=== PATIENT | male | born 1980 | race Hispanic/Latino ===

== ENCOUNTER 2024-11-30 18:19 | Emergency (ER) | payer OTHER ==
--- OUTSIDE RECORDS SUMMARY | 2024-11-30 18:41 | XMS REPORT | Continuity of Care Document ---
Author Name Unknown Address [address] [facility]. [address] [place] [address] [facility] thconnect Address [address] [facility]. [address] [place] [address] Care Team Providers Care Plaster Tender Name Role Phone DEVORA YEH Primary Care Physician Devora Kelley Attending Clinician Unavailable RADIOLOGY Attending Clinician Unavailable Radiology Attending Clinician Unavailable Doctor Unassigned, Heath Attending Clinician U LOI Daniels Attending Clinician Unavailable NOE EDWARDS Admitting Clinician Unavail able Payers Payer Name Policy Type Policy Number Effective Date Expirati on Date Source [facility] DUAL COMP HMO D SNP [id number] 2023 00:00:00 [facility] [place] [id number] [facility] MEDICARE COMPLETE CHOICE [id number] 2019 00:00:00 MEDICARE WILLIAM SALAZAR [id number] [facility] MEDICARE SOLUTIONS C1 [id number] [facility] Problems Condition Name Condition Details Condition Category Status Onset Date Resolution Date Last Treatment Date Treating Clinician Comments Source Kidney stone Kidney stones Problem Active [facility] [id number] Vitamin D deficiency Problem Active [facility] [id number] Abnormal x-ray Problem Active [facility] [id number] Elevated serum globulin level Problem Active [facility] [id number] Abnormal liver function test Problem Active [facility] 93533710 Proteinuri a, unspecifie d type Problem Active [facility] [id number] Tachycardi a Problem Active [facility] 292742807 Fatty liver Problem Active [facility] [id number] Hypertensi on, unspecifie d type Problem Active [facility] 30504801 Aggressive behavior Problem Active [facility] 83568815 Snoring Problem Active [facility] [id number] Morbid obesity Problem Active [facility] 10381654 Elevated serum protein level Problem Active [facility] [id number] Body mass index (BMI) of 40.0-44.9 in adult Problem Active [facility] 151273086 HDL deficiency Problem Active [facility] [id number] Abnormal renal function test Problem Active [facility] 31554963 Skin lesions Problem Active [facility] [id number] Elevated liver enzymes Problem Active [facility] 64258151 Essential hypertensi on Problem Active [facility] [id number] Obesity (BMI 30-39.9) Problem Active [facility] 29217777 Hyperlipid emia, unspecifie d hyperlipid emia type Problem Active [facility] [id number] Low testostero ne level in male Problem Active [facility] 469922636 Increased ammonia level Problem Active [facility] [id number] Mental retardatio n Problem Active [facility] 28223400 Constipati on, unspecifie d constipati on type Problem Active [facility] [id number] History of nephrolith iasis Problem Active [facility] 019391981 Low back pain Problem Active [facility] [id number] Other microscopi c hematuria Problem Active [facility] 14211638 Other chronic pain Problem Active [facility] Allergies, Adverse Reactions, Alerts Allergy Name Allergy Type Status Severity Reaction(s) Onset Date Inactive Date Treating Clinician Comments Source NO KNOWN ALLERGIE S Drug Class Active [facility] Social History Social Habit Start Date Stop Date Quantity Comments Source History of Tobacco Use Never Smoker [facility] Sex Assigned At 1980 00:00:00 1980 00:00:00 [facility] Smoking Status Start Date Stop Date Source Tobacco smoking consumption unknown [facility] Never Smoker [facility] Medications Ordered Medication Name Filled Medication Name Start Date Stop Date Current Medication? Ordering Clinician Indication Dosage Frequency Signature (SIG) Comments Components Source cetirizine 10 mg tablet 2023-10 00:00: 00 Yes 1mg Brian Clayton Flonase Allergy Relief 50 mcg/actuati on nasal spray,suspe nsion 2023-10 00:00: 00 Yes 12mcg/a ctuatio n Brian Clayton Invega Sustenna 117 mg/0.75 mL intramuscul ar syringe 2023-10 00:00: 00 Yes mg/0.75 mL Brian Clayton Wellbutrin XL 300 mg 24 hr tablet, extended release 2023-10 00:00: 00 Yes 1mg Brian Clayton Trileptal 300 mg tablet 2023-10 00:00: 00 Yes 1mg Brian Clayton trazodone 100 mg tablet 2023-10 00:00: 00 Yes 2mg Brian Clayton Invega Sustenna 117 mg/0.75 mL intramuscul ar syringe 2023-10 00:00: 00 Yes mg/0.75 mL Brian Clayton Wellbutrin XL 300 mg 24 hr tablet, extended release 2023-10 00:00: 00 Yes 1mg Brian Clayton Trileptal 300 mg tablet 2023-10 00:00: 00 Yes 1mg Brian Clayton trazodone 100 mg tablet 2023-10 00:00: 00 Yes 2mg Brian Clayton Invega Sustenna 117 mg/0.75 mL intramuscul ar syringe 1 0-10 00:00: 00 Yes mg/0.75 mL Brian Clayton Wellbutrin XL 300 mg 24 hr tablet, extended release 1 0-10 00:00: 00 Yes 1mg Brian Clayton Trileptal 300 mg tablet 2023-10 0-10 00:00: 00 Yes 1mg Brian Clayton trazodone 100 mg tablet 2023-10 0-10 00:00: 00 Yes 2mg Brian Julesega Sustenna 117 mg/0.75 mL intramuscul ar syringe 0 9-13 00:00: 00 Yes mg/0.75 mL Brian Clayton Wellbutrin XL 300 mg 24 hr tablet, extended release 0 9-13 00:00: 00 Yes 1mg Brian Clayton Trileptal 300 mg tablet 0 9-13 00:00: 00 Yes 1mg Brian Clayton trazodone 100 mg tablet 0 9-13 00:00: 00 Yes 2mg Brian Clayton carvedilol 3.125 mg tablet 0 8-28 00:00: 00 Yes 1mg Biran Clayton gemfibrozil 600 mg tablet 0 8-28 00:00: 00 Yes 1mg Brian Clayton enalapril maleate 10 mg tablet 0 8-19 00:00: 00 Yes 1mg Brian Clayton Wellbutrin XL 300 mg 24 hr tablet, extended release 0 8-16 00:00: 00 Yes 1mg Brian Clayton Trileptal 300 mg tablet 0 8-16 00:00: 00 Yes 1mg Brian Clayton trazodone 150 mg tablet 2023-0 8-16 00:00: 00 Yes 1mg Brian Clayton Invega Sustenna 117 mg/0.75 mL intramuscul ar syringe 2023-0 8-16 00:00: 00 Yes 1mg/0.7 5 mL Brian Clayton pravastatin 40 mg tablet 2023-0 7-30 00:00: 00 Yes 1mg Brian Clayton Wellbutrin XL 300 mg 24 hr tablet, extended release 0 7-23 00:00: 00 Yes 1mg Brian Clayton Trileptal 300 mg tablet 2023-0 7- 00:00: 00 Yes 1mg Brian Clayton trazodone 150 mg tablet 2023-0 - 00:00: 00 Yes 1mg Brian Clayton Invega Sustenna 117 mg/0.75 mL intramuscul ar syringe 2023-0 - 00:00: 00 Yes 1mg/0.7 5 mL Brian Clayton Wellbutrin XL 300 mg 24 hr tablet, extended release 0 - 00:00: 00 Yes 1mg Brian Clayton Trileptal 300 mg tablet 2023-0 -17 00:00: 00 Yes 1mg Brian Clayton trazodone 150 mg tablet 2023-0 - 00:00: 00 Yes 1mg Brian Clayton tamsulosin 0.4 mg capsule 0 - 00:00: 00 Yes 1mg Brian Clayton Invega Sustenna 156 mg/mL intramuscul ar syringe 2023-0 -25 00:00: 00 Yes 1mg/mL Brian Clayton pravastatin 40 mg tablet 0 -19 00:00: 00 Yes 1mg Brian Clayton Wellbutrin XL 300 mg 24 hr tablet, extended release 2023-0 -18 00:00: 00 Yes 1mg Brian Clayton Trileptal 300 mg tablet 2023-0 6-18 00:00: 00 Yes 1mg Brian Clayton trazodone 150 mg tablet 2023-0 6-18 00:00: 00 Yes 1mg Brian Clayton Invega Sustenna 234 mg/1.5 mL intramuscul ar syringe 2023-0 6-18 00:00: 00 Yes 1mg/1.5 mL Brian Clayton Wellbutrin XL 300 mg 24 hr tablet, extended release 2023-0 -15 00:00: 00 Yes 1mg Brian Clayton Invega 6 mg tablet,exte nded release 2023-0 5-15 00:00: 00 Yes 1mg Brian Clayton trazodone 150 mg tablet 2023-0 5-15 00:00: 00 Yes 1mg Brian Clayton Trileptal 300 mg tablet 2023-0 5-15 00:00: 00 Yes 1mg Brian Clayton trazodone 150 mg tablet 0 5-11 00:00: 00 Yes 1mg Brian Clayton Invega 6 mg tablet,exte nded release 0 - 00:00: 00 Yes 1mg Brian Clayton Wellbutrin XL 300 mg 24 hr tablet, extended release 0 - 00:00: 00 Yes 1mg Brian Clayton Trileptal 300 mg tablet 0 - 00:00: 00 Yes 1mg Brian Clayton trazodone 150 mg tablet 0 - 00:00: 00 Yes 1mg Brian Clayton PANTOPRAZOL E SODIUM 20 MG TBEC 0 - 00:00: 00 Yes Brian Clayton fenofibrate 160 mg tablet 0 - 00:00: 00 Yes 1mg Brian Clayton enalapril maleate 10 mg tablet 0 - 00:00: 00 Yes 1mg Brian Clayton tamsulosin 0.4 mg capsule 0 - 00:00: 00 Yes 1mg Brian Clayton Invega 6 mg tablet,exte nded release 0 - 00:00: 00 Yes 1mg Brian Clayton Wellbutrin XL 300 mg 24 hr tablet, extended release 0 - 00:00: 00 Yes 1mg Brian Clayton Trileptal 300 mg tablet 0 - 00:00: 00 Yes 1mg Brian Clayton trazodone 150 mg tablet 0 - 00:00: 00 Yes 1mg Brian Clayton OXCARBAZEPI NE 300 MG TABS 0 - 00:00: 00 Yes 300 Brian Clayton pravastatin 40 mg tablet 0 3-09 00:00: 00 Yes 1mg Brian Clayton AMOXICILLIN 500 MG 0 3-05 00:00: 00 Yes Brian Clayton CLARITHROMY LIVAN 500 MG TABS 0 3-05 00:00: 00 Yes Brian Clayton enalapril maleate 10 mg tablet 0 2-29 00:00: 00 Yes mg Brian Clayton fenofibrate 160 mg tablet 00:00: 00 Yes mg Brian Clayton tamsulosin 0.4 mg capsule 00:00: 00 Yes mg Brian Clayton TAKE 1 TABLET BY MOUTH EVERY DAY 30 MINUTES BEFORE BREAKFAST FOR 1ST MEAL OF DAY 12-26 00:00: 00 Yes Brian Clayton BUPROPION HYDROCHLORI DE ER (XL) 300 MG TB24 12-20 00:00: 00 Yes Brian Clayton PALIPERIDON E ER 6 MG TB24 12-20 00:00: 00 Yes Brian Clayton TAKE 1 TABLET TWICE DAILY. 12-20 00:00: 00 03-14 00:00 :00 No 300 Brian Clayton TAKE 1 TABLET AT BEDTIME. 12-20 00:00: 00 03-14 00:00 :00 No 150 Brian Clayton TAKE 1 TABLET DAILY. 12-20 00:00: 00 03-14 00:00 :00 No 300 Brian Clayton TAKE 1 TABLET DAILY. 12-20 00:00: 00 03-14 00:00 :00 No 6 Brian Clayton TAKE 1 TABLET DAILY. 11-18 00:00: 00 03-14 00:00 :00 No 6 Brian Clayton TAKE 1 TABLET AT BEDTIME. 11-18 00:00: 00 03-14 00:00 :00 No 150 Brian Clayton TAKE 1 TABLET DAILY. 11-18 00:00: 00 03-14 00:00 :00 No 300 Brian Clayton TAKE 1 TABLET TWICE DAILY. 11-18 00:00: 00 03-14 00:00 :00 No 300 Brian Clayton TAKE 1 TABLET BY MOUTH DAILY - 00:00: 00 03-14 00:00 :00 No 10 Brianjose m Clayton OXCARBAZEPI NE 300 MG TABS 2022-10 00:00: 00 Yes Brian Clayton TAKE 1 TABLET TWICE DAILY. 2022-10 00:00: 00 03-14 00:00 :00 No 300 Brian F Forrest TAKE 1 TABLET DAILY. 2022-10 00:00: 00 03-14 00:00 :00 No 6 Brian F Forrest TAKE 1 TABLET DAILY. 2022-10 00:00: 00 03-14 00:00 :00 No 300 Brian F Forrest TAKE 1 TABLET AT BEDTIME. 2022-10 00:00: 00 03-14 00:00 :00 No 150 Brian F Forrest PALIPERIDON E ER 6 MG TB24 2022-10 00:00: 00 Yes Brian F Forrest TAKE 1 TABLET DAILY. 2022-10 00:00: 00 03-14 00:00 :00 No 300 Brian F Forrest TAKE 1 TABLET DAILY. 2022-10 00:00: 00 03-14 00:00 :00 No 6 Brian F Forrest TAKE 1 TABLET AT BEDTIME. 2022-10 00:00: 00 03-14 00:00 :00 No 150 Brian F Forrest TAKE 1 TABLET TWICE DAILY. 2022-10 00:00: 00 03-14 00:00 :00 No 300 Brian F Forrest APPLY 1 GM ON THE SKIN THREE TIMES A DAY NEEDED FOR PAIN 2022-10 00:00: 00 03-14 00:00 :00 No 1 Brian F Forrest APPLY SPARINGLY TO THE AFFECTED AREA(S) TWICE DAILY. 2022-10 00:00: 00 03-14 00:00 :00 No 3 Brian F Forrest pravastatin 40 mg tablet 2022-10 00:00: 00 Yes mg Brian F Forrest TAKE 1 TABLET BY MOUTH DAILY 2022-10 00:00: 00 03-14 00:00 :00 No 160 Brian F Forrest TAKE 1 CAPSULE BY MOUTH ONCE DAILY 2022-10 00:00: 00 03-14 00:00 :00 No 4 Brian F Forrest TAKE 1 TABLET BY MOUTH DAILY 2022-10 00:00: 00 03-14 00:00 :00 No 10 Brian F Forrest TAKE 1 TABLET BY MOUTH DAILY 2022-10 00:00: 00 03-14 00:00 :00 No 10 Brian Clayton TAKE 1 TABLET AT BEDTIME. 2022-10 00:00: 00 03-14 00:00 :00 No 150 Brian Clayton TAKE 1 TABLET TWICE DAILY. 2022-10 00:00: 00 03-14 00:00 :00 No 300 Brian Clayton INJECT 0.75 ML Q MONTHLY 2022-10 00:00: 00 03-14 00:00 :00 No [id number] Brian Clayton TAKE 1 TABLET DAILY. 2022-10 00:00: 00 03-14 00:00 :00 No 300 Brian Clayton TAKE 1 TABLET DAILY. 2022-10 00:00: 00 03-14 00:00 :00 No 75 Brian Clayton INJECT 1.5 ML INTRAMUSCUL CATRINA ONCE EVERY 4 WEEKS 2022-10 00:00: 00 03-14 00:00 :00 No [id number] Brian Clayton TAKE 1 TABLET BY MOUTH DAILY 2022-10 00:00: 00 03-14 00:00 :00 No 10 Brian Clayton INJECT 1.5 ML INTRAMUSCUL CATRINA ONCE EVERY 4 WEEKS 2022-10 00:00: 00 Yes [id number] Brian Clayton TAKE 1 TABLET TWICE DAILY. 2022-10 0 00:00: 00 Yes 300 Brian Clayton OXCARBAZEPI NE 300 MG TABS 2022-10 0 00:00: 00 Yes Brian Clayton BUPROPION HYDROCHLORI DE ER (XL) 300 MG TB24 2022-10 0 00:00: 00 Yes Brian Clayton TAKE 1 TABLET AT BEDTIME. 2022-10 0 00:00: 00 03-14 00:00 :00 No 150 Brian Clayton TAKE 1 TABLET DAILY. 2022-10 0 00:00: 00 03-14 00:00 :00 No 300 Brian Clayton IBUPROFEN 600 MG TABS 2022-10 0-06 00:00: 00 Yes Brian Clayton TAKE 1 TABLET TWICE A DAY NEEDED 2023-1 0-06 00:00: 00 03-14 00:00 :00 No 500 Brian Clayton OXCARBAZEPI NE 300 MG TABS 07-27 00:00: 00 Yes Brian Clayton BUPROPION HYDROCHLORI DE ER (XL) 300 MG TB24 07-27 00:00: 00 Yes Brian Clayton TAKE 1 TABLET AT BEDTIME. 07-27 00:00: 00 03-14 00:00 :00 No 150 Brian Clayton TAKE 1 TABLET TWICE DAILY. 07-27 00:00: 00 03-14 00:00 :00 No 300 Brian Clayton TAKE 1 TABLET DAILY. 07-27 00:00: 00 03-14 00:00 :00 No 300 Brian Clayton INJECT 1.5 ML INTRAMUSCUL CATRINA ONCE EVERY 4 WEEKS 07-20 00:00: 00 03-14 00:00 :00 No [id number] Brian Clayton TAKE 1 TABLET BY MOUTH DAILY 07-11 00:00: 00 03-14 00:00 :00 No 10 Brian Clayton TAKE 1 CAPSULE BY MOUTH ONCE DAILY 06-28 00:00: 00 03-14 00:00 :00 No 4 Brian Clayton TAKE 1 TABLET BY MOUTH AT BEDTIME 06-28 00:00: 00 03-14 00:00 :00 No 40 Brian Clayton TAKE 1 TABLET BY MOUTH DAILY 06-22 00:00: 00 03-14 00:00 :00 No 160 Brian Clayton BUPROPION HYDROCHLORI DE ER (XL) 300 MG TB24 06-14 00:00: 00 Yes Brian Clayton TAKE 1 TABLET AT BEDTIME. 06-14 00:00: 00 03-14 00:00 :00 No 100 Brian Clayton TAKE 1 TABLET DAILY. 06-14 00:00: 00 03-14 00:00 :00 No 300 Brian Clayton INJECT 1.5 ML INTRAMUSCUL CATRINA ONCE EVERY 4 WEEKS 06-14 00:00: 00 03-14 00:00 :00 No [id number] Brian Clayton BUPROPION HYDROCHLORI DE ER (XL) 300 MG TB24 05-13 00:00: 00 Yes Brian Clayton TAKE 1 TABLET DAILY. 05-13 00:00: 00 03-14 00:00 :00 No 300 Brian Clayton TAKE 1 TABLET AT BEDTIME. 05-13 00:00: 00 03-14 00:00 :00 No 100 Brianjose m Clayton INJECT 1.5 ML INTRAMUSCUL CATRINA ONCE EVERY 4 WEEKS 05-13 00:00: 00 03-14 00:00 :00 No [id number] Brian Clayton BUPROPION HYDROCHLORI DE ER (XL) 300 MG TB24 04-15 00:00: 00 Yes Brian Clayton TAKE 1 TABLET DAILY. 04-15 00:00: 00 03-14 00:00 :00 No 300 Brian Clayton TAKE 1 TABLET AT BEDTIME. 04-15 00:00: 00 03-14 00:00 :00 No 100 Brian Clayton INJECT 1.5 ML INTRAMUSCUL CATRINA ONCE EVERY 4 WEEKS 04-15 00:00: 00 03-14 00:00 :00 No [id number] Brian Clayton TAKE 1 CAPSULE TWICE DAILY. 03-28 00:00: 00 03-14 00:00 :00 No 300 Brian Clayton TAKE 1 TABLET DAILY. 03-25 00:00: 00 03-14 00:00 :00 No 10 Brian Clayton TAKE 1 CAPSULE BY MOUTH ONCE DAILY 03-25 00:00: 00 03-14 00:00 :00 No 4 Brian Zeina Clayton TAKE 1 TABLET BID NEEDED 03-18 00:00: 00 03-14 00:00 :00 No 600 Brian Zeina Clayton BUPROPION HYDROCHLORI DE ER (XL) 300 MG TB24 03-16 00:00: 00 Yes Brian Zeina Forrest TAKE 1 TABLET DAILY. 03-16 00:00: 00 03-14 00:00 :00 No 300 Brian Clayton TAKE 1 TABLET AT BEDTIME. 03-16 00:00: 00 03-14 00:00 :00 No 100 Brian Clayton INJECT 1.5 ML INTRAMUSCUL CATRINA ONCE EVERY 4 WEEKS 03-16 00:00: 00 03-14 00:00 :00 No [id number] Brian Clayton TAKE 1 TABLET BY MOUTH AT BEDTIME 03-15 00:00: 00 03-14 00:00 :00 No 40 Brian Clayton TAKE 1 TABLET BY MOUTH DAILY 03-15 00:00: 00 03-14 00:00 :00 No 160 Brian Clayton TAKE 1 TABLET DAILY. 03-15 00:00: 00 03-14 00:00 :00 No 10 Brian Clayton BUPROPION HYDROCHLORI DE ER (XL) 300 MG TB24 03-14 00:00: 00 Yes Brian Clayton TAKE 1 TABLET AT BEDTIME. 03-14 00:00: 00 03-14 00:00 :00 No 100 Brian Clayton TAKE 1 TABLET DAILY. 03-14 00:00: 00 03-14 00:00 :00 No 300 Brian Clayton FENOFIBRATE 160 MG TABS 03-14 00:00: 00 03-14 00:00 :00 No Brian Pastrana Forrest BUPROPION HYDROCHLORI DE ER (XL) 300 MG TB24 02-16 00:00: 00 Yes Brian Clayton INJECT 1.5 ML INTRAMUSCUL CATRINA ONCE EVERY 4 WEEKS 02-16 00:00: 00 03-14 00:00 :00 No [id number] Brian Clayton TAKE 1 TABLET DAILY. 02-16 00:00: 00 03-14 00:00 :00 No 300 Brian Clayton TRAZODONE HYDROCHLORI DE 100 MG TABS 02-16 00:00: 00 03-14 00:00 :00 No Brian Pastrana Forrest INJECT 1 ML INTRAMUSCUL AR ONCE A MONTH 3-21 00:00: 00 03-14 00:00 :00 No 156 Brian F Forrest 1 ML INTRAMUSCUL AR ONCE 3-14 00:00: 00 03-14 00:00 :00 No [id number] Brian F Forrest TAKE 1 TABLET DAILY. 3-10 00:00: 00 03-14 00:00 :00 No 10 Brian F Forrest TAKE 1 TABLET EVERY MORNING. 3-10 00:00: 00 03-14 00:00 :00 No 6 Brian F Forrest PALIPERIDON E ER 6 MG TB24 3-10 00:00: 00 03-14 00:00 :00 No Brian F Forrest TAKE 1 TABLET DAILY. 2-21 00:00: 00 03-14 00:00 :00 No 10 Brian F Forrest TAKE 1 CAPSULE BY MOUTH ONCE DAILY 2- 00:00: 00 03-14 00:00 :00 No 4 Brian F Forrest TAKE 1 TABLET DAILY. 2-21 00:00: 00 03-14 00:00 :00 No 160 Brian F Forrest TAKE 1 TABLET BY MOUTH AT BEDTIME 2- 00:00: 00 03-14 00:00 :00 No 40 Brian F Forrest TAKE 1 TABLET AT BEDTIME. 2-17 00:00: 00 03-14 00:00 :00 No 100 Brian F Forrest TAKE 1 TABLET DAILY. 2-17 00:00: 00 03-14 00:00 :00 No 300 Brian F Forrest TAKE 1 TABLET BY MOUTH AT BEDTIME 1-25 00:00: 00 03-14 00:00 :00 No 40 Brian F Forrest TAKE 1 CAPSULE BY MOUTH ONCE DAILY 1-23 00:00: 00 03-14 00:00 :00 No 4 Brian F Forrest TAKE 1 TABLET DAILY. 1-10 00:00: 00 03-14 00:00 :00 No 300 Brian F Forrest LYBALVI 20-10 MG TABS 2021-10 2 00:00: 00 03-14 00:00 :00 No Brian Clayton TAKE 1 TABLET BY MOUTH EVERY DAY 2021-10 2 00:00: 00 03-14 00:00 :00 No Brian F Forrest TOPIRAMATE 50 MG TABS 2021-10 2 00:00: 00 03-14 00:00 :00 No Brian F Forrest PRAVASTATIN SODIUM 10 MG TABS 2021-10 2 00:00: 00 03-14 00:00 :00 No Brian Clayton TAKE 1 AND 1/2 TABLETS BY MOUTH AT BEDTIME 2021-10 2 00:00: 00 03-14 00:00 :00 No Brian Clayton PRAVASTATIN SODIUM 20 MG TABS 2021-10 2 00:00: 00 03-14 00:00 :00 No Brian Clayton USE DIRECTED 2021-10 2 00:00: 00 03-14 00:00 :00 No Brian F Forrest Dose Unknown 2021-10 2 00:00: 00 03-14 00:00 :00 No Brian Clayton TAKE 1 CAPSULE BY MOUTH ONCE DAILY 2021-10 00:00: 00 03-14 00:00 :00 No 4 Brian F Forrest Dose Unknown 2021-10 2 00:00: 00 03-14 00:00 :00 No Brianjose m Clayton Dose Unknown 2021-10 2 00:00: 00 03-14 00:00 :00 No Brian Clayton TAKE 1 TABLET DAILY. 2021-10 2 00:00: 00 03-14 00:00 :00 No 300 Brian Clayton TAKE 1 TABLET AT BEDTIME. 2021-10 2 00:00: 00 03-14 00:00 :00 No 100 Brian Clayton LYBALVI 20-10 MG TABS 2021-10 2 00:00: 00 03-14 00:00 :00 No Brian Clayton TAMSULOSIN HYDROCHLORI DE 0.4 MG CAPS 2021-10 1- 00:00: 00 03-14 00:00 :00 No Brian Clayton LYBALVI 20-10 MG TABS 2021-10 00:00: 00 03-14 00:00 :00 No Brian Clayton TRAZODONE HYDROCHLORI DE 100 MG TABS 2021-10 00:00: 00 03-14 00:00 :00 No Brian Clayton TRAZODONE HYDROCHLORI DE 100 MG TABS 2021-10 1 00:00: 00 03-14 00:00 :00 No Brian Clayton LYBALVI 20-10 MG TABS 2021-10 00:00: 00 03-14 00:00 :00 No Brian Clayton BUPROPION HYDROCHLORI DE ER (XL) 300 MG TB24 2021-10 1 00:00: 00 03-14 00:00 :00 No Brian Clayton ENALAPRIL MALEATE 10 MG TABS 2021-10 0-04 00:00: 00 03-14 00:00 :00 No Brian Clayton TRAZODONE HYDROCHLORI DE 100 MG TABS 2021-10 0-04 00:00: 00 03-14 00:00 :00 No Brian Clayton PRAVASTATIN SODIUM 40 MG TABS 2021-10 0-04 00:00: 00 03-14 00:00 :00 No Brian Clayton BUPROPION HYDROCHLORI DE ER (XL) 300 MG TB24 9-07 00:00: 00 03-14 00:00 :00 No Brian Pastrana Forrest PRAVASTATIN SODIUM 40 MG TABS 0 8-12 00:00: 00 Yes Brian Zeina Forrest PRAVASTATIN SODIUM 40 MG TABS 0 8-12 00:00: 00 No PRAVASTATIN SODIUM 40 MG TABS 2021-0 8-12 00:00: 00 No BUPROPION HYDROCHLORI DE ER (XL) 300 MG TB24 0 8-10 00:00: 00 Yes Brian Zeina Forrest TOPIRAMATE 25 MG TABS 2021-0 8-10 00:00: 00 Yes Brian Zeina Forrest Dose Unknown 2021-0 8-10 00:00: 00 No 300 &lt 2022-0 8-10 00:00: 00 No 25 Dose Unknown 2022-0 8-10 00:00: 00 No 300 &lt 2022-0 8-10 00:00: 00 No 25 Dose Unknown 2022-0 8-09 00:00: 00 Yes 100 Brian Pastrana Forrest Dose Unknown 2022-0 8- 00:00: 00 Yes 160 Brian F Forrest &lt 2022-0 8- 00:00: 00 Yes 10 Brian F Forrest Dose Unknown 2022-0 8- 00:00: 00 No 100 Dose Unknown 2022-0 8- 00:00: 00 No 160 &lt 2022-0 8- 00:00: 00 No 10 Dose Unknown 2022-0 8- 00:00: 00 No 100 Dose Unknown 2022-0 8- 00:00: 00 No 160 &lt 2022-0 8- 00:00: 00 No 10 BUPROPION HYDROCHLORI DE ER (XL) 300 MG TB24 2-0 8- 00:00: 00 05-15 00:00 :00 No Brian F Forrest &lt 2022-0 8- 00:00: 00 Yes 300 Brian F Forrest &lt 2022-0 8- 00:00: 00 Yes 25 Brian F Forrest &lt 2022-0 8- 00:00: 00 Yes 40 Brian F Forrest &lt 2022-0 8- 00:00: 00 No 300 &lt 2022-0 8- 00:00: 00 No 25 &lt 2022-0 8-08 00:00: 00 No 40 &lt 2022-0 8- 00:00: 00 No 300 &lt 2022-0 8- 00:00: 00 No 25 &lt 2022-0 8- 00:00: 00 No 40 Dose Unknown 2022-0 8-05 00:00: 00 Yes 160 Brian F Forrest &lt 2022-0 8-05 00:00: 00 Yes 25 Brian F Forrest Dose Unknown 2022-0 8- 00:00: 00 No 160 &lt 2022-0 8-05 00:00: 00 No 25 Dose Unknown 2022-0 8-05 00:00: 00 No 160 &lt 2022-0 8-05 00:00: 00 No 25 &lt 2022-0 7 00:00: 00 Yes 10 Brian Zeina Forrest Dose Unknown 2022-0 05-28 00:00: 00 Yes 160 Brian Pastrana Forrest &lt 2022-0 7 00:00: 00 Yes 100 Brian Pastrana Forrest &lt 2022-0 05-28 00:00: 00 No 10 Dose Unknown 2022-0 05-28 00:00: 00 No 160 &lt 2022-0 05-28 00:00: 00 No 100 &lt 2022-0 05-28 00:00: 00 No 10 Dose Unknown 2022-0 05-28 00:00: 00 No 160 &lt 2022-0 05-28 00:00: 00 No 100 &lt 2022-0 05-18 00:00: 00 Yes 300 Brian Pastrana Forrest &lt 2022-0 05-18 00:00: 00 No 300 &lt 2022-0 7 00:00: 00 No 300 Wellbutrin XL 300 mg 24 hr tablet, extended release 2-0 05-13 00:00: 00 Yes 1mg Brian Clayton trazodone 100 mg tablet 2-0 05-13 00:00: 00 Yes 1mg Brian Pastrana Forrest &lt 2022-0 05-13 00:00: 00 Yes 50 Brian Clayton Dose Unknown 2-0 05-13 00:00: 00 Yes 10 Brian Clayton Dose Unknown 2-0 05-13 00:00: 00 Yes 160 Brian Pastrana Forrest &lt 2022-0 05-13 00:00: 00 Yes 300 Brian Clayton Wellbutrin XL 300 mg 24 hr tablet, extended release 2-0 05-13 00:00: 00 No 1mg trazodone 100 mg tablet 2-0 05-13 00:00: 00 No 1mg &lt 2022-0 7 00:00: 00 No 50 Dose Unknown 2022-0 05-13 00:00: 00 No 10 &lt 2022-0 714 00:00: 00 No 100 Dose Unknown 2022-0 05-13 00:00: 00 No 160 &lt 2022-0 7 00:00: 00 No 300 Wellbutrin XL 300 mg 24 hr tablet, extended release 2-0 7-14 00:00: 00 No 1mg trazodone 100 mg tablet 2-0 7-14 00:00: 00 No 1mg &lt 2022-0 7-14 00:00: 00 No 50 Dose Unknown 2022-0 7-14 00:00: 00 No 10 &lt 2022-0 7-14 00:00: 00 No 100 Dose Unknown 2-0 7-14 00:00: 00 No 160 &lt 2022-0 7-14 00:00: 00 No 300 &lt 2022-0 7-13 00:00: 00 Yes Brian F Forrest &lt 2022-0 7-13 00:00: 00 Yes 100 Brian F Forrest &lt 2022-0 7-13 00:00: 00 Yes 10 Brian F Forrest &lt 2022-0 7-13 00:00: 00 Yes 300 Brian F Forrest &lt 2022-0 7-13 00:00: 00 Yes 160 Brian F Forrest &lt 2022-0 7-13 00:00: 00 Yes 10 Brian F Forrest &lt 2022-0 7-13 00:00: 00 Yes 25 Brian F Forrest &lt 2022-0 7-13 00:00: 00 No &lt 2022-0 7-13 00:00: 00 No 100 &lt 2022-0 7-13 00:00: 00 No 10 &lt 2022-0 7-13 00:00: 00 No 300 &lt 2022-0 7-13 00:00: 00 No 160 &lt 2022-0 7-13 00:00: 00 No 10 &lt 2022-0 7-13 00:00: 00 No 25 &lt 2022-0 7-13 00:00: 00 No &lt 2022-0 7-13 00:00: 00 No 100 &lt 2022-0 7-13 00:00: 00 No 10 &lt 2022-0 7-13 00:00: 00 No 300 &lt 2022-0 7-13 00:00: 00 No 160 &lt 2022-0 7-13 00:00: 00 No 10 &lt 2022-0 7-13 00:00: 00 No 25 fenofibrate 160 mg tablet 2-0 6-25 00:00: 00 Yes 1mg Brian F Forrest &lt 2022-0 6-25 00:00: 00 Yes Brian Clyaton fenofibrate 160 mg tablet 2021-0 04-24 00:00: 00 No 1mg &lt 2022-0 04-24 00:00: 00 No fenofibrate 160 mg tablet 2021-0 04-24 00:00: 00 No 1mg &lt 2022-0 04-24 00:00: 00 No enalapril maleate 10 mg tablet 2-0 04-21 00:00: 00 Yes 1mg Brian Clayton pravastatin 40 mg tablet 2021-0 04-21 00:00: 00 Yes 1mg Brian Clayton pravastatin 10 mg tablet 2021-0 04-21 00:00: 00 Yes 1mg Brian Clayton tamsulosin 0.4 mg capsule 2021-0 04-21 00:00: 00 Yes 1mg Brian Clayton &lt 2022-0 04-21 00:00: 00 Yes rBian Clayton enalapril maleate 10 mg tablet 2021-0 04-21 00:00: 00 No 1mg Dose Unknown 2021-0 04-21 00:00: 00 No pravastatin 10 mg tablet 2021-0 04-21 00:00: 00 No 1mg tamsulosin 0.4 mg capsule 2021-0 04-21 00:00: 00 No 1mg &lt 2022-0 04-21 00:00: 00 No enalapril maleate 10 mg tablet 0 04-21 00:00: 00 No 1mg Dose Unknown 2021-0 04-21 00:00: 00 No pravastatin 10 mg tablet 2-0 04-21 00:00: 00 No 1mg tamsulosin 0.4 mg capsule 0 04-21 00:00: 00 No 1mg &lt 2022-0 04-21 00:00: 00 No pravastatin 40 mg tablet 2-0 04-20 00:00: 00 Yes 1mg Brian Clayton &lt 2022-0 04-20 00:00: 00 Yes Brian Clayton &lt 2022-0 04-20 00:00: 00 Yes Brian Clayton &lt 2022-0 04-20 00:00: 00 Yes Brian Clayton Dose Unknown 2-0 04-20 00:00: 00 No &lt 2022-0 6-21 00:00: 00 No &lt 2022-0 6-21 00:00: 00 No &lt 2022-0 6-21 00:00: 00 No Dose Unknown 2-0 6-21 00:00: 00 No &lt 2022-0 6-21 00:00: 00 No &lt 2022-0 6-21 00:00: 00 No &lt 2022-0 6-21 00:00: 00 No Wellbutrin XL 300 mg 24 hr tablet, extended release 2-0 6-16 00:00: 00 Yes 1mg Brian Clayton trazodone 100 mg tablet 2-0 6-16 00:00: 00 Yes 1mg Brian Clayton Wellbutrin XL 300 mg 24 hr tablet, extended release 2-0 -16 00:00: 00 No 1mg trazodone 100 mg tablet 2-0 6-16 00:00: 00 No 1mg Wellbutrin XL 300 mg 24 hr tablet, extended release 2-0 -16 00:00: 00 No 1mg trazodone 100 mg tablet 2-0 6-16 00:00: 00 No 1mg enalapril maleate 10 mg tablet 2-0 6-05 00:00: 00 Yes 1mg Brian Clayton &lt 2022-0 6-05 00:00: 00 Yes Brian Clayton enalapril maleate 10 mg tablet 2021-0 6-05 00:00: 00 No 1mg &lt 2022-0 6-05 00:00: 00 No enalapril maleate 10 mg tablet 2-0 6-05 00:00: 00 No 1mg &lt 2022-0 6-05 00:00: 00 No enalapril maleate 10 mg tablet 2-0 6- 00:00: 00 Yes 1mg Brian Clayton enalapril maleate 10 mg tablet 2-0 6- 00:00: 00 No 1mg enalapril maleate 10 mg tablet 2-0 6- 00:00: 00 No 1mg Wellbutrin XL 300 mg 24 hr tablet, extended release 2-0 5-20 00:00: 00 Yes 1mg Brian Clayton Topamax 25 mg tablet 2022-0 5-20 00:00: 00 Yes 1mg Brian Clayton trazodone 100 mg tablet 0 5-20 00:00: 00 Yes 1mg Brian Clayton Wellbutrin XL 300 mg 24 hr tablet, extended release 0 -20 00:00: 00 No 1mg Topamax 25 mg tablet 0 5-20 00:00: 00 No 1mg trazodone 100 mg tablet 0 5-20 00:00: 00 No 1mg Wellbutrin XL 300 mg 24 hr tablet, extended release 0 -20 00:00: 00 No 1mg Topamax 25 mg tablet 0 5-20 00:00: 00 No 1mg trazodone 100 mg tablet 0 5-20 00:00: 00 No 1mg Wellbutrin XL 300 mg 24 hr tablet, extended release 0 4-05 00:00: 00 Yes 1mg Brian Clayton Topamax 25 mg tablet 2021-0 4-05 00:00: 00 Yes 1mg Brian Clayton trazodone 100 mg tablet 0 4-05 00:00: 00 Yes 1mg Brian Clayton Wellbutrin XL 300 mg 24 hr tablet, extended release 0 4-05 00:00: 00 No 1mg Topamax 25 mg tablet 0 4-05 00:00: 00 No 1mg trazodone 100 mg tablet 0 4-05 00:00: 00 No 1mg Wellbutrin XL 300 mg 24 hr tablet, extended release 2021-0 4-05 00:00: 00 No 1mg Topamax 25 mg tablet 0 4-05 00:00: 00 No 1mg trazodone 100 mg tablet 2021-0 4-05 00:00: 00 No 1mg BUPROPION HYDROCHLORI DE ER (XL) 300 MG TB24 2021-0 4-05 00:00: 00 05-15 00:00 :00 No Brian Clayton Topamax 25 mg tablet 0 3-11 00:00: 00 Yes 1mg Brian Clayton Dose Unknown 0 3-11 00:00: 00 Yes Brian Clayton Dose Unknown 0 3-11 00:00: 00 Yes Brian Clayton Dose Unknown 2022-0 3-11 00:00: 00 Yes Brian Clayton Topamax 25 mg tablet 2-0 3-11 00:00: 00 No 1mg Dose Unknown 2022-0 3-11 00:00: 00 No Dose Unknown 2022-0 3-11 00:00: 00 No Dose Unknown 2-0 3-11 00:00: 00 No Topamax 25 mg tablet 2-0 3-11 00:00: 00 No 1mg Dose Unknown 2-0 3-11 00:00: 00 No Dose Unknown 2022-0 3-11 00:00: 00 No Dose Unknown 2-0 3-11 00:00: 00 No TOPIRAMATE 25 MG TABS 2-0 3-11 00:00: 00 05-15 00:00 :00 No Brian Clayton enalapril maleate 10 mg tablet 2-0 2-21 00:00: 00 Yes 1mg Brian Clayton enalapril maleate 10 mg tablet 2-0 2-21 00:00: 00 No 1mg enalapril maleate 10 mg tablet 2-0 2-21 00:00: 00 No 1mg Dose Unknown 2-0 2-17 00:00: 00 Yes Brian Clayton Topamax 25 mg tablet 2-0 2-17 00:00: 00 Yes 1mg Brian Clayton Dose Unknown 2-0 2-17 00:00: 00 Yes Brian Clayton Dose Unknown 2-0 2-17 00:00: 00 No Topamax 25 mg tablet 2-0 2-17 00:00: 00 No 1mg Dose Unknown 2-0 2-17 00:00: 00 No Dose Unknown 2-0 2-17 00:00: 00 No Topamax 25 mg tablet 2022-0 2-17 00:00: 00 No 1mg Dose Unknown 2022-0 2-17 00:00: 00 No TOPIRAMATE 25 MG TABS 2-0 2-17 00:00: 00 05-15 00:00 :00 No Brian Clayton pravastatin 40 mg tablet 2-0 2-16 00:00: 00 Yes 1mg Brian Clayton Dose Unknown 2022-0 2-16 00:00: 00 No Dose Unknown 0 2-16 00:00: 00 No Dose Unknown 0 2-16 00:00: 00 03-14 00:00 :00 No 40 Brian Zeina Clayton Dose Unknown 2-16 00:00: 00 03-14 00:00 :00 No 40 Brian Zeina Clayton pravastatin 20 mg tablet 0 2- 00:00: 00 Yes 1mg Brian Clayton Wellbutrin XL 300 mg 24 hr tablet, extended release 0 2- 00:00: 00 Yes 1mg Brian Claytno Topamax 50 mg tablet 0 2- 00:00: 00 Yes 1mg Brian Clayton trazodone 100 mg tablet 0 2- 00:00: 00 Yes 1mg Brian Clayton Dose Unknown 2- 00:00: 00 No Wellbutrin XL 300 mg 24 hr tablet, extended release 0 2- 00:00: 00 No 1mg Topamax 50 mg tablet 0 2- 00:00: 00 No 1mg trazodone 100 mg tablet 0 2- 00:00: 00 No 1mg Dose Unknown 2- 00:00: 00 No Wellbutrin XL 300 mg 24 hr tablet, extended release 2- 00:00: 00 No 1mg Topamax 50 mg tablet 0 2- 00:00: 00 No 1mg trazodone 100 mg tablet 0 2- 00:00: 00 No 1mg pravastatin 20 mg tablet 0 1-14 00:00: 00 Yes 1mg Brian Clayton Dose Unknown 1-14 00:00: 00 No Dose Unknown 0 1-14 00:00: 00 No Wellbutrin XL 300 mg 24 hr tablet, extended release 0 1-04 00:00: 00 Yes 1mg Brian Clayton Topamax 50 mg tablet 0 1-04 00:00: 00 Yes 1mg Brian Clayton trazodone 100 mg tablet 2021-0 1-04 00:00: 00 Yes 1mg Brian Clayton Wellbutrin XL 300 mg 24 hr tablet, extended release - 00:00: 00 No 1mg Topamax 50 mg tablet - 00:00: 00 No 1mg trazodone 100 mg tablet - 00:00: 00 No 1mg Wellbutrin XL 300 mg 24 hr tablet, extended release - 00:00: 00 No 1mg Topamax 50 mg tablet - 00:00: 00 No 1mg trazodone 100 mg tablet 11-03 00:00: 00 No 1mg Wellbutrin XL 300 mg 24 hr tablet, extended release 2020-10 2 00:00: 00 Yes 1mg Brian Pastrana Forrest Topamax 50 mg tablet 2020-10 00:00: 00 Yes 1mg Brian Clayton Zyprexa 20 mg tablet 2020-10 00:00: 00 Yes 15mg Brian Clayton trazodone 100 mg tablet 2020-10 00:00: 00 Yes 1mg Brian Clayton Wellbutrin XL 300 mg 24 hr tablet, extended release 2020-10 00:00: 00 No 1mg Topamax 50 mg tablet 2020-10 00:00: 00 No 1mg Zyprexa 20 mg tablet 2020-10 00:00: 00 No 15mg trazodone 100 mg tablet 2020-10 00:00: 00 No 1mg Wellbutrin XL 300 mg 24 hr tablet, extended release 2020-10 00:00: 00 No 1mg Topamax 50 mg tablet 2020-10 00:00: 00 No 1mg Zyprexa 20 mg tablet 2020-10 2 00:00: 00 No 15mg trazodone 100 mg tablet 2020-10 00:00: 00 No 1mg pravastatin 20 mg tablet 2020-10- 00:00: 00 Yes 1mg Brian Clayton Dose Unknown 2020-10- 00:00: 00 No Dose Unknown 2020-10 00:00: 00 No Wellbutrin XL 300 mg 24 hr tablet, extended release 2020-10 00:00: 00 Yes 1mg Brian Clayton Topamax 50 mg tablet 2020-10 00:00: 00 Yes 1mg Brian Clayton trazodone 100 mg tablet 2020-10 00:00: 00 Yes 1mg Brian Clayton Zyprexa 20 mg tablet 2020-10 00:00: 00 Yes 15mg Brian Clayton Wellbutrin XL 300 mg 24 hr tablet, extended release 2020-10 00:00: 00 No 1mg Topamax 50 mg tablet 2020-10 00:00: 00 No 1mg trazodone 100 mg tablet 2020-10 00:00: 00 No 1mg Zyprexa 20 mg tablet 2020-10 00:00: 00 No 15mg Wellbutrin XL 300 mg 24 hr tablet, extended release 2020-10 00:00: 00 No 1mg Topamax 50 mg tablet 2020-10 00:00: 00 No 1mg trazodone 100 mg tablet 2020-10 00:00: 00 No 1mg Zyprexa 20 mg tablet 2020-10 00:00: 00 No 15mg pravastatin 10 mg tablet 2020-10 00:00: 00 Yes 1mg Brian Clayton Dose Unknown 2020-10 00:00: 00 No Dose Unknown 2020-10 00:00: 00 No Dose Unknown 2020-10 00:00: 00 Yes Brian Clayton Dose Unknown 2020-10 00:00: 00 No Dose Unknown 2020-10 00:00: 00 No Wellbutrin XL 300 mg 24 hr tablet, extended release 2020-10 00:00: 00 Yes 1mg Brian Clayton Topamax 50 mg tablet 2020-10 0 00:00: 00 Yes 1mg Brian Clayton Zyprexa 20 mg tablet 2020-10 0- 00:00: 00 Yes 15mg Brian Clayton trazodone 100 mg tablet 2020-10 0 00:00: 00 Yes 1mg Brian Clayton Wellbutrin XL 300 mg 24 hr tablet, extended release 2020-10 0 00:00: 00 No 1mg Topamax 50 mg tablet 2020-10 0-12 00:00: 00 No 1mg Zyprexa 20 mg tablet 2020-10 0- 00:00: 00 No 15mg trazodone 100 mg tablet 2020-10 0- 00:00: 00 No 1mg Wellbutrin XL 300 mg 24 hr tablet, extended release 2020-10 0- 00:00: 00 No 1mg Topamax 50 mg tablet 2020-10 0 00:00: 00 No 1mg Zyprexa 20 mg tablet 2020-10 0 00:00: 00 No 15mg trazodone 100 mg tablet 2020-10 0 00:00: 00 No 1mg pravastatin 10 mg tablet 07-27 00:00: 00 Yes 1mg Brian Clayton pravastatin 10 mg tablet 07-27 00:00: 00 No 1mg pravastatin 10 mg tablet 07-27 00:00: 00 No 1mg Wellbutrin XL 300 mg 24 hr tablet, extended release 06-25 00:00: 00 Yes 1mg Brian Clayton Topamax 50 mg tablet 8 00:00: 00 Yes 1mg Brian Clayton Zyprexa 20 mg tablet 06-25 00:00: 00 Yes 15mg Brian Clayton trazodone 100 mg tablet 8 00:00: 00 Yes 1mg Brian Clayton benzonatate 100 mg capsule 06-25 00:00: 00 Yes 1mg Brian Clayton Wellbutrin XL 300 mg 24 hr tablet, extended release 06-25 00:00: 00 No 1mg Topamax 50 mg tablet 8 00:00: 00 No 1mg Zyprexa 20 mg tablet 06-25 00:00: 00 No 15mg trazodone 100 mg tablet 8 00:00: 00 No 1mg benzonatate 100 mg capsule 8 00:00: 00 No 1mg Wellbutrin XL 300 mg 24 hr tablet, extended release 06-25 00:00: 00 No 1mg Topamax 50 mg tablet 0 8- 00:00: 00 No 1mg Zyprexa 20 mg tablet 0 8 00:00: 00 No 15mg trazodone 100 mg tablet 0 8 00:00: 00 No 1mg benzonatate 100 mg capsule 0 8- 00:00: 00 No 1mg benzonatate 100 mg capsule 0 8- 00:00: 00 Yes 1mg Brian Clayton benzonatate 100 mg capsule 0 8 00:00: 00 No 1mg benzonatate 100 mg capsule 0 8 00:00: 00 No 1mg Wellbutrin XL 300 mg 24 hr tablet, extended release 05-26 00:00: 00 Yes 1mg Brian Clayton Topamax 50 mg tablet 05-26 00:00: 00 Yes 1mg Brian Clayton trazodone 100 mg tablet 05-26 00:00: 00 Yes 1mg Brian Clayton Zyprexa 20 mg tablet 05-26 00:00: 00 Yes 15mg Brian Clayton Wellbutrin XL 300 mg 24 hr tablet, extended release 05-26 00:00: 00 No 1mg Topamax 50 mg tablet 05-26 00:00: 00 No 1mg trazodone 100 mg tablet 05-26 00:00: 00 No 1mg Zyprexa 20 mg tablet 05-26 00:00: 00 No 15mg Wellbutrin XL 300 mg 24 hr tablet, extended release 05-26 00:00: 00 No 1mg Topamax 50 mg tablet 05-26 00:00: 00 No 1mg trazodone 100 mg tablet 05-26 00:00: 00 No 1mg Zyprexa 20 mg tablet 05-26 00:00: 00 No 15mg Wellbutrin XL 300 mg 24 hr tablet, extended release 04-28 00:00: 00 Yes 1mg Brian Clayton Topamax 50 mg tablet 04-28 00:00: 00 Yes 1mg Brian F Forrest Zyprexa 20 mg tablet 0 04-28 00:00: 00 Yes 15mg Brian Clayton trazodone 100 mg tablet 04-28 00:00: 00 Yes 1mg Brian Clayton Wellbutrin XL 300 mg 24 hr tablet, extended release 04-28 00:00: 00 No 1mg Topamax 50 mg tablet 0 04-28 00:00: 00 No 1mg Zyprexa 20 mg tablet 0 04-28 00:00: 00 No 15mg trazodone 100 mg tablet 0 04-28 00:00: 00 No 1mg Wellbutrin XL 300 mg 24 hr tablet, extended release 04-28 00:00: 00 No 1mg Topamax 50 mg tablet 04-28 00:00: 00 No 1mg Zyprexa 20 mg tablet 0 04-28 00:00: 00 No 15mg trazodone 100 mg tablet 04-28 00:00: 00 No 1mg Zyprexa 20 mg tablet 04-24 00:00: 00 Yes 15mg Brian Clayton Zyprexa 20 mg tablet 04-24 00:00: 00 No 15mg Zyprexa 20 mg tablet 0 04-24 00:00: 00 No 15mg enalapril maleate 10 mg tablet 0 04-11 00:00: 00 Yes 1mg Brian Clayton pravastatin 10 mg tablet 0 04-11 00:00: 00 Yes 1mg Brian Clayton tamsulosin 0.4 mg capsule 0 04-11 00:00: 00 Yes 1mg Brian Clayton enalapril maleate 10 mg tablet 0 04-11 00:00: 00 No 1mg pravastatin 10 mg tablet 0 04-11 00:00: 00 No 1mg tamsulosin 0.4 mg capsule 0 04-11 00:00: 00 No 1mg enalapril maleate 10 mg tablet 2020-0 04-11 00:00: 00 No 1mg pravastatin 10 mg tablet 0 6-12 00:00: 00 No 1mg tamsulosin 0.4 mg capsule 0 04-11 00:00: 00 No 1mg Wellbutrin XL 300 mg 24 hr tablet, extended release 03-24 00:00: 00 Yes 1mg Brian Clayton Topamax 50 mg tablet 0 03-24 00:00: 00 Yes 1mg Brian Clayton trazodone 100 mg tablet 0 03-24 00:00: 00 Yes 1mg Brian Clayton Zyprexa 20 mg tablet 03-24 00:00: 00 Yes 15mg Brian Clayton Wellbutrin XL 300 mg 24 hr tablet, extended release 03-24 00:00: 00 No 1mg Topamax 50 mg tablet 03-24 00:00: 00 No 1mg trazodone 100 mg tablet 0 03-24 00:00: 00 No 1mg Zyprexa 20 mg tablet 03-24 00:00: 00 No 15mg Wellbutrin XL 300 mg 24 hr tablet, extended release 03-24 00:00: 00 No 1mg Topamax 50 mg tablet 03-24 00:00: 00 No 1mg trazodone 100 mg tablet 03-24 00:00: 00 No 1mg Zyprexa 20 mg tablet 03-24 00:00: 00 No 15mg pravastatin 10 mg tablet 0 03-15 00:00: 00 Yes 1mg Brian Clayton Dose Unknown 03-15 00:00: 00 No Dose Unknown 0 03-15 00:00: 00 No levofloxaci n 500 mg tablet 0 -05 00:00: 00 Yes 1mg Brian Clayton tamsulosin 0.4 mg capsule 0 -05 00:00: 00 Yes 1mg Brian Clayton levofloxaci n 500 mg tablet 0 -05 00:00: 00 No 1mg tamsulosin 0.4 mg capsule 2020-0 5-05 00:00: 00 No 1mg levofloxaci n 500 mg tablet 0 -05 00:00: 00 No 1mg tamsulosin 0.4 mg capsule 0 5-05 00:00: 00 No 1mg trazodone 100 mg tablet 0 4-15 00:00: 00 Yes 1mg Brian Clayton trazodone 100 mg tablet 0 4-15 00:00: 00 No 1mg trazodone 100 mg tablet 0 4-15 00:00: 00 No 1mg enalapril maleate 10 mg tablet 0 3-30 00:00: 00 Yes 1mg Brian Clayton enalapril 10 mg-hydrochl orothiazide 25 mg tablet 0 3-30 00:00: 00 Yes 1mg Brian Clayton enalapril maleate 10 mg tablet 0 3-30 00:00: 00 No 1mg enalapril 10 mg-hydrochl orothiazide 25 mg tablet 0 3-30 00:00: 00 No 1mg enalapril maleate 10 mg tablet 0 3-30 00:00: 00 No 1mg enalapril 10 mg-hydrochl orothiazide 25 mg tablet 0 3-30 00:00: 00 No 1mg trazodone 100 mg tablet 0 3-25 00:00: 00 Yes 1mg Brian Clayton trazodone 100 mg tablet 0 3-25 00:00: 00 No 1mg trazodone 100 mg tablet 0 3-25 00:00: 00 No 1mg Wellbutrin XL 300 mg 24 hr tablet, extended release 0 2-11 00:00: 00 Yes 1mg Brian Clayton Topamax 50 mg tablet 0 2-11 00:00: 00 Yes 1mg Brian Clayton Zyprexa 20 mg tablet 0 2-11 00:00: 00 Yes 15mg Brian Clayton trazodone 100 mg tablet 0 2-11 00:00: 00 Yes 1mg Brian Clayton Wellbutrin XL 300 mg 24 hr tablet, extended release 0 2-11 00:00: 00 No 1mg Topamax 50 mg tablet 2020-0 2-11 00:00: 00 No 1mg Zyprexa 20 mg tablet 0 2-11 00:00: 00 No 15mg trazodone 100 mg tablet 0 2-11 00:00: 00 No 1mg Wellbutrin XL 300 mg 24 hr tablet, extended release 0 2-11 00:00: 00 No 1mg Topamax 50 mg tablet 0 2-11 00:00: 00 No 1mg Zyprexa 20 mg tablet 0 2-11 00:00: 00 No 15mg trazodone 100 mg tablet 0 2-11 00:00: 00 No 1mg Wellbutrin XL 300 mg 24 hr tablet, extended release 0 1-14 00:00: 00 Yes 1mg Brian Clayton Topamax 50 mg tablet 0 1-14 00:00: 00 Yes 1mg Brian Clayton Zyprexa 20 mg tablet 0 1-14 00:00: 00 Yes 15mg Brian Clayton trazodone 100 mg tablet 0 1-14 00:00: 00 Yes 1mg Brian Clayton Wellbutrin XL 300 mg 24 hr tablet, extended release 0 1-14 00:00: 00 No 1mg Topamax 50 mg tablet 0 1-14 00:00: 00 No 1mg Zyprexa 20 mg tablet 0 1-14 00:00: 00 No 15mg trazodone 100 mg tablet 0 1-14 00:00: 00 No 1mg Wellbutrin XL 300 mg 24 hr tablet, extended release 0 1-14 00:00: 00 No 1mg Topamax 50 mg tablet 0 1-14 00:00: 00 No 1mg Zyprexa 20 mg tablet 0 1-14 00:00: 00 No 15mg trazodone 100 mg tablet 0 1-14 00:00: 00 No 1mg Wellbutrin XL 300 mg 24 hr tablet, extended release 2019-10 2-17 00:00: 00 Yes 1mg rBian Clayton Topamax 50 mg tablet 2019-10 2-17 00:00: 00 Yes 1mg Brian Clayton Zyprexa 20 mg tablet 2019-10 2-17 00:00: 00 Yes 15mg Brian Clayton trazodone 100 mg tablet 2019-10 00:00: 00 Yes 1mg Brian Clayton Wellbutrin XL 300 mg 24 hr tablet, extended release 2019-10 00:00: 00 No 1mg Topamax 50 mg tablet 2019-10 00:00: 00 No 1mg Zyprexa 20 mg tablet 2019-10 00:00: 00 No 15mg trazodone 100 mg tablet 2019-10 00:00: 00 No 1mg Wellbutrin XL 300 mg 24 hr tablet, extended release 2019-10 00:00: 00 No 1mg Topamax 50 mg tablet 2019-10 00:00: 00 No 1mg Zyprexa 20 mg tablet 2019-10 00:00: 00 No 15mg trazodone 100 mg tablet 2019-10 00:00: 00 No 1mg Wellbutrin XL 300 mg 24 hr tablet, extended release 2019-10 00:00: 00 Yes 1mg Brian Clayton Zyprexa 20 mg tablet 2019-10 00:00: 00 Yes 15mg Brian Clayton trazodone 100 mg tablet 2019-10 00:00: 00 Yes 1mg Brian Clayton Wellbutrin XL 300 mg 24 hr tablet, extended release 2019-10 00:00: 00 No 1mg Zyprexa 20 mg tablet 2019-10 00:00: 00 No 15mg trazodone 100 mg tablet 2019-10 00:00: 00 No 1mg Wellbutrin XL 300 mg 24 hr tablet, extended release 2019-10 00:00: 00 No 1mg Zyprexa 20 mg tablet 2019-10 00:00: 00 No 15mg trazodone 100 mg tablet 2019-10 00:00: 00 No 1mg Wellbutrin XL 300 mg 24 hr tablet, extended release 2019-10 00:00: 00 Yes 1mg Brian Clayton Topamax 50 mg tablet 2019-10 00:00: 00 Yes 1mg Brian Clayton Zyprexa 20 mg tablet 2019-10 00:00: 00 Yes 15mg Brian Clayton trazodone 100 mg tablet 2019-10 00:00: 00 Yes 1mg Brian Clayton Wellbutrin XL 300 mg 24 hr tablet, extended release 2019-10 0-22 00:00: 00 No 1mg Topamax 50 mg tablet 2019-10 0-22 00:00: 00 No 1mg Zyprexa 20 mg tablet 2019-10 0-22 00:00: 00 No 15mg trazodone 100 mg tablet 2019-10 0- 00:00: 00 No 1mg Wellbutrin XL 300 mg 24 hr tablet, extended release 2019-10 0- 00:00: 00 No 1mg Topamax 50 mg tablet 2019-10 0 00:00: 00 No 1mg Zyprexa 20 mg tablet 2019-10 0- 00:00: 00 No 15mg trazodone 100 mg tablet 2019-10 0- 00:00: 00 No 1mg pravastatin 10 mg tablet 2019-10 0-15 00:00: 00 Yes mg Brian Clayton Dose Unknown 2019-10 0-15 00:00: 00 No Dose Unknown 2019-10 015 00:00: 00 No Topamax 50 mg tablet 2019-10 0-06 00:00: 00 Yes 1mg Brian Clayton Topamax 50 mg tablet 2019-10 0-06 00:00: 00 No 1mg Topamax 50 mg tablet 2019-10 0-06 00:00: 00 No 1mg Wellbutrin XL 300 mg 24 hr tablet, extended release 24 00:00: 00 Yes 1mg Brian Clayton trazodone 100 mg tablet 0 924 00:00: 00 Yes 1mg Brian Clayton Zyprexa 20 mg tablet 0 24 00:00: 00 Yes 15mg Brian Clayton Wellbutrin XL 300 mg 24 hr tablet, extended release 0 24 00:00: 00 No 1mg trazodone 100 mg tablet -24 00:00: 00 No 1mg Zyprexa 20 mg tablet 24 00:00: 00 No 15mg Wellbutrin XL 300 mg 24 hr tablet, extended release 0 24 00:00: 00 No 1mg trazodone 100 mg tablet 24 00:00: 00 No 1mg Zyprexa 20 mg tablet 0 924 00:00: 00 No 15mg Wellbutrin XL 300 mg 24 hr tablet, extended release 0 8- 00:00: 00 Yes 1mg Brian Clayton trazodone 100 mg tablet 0 8- 00:00: 00 Yes 1mg Brian Clayton Zyprexa 20 mg tablet 0 8 00:00: 00 Yes 15mg Brian Clayton Topamax 50 mg tablet 0 8 00:00: 00 Yes 1mg Brian Clayton Wellbutrin XL 300 mg 24 hr tablet, extended release 0 06-25 00:00: 00 No 1mg trazodone 100 mg tablet 0 06-25 00:00: 00 No 1mg Zyprexa 20 mg tablet 0 06-25 00:00: 00 No 15mg Topamax 50 mg tablet 0 06-25 00:00: 00 No 1mg Wellbutrin XL 300 mg 24 hr tablet, extended release 0 06-25 00:00: 00 No 1mg trazodone 100 mg tablet 0 06-25 00:00: 00 No 1mg Zyprexa 20 mg tablet 0 06-25 00:00: 00 No 15mg Topamax 50 mg tablet 0 06-25 00:00: 00 No 1mg Wellbutrin XL 300 mg 24 hr tablet, extended release 0 05-29 00:00: 00 Yes 1mg Brian Clayton trazodone 100 mg tablet 0 7 00:00: 00 Yes 1mg Brian Clayton Zyprexa 20 mg tablet 2019-0 7 00:00: 00 Yes 15mg Brian Clayton Topamax 50 mg tablet 0 7 00:00: 00 Yes 1mg Brian Clayton Wellbutrin XL 300 mg 24 hr tablet, extended release 0 7 00:00: 00 No 1mg trazodone 100 mg tablet 2019-0 7 00:00: 00 No 1mg Zyprexa 20 mg tablet 2019-0 7 00:00: 00 No 15mg Topamax 50 mg tablet 2019-0 730 00:00: 00 No 1mg Wellbutrin XL 300 mg 24 hr tablet, extended release 05-29 00:00: 00 No 1mg trazodone 100 mg tablet 05-29 00:00: 00 No 1mg Zyprexa 20 mg tablet 05-29 00:00: 00 No 15mg Topamax 50 mg tablet 05-29 00:00: 00 No 1mg Wellbutrin XL 300 mg 24 hr tablet, extended release 05-01 00:00: 00 Yes 1mg Brian Clayton trazodone 100 mg tablet 05-01 00:00: 00 Yes 12mg Brian Clayton Zyprexa 20 mg tablet 05-01 00:00: 00 Yes 15mg Brian Clayton Topamax 50 mg tablet 05-01 00:00: 00 Yes 1mg Brian Clayton Wellbutrin XL 300 mg 24 hr tablet, extended release 05-01 00:00: 00 No 1mg trazodone 100 mg tablet 05-01 00:00: 00 No 12mg Zyprexa 20 mg tablet 05-01 00:00: 00 No 15mg Topamax 50 mg tablet 05-01 00:00: 00 No 1mg Wellbutrin XL 300 mg 24 hr tablet, extended release 05-01 00:00: 00 No 1mg trazodone 100 mg tablet 05-01 00:00: 00 No 12mg Zyprexa 20 mg tablet 05-01 00:00: 00 No 15mg Topamax 50 mg tablet 05-01 00:00: 00 No 1mg trazodone 100 mg tablet 04-22 00:00: 00 Yes 12mg Brian Clayton trazodone 100 mg tablet 04-22 00:00: 00 No 12mg trazodone 100 mg tablet 04-22 00:00: 00 No 12mg Wellbutrin XL 300 mg 24 hr tablet, extended release 04-03 00:00: 00 Yes 1mg Brian Clayton Zyprexa 20 mg tablet 04-03 00:00: 00 Yes 15mg Brian Clayton Topamax 50 mg tablet 04-03 00:00: 00 Yes 1mg Brian Clayton doxepin 50 mg capsule 04-03 00:00: 00 Yes 2mg Brian Clayton Wellbutrin XL 300 mg 24 hr tablet, extended release 0 04-03 00:00: 00 No 1mg Zyprexa 20 mg tablet 04-03 00:00: 00 No 15mg Topamax 50 mg tablet 04-03 00:00: 00 No 1mg doxepin 50 mg capsule 04-03 00:00: 00 No 2mg Wellbutrin XL 300 mg 24 hr tablet, extended release 0 04-03 00:00: 00 No 1mg Zyprexa 20 mg tablet 04-03 00:00: 00 No 15mg Topamax 50 mg tablet 04-03 00:00: 00 No 1mg doxepin 50 mg capsule 04-03 00:00: 00 No 2mg Wellbutrin XL 300 mg 24 hr tablet, extended release 0 02-27 00:00: 00 Yes 1mg Brian Clayton Topamax 50 mg tablet 0 02-27 00:00: 00 Yes 1mg Brian Clayton Zyprexa 20 mg tablet 02-27 00:00: 00 Yes 15mg Brian Clayton doxepin 50 mg capsule 0 02-27 00:00: 00 Yes 2mg Brian Clayton Wellbutrin XL 300 mg 24 hr tablet, extended release 0 02-27 00:00: 00 No 1mg Topamax 50 mg tablet 0 4 00:00: 00 No 1mg Zyprexa 20 mg tablet 0 02-27 00:00: 00 No 15mg doxepin 50 mg capsule 0 02-27 00:00: 00 No 2mg Wellbutrin XL 300 mg 24 hr tablet, extended release 0 430 00:00: 00 No 1mg Topamax 50 mg tablet 0 30 00:00: 00 No 1mg Zyprexa 20 mg tablet 0 430 00:00: 00 No 15mg doxepin 50 mg capsule 0 4-30 00:00: 00 No 2mg Wellbutrin XL 300 mg 24 hr tablet, extended release 0 3-31 00:00: 00 Yes 1mg Brian F Forrest Zyprexa 20 mg tablet 0 3- 00:00: 00 Yes 15mg Brian Clayton Topamax 50 mg tablet 0 3- 00:00: 00 Yes 1mg Brian Clayton doxepin 50 mg capsule 0 3- 00:00: 00 Yes 2mg Brian Clayton Wellbutrin XL 300 mg 24 hr tablet, extended release 0 - 00:00: 00 No 1mg Zyprexa 20 mg tablet 0 01-28 00:00: 00 No 15mg Topamax 50 mg tablet 0 01-28 00:00: 00 No 1mg doxepin 50 mg capsule 0 3 00:00: 00 No 2mg Wellbutrin XL 300 mg 24 hr tablet, extended release 0 01-28 00:00: 00 No 1mg Zyprexa 20 mg tablet 0 3 00:00: 00 No 15mg Topamax 50 mg tablet 0 3 00:00: 00 No 1mg doxepin 50 mg capsule 0 3 00:00: 00 No 2mg Wellbutrin XL 300 mg 24 hr tablet, extended release 0 3-05 00:00: 00 Yes 1mg Brian Clayton Zyprexa 20 mg tablet 2019-0 3-05 00:00: 00 Yes 15mg Brian Clayton Topamax 50 mg tablet 2019-0 3-05 00:00: 00 Yes 1mg Brian Clayton doxepin 50 mg capsule 2019-0 3-05 00:00: 00 Yes 2mg Brian Clayton Wellbutrin XL 300 mg 24 hr tablet, extended release 2019-0 3-05 00:00: 00 No 1mg Wellbutrin XL 300 mg 24 hr tablet, extended release 2019-0 3-05 00:00: 00 No 1mg Zyprexa 20 mg tablet 2019-0 3-05 00:00: 00 No 15mg Topamax 50 mg tablet 2019-0 3-05 00:00: 00 No 1mg doxepin 50 mg capsule 2019-0 3-05 00:00: 00 No 2mg Zyprexa 20 mg tablet 2019-0 3-05 00:00: 00 No 15mg Topamax 50 mg tablet 01-02 00:00: 00 No 1mg doxepin 50 mg capsule 01-02 00:00: 00 No 2mg Fish Oil Fish Oil 11-18 00:00: 00 02-15 00:00 :00 No Devora Millender 1 capsule (otc) [facility] Pravastatin Sodium Pravastatin Sodium 16 00:00: 00 Yes Devora Millender 1 tablet for high cholestero l [facility] Wellbutrin XL 300 mg 24 hr tablet, extended release 11-08 00:00: 00 Yes 1mg Brian Clayton Topamax 50 mg tablet 11-08 00:00: 00 Yes 1mg Brian Clayton Zyprexa 20 mg tablet 11-08 00:00: 00 Yes 15mg Brian Clayton doxepin 50 mg capsule 11-08 00:00: 00 Yes 2mg Brian Clayton Wellbutrin XL 300 mg 24 hr tablet, extended release 11-08 00:00: 00 No 1mg Topamax 50 mg tablet 11-08 00:00: 00 No 1mg Zyprexa 20 mg tablet 11-08 00:00: 00 No 15mg doxepin 50 mg capsule 11-08 00:00: 00 No 2mg Wellbutrin XL 300 mg 24 hr tablet, extended release 11-08 00:00: 00 No 1mg Topamax 50 mg tablet 11-08 00:00: 00 No 1mg Zyprexa 20 mg tablet 11-08 00:00: 00 No 15mg doxepin 50 mg capsule 11-08 00:00: 00 No 2mg Wellbutrin XL 300 mg 24 hr tablet, extended release 2018-10 00:00: 00 Yes 1mg Brian Clayton Topamax 50 mg tablet 2018-10 00:00: 00 Yes 1mg Brian Clayotn Zyprexa 20 mg tablet 2018-10 00:00: 00 Yes 15mg Brian Clayton doxepin 50 mg capsule 2018-10 00:00: 00 Yes 2mg Brian Clayton Wellbutrin XL 300 mg 24 hr tablet, extended release 2018-10 00:00: 00 No 1mg Topamax 50 mg tablet 2018-10 00:00: 00 No 1mg Zyprexa 20 mg tablet 2018-10 00:00: 00 No 15mg doxepin 50 mg capsule 2018-10 00:00: 00 No 2mg Wellbutrin XL 300 mg 24 hr tablet, extended release 2018-10 00:00: 00 No 1mg Topamax 50 mg tablet 2018-10 00:00: 00 No 1mg Zyprexa 20 mg tablet 2018-10 00:00: 00 No 15mg doxepin 50 mg capsule 2018-10 00:00: 00 No 2mg Wellbutrin XL 300 mg 24 hr tablet, extended release 06-19 00:00: 00 Yes 1mg Brian Clayton Topamax 50 mg tablet 06-19 00:00: 00 Yes 1mg Brian Clayton Zyprexa 20 mg tablet 06-19 00:00: 00 Yes 15mg Brian Clayton doxepin 50 mg capsule 06-19 00:00: 00 Yes 2mg Brian Clayton Wellbutrin XL 300 mg 24 hr tablet, extended release 06-19 00:00: 00 No 1mg Topamax 50 mg tablet 06-19 00:00: 00 No 1mg Zyprexa 20 mg tablet 06-19 00:00: 00 No 15mg doxepin 50 mg capsule 06-19 00:00: 00 No 2mg Wellbutrin XL 300 mg 24 hr tablet, extended release 06-19 00:00: 00 No 1mg Topamax 50 mg tablet 06-19 00:00: 00 No 1mg Zyprexa 20 mg tablet 06-19 00:00: 00 No 15mg doxepin 50 mg capsule 06-19 00:00: 00 No 2mg Wellbutrin XL 300 mg 24 hr tablet, extended release 06-04 00:00: 00 Yes 1mg Brian Clayton Topamax 50 mg tablet 06-04 00:00: 00 Yes 1mg Brian Clayton Wellbutrin XL 300 mg 24 hr tablet, extended release 06-04 00:00: 00 No 1mg Topamax 50 mg tablet 06-04 00:00: 00 No 1mg Wellbutrin XL 300 mg 24 hr tablet, extended release 06-04 00:00: 00 No 1mg Topamax 50 mg tablet 06-04 00:00: 00 No 1mg Topamax 50 mg tablet 04-17 00:00: 00 Yes 1mg Brian Clayton Zyprexa 20 mg tablet 04-17 00:00: 00 Yes 15mg Brian Clayton doxepin 50 mg capsule 04-17 00:00: 00 Yes 2mg Brian Clayton Topamax 50 mg tablet 04-17 00:00: 00 No 1mg Zyprexa 20 mg tablet 04-17 00:00: 00 No 15mg doxepin 50 mg capsule 04-17 00:00: 00 No 2mg Topamax 50 mg tablet 04-17 00:00: 00 No 1mg Zyprexa 20 mg tablet 04-17 00:00: 00 No 15mg doxepin 50 mg capsule 04-17 00:00: 00 No 2mg Wellbutrin XL 300 mg 24 hr tablet, extended release 03-30 00:00: 00 Yes 1mg Brian Clayton Topamax 50 mg tablet 03-30 00:00: 00 Yes 1mg Brian Clayton Zyprexa 20 mg tablet 03-30 00:00: 00 Yes 15mg Brian Clayton doxepin 50 mg capsule 03-30 00:00: 00 Yes 2mg Brian Clayton Wellbutrin XL 300 mg 24 hr tablet, extended release 03-30 00:00: 00 No 1mg Topamax 50 mg tablet 03-30 00:00: 00 No 1mg Zyprexa 20 mg tablet 03-30 00:00: 00 No 15mg doxepin 50 mg capsule 03-30 00:00: 00 No 2mg Wellbutrin XL 300 mg 24 hr tablet, extended release 03-30 00:00: 00 No 1mg Topamax 50 mg tablet 0 03-30 00:00: 00 No 1mg Zyprexa 20 mg tablet 0 03-30 00:00: 00 No 15mg doxepin 50 mg capsule 0 03-30 00:00: 00 No 2mg Wellbutrin XL 300 mg 24 hr tablet, extended release 02-15 00:00: 00 Yes 1mg Brian Clayton Topamax 50 mg tablet 0 02-15 00:00: 00 Yes 1mg Brian Clayton Zyprexa 20 mg tablet 02-15 00:00: 00 Yes 15mg Brian Clayton doxepin 50 mg capsule 02-15 00:00: 00 Yes 2mg Brian Clayton Wellbutrin XL 300 mg 24 hr tablet, extended release 02-15 00:00: 00 No 1mg Topamax 50 mg tablet 02-15 00:00: 00 No 1mg Zyprexa 20 mg tablet 02-15 00:00: 00 No 15mg doxepin 50 mg capsule 0 02-15 00:00: 00 No 2mg Wellbutrin XL 300 mg 24 hr tablet, extended release 02-15 00:00: 00 No 1mg Topamax 50 mg tablet 02-15 00:00: 00 No 1mg Zyprexa 20 mg tablet 0 02-15 00:00: 00 No 15mg doxepin 50 mg capsule 02-15 00:00: 00 No 2mg Enalapril-H ydrochlorot hiazide Enalapril-H ydrochlorot hiazide 02-07 00:00: 00 Yes Devora Millender 1 tablet [facility] Wellbutrin XL 300 mg 24 hr tablet, extended release 0 01-18 00:00: 00 Yes 1mg Brian Clayton Topamax 50 mg tablet 0 01-18 00:00: 00 Yes 1mg Brian Clayton Zyprexa 20 mg tablet 0 01-18 00:00: 00 Yes 15mg Brian Clayton doxepin 50 mg capsule 0 01-18 00:00: 00 Yes 2mg Brian Clayton Wellbutrin XL 300 mg 24 hr tablet, extended release 01-18 00:00: 00 No 1mg Topamax 50 mg tablet 01-18 00:00: 00 No 1mg Zyprexa 20 mg tablet 01-18 00:00: 00 No 15mg doxepin 50 mg capsule 01-18 00:00: 00 No 2mg Wellbutrin XL 300 mg 24 hr tablet, extended release 01-18 00:00: 00 No 1mg Topamax 50 mg tablet 01-18 00:00: 00 No 1mg Zyprexa 20 mg tablet 01-18 00:00: 00 No 15mg doxepin 50 mg capsule 01-18 00:00: 00 No 2mg Wellbutrin XL 300 mg 24 hr tablet, extended release 12-21 00:00: 00 Yes 1mg Brian Clayton Topamax 25 mg tablet 12-21 00:00: 00 Yes 1mg Brian Clayton Zyprexa 20 mg tablet 12-21 00:00: 00 Yes 15mg Brian Clayton doxepin 50 mg capsule 12-21 00:00: 00 Yes 2mg Brian Clayton Wellbutrin XL 300 mg 24 hr tablet, extended release 12-21 00:00: 00 No 1mg Topamax 25 mg tablet 12-21 00:00: 00 No 1mg Zyprexa 20 mg tablet 12-21 00:00: 00 No 15mg doxepin 50 mg capsule 12-21 00:00: 00 No 2mg Wellbutrin XL 300 mg 24 hr tablet, extended release 12-21 00:00: 00 No 1mg Topamax 25 mg tablet 12-21 00:00: 00 No 1mg Zyprexa 20 mg tablet 12-21 00:00: 00 No 15mg doxepin 50 mg capsule 12-21 00:00: 00 No 2mg losartan 25 mg tablet 11-30 00:00: 00 Yes 1mg Brian Clayton Wellbutrin XL 300 mg 24 hr tablet, extended release 11-30 00:00: 00 Yes 1mg Brian Clayton Zyprexa 20 mg tablet 11-30 00:00: 00 Yes 15mg Brian Clayton doxepin 50 mg capsule 11-30 00:00: 00 Yes 2mg Brian Clayton losartan 25 mg tablet 11-30 00:00: 00 No 1mg Wellbutrin XL 300 mg 24 hr tablet, extended release 11-30 00:00: 00 No 1mg Zyprexa 20 mg tablet 11-30 00:00: 00 No 15mg doxepin 50 mg capsule 11-30 00:00: 00 No 2mg losartan 25 mg tablet 11-30 00:00: 00 No 1mg Wellbutrin XL 300 mg 24 hr tablet, extended release 11-30 00:00: 00 No 1mg Zyprexa 20 mg tablet 11-30 00:00: 00 No 15mg doxepin 50 mg capsule 11-30 00:00: 00 No 2mg Wellbutrin XL 300 mg 24 hr tablet, extended release 2017-10 00:00: 00 Yes 1mg Brian Clayton Zyprexa 20 mg tablet 2017-10 00:00: 00 Yes 15mg Brian Clayton doxepin 50 mg capsule 2017-10 00:00: 00 Yes 2mg Brian Clayton Wellbutrin XL 300 mg 24 hr tablet, extended release 2017-10 00:00: 00 No 1mg Zyprexa 20 mg tablet 2017-10 00:00: 00 No 15mg doxepin 50 mg capsule 2017-10 00:00: 00 No 2mg Wellbutrin XL 300 mg 24 hr tablet, extended release 2017-10 00:00: 00 No 1mg Zyprexa 20 mg tablet 2017-10 00:00: 00 No 15mg doxepin 50 mg capsule 2017-10 00:00: 00 No 2mg Wellbutrin XL 300 mg 24 hr tablet, extended release 2017-10 00:00: 00 Yes 1mg Brian Clayton Zyprexa 20 mg tablet 2017-10 00:00: 00 Yes 15mg Brian Clayton doxepin 50 mg capsule 2017-10 00:00: 00 Yes 2mg Brian F Forrest Wellbutrin XL 300 mg 24 hr tablet, extended release 2017-10 00:00: 00 No 1mg Zyprexa 20 mg tablet 2017-10 00:00: 00 No 15mg doxepin 50 mg capsule 2017-10 00:00: 00 No 2mg Wellbutrin XL 300 mg 24 hr tablet, extended release 2017-10 00:00: 00 No 1mg Zyprexa 20 mg tablet 2017-10 00:00: 00 No 15mg doxepin 50 mg capsule 2017-10 00:00: 00 No 2mg Wellbutrin XL 150 mg 24 hr tablet, extended release 2017-10 00:00: 00 Yes 1mg Brian Clayton Zyprexa 20 mg tablet 2017-10 00:00: 00 Yes 15mg Brian Clayton doxepin 50 mg capsule 2017-10 00:00: 00 Yes 2mg Brian Clayton Wellbutrin XL 150 mg 24 hr tablet, extended release 2017-10 00:00: 00 No 1mg Zyprexa 20 mg tablet 2017-10 00:00: 00 No 15mg doxepin 50 mg capsule 2017-10 00:00: 00 No 2mg Wellbutrin XL 150 mg 24 hr tablet, extended release 2017-10 00:00: 00 No 1mg Zyprexa 20 mg tablet 2017-10 00:00: 00 No 15mg doxepin 50 mg capsule 2017-10 00:00: 00 No 2mg Wellbutrin XL 150 mg 24 hr tablet, extended release 2017-10 00:00: 00 Yes 1mg Brian Clayton Zyprexa 20 mg tablet 2017-10 00:00: 00 Yes 15mg Brian Clayton doxepin 50 mg capsule 2017-10 00:00: 00 Yes 2mg Brian Clayton Wellbutrin XL 150 mg 24 hr tablet, extended release 2017-10 00:00: 00 No 1mg Zyprexa 20 mg tablet 2017-10 00:00: 00 No 15mg doxepin 50 mg capsule 2017-10 00:00: 00 No 2mg Wellbutrin XL 150 mg 24 hr tablet, extended release 2017-10 0 00:00: 00 No 1mg Zyprexa 20 mg tablet 2017-10 0 00:00: 00 No 15mg doxepin 50 mg capsule 2017-10 004 00:00: 00 No 2mg Zyprexa 20 mg tablet 07-06 00:00: 00 Yes 1mg Brian Clayton doxepin 50 mg capsule 0 07-06 00:00: 00 Yes 2mg Brian Clayton Zyprexa 20 mg tablet 07-06 00:00: 00 No 1mg doxepin 50 mg capsule 07-06 00:00: 00 No 2mg Zyprexa 20 mg tablet 07-06 00:00: 00 No 1mg doxepin 50 mg capsule 07-06 00:00: 00 No 2mg Zyprexa 15 mg tablet 0 06-08 00:00: 00 Yes 1mg Brian Clayton doxepin 50 mg capsule 0 06-08 00:00: 00 Yes 12mg Brain Clayton Zyprexa 15 mg tablet 0 06-08 00:00: 00 No 1mg doxepin 50 mg capsule 0 06-08 00:00: 00 No 12mg doxepin 50 mg capsule 0 06-08 00:00: 00 No 2mg Zyprexa 15 mg tablet 0 06-08 00:00: 00 No 1mg doxepin 50 mg capsule 0 06-08 00:00: 00 No 12mg doxepin 50 mg capsule 0 06-08 00:00: 00 No 2mg Zyprexa 15 mg tablet 05-11 00:00: 00 Yes 1mg Brian Clayton doxepin 50 mg capsule 0 05-11 00:00: 00 Yes 12mg Brian Clayton Zyprexa 15 mg tablet 05-11 00:00: 00 No 1mg doxepin 50 mg capsule 05-11 00:00: 00 No 12mg Zyprexa 15 mg tablet 05-11 00:00: 00 No 1mg doxepin 50 mg capsule 0 05-11 00:00: 00 No 12mg doxepin 50 mg capsule 04-13 00:00: 00 Yes 12mg Brian Clayton doxepin 50 mg capsule 04-13 00:00: 00 No 12mg doxepin 50 mg capsule 04-13 00:00: 00 No 12mg Losartan Potassium Losartan Potassium 03-10 00:00: 00 Yes Devora Millender 1 tablet for high blood pressure [facility] Losartan Potassium 25 mg Losartan Potassium 25 mg 03-10 00:00: 00 No QD Losartan Potassium 25 mg meloxicam 7.5 mg tablet 02-16 00:00: 00 Yes 12mg Brian Clayton cyclobenzap rine 10 mg tablet 02-16 00:00: 00 Yes 1mg Brian Clayton trazodone 100 mg tablet 02-16 00:00: 00 Yes 12mg Brian Clayton meloxicam 7.5 mg tablet 02-16 00:00: 00 No 12mg cyclobenzap rine 10 mg tablet 02-16 00:00: 00 No 1mg trazodone 100 mg tablet 02-16 00:00: 00 No 12mg meloxicam 7.5 mg tablet 02-16 00:00: 00 No 12mg cyclobenzap rine 10 mg tablet 02-16 00:00: 00 No 1mg trazodone 100 mg tablet 02-16 00:00: 00 No 12mg trazodone 100 mg tablet 12-22 00:00: 00 Yes 12mg Brian Clayton trazodone 100 mg tablet 12-22 00:00: 00 No 12mg trazodone 100 mg tablet 12-22 00:00: 00 No 12mg trazodone 100 mg tablet 2016-10 00:00: 00 Yes 12mg Brian Clayton trazodone 100 mg tablet 2016-10 00:00: 00 No 12mg trazodone 100 mg tablet 2016-10 00:00: 00 No 12mg trazodone 100 mg tablet 2016-10 0- 00:00: 00 Yes 12mg Brian Clayton trazodone 100 mg tablet 2016-10 00:00: 00 No 12mg trazodone 100 mg tablet 2016-10 00:00: 00 No 12mg trazodone 100 mg tablet 07-07 00:00: 00 Yes 12mg Brian Zeina Clayton trazodone 100 mg tablet 07-07 00:00: 00 No 12mg trazodone 100 mg tablet 07-07 00:00: 00 No 12mg trazodone 100 mg tablet 05-05 00:00: 00 Yes 12mg Brian Clayton Zyprexa 15 mg tablet 05-05 00:00: 00 Yes 2mg Brian Clayton trazodone 100 mg tablet 05-05 00:00: 00 No 12mg Zyprexa 15 mg tablet 05-05 00:00: 00 No 2mg trazodone 100 mg tablet 05-05 00:00: 00 No 12mg Zyprexa 15 mg tablet 05-05 00:00: 00 No 2mg trazodone 100 mg tablet 03-03 00:00: 00 Yes 12mg Brian Clayton Zyprexa 15 mg tablet 03-03 00:00: 00 Yes 2mg Brian Clayton trazodone 100 mg tablet 03-03 00:00: 00 No 12mg Zyprexa 15 mg tablet 03-03 00:00: 00 No 2mg trazodone 100 mg tablet 03-03 00:00: 00 No 12mg Zyprexa 15 mg tablet 03-03 00:00: 00 No 2mg Zyprexa 15 mg tablet 02-08 00:00: 00 Yes 2mg Brian Clayton trazodone 100 mg tablet 02-08 00:00: 00 Yes 12mg Brian Clayton Zyprexa 15 mg tablet 02-08 00:00: 00 No 2mg trazodone 100 mg tablet 02-08 00:00: 00 No 12mg Zyprexa 15 mg tablet 02-08 00:00: 00 No 2mg trazodone 100 mg tablet 02-08 00:00: 00 No 12mg gemfibrozil 600 mg tablet 01-06 00:00: 00 Yes 1mg Brian Clayton Zyprexa 15 mg tablet 01-06 00:00: 00 Yes 2mg Brian Clayton trazodone 100 mg tablet 01-06 00:00: 00 Yes 12mg Brian Clayton gemfibrozil 600 mg tablet 01-06 00:00: 00 No 1mg Zyprexa 15 mg tablet 01-06 00:00: 00 No 2mg trazodone 100 mg tablet 01-06 00:00: 00 No 12mg gemfibrozil 600 mg tablet 01-06 00:00: 00 No 1mg Zyprexa 15 mg tablet 01-06 00:00: 00 No 2mg trazodone 100 mg tablet 01-06 00:00: 00 No 12mg Zyprexa 15 mg tablet 12-09 00:00: 00 Yes 2mg Brian Clayton trazodone 100 mg tablet 12-09 00:00: 00 Yes 12mg Brian Clayton Zyprexa 15 mg tablet 12-09 00:00: 00 No 2mg trazodone 100 mg tablet 12-09 00:00: 00 No 12mg Zyprexa 15 mg tablet 12-09 00:00: 00 No 2mg trazodone 100 mg tablet 12-09 00:00: 00 No 12mg Zyprexa 15 mg tablet 11-11 00:00: 00 Yes 2mg Brian Clayton trazodone 100 mg tablet 11-11 00:00: 00 Yes 12mg Brian Clayton Zyprexa 15 mg tablet 11-11 00:00: 00 No 2mg trazodone 100 mg tablet 11-11 00:00: 00 No 12mg Zyprexa 15 mg tablet 11-11 00:00: 00 No 2mg trazodone 100 mg tablet 11-11 00:00: 00 No 12mg Zyprexa 20 mg tablet 2015-10 00:00: 00 Yes 1mg Brian Clayton Abilify 5 mg tablet 2015-10 00:00: 00 Yes 1mg Brian Clayton cyclobenzap rine 5 mg tablet 2015-10 00:00: 00 Yes 1mg Brian Clayton Zyprexa 20 mg tablet 2015-10 00:00: 00 No 1mg Abilify 5 mg tablet 2015-10 00:00: 00 No 1mg cyclobenzap rine 5 mg tablet 2015-10 00:00: 00 No 1mg Zyprexa 20 mg tablet 2015-10 00:00: 00 No 1mg Abilify 5 mg tablet 2015-10 00:00: 00 No 1mg cyclobenzap rine 5 mg tablet 2015-10 00:00: 00 No 1mg Abilify 5 mg tablet 2015-10 00:00: 00 Yes 1mg Brian Clayton Zyprexa 20 mg tablet 2015-10 00:00: 00 Yes 1mg Brian Clayton Abilify 5 mg tablet 2015-10 00:00: 00 No 1mg Zyprexa 20 mg tablet 2015-10 00:00: 00 No 1mg Abilify 5 mg tablet 2015-10 00:00: 00 No 1mg Zyprexa 20 mg tablet 2015-10 00:00: 00 No 1mg Zyprexa 10 mg tablet 2015-10 00:00: 00 Yes 1mg Brian Clayton Abilify 15 mg tablet 2015-10 00:00: 00 Yes 1mg Brian Clayton Zyprexa 10 mg tablet 2015-10 00:00: 00 No 1mg Abilify 15 mg tablet 2015-10 00:00: 00 No 1mg Zyprexa 10 mg tablet 2015-10 00:00: 00 No 1mg Abilify 15 mg tablet 2015-10 00:00: 00 No 1mg Abilify 15 mg tablet 2015-10 00:00: 00 Yes 1mg Brian Clayton Zyprexa 10 mg tablet 2015-10 00:00: 00 Yes 1mg Brian Clayton Abilify 15 mg tablet 2015-10 00:00: 00 No 1mg Zyprexa 10 mg tablet 2015-10 00:00: 00 No 1mg Abilify 15 mg tablet 2015-10 00:00: 00 No 1mg Zyprexa 10 mg tablet 2015-10 00:00: 00 No 1mg Abilify 15 mg tablet 07-15 00:00: 00 Yes 1mg Brian Clayton Seroquel 400 mg tablet 07-15 00:00: 00 Yes 1mg Brian Clayton Abilify 15 mg tablet 07-15 00:00: 00 No 1mg Seroquel 400 mg tablet 07-15 00:00: 00 No 1mg Abilify 15 mg tablet 07-15 00:00: 00 No 1mg Seroquel 400 mg tablet 07-15 00:00: 00 No 1mg Abilify 30 mg tablet 06-10 00:00: 00 Yes 1mg Brian Clayton Seroquel 200 mg tablet 06-10 00:00: 00 Yes 12mg Brian Clayton Abilify 30 mg tablet 06-10 00:00: 00 No 1mg Seroquel 200 mg tablet 06-10 00:00: 00 No 12mg Abilify 30 mg tablet 06-10 00:00: 00 No 1mg Seroquel 200 mg tablet 06-10 00:00: 00 No 12mg Abilify 30 mg tablet 05-20 00:00: 00 Yes 1mg Brian Clayton Seroquel 100 mg tablet 05-20 00:00: 00 Yes 12mg Brian Clayton Abilify 30 mg tablet 05-20 00:00: 00 No 1mg Seroquel 100 mg tablet 05-20 00:00: 00 No 12mg Abilify 30 mg tablet 05-20 00:00: 00 No 1mg Seroquel 100 mg tablet 05-20 00:00: 00 No 12mg Abilify 30 mg tablet 05-06 00:00: 00 Yes 1mg Brian Clayton trazodone 100 mg tablet 05-06 00:00: 00 Yes 12mg Brian Clayton Abilify 30 mg tablet 05-06 00:00: 00 No 1mg trazodone 100 mg tablet 05-06 00:00: 00 No 12mg Abilify 30 mg tablet 05-06 00:00: 00 No 1mg trazodone 100 mg tablet 05-06 00:00: 00 No 12mg Abilify 30 mg tablet 04-22 00:00: 00 Yes 1mg Brian Clayton Abilify 30 mg tablet 04-22 00:00: 00 No 1mg Abilify 30 mg tablet 04-22 00:00: 00 No 1mg gemfibrozil 600 mg tablet 04-01 00:00: 00 Yes 1mg Brian Clayton gemfibrozil 600 mg tablet 04-01 00:00: 00 No 1mg gemfibrozil 600 mg tablet 04-01 00:00: 00 No 1mg cyclobenzap rine 5 mg tablet 03-31 00:00: 00 Yes 1mg Brian Clayton Bactrim DS 800 mg-160 mg tablet 03-31 00:00: 00 Yes 1mg Brian Clayton Bactrim DS 800 mg-160 mg tablet 03-31 00:00: 00 No 1mg cyclobenzap rine 5 mg tablet 03-31 00:00: 00 No 1mg Bactrim DS 800 mg-160 mg tablet 03-31 00:00: 00 No 1mg cyclobenzap rine 5 mg tablet 03-31 00:00: 00 No 1mg prednisone 10 mg tablet 04-16 00:00: 00 Yes 1mg Brian Clayton cetirizine 10 mg tablet 04-16 00:00: 00 Yes 1mg Brian Clayton prednisone 10 mg tablet 04-16 00:00: 00 No 1mg cetirizine 10 mg tablet 04-16 00:00: 00 No 1mg prednisone 10 mg tablet 04-16 00:00: 00 No 1mg cetirizine 10 mg tablet 04-16 00:00: 00 No 1mg cephalexin 500 mg tablet 04-08 00:00: 00 Yes 1mg Brian Clayton cephalexin 500 mg tablet 04-08 00:00: 00 No 1mg cephalexin 500 mg tablet 04-08 00:00: 00 No 1mg loratadine 10 mg tablet 02-20 00:00: 00 Yes 1mg Brian Clayton loratadine 10 mg tablet 02-20 00:00: 00 No 1mg loratadine 10 mg tablet 02-20 00:00: 00 No 1mg Abilify 20 mg tablet 01-27 00:00: 00 Yes 1mg Brian Clayton Abilify 20 mg tablet 01-27 00:00: 00 No 1mg Abilify 20 mg tablet 01-27 00:00: 00 No 1mg potassium citrate ER 10 mEq (1,080 mg) tablet,exte nded release 04-13 00:00: 00 Yes 1mEq (1,080 mg) Brian Clayton potassium citrate ER 10 mEq (1,080 mg) tablet,exte nded release 04-13 00:00: 00 No 1mEq (1,080 mg) potassium citrate ER 10 mEq (1,080 mg) tablet,exte nded release 04-13 00:00: 00 No 1mEq (1,080 mg) Cyclobenzap rine HCl Cyclobenzap rine HCl Yes Devora Millender 1 tablet as needed for muscle cramps/azul n [facility] Meloxicam Meloxicam Yes Devora Millender 1-2 tablets as needed for pain [facility] Latuda Latuda Yes Devora Millender 1/2 tablet with food [facility] Olanzapine Olanzapine Yes Devora Millender 1 tablet at bedtime [facility] Olanzapine Olanzapine Yes Devora Millender 1.5 tab [facility] Trazodone HCl Trazodone HCl Yes Devora Millender 1 tablet at bedtime [facility] Topiramate Topiramate Yes Devora Peraltaender 1 tablet [facility] Doxepin HCl Doxepin HCl Yes Devora Peraltaender 2 capsule with food [facility] BuPROPion HCl ER (XL) BuPROPion HCl ER (XL) Yes Devora Peraltaender 1 tablet in the morning [facility] Vitamin D-3 Vitamin D-3 Yes Devora Peraltaender 4,000 IU (OTC) [facility] BuPROPion HCl ER (XL) 300 MG BuPROPion HCl ER (XL) 300 MG No 1{table t_in_th e_morni ng} QD BuPROPion HCl ER (XL) 300 MG Meloxicam 7.5 MG Meloxicam 7.5 MG No QD Meloxicam 7.5 MG Cyclobenzap rine HCl 10 MG Cyclobenzap rine HCl 10 MG No BID Cyclobenza doris HCl 10 MG Olanzapine 20 MG Olanzapine 20 MG No Olanzapine 20 MG Latuda 80 MG Latuda 80 MG No BID Latuda 80 MG Topiramate 50 MG Topiramate 50 MG No 1{table t} BID Topiramate 50 MG Vitamin D-3 Vitamin D-3 No QD Vi tamin D-3 Doxepin HCl 50 MG Doxepin HCl 50 MG No 2{capsu le_with _food} Doxepin HCl 50 MG Pravastatin Sodium 10 MG Pravastatin Sodium 10 MG No Pravastati n Sodium 10 MG Fish Oil 1000 MG Fish Oil 1000 MG No Fish Oil 1000 MG Trazodone HCl 100 MG Trazodone HCl 100 MG No 1{table t_at_be dtime} QD Trazodone HCl 100 MG Enalapril-H ydrochlorot hiazide 10-25 MG Enalapril-H ydrochlorot hiazide 10-25 MG No 1{table t} Enalapril- Hydrochlor othiazide 10-25 MG Olanzapine 15 MG Olanzapine 15 MG No 1{table t_at_be dtime} QD Olanzapine 15 MG Immunizations Ordered Immunization Name Filled Immunization Name Date Status Comments Source Hep A-Hep B Hep A-Hep B 2023-09-03 00:00:00 Completed Brian Clayton Tdap Tdap 2023-09-03 00:00:00 Lucie Clayton Hep A-Hep B Hep A-Hep B 2023-09-03 00:00:00 Completed Brian Clayton Tdap Tdap 2023-09-03 00:00:00 Completed Brian Clayton Influenza, injectable, MDCK, quadrivalent, preservative Influenza, injectable, MDCK, quadrivalent, preservative 2023-08-30 00:00:00 Completed Brian Clayton Influenza, injectable, MDCK, quadrivalent, preservative Influenza, injectable, MDCK, quadrivalent, preservative 2023-08-30 00:00:00 Completed Brian Clayton Influenza, injectable, MDCK, quadrivalent, preservative Influenza, injectable, MDCK, quadrivalent, preservative 2022-09-01 00:00:00 Completed Brian Clayton Influenza, injectable, MDCK, quadrivalent, preservative Influenza, injectable, MDCK, quadrivalent, preservative 2022-09-01 00:00:00 Completed Brian Clayton influenza, injectable influenza, injectable 2021-12-14 00:00:00 Completed Brian Clayton influenza, injectable influenza, injectable 2021-12-14 00:00:00 Completed Brian Clayton influenza, injectable 2021-12-14 00:00:00 Completed influenza, injectable 2021-12-14 00:00:00 Completed influenza, injectable 2021-12-14 00:00:00 Completed influenza, injectable 2021-12-14 00:00:00 Completed Moderna COVID-19 Vaccine Moderna COVID-19 Vaccine 2021-10-07 00:00:00 Completed Brian Clayton Moderna COVID-19 Vaccine Moderna COVID-19 Vaccine 2021-10-07 00:00:00 Completed Brian Clayton Moderna COVID-19 Vaccine 2021-10-07 00:00:00 Completed Moderna COVID-19 Vaccine 2021-10-07 00:00:00 Completed Moderna COVID-19 Vaccine 2021-10-07 00:00:00 Completed Moderna COVID-19 Vaccine 2021-10-07 00:00:00 Completed SARS-COV-2 COVID-19 PFIZER VACCINE 2021-03-06 00:00:00 Completed [facility] SARS-COV-2 COVID-19 PFIZER VACCINE 2021-03-06 00:00:00 Completed [facility] SARS-COV-2 COVID-19 PFIZER VACCINE 2021-02-10 00:00:00 Completed [facility] SARS-COV-2 COVID-19 PFIZER VACCINE 2021-02-10 00:00:00 Completed [facility] Influenza, seasonal, inj Influenza, seasonal, inj 2020-07-31 00:00:00 Completed Brian Clayton Influenza, seasonal, inj Influenza, seasonal, inj 2020-07-31 00:00:00 Completed Brianjose m Clayton Influenza, seasonal, inj 2020-07-31 00:00:00 Completed Influenza, seasonal, inj 2020-07-31 00:00:00 Completed Influenza, seasonal, inj 2020-07-31 00:00:00 Completed Influenza, seasonal, inj 2020-07-31 00:00:00 Completed Flucelvax - multidose vial Flucelvax - multidose vial 2018-08-17 12:38:00 Completed [facility] Flucelvax - multidose vial Flucelvax - multidose vial 2018-08-17 00:00:00 Completed [facility] Adacel (Tdap) Adacel (Tdap) 2018-01-24 16:17:00 Completed [facility] Vital Signs Vital Name Observation Time Observation Value Comments S janie BP Systolic 2024-10-16 16:33:00 118 mm[Hg] Step hen Zeina Clayton BP Diastolic 2024-10-16 16:33:00 98 mm[Hg] Wayne phen F Forrest Weight Measured 2024-10-16 16:33:00 243.00 pounds Brian Clayton Height Measured 2024-10-16 16:33:00 68.00 inches Brian Clayton Body Temperature 2024-10-16 16:33:00 97.80 degrees Brian Clayton Heart Rate 2024-10-16 16:33:00 77.00 /min Vee en F Forrest Respiratory Rate 2024-10-16 16:33:00 18.00 /min Brian Clayton BP Systolic 2024-10-11 10:01:00 117 mm[Hg] Step hen F Forrest BP Diastolic 2024-10-11 10:01:00 82 mm[Hg] Wayne phen F Forrest Weight Measured 2024-10-11 10:01:00 240.20 pounds Brian F Forrest Height Measured 2024-10-11 10:01:00 68.00 inches Brian F Forrest Body Temperature 2024-10-11 10:01:00 98.60 degrees Brian F Forrest Heart Rate 2024-10-11 10:01:00 59.00 /min Vee en F Forrest Respiratory Rate 2024-10-11 10:01:00 18.00 /min Brian F Forrest BP Systolic 2024-09-18 16:30:00 112 mm[Hg] Step hen F Forrest BP Diastolic 2024-09-18 16:30:00 76 mm[Hg] Wayne phen F Forrest Weight Measured 2024-09-18 16:30:00 236.00 pounds Brian F Forrest Height Measured 2024-09-18 16:30:00 68.00 inches Brian F Forrest Body Temperature 2024-09-18 16:30:00 98.20 degrees Brian F Forrest Heart Rate 2024-09-18 16:30:00 63.00 /min Vee en F Forrest Respiratory Rate 2024-09-18 16:30:00 16.00 /min Brian F Forrest BP Systolic 2024-08-09 11:50:00 119 mm[Hg] Step hen F Forrest BP Diastolic 2024-08-09 11:50:00 72 mm[Hg] Wayne phen F Forrest Weight Measured 2024-08-09 11:50:00 238.60 pounds Brian F Forrest Height Measured 2024-08-09 11:50:00 68.00 inches Brian F Forrest Body Temperature 2024-08-09 11:50:00 98.00 degrees Rbian F Forrest Heart Rate 2024-08-09 11:50:00 67.00 /min Vee en F Forrest Respiratory Rate 2024-08-09 11:50:00 18.00 /min Brian F Forrest BP Systolic 2024-07-13 10:55:00 115 mm[Hg] Step hen F Forrest BP Diastolic 2024-07-13 10:55:00 75 mm[Hg] Wayne phen F Forrest Weight Measured 2024-07-13 10:55:00 243.20 pounds Brian F Forrest Height Measured 2024-07-13 10:55:00 68.00 inches Brian F Forrest Body Temperature 2024-07-13 10:55:00 97.50 degrees Brian F Forrest Heart Rate 2024-07-13 10:55:00 63.00 /min Vee en F Forrest Respiratory Rate 2024-07-13 10:55:00 16.00 /min Brian F Forrest BP Systolic 2024-06-18 15:22:00 130 mm[Hg] Step hen F Forrest BP Diastolic 2024-06-18 15:22:00 100 mm[Hg] Wayne phen F Forrest Weight Measured 2024-06-18 15:22:00 245.00 pounds Brian F Forrest Height Measured 2024-06-18 15:22:00 68.00 inches Brian F Forrest Body Temperature 2024-06-18 15:22:00 Brian F Frorest Heart Rate 2024-06-18 15:22:00 76.00 /min Vee en F Forrest Respiratory Rate 2024-06-18 15:22:00 18.00 /min Brian F Forrest BP Systolic 2024-06-15 10:53:00 113 mm[Hg] Step hen F Forrest BP Diastolic 2024-06-15 10:53:00 76 mm[Hg] Wayne phen F Forrest Weight Measured 2024-06-15 10:53:00 247.40 pounds Brian F Forrest Height Measured 2024-06-15 10:53:00 68.00 inches Brian F Forrest Body Temperature 2024-06-15 10:53:00 97.50 degrees Brian F Forrest Heart Rate 2024-06-15 10:53:00 75.00 /min Vee en F Forrest Respiratory Rate 2024-06-15 10:53:00 19.00 /min Brian F Forrest BP Systolic 2024-06-06 16:10:00 114 mm[Hg] Step hen F Forrest BP Diastolic 2024-06-06 16:10:00 75 mm[Hg] Wayne phen F Forrest Weight Measured 2024-06-06 16:10:00 238.40 pounds Brian F Forrest Height Measured 2024-06-06 16:10:00 68.00 inches Brian F Forrest Body Temperature 2024-06-06 16:10:00 97.40 degrees Brian F Forrest Heart Rate 2024-06-06 16:10:00 85.00 /min Vee en F Forrest Respiratory Rate 2024-06-06 16:10:00 18.00 /min Brian F Forrest BP Systolic 2024-05-25 10:55:00 118 mm[Hg] Step hen F Forrest BP Diastolic 2024-05-25 10:55:00 76 mm[Hg] Wayne phen F Forrest Weight Measured 2024-05-25 10:55:00 236.00 pounds Brian F Forrest Height Measured 2024-05-25 10:55:00 68.00 inches Brian F Forrest Body Temperature 2024-05-25 10:55:00 97.80 degrees Brian F Forrest Heart Rate 2024-05-25 10:55:00 81.00 /min Vee en F Forrest Respiratory Rate 2024-05-25 10:55:00 18.00 /min Brian F Forrest BP Systolic 2024-04-19 10:16:00 141 mm[Hg] Step hen F Forrest BP Diastolic 2024-04-19 10:16:00 9. mm[Hg] Wayne phen F Ofrrest Weight Measured 2024-04-19 10:16:00 236.00 pounds Brian F Forrest Height Measured 2024-04-19 10:16:00 68.00 inches Brian F Forrest Body Temperature 2024-04-19 10:16:00 98.20 degrees Brian F Forrest Heart Rate 2024-04-19 10:16:00 75.00 /min Vee en F Forrest Respiratory Rate 2024-04-19 10:16:00 18.00 /min Brian F Forrest BP Systolic 2024-04-17 13:51:00 116 mm[Hg] Step hen F Forrest BP Diastolic 2024-04-17 13:51:00 77 mm[Hg] Wayne phen F Forrest Weight Measured 2024-04-17 13:51:00 238.60 pounds Brian F Forrest Height Measured 2024-04-17 13:51:00 68.00 inches Brian F Forrest Body Temperature 2024-04-17 13:51:00 97.90 degrees Brian F Forrest Heart Rate 2024-04-17 13:51:00 83.00 /min Vee en F Forrest Respiratory Rate 2024-04-17 13:51:00 18.00 /min Brian F Forrest BP Systolic 2024-04-11 14:19:00 123 mm[Hg] Step hen F Forrest BP Diastolic 2024-04-11 14:19:00 74 mm[Hg] Wayne phen F Forrest Weight Measured 2024-04-11 14:19:00 230.80 pounds Brian F Forrest Height Measured 2024-04-11 14:19:00 68.00 inches Brian F Forrest Body Temperature 2024-04-11 14:19:00 98.30 degrees Brian F Forrest Heart Rate 2024-04-11 14:19:00 83.00 /min Vee en F Forrest Respiratory Rate 2024-04-11 14:19:00 18.00 /min Brian F Forrest BP Systolic 2024-01-31 10:53:00 Step hen F Forrest BP Diastolic 2024-01-31 10:53:00 Wayne phen F Forrest Weight Measured 2024-01-31 10:53:00 Brian F Forrest Height Measured 2024-01-31 10:53:00 Brian F Forrest Body Temperature 2024-01-31 10:53:00 Brian F Forrest Heart Rate 2024-01-31 10:53:00 Vee en F Forrest Respiratory Rate 2024-01-31 10:53:00 Brian F Forrest BP Systolic 2024-01-07 11:57:00 124 mm[Hg] Step hen F Forrest BP Diastolic 2024-01-07 11:57:00 80 mm[Hg] Wayne phen F Forrest Weight Measured 2024-01-07 11:57:00 236.80 pounds Brian F Forrest Height Measured 2024-01-07 11:57:00 68.00 inches Brian F Forrest Body Temperature 2024-01-07 11:57:00 97.60 degrees Brian F Forrest Heart Rate 2024-01-07 11:57:00 85.00 /min Vee en F Forrest Respiratory Rate 2024-01-07 11:57:00 Brian F Forrest BP Systolic 2023-10-07 08:58:00 112 mm[Hg] Step hen F Forrest BP Diastolic 2023-10-07 08:58:00 66 mm[Hg] Wayne phen F Forrest Weight Measured 2023-10-07 08:58:00 230.40 pounds Brian F Forrest Height Measured 2023-10-07 08:58:00 68.00 inches Brian F Forrest Body Temperature 2023-10-07 08:58:00 98.30 degrees Brian F Forrest Heart Rate 2023-10-07 08:58:00 78.00 /min Vee en F Forrest Respiratory Rate 2023-10-07 08:58:00 17.00 /min Brian F Forrest BP Systolic 2023-09-29 13:31:00 Step hen F Forrest BP Diastolic 2023-09-29 13:31:00 Wayne phen F Forrest Weight Measured 2023-09-29 13:31:00 235.20 pounds Brian F Forrest Height Measured 2023-09-29 13:31:00 68.00 inches Brian F Forrest Body Temperature 2023-09-29 13:31:00 Brian F Forrest Heart Rate 2023-09-29 13:31:00 Vee en F Forrest Respiratory Rate 2023-09-29 13:31:00 Brian F Forrest BP Systolic 2023-09-23 10:27:00 124 mm[Hg] Step hen F Forrest BP Diastolic 2023-09-23 10:27:00 81 mm[Hg] Wayne phen F Forrest Weight Measured 2023-09-23 10:27:00 232.40 pounds Brian F Forrest Height Measured 2023-09-23 10:27:00 68.00 inches Brian F Forrest Body Temperature 2023-09-23 10:27:00 98.20 degrees Brian F Forrest Heart Rate 2023-09-23 10:27:00 80.00 /min Vee en F Forrest Respiratory Rate 2023-09-23 10:27:00 18.00 /min Brian F Forrest BP Systolic 2023-09-20 11:06:00 90 mm[Hg] Step hen F Forrest BP Diastolic 2023-09-20 11:06:00 57 mm[Hg] Wayne phen F Forrest Weight Measured 2023-09-20 11:06:00 234.20 pounds Brian F Forrest Height Measured 2023-09-20 11:06:00 68.00 inches Brian F Forrest Body Temperature 2023-09-20 11:06:00 98.40 degrees Brian F Forrest Heart Rate 2023-09-20 11:06:00 80.00 /min Vee en F Forrest Respiratory Rate 2023-09-20 11:06:00 Brian F Forrest BP Systolic 2023-09-19 13:51:00 117 mm[Hg] Step hen F Forrest BP Diastolic 2023-09-19 13:51:00 82 mm[Hg] Wayne phen Zeina Clayton Weight Measured 2023-09-19 13:51:00 230.60 pounds Brian Clayton Height Measured 2023-09-19 13:51:00 68.00 inches Brian Clayton Body Temperature 2023-09-19 13:51:00 98.10 degrees Brian Clayton Heart Rate 2023-09-19 13:51:00 78.00 /min Vee en F Forrest Respiratory Rate 2023-09-19 13:51:00 Brianjose m Clayton BP Systolic 2023-09-08 10:11:00 110 mm[Hg] Step hen F Forrest BP Diastolic 2023-09-08 10:11:00 74 mm[Hg] Wayne phen Zeina Clayton Weight Measured 2023-09-08 10:11:00 232.30 pounds Brian Clayton Height Measured 2023-09-08 10:11:00 68.00 inches Brian Clayton Body Temperature 2023-09-08 10:11:00 97.40 degrees Brian Clayton Heart Rate 2023-09-08 10:11:00 67.00 /min Vee en F Forrest Respiratory Rate 2023-09-08 10:11:00 18.00 /min Brianjose m Clayton BP Systolic 2022-07-29 14:06:00 117 mm[Hg] BP Diastolic 2022-07-29 14:06:00 84 mm[Hg] Weight Measured 2022-07-29 14:06:00 243.40 pounds Height Measured 2022-07-29 14:06:00 68.00 inches Body Temperature 2022-07-29 14:06:00 98.30 degrees Heart Rate 2022-07-29 14:06:00 99.00 /min Respiratory Rate 2022-07-29 14:06:00 19.00 /min BP Systolic 2022-07-21 11:33:00 BP Diastolic 2022-07-21 11:33:00 Weight Measured 2022-07-21 11:33:00 238.80 pounds Height Measured 2022-07-21 11:33:00 68.00 inches Body Temperature 2022-07-21 11:33:00 Heart Rate 2022-07-21 11:33:00 Respiratory Rate 2022-07-21 11:33:00 BP Systolic 2022-04-21 15:47:00 107 mm[Hg] BP Diastolic 2022-04-21 15:47:00 71 mm[Hg] Weight Measured 2022-04-21 15:47:00 238.80 pounds Height Measured 2022-04-21 15:47:00 68.00 inches Body Temperature 2022-04-21 15:47:00 98.30 degrees Heart Rate 2022-04-21 15:47:00 78.00 /min Respiratory Rate 2022-04-21 15:47:00 18.00 /min BP Systolic 2022-02-24 15:02:00 108 mm[Hg] BP Diastolic 2022-02-24 15:02:00 72 mm[Hg] Weight Measured 2022-02-24 15:02:00 240.80 pounds Height Measured 2022-02-24 15:02:00 68.00 inches Body Temperature 2022-02-24 15:02:00 98.20 degrees Heart Rate 2022-02-24 15:02:00 73.00 /min Respiratory Rate 2022-02-24 15:02:00 16.00 /min BP Systolic 2021-12-17 13:18:00 BP Diastolic 2021-12-17 13:18:00 Weight Measured 2021-12-17 13:18:00 244.00 pounds Height Measured 2021-12-17 13:18:00 68.00 inches Body Temperature 2021-12-17 13:18:00 Heart Rate 2021-12-17 13:18:00 Respiratory Rate 2021-12-17 13:18:00 BP Systolic 2021-12-14 13:57:00 126 mm[Hg] BP Diastolic 2021-12-14 13:57:00 83 mm[Hg] Weight Measured 2021-12-14 13:57:00 251.00 pounds Height Measured 2021-12-14 13:57:00 68.00 inches Body Temperature 2021-12-14 13:57:00 98.30 degrees Heart Rate 2021-12-14 13:57:00 108.00 /min Respiratory Rate 2021-12-14 13:57:00 18.00 /min BP Systolic 2021-10-06 12:53:00 BP Diastolic 2021-10-06 12:53:00 Weight Measured 2021-10-06 12:53:00 251.00 pounds Height Measured 2021-10-06 12:53:00 68.00 inches Body Temperature 2021-10-06 12:53:00 Heart Rate 2021-10-06 12:53:00 Respiratory Rate 2021-10-06 12:53:00 BP Systolic 2021-10-02 09:34:00 127 mm[Hg] BP Diastolic 2021-10-02 09:34:00 85 mm[Hg] Weight Measured 2021-10-02 09:34:00 253.40 pounds Height Measured 2021-10-02 09:34:00 68.00 inches Body Temperature 2021-10-02 09:34:00 98.20 degrees Heart Rate 2021-10-02 09:34:00 77.00 /min Respiratory Rate 2021-10-02 09:34:00 18.00 /min BP Systolic 2021-09-11 09:40:00 123 mm[Hg] BP Diastolic 2021-09-11 09:40:00 76 mm[Hg] Weight Measured 2021-09-11 09:40:00 253.60 pounds Height Measured 2021-09-11 09:40:00 68.00 inches Body Temperature 2021-09-11 09:40:00 98.30 degrees Heart Rate 2021-09-11 09:40:00 71.00 /min Respiratory Rate 2021-09-11 09:40:00 18.00 /min BP Systolic 2021-09-07 09:31:00 121 mm[Hg] BP Diastolic 2021-09-07 09:31:00 85 mm[Hg] Weight Measured 2021-09-07 09:31:00 253.80 pounds Height Measured 2021-09-07 09:31:00 68.00 inches Body Temperature 2021-09-07 09:31:00 98.40 degrees Heart Rate 2021-09-07 09:31:00 74.00 /min Respiratory Rate 2021-09-07 09:31:00 BP Systolic 2021-08-11 16:13:00 BP Diastolic 2021-08-11 16:13:00 Weight Measured 2021-08-11 16:13:00 244.00 pounds Height Measured 2021-08-11 16:13:00 68.00 inches Body Temperature 2021-08-11 16:13:00 Heart Rate 2021-08-11 16:13:00 Respiratory Rate 2021-08-11 16:13:00 Procedures Procedure Date / Time Performed Performing Clinicia n Source US UPPER ARM LEFT 2023-04-05 17:29:01 Noe Edwards [facility] ASSIGNMENT OF BENEFITS 2023-04-05 16:51:34 Docto r Unassigned, Heath [facility] Plan of Care Planned Activity Planned Date Details Comments Source Goal Plan of Care Note [code = 13326-5] Goal Plan of Care Note [code = 79512-0] Goal Plan of Care Note [code = 35522-2] Goal Plan of Care Note [code = 69311-8] Goal Plan of Care Note [code = 92821-3] Goal Plan of Care Note [code = 97430-3] Goal Plan of Care Note [code = 56650-8] Goal Plan of Care Note [code = 39449-1] Goal Plan of Care Note [code = 13628-8] Goal Plan of Care Note [code = 12709-4] Goal Plan of Care Note [code = 73504-6] Goal Plan of Care Note [code = 91843-7] Goal Plan of Care Note [code = 49574-5] Goal Plan of Care Note [code = 54422-2] Goal Plan of Care Note [code = 47094-7] Goal Plan of Care Note [code = 50576-8] Goal Plan of Care Note [code = 62088-9] Goal Plan of Care Note [code = 77989-6] Goal Plan of Care Note [code = 27890-6] Goal Plan of Care Note [code = 30932-3] Goal Plan of Care Note [code = 49966-9] Goal Plan of Care Note [code = 64567-1] Goal Plan of Care Note [code = 70144-3] Goal Plan of Care Note [code = 11345-6] Goal Plan of Care Note [code = 14853-4] Goal Plan of Care Note [code = 51351-3] Goal Plan of Care Note [code = 87837-6] Goal Plan of Care Note [code = 88622-5] Goal Plan of Care Note [code = 59758-1] Goal Plan of Care Note [code = 33390-4] Goal Plan of Care Note [code = 29242-1] Goal Plan of Care Note [code = 40754-9] Goal Plan of Care Note [code = 14644-0] Goal Plan of Care Note [code = 87527-5] Goal Plan of Care Note [code = 95283-2] Goal Plan of Care Note [code = 65754-6] Goal Plan of Care Note [code = 75657-0] Goal Plan of Care Note [code = 57455-1] Goal Plan of Care Note [code = 50470-0] Goal Plan of Care Note [code = 23288-1] Goal Plan of Care Note [code = 98573-7] Goal Plan of Care Note [code = 75535-0] Goal Plan of Care Note [code = 73874-0] Goal Plan of Care Note [code = 97922-9] Goal Plan of Care Note [code = 98475-3] Goal Plan of Care Note [code = 25382-1] Goal Plan of Care Note [code = 41183-0] Goal Plan of Care Note [code = 53540-5] Goal Plan of Care Note [code = 35057-2] Goal Plan of Care Note [code = 53278-8] Goal Plan of Care Note [code = 86945-3] Goal Plan of Care Note [code = 66826-6] Goal Plan of Care Note [code = 41072-0] Goal Plan of Care Note [code = 58521-8] Goal Plan of Care Note [code = 25355-3] Goal Plan of Care Note [code = 48826-1] Goal Plan of Care Note [code = 99205-4] Goal Plan of Care Note [code = 12162-9] Goal Plan of Care Note [code = 99243-5] Goal Plan of Care Note [code = 96492-4] Goal Plan of Care Note [code = 95041-6] Goal Plan of Care Note [code = 78068-1] Goal Plan of Care Note [code = 39730-8] Goal Plan of Care Note [code = 17090-5] Goal Plan of Care Note [code = 14003-2] Goal Plan of Care Note [code = 37526-7] Goal Plan of Care Note [code = 36154-5] Goal Plan of Care Note [code = 66927-6] Goal Plan of Care Note [code = 87920-6] Goal Plan of Care Note [code = 50287-2] Goal Plan of Care Note [code = 45118-0] Goal Plan of Care Note [code = 58286-2] Goal Plan of Care Note [code = 81509-3] Goal Plan of Care Note [code = 10582-8] Goal Plan of Care Note [code = 25229-5] Goal Plan of Care Note [code = 22262-9] Goal Plan of Care Note [code = 08564-3] Goal Plan of Care Note [code = 53028-2] Goal Plan of Care Note [code = 42818-3] Goal Plan of Care Note [code = 06468-7] Goal Plan of Care Note [code = 27893-0] Goal Plan of Care Note [code = 72466-8] Goal Plan of Care Note [code = 43741-5] Goal Plan of Care Note [code = 75153-0] Goal Plan of Care Note [code = 27733-6] Goal Plan of Care Note [code = 03424-2] Goal Plan of Care Note [code = 63149-8] Goal Plan of Care Note [code = 16565-3] Goal Plan of Care Note [code = 09632-6] Goal Plan of Care Note [code = 05536-5] Goal Plan of Care Note [code = 71195-4] Goal Plan of Care Note [code = 24139-4] Goal Plan of Care Note [code = 69782-4] Goal Plan of Care Note [code = 91485-0] Goal Plan of Care Note [code = 28193-3] Goal Plan of Care Note [code = 79015-3] Encounters Start Date/Time End Date/Time Encounter Type Admission Type Attending Clinicians Care Facility Care Department Encounter ID Source 2021-11-25 11:58:12 Outpatient Devora Yeh [facility] [id number] [facility] 2021-11-25 11:01:10 Outpatient Devora Yeh [facility] [id number] [facility] 2024-11-06 16:34:29 2024-11-06 16:34:29 Outpatient SFA [facility] [id number] Brian Clayton 2024-10-16 16:47:17 2024-10-16 16:47:17 Outpatient SFA SFA [id number] Brian Clayton 2024-10-16 00:00:00 2024-10-16 00:00:00 Outpatient Visit SFA [id number] Brian Clayton 2024-10-11 09:51:00 2024-10-11 09:51:00 Outpatient SFA SFA [id number] Brian Clayton 2024-10-11 00:00:00 2024-10-11 00:00:00 Outpatient Visit SFA [id number] Brian Clayton 2024-10-09 11:51:27 2024-10-09 11:51:27 Outpatient SFA SFA 121 Brian Clayton 2024-09-18 16:18:07 2024-09-18 16:18:07 Outpatient SFA SFA [id number] Brian Clayton 2024-09-18 00:00:00 2024-09-18 00:00:00 Outpatient Visit SFA [id number] Brian Clayton 2024-09-13 14:52:01 2024-09-13 14:52:01 Outpatient SFA SFA [id number] Brian Clayton 2024-08-13 16:40:37 2024-08-13 16:40:37 Outpatient SFA SFA [id number] Brian Clayton 2024-08-09 11:36:48 2024-08-09 11:36:48 Outpatient SFA SFA [id number] Brian Clayton 2024-07-16 13:24:15 2024-07-16 13:24:15 Outpatient SFA SFA [id number] Brian Clayton 2024-06-18 15:21:09 2024-06-18 15:21:09 Outpatient SFA SFA 0819 Brian Clayton 2024-06-18 00:00:00 2024-06-18 00:00:00 Outpatient Visit SFA [id number] Brian Clayton 2024-06-15 14:40:17 2024-06-15 14:40:17 Outpatient SFA SFA [id number] Brian Clayton 2024-06-06 16:03:09 2024-06-06 16:03:09 Outpatient SFA SFA [id number] Brian Clayton 2024-06-06 00:00:00 2024-06-06 00:00:00 Outpatient Visit SFA [id number] Brian Clayton 2024-05-29 14:06:33 2024-05-29 14:06:33 Outpatient SFA SFA [id number] Brian Clayton 2024-05-25 10:47:23 2024-05-25 10:47:23 Outpatient SFA SFA 725 Brian Clayton 2024-05-25 00:00:00 2024-05-25 00:00:00 Outpatient Visit SFA [id number] Brian Clayton 2024-05-23 11:35:22 2024-05-23 11:35:22 Outpatient SFA SFA 723 Brian Clayton 2024-05-01 11:44:10 2024-05-01 11:44:10 Outpatient SFA SFA 701 Brian Clayton 2024-05-01 00:00:00 2024-05-01 00:00:00 Outpatient Visit SFA [id number] Brian Clayton 2024-04-24 15:10:13 2024-04-24 15:10:13 Outpatient SFA SFA [id number] Brian lCayton 2024-04-19 10:15:51 2024-04-19 10:15:51 Outpatient SFA SFA [id number] Brian Clayton 2024-04-19 00:00:00 2024-04-19 00:00:00 Outpatient Visit SFA [id number] Brian Clayton 2024-04-17 15:29:57 2024-04-17 15:29:57 Outpatient SFA SFA 617 Brian Clayton 2024-04-11 14:18:49 2024-04-11 14:18:49 Outpatient SFA SFA 12 Brian Clayton 2024-04-11 00:00:00 2024-04-11 00:00:00 Outpatient Visit SFA [id number] Brian Clayton 2024-03-29 16:36:26 2024-03-29 16:36:26 Outpatient SFA SFA [id number] Brian Clayton 2024-01-07 11:55:26 2024-01-07 11:55:26 Outpatient SFA SFA [id number] Brian Clayton 2023-11-08 13:50:09 2023-11-08 13:50:09 Outpatient SFA SFA [id number] Brian Clayton 2023-10-21 09:50:13 2023-10-21 09:50:13 Outpatient SFA SFA 1222 Brian Clayton 2023-09-29 13:39:12 2023-09-29 13:39:12 Outpatient SFA SFA [id number] Brian Clayton 2023-09-23 10:22:13 2023-09-23 10:22:13 Outpatient SFA SFA [id number] Brian Clayton 2023-09-20 10:56:45 2023-09-20 10:56:45 Outpatient SFA SFA [id number] Brian Clayton 2023-09-19 13:41:54 2023-09-19 13:41:54 Outpatient SFA SFA [id number] Brian Clayton 2023-09-08 10:11:50 2023-09-08 10:11:50 Outpatient SFA SFA [id number] Brian Clayton 2023-08-29 11:39:49 2023-08-29 11:39:49 Outpatient SFA SFA [id number] Brian Clayton 2023-08-19 17:01:30 2023-08-19 17:01:30 Outpatient SFA SFA [id number] Brian Clayton 2023-08-15 10:22:49 2023-08-15 10:22:49 Outpatient SFA SFA [id number] Brian Clayton 2023-08-09 10:16:28 2023-08-09 10:16:28 Outpatient SFA SFA [id number] Brian Clayton 2023-08-05 11:07:32 2023-08-05 11:07:32 Outpatient SFA SFA [id number] Brian Clayton 2023-07-20 16:46:29 2023-07-20 16:46:29 Outpatient SFA SFA [id number] Brian Clayton 2023-06-16 08:13:46 2023-06-16 08:13:46 Outpatient SFA SFA [id number] Brian Clayton 2023-06-14 14:37:43 2023-06-14 14:37:43 Outpatient SFA SFA [id number] Brian Clayton 2023-06-13 11:01:58 2023-06-13 11:01:58 Outpatient SFA SFA [id number] Brian Clayton 2023-05-13 17:09:17 2023-05-13 17:09:17 Outpatient SFA SFA [id number] Brian Clayton 2023-04-15 14:51:51 2023-04-15 14:51:51 Outpatient SFA SFA [id number] Brian Clayton 2023-04-05 11:52:55 2023-04-05 23:59:00 Outpatient R RADIOLOGY [facility] [id number] [facility] 2023-04-05 11:52:55 2023-04-05 23:59:00 Hospital Encounter Radiology [facility] [id number] [facility] 2023-04-05 00:00:00 2023-04-05 00:00:00 Orders Only Doctor Unassigned, Heath [facility] [id number] [facility] 2023-03-28 13:50:25 2023-03-28 13:50:25 Outpatient SFA SFA 0529 Brian Pastrana [place] 2023-03-25 10:55:37 2023-03-25 10:55:37 Outpatient SFA SFA 525 Brian Pastrana [place] 2023-03-18 14:04:17 2023-03-18 14:04:17 Outpatient SFA SFA 518 Brian Pastrana [place] 2023-03-17 11:48:46 2023-03-17 11:48:46 Outpatient SFA SFA 517 Brian Pastrana [place] 2023-03-16 10:43:56 2023-03-16 10:43:56 Outpatient SFA SFA 516 Brian Pastrana [place] 2023-03-15 14:43:38 2023-03-15 14:43:38 Outpatient SFA SFA 515 Brian Pastrana [place] 2023-02-16 11:56:27 2023-02-16 11:56:27 Outpatient SFA SFA [id number] Brian Pastrana [place] 2023-01-19 14:03:08 2023-01-19 14:03:08 Outpatient SFA SFA [id number] Brian Pastrana [place] 2023-01-18 14:16:24 2023-01-18 14:16:24 Outpatient SFA SFA [id number] Brian Pastrana [place] 2023-01-11 14:59:52 2023-01-11 14:59:52 Outpatient SFA SFA [id number] Brian Clayton 2022-12-21 13:42:10 2022-12-21 13:42:10 Outpatient SFA SFA [id number] Biran Clayton 2022-09-28 17:01:10 2022-09-28 17:01:10 Outpatient SFA SFA [id number] Brian Clayton 2022-08-04 00:00:00 2022-08-04 00:00:00 Outpatient Visit [id number] 14:00:46 2022-07-29 14:00:[address] [facility] [id number] Brian Clayton 2022-07-29 00:00:00 2022-07-29 00:00:00 Outpatient Visit [id number] 2022-07-26 00:00:00 2022-07-26 00:00:00 Outpatient Visit [id number] 2022-07-07 00:00:00 2022-07-07 00:00:00 Outpatient Visit [id number] 2021-03-06 12:30:00 2021-03-06 12:30:00 Outpatient LOI LYNNE [facility] [id number] [facility] 2021-02-10 09:50:00 2021-02-10 09:50:00 Outpatient LOI LYNNE [facility] [id number] [facility] 2020-08-21 00:00:00 2020-08-21 00:00:00 OFFICE VISIT ESTAB PT LEVEL 2 [facility] [id number] [facility] 2020-05-22 12:49:00 2020-05-22 12:49:[address] [facility] [id number] [facility] 2020-05-21 15:00:00 2020-05-21 15:00:[address] [facility] [id number] [facility] 2019-11-15 13:45:00 2019-11-15 13:45:[address] [facility] [id number] [facility] 2019-10-01 14:36:00 2019-10-01 14:36:[address] [facility] [id number] [facility] 2019-08-15 11:20:00 2019-08-15 11:20:[address] [facility] [id number] [facility] 2019-05-07 10:20:00 2019-05-07 10:20:[address] [facility] [id number] [facility] 2019-02-07 10:40:00 2019-02-07 10:40:[address] [facility] [id number] [facility] 2019-02-05 16:03:00 2019-02-05 16:03:[address] [facility] [facility] [id number] [facility] 2018-10-09 11:03:00 2018-10-09 11:03:00 [facility] [id number] [facility] 2018-08-17 11:30:00 2018-08-17 11:30:[address] [facility] [facility] [id number] [facility] 2018-07-19 09:45:00 2018-07-19 09:45:00 [facility] [id number] [facility] 2018-07-10 10:00:00 2018-07-10 10:00:00 [facility] [id number] [facility] 2018-06-28 19:16:00 2018-06-28 19:16:[address] [facility] [address] [facility] [id number] [facility] 2018-06-28 11:02:00 2018-06-28 11:02:[address] [facility] [id number] [facility] 2018-06-28 10:27:00 2018-06-28 10:27:[address] [facility] [facility] [id number] [facility] 2018-06-27 16:00:00 2018-06-27 16:00:[address] [facility] [id number] [facility] 2018-06-26 09:39:00 2018-06-26 09:39:[address] [facility] [id number] [facility] 2018-06-09 18:48:00 2018-06-09 18:48:[address] [facility] [id number] [facility] 2018-06-09 11:00:00 2018-06-09 11:00:[address] [facility] [facility] [id number] [facility] 2018 01:30:00 2018 01:30:[address] [facility] [id number] [facility] 2018-05-17 14:44:00 2018-05-17 14:44:00 Outpatient [facility] [id number] [facility] 2018-05-17 10:15:00 2018-05-17 10:15:00 Outpatient [facility] [id number] [facility] 2018-03-21 13:30:00 2018-03-21 13:30:00 Outpatient [facility] [id number] [facility] Results Test Description Test Time Test Comments Results Result Co mments Source LIPID [id number] 04:53:15* Test Item Value Reference Range Interpretation Comme nts CHOLESTEROL (test code = 2210) 191 MG/DL <200 TRIGLYCERIDES (test code = 2232) 101 MG/DL <150 HDL CHOLESTEROL (test code = 2220) 40 MG/DL >39 CALC LDL CHOL (test code = 2237) 131 MG/DL <100 H NOTE: CALCULATED LDL IS BASED ON MOJGAN-REICH METHOD WHICHINCLUDES ADJUSTABLE TRIGLYCERIDE:VLDL CHOLESTEROL RATIO.THIS FACTOR VARIES BY MEASURED TRIGLYCERIDE AND NON-HDLCHOLESTEROL CONCENTRATIONS WITH INCREASED CALCULATED LDL SEENIN HIGHER TRIGLYCERIDE OR LOWER NON-HDL SPECIMENS. FOR MOREINFORMATION, SEE CLIENT ANNOUNCEMENT AT [email or web address] /CalcLDL-C RISK RATIO LDL/HDL (test code = 2238) 3.28 RATIO <3.55 UNLESS OTHERW ISE INDICATED, ALL TESTING PERFORMED AT [facility] [address] [place] [address] FISH FILLETER: JONNY GOODMAN M.D. CLIA NUMBER [id number] [facility] [place]. [id number] COMPREHENSIVE METABOLIC [id number] 00:00:00* Test Item Value Reference Range Interpretation Comme nts GLUCOSE (test code = 2217) 92 MG/DL BUN (test code = 2208) 14 MG/DL CREATININE (test code = 2214) 1.07 MG/DL eGFR (2020 CKD-EPI) (test co de = 48124) 88 ML/MIN/1.73 CALC BUN/CREAT (test code = 2235) 13 RATIO SODIUM (test code = 2231) 139 MEQ/L POTASSIUM (test code = 2228) 4.8 MEQ/L CHLORIDE (test code = 2215) 101 MEQ/L CARBON DIOXIDE (test code = 2206) 24 MEQ/L CALCIUM (test code = 2209) 9.9 MG/DL PROTEIN, TOTAL (test code = 2229) 8.3 G/DL ALBUMIN (test code = 2201) 5.0 G/DL CALC GLOBULIN (test code = 2240) 3.3 G/DL CALC A/G RATIO (test code = 2234) 1.5 RATIO BILIRUBIN, TOTAL (test code = 2207) 0.3 MG/DL ALKALINE PHOSPHATASE (test code = 220) 99 U/L AST (test code = 221) 36 U/L ALT (test code = 2219) 22 U/L Brian ClaytonLIPID [id number] 00:00:00* Test Item Value Reference Range Interpretation Comme nts CHOLESTEROL (test code = 2210) 191 MG/DL TRIGLYCERIDES (test code = 223) 101 MG/DL HDL CHOLESTEROL (test code = 0) 40 MG/DL CALC LDL CHOL (test code = 2237) 131 MG/DL RISK RATIO LDL/HDL (test cod e = 2238) 3.28 RATIO Brian ClaytonHEMOGLOBIN [id number] 06:22:31* Test Item Value Reference Range Interpretation Comme [facility] HEMOGLOBIN A1c (test code = 97073) 5.3 % 4.2-5.6 AFP, TUMOR [id number] 04:47:40* Test Item Value Reference Range Interpretation Comme [facility] AFP, TUMOR MARKER (test code = 19202) 2.69 NG/ML <=8.30 CBC W/AUTO DIFF WITH [id number] 04:47:02* Test Item Value Reference Range Interpretation Comme nts WBC (test code = 1001) 6.0 K/UL 3.5-11.0 RBC (test code = 1002) 4.53 M/UL 4.50-6.10 HEMOGLOBIN (test code = 1003) 13.9 G/DL 13.5-17.0 HEMATOCRIT (test code = 1004) 40.9 % 40.0-51.0 MCV (test code = 1005) 90.3 fL 80.0-99.0 MCH (test code = 1006) 30.7 PG 25.0-33.0 MCHC (test code = 1007) 34.0 G/DL 31.0-36.0 RDW (test code = 1038) 12.8 % 11.5-15.0 NEUTROPHILS (test code = 1008) 56.4 % LYMPHOCYTES (test code = 1010) 32.4 % MONOCYTES (test code = 1011) 9.4 % EOSINOPHILS (test code = 1012) 1.2 % BASOPHILS (test code = 1013) 0.3 % IMMATURE GRANULOCYTES (test code = 1036) 0.3 % NUCLEATED RBCS (test code = 1065) 0.0 /100 WBC'S See_Comment [Automated Codaricaa ge] The system which generated this result transmitted reference range: 0.0. The reference range was not used to interpret this result as normal/abnormal. PLATELET COUNT (test code = 1015) 314 K/UL 130-400 ABSOLUTE NEUTROPHILS (test code = 1066) 3.36 K/UL 1.50-7.50 ABSOLUTE LYMPHOCYTES (test code = 1067) 1.93 K/UL 1.00-4.00 ABSOLUTE MONOCYTES (test code = 1068) 0.56 K/UL 0.20-1.00 ABSOLUTE EOSINOPHILS (test code = 1040) 0.07 K/UL 0.00-0.50 ABSOLUTE BASOPHILS (test code = 1069) 0.02 K/UL 0.00-0.20 ABS IMMATURE GRANULOCYTES (test code = 1020) 0.02 K/UL 0.00-0.10 ABS NUCLEATED RBCS (test code = 41495) 0.00 K/UL 0.00-0.11 PSA, [id number] 04:46:16* Test Item Value Reference Range Interpretation Comme nts PSA, TOTAL (test code = 2606) 0.57 NG/ML <=4.00 NOTE: Methodolog y is Isadora [place] Electrochemiluminescence Immunoassay traceable to WHO reference standard 96/760. HEPATIC FUNCTION [id number] 04:44:34* Test Item Value Reference Range Interpretation Comme nts PROTEIN, TOTAL (test code = 2229) 7.6 G/DL 6.1-8.3 ALBUMIN (test code = 2201) 5.1 G/DL 3.5-5.2 BILIRUBIN, TOTAL (test code = 2207) 0.2 MG/DL <=1.2 BILIRUBIN, DIRECT (test code = 2021) 0.1 MG/DL 0.0-0.3 ALKALINE PHOSPHATASE (test code = 2204) 108 U/L 40-119 AST (test code = 2218) 40 U/L 9-50 ALT (test code = 2219) 25 U/L 5-50 UNLESS OTHERWISE INDICATED, ALL TESTING PERFORMED AT [facility] [address] [place] [id number] FISH FILLETER: JONNY GOODMAN M.D. CLIA NUMBER [id number] [facility] [place]. [id number] COMPREHENSIVE METABOLIC [id number] 04:44:34* Test Item Value Reference Range Interpretation Comme nts GLUCOSE (test code = 2216) 106 MG/DL 70-99 H BUN (test code = 2207) 12 MG/DL 6-20 CREATININE (test code = 221) 1.26 MG/DL 0.80-1.40 eGFR (2020 CKD-EPI) (test co de = 02395) 72 ML/MIN/1.73 >60 CALC BUN/CREAT (test code = 2235) 10 RATIO 6-28 SODIUM (test code = 223) 138 MEQ/L 133-146 POTASSIUM (test code = 2228) 4.2 MEQ/L 3.5-5.4 CHLORIDE (test code = 2215) 101 MEQ/L 95-107 CARBON DIOXIDE (test code = 2206) 24 MEQ/L 19-31 CALCIUM (test code = 2209) 9.7 MG/DL 8.5-10.5 PROTEIN, TOTAL (test code = 2228) 7.6 G/DL 6.1-8.3 ALBUMIN (test code = 2200) 5.1 G/DL 3.5-5.2 CALC GLOBULIN (test code = 2240) 2.5 G/DL 1.9-3.7 CALC A/G RATIO (test code = 2234) 2.0 RATIO 1.0-2.6 BILIRUBIN, TOTAL (test code = 2206) 0.2 MG/DL <=1.2 ALKALINE PHOSPHATASE (test code = 2203) 108 U/L 40-119 AST (test code = 2218) 40 U/L 9-50 ALT (test code = 2219) 25 U/L 5-50 LIPID [id number] 04:44:34* Test Item Value Reference Range Interpretation Comme nts CHOLESTEROL (test code = 2210) 172 MG/DL <200 TRIGLYCERIDES (test code = 2232) 236 MG/DL <150 H HDL CHOLESTEROL (test code = 2220) 47 MG/DL >39 CALC LDL CHOL (test code = 2237) 92 MG/DL <100 NOTE: CALCULATED LDL IS BASED ON MOJGAN-REICH METHOD WHICHINCLUDES ADJUSTABLE TRIGLYCERIDE:VLDL CHOLESTEROL RATIO.THIS FACTOR VARIES BY MEASURED TRIGLYCERIDE AND NON-HDLCHOLESTEROL CONCENTRATIONS WITH INCREASED CALCULATED LDL SEENIN HIGHER TRIGLYCERIDE OR LOWER NON-HDL SPECIMENS. FOR MOREINFORMATION, SEE CLIENT ANNOUNCEMENT AT [email or web address] /CalcLDL-C RISK RATIO LDL/HDL (test code = 2238) 1.96 RATIO <3.55 LIPID [id number] 00:00:00* Test Item Value Reference Range Interpretation Comme nts CHOLESTEROL (test code = 2210) 172 MG/DL TRIGLYCERIDES (test code = 2232) 236 MG/DL HDL CHOLESTEROL (test code = 2220) 47 MG/DL CALC LDL CHOL (test code = 2237) 92 MG/DL RISK RATIO LDL/HDL (test cod e = 2238) 1.96 RATIO Brian Pastrana ForrestPSA, [id number] 00:00:00* Test Item Value Reference Range Interpretation Comme nts PSA, TOTAL (test code = 2606) 0.57 NG/ML Brian ClaytonHEMOGLOBIN [id number] 00:00:00* Test Item Value Reference Range Interpretation Comme nts HEMOGLOBIN A1c (test code = 14901) 5.3 % Brian Pastrana ForrestLIVER (HEPATIC) FUNCTION [id number] 00:00:00* Test Item Value Reference Range Interpretation Comme nts PROTEIN, TOTAL (test code = 2229) 7.6 G/DL ALBUMIN (test code = 2201) 5.1 G/DL BILIRUBIN, TOTAL (test code = 2207) 0.2 MG/DL BILIRUBIN, DIRECT (test code = 2021) 0.1 MG/DL ALKALINE PHOSPHATASE (test c ode = 2204) 108 U/L AST (test code = 2218) 40 U/L ALT (test code = 2219) 25 U/L Brian Pastrana ForrestAFP, TUMOR [id number] 00:00:00* Test Item Value Reference Range Interpretation Comme nts AFP, TUMOR MARKER (test code = 25107) 2.69 NG/ML Brian ClaytonCBC W/AUTO [id number] 00:00:00* Test Item Value Reference Range Interpretation Comme nts WBC (test code = 1001) 6.0 K/UL RBC (test code = 1002) 4.53 M/UL HEMOGLOBIN (test code = 1003) 13.9 G/DL HEMATOCRIT (test code = 1004) 40.9 % MCV (test code = 1005) 90.3 fL MCH (test code = 1006) 30.7 PG MCHC (test code = 1007) 34.0 G/DL RDW (test code = 1038) 12.8 % NEUTROPHILS (test code = 1008) 56.4 % LYMPHOCYTES (test code = 1010) 32.4 % MONOCYTES (test code = 1011) 9.4 % EOSINOPHILS (test code = 1012) 1.2 % BASOPHILS (test code = 1013) 0.3 % IMMATURE GRANULOCYTES (test code = 1036) 0.3 % NUCLEATED RBCS (test code = 1065) 0.0 /100WBC'S PLATELET COUNT (test code = 1015) 314 K/UL ABSOLUTE NEUTROPHILS (test c ode = 1066) 3.36 K/UL ABSOLUTE LYMPHOCYTES (test c ode = 1067) 1.93 K/UL ABSOLUTE MONOCYTES (test cod e = 1068) 0.56 K/UL ABSOLUTE EOSINOPHILS (test c ode = 1040) 0.07 K/UL ABSOLUTE BASOPHILS (test cod e = 1069) 0.02 K/UL ABS IMMATURE GRANULOCYTES (t est code = 1020) 0.02 K/UL ABS NUCLEATED RBCS (test cod e = 53330) 0.00 K/UL Brian ClaytonCOMPREHENSIVE METABOLIC [id number] 00:00:00* Test Item Value Reference Range Interpretation Comme nts GLUCOSE (test code = 2217) 106 MG/DL BUN (test code = 2208) 12 MG/DL CREATININE (test code = 2214) 1.26 MG/DL eGFR (2020 CKD-EPI) (test co de = 60582) 72 ML/MIN/1.73 CALC BUN/CREAT (test code = 2235) 10 RATIO SODIUM (test code = 2231) 138 MEQ/L POTASSIUM (test code = 2228) 4.2 MEQ/L CHLORIDE (test code = 2215) 101 MEQ/L CARBON DIOXIDE (test code = 2206) 24 MEQ/L CALCIUM (test code = 2209) 9.7 MG/DL PROTEIN, TOTAL (test code = 2229) 7.6 G/DL ALBUMIN (test code = 2201) 5.1 G/DL CALC GLOBULIN (test code = 2240) 2.5 G/DL CALC A/G RATIO (test code = 2234) 2.0 RATIO BILIRUBIN, TOTAL (test code = 2207) 0.2 MG/DL ALKALINE PHOSPHATASE (test code = 2204) 108 U/L AST (test code = 2218) 40 U/L ALT (test code = 2219) 25 U/L Brian Pastrana ForrestLIPID [id number] 00:00:00* Test Item Value Reference Range Interpretation Comme nts CHOLESTEROL (test code = 2210) 172 MG/DL TRIGLYCERIDES (test code = 2232) 236 MG/DL HDL CHOLESTEROL (test code = 2220) 47 MG/DL CALC LDL CHOL (test code = 2237) 92 MG/DL RISK RATIO LDL/HDL (test cod e = 2238) 1.96 RATIO Brian Pastrana ForrestPSA, [id number] 00:00:00* Test Item Value Reference Range Interpretation Comme nts PSA, TOTAL (test code = 2606) 0.57 NG/ML Brian ClaytonHEMOGLOBIN [id number] 00:00:00* Test Item Value Reference Range Interpretation Comme nts HEMOGLOBIN A1c (test code = 66589) 5.3 % Brian Pastrana ForrestLIVER (HEPATIC) FUNCTION [id number] 00:00:00* Test Item Value Reference Range Interpretation Comme nts PROTEIN, TOTAL (test code = 2229) 7.6 G/DL ALBUMIN (test code = 2201) 5.1 G/DL BILIRUBIN, TOTAL (test code = 2207) 0.2 MG/DL BILIRUBIN, DIRECT (test code = 2021) 0.1 MG/DL ALKALINE PHOSPHATASE (test c ode = 2204) 108 U/L AST (test code = 2218) 40 U/L ALT (test code = 2219) 25 U/L Brian Pastrana ForrestAFP, TUMOR [id number] 00:00:00* Test Item Value Reference Range Interpretation Comme nts AFP, TUMOR MARKER (test code = 11839) 2.69 NG/ML Brian ClaytonCBC W/AUTO [id number] 00:00:00* Test Item Value Reference Range Interpretation Comme nts WBC (test code = 1001) 6.0 K/UL RBC (test code = 1002) 4.53 M/UL HEMOGLOBIN (test code = 1003) 13.9 G/DL HEMATOCRIT (test code = 1004) 40.9 % MCV (test code = 1005) 90.3 fL MCH (test code = 1006) 30.7 PG MCHC (test code = 1007) 34.0 G/DL RDW (test code = 1038) 12.8 % NEUTROPHILS (test code = 1008) 56.4 % LYMPHOCYTES (test code = 1010) 32.4 % MONOCYTES (test code = 1011) 9.4 % EOSINOPHILS (test code = 1012) 1.2 % BASOPHILS (test code = 1013) 0.3 % IMMATURE GRANULOCYTES (test code = 1036) 0.3 % NUCLEATED RBCS (test code = 1065) 0.0 /100WBC'S PLATELET COUNT (test code = 1015) 314 K/UL ABSOLUTE NEUTROPHILS (test c ode = 1066) 3.36 K/UL ABSOLUTE LYMPHOCYTES (test c ode = 1067) 1.93 K/UL ABSOLUTE MONOCYTES (test cod e = 1068) 0.56 K/UL ABSOLUTE EOSINOPHILS (test c ode = 1040) 0.07 K/UL ABSOLUTE BASOPHILS (test cod e = 1069) 0.02 K/UL ABS IMMATURE GRANULOCYTES (t est code = 1020) 0.02 K/UL ABS NUCLEATED RBCS (test cod e = 58279) 0.00 K/UL Brian ClaytonCOMPREHENSIVE METABOLIC [id number] 00:00:00* Test Item Value Reference Range Interpretation Comme nts GLUCOSE (test code = 2217) 106 MG/DL BUN (test code = 2208) 12 MG/DL CREATININE (test code = 2214) 1.26 MG/DL eGFR (2020 CKD-EPI) (test co de = 64637) 72 ML/MIN/1.73 CALC BUN/CREAT (test code = 2235) 10 RATIO SODIUM (test code = 2231) 138 MEQ/L POTASSIUM (test code = 2228) 4.2 MEQ/L CHLORIDE (test code = 2215) 101 MEQ/L CARBON DIOXIDE (test code = 2206) 24 MEQ/L CALCIUM (test code = 2209) 9.7 MG/DL PROTEIN, TOTAL (test code = 2229) 7.6 G/DL ALBUMIN (test code = 2201) 5.1 G/DL CALC GLOBULIN (test code = 2240) 2.5 G/DL CALC A/G RATIO (test code = 2234) 2.0 RATIO BILIRUBIN, TOTAL (test code = 2207) 0.2 MG/DL ALKALINE PHOSPHATASE (test code = 2204) 108 U/L AST (test code = 2218) 40 U/L ALT (test code = 2219) 25 U/L Brian Pastrana ForrestLIPID [id number] 00:00:00* Test Item Value Reference Range Interpretation Comme nts CHOLESTEROL (test code = 2210) 172 MG/DL TRIGLYCERIDES (test code = 2232) 236 MG/DL HDL CHOLESTEROL (test code = 2220) 47 MG/DL CALC LDL CHOL (test code = 2237) 92 MG/DL RISK RATIO LDL/HDL (test cod e = 2238) 1.96 RATIO Brian Pastrana ForrestPSA, [id number] 00:00:00* Test Item Value Reference Range Interpretation Comme nts PSA, TOTAL (test code = 2606) 0.57 NG/ML Brian ClaytonHEMOGLOBIN [id number] 00:00:00* Test Item Value Reference Range Interpretation Comme nts HEMOGLOBIN A1c (test code = 82310) 5.3 % Brian Pastrana ForrestLIVER (HEPATIC) FUNCTION [id number] 00:00:00* Test Item Value Reference Range Interpretation Comme nts PROTEIN, TOTAL (test code = 2229) 7.6 G/DL ALBUMIN (test code = 2201) 5.1 G/DL BILIRUBIN, TOTAL (test code = 2207) 0.2 MG/DL BILIRUBIN, DIRECT (test code = 2021) 0.1 MG/DL ALKALINE PHOSPHATASE (test c ode = 2204) 108 U/L AST (test code = 2218) 40 U/L ALT (test code = 2219) 25 U/L Brian Pastrana ForrestAFP, TUMOR [id number] 00:00:00* Test Item Value Reference Range Interpretation Comme nts AFP, TUMOR MARKER (test code = 06245) 2.69 NG/ML Brian ClaytonCBC W/AUTO [id number] 00:00:00* Test Item Value Reference Range Interpretation Comme nts WBC (test code = 1001) 6.0 K/UL RBC (test code = 1002) 4.53 M/UL HEMOGLOBIN (test code = 1003) 13.9 G/DL HEMATOCRIT (test code = 1004) 40.9 % MCV (test code = 1005) 90.3 fL MCH (test code = 1006) 30.7 PG MCHC (test code = 1007) 34.0 G/DL RDW (test code = 1038) 12.8 % NEUTROPHILS (test code = 1008) 56.4 % LYMPHOCYTES (test code = 1010) 32.4 % MONOCYTES (test code = 1011) 9.4 % EOSINOPHILS (test code = 1012) 1.2 % BASOPHILS (test code = 1013) 0.3 % IMMATURE GRANULOCYTES (test code = 1036) 0.3 % NUCLEATED RBCS (test code = 1065) 0.0 /100WBC'S PLATELET COUNT (test code = 1015) 314 K/UL ABSOLUTE NEUTROPHILS (test c ode = 1066) 3.36 K/UL ABSOLUTE LYMPHOCYTES (test c ode = 1067) 1.93 K/UL ABSOLUTE MONOCYTES (test cod e = 1068) 0.56 K/UL ABSOLUTE EOSINOPHILS (test c ode = 1040) 0.07 K/UL ABSOLUTE BASOPHILS (test cod e = 1069) 0.02 K/UL ABS IMMATURE GRANULOCYTES (t est code = 1020) 0.02 K/UL ABS NUCLEATED RBCS (test cod e = 89917) 0.00 K/UL Brian ClaytonCOMPREHENSIVE METABOLIC [id number] 00:00:00* Test Item Value Reference Range Interpretation Comme nts GLUCOSE (test code = 2217) 106 MG/DL BUN (test code = 2208) 12 MG/DL CREATININE (test code = 2214) 1.26 MG/DL eGFR (2020 CKD-EPI) (test co de = 97101) 72 ML/MIN/1.73 CALC BUN/CREAT (test code = 2235) 10 RATIO SODIUM (test code = 2231) 138 MEQ/L POTASSIUM (test code = 2228) 4.2 MEQ/L CHLORIDE (test code = 2215) 101 MEQ/L CARBON DIOXIDE (test code = 2206) 24 MEQ/L CALCIUM (test code = 2209) 9.7 MG/DL PROTEIN, TOTAL (test code = 2229) 7.6 G/DL ALBUMIN (test code = 2201) 5.1 G/DL CALC GLOBULIN (test code = 2240) 2.5 G/DL CALC A/G RATIO (test code = 2234) 2.0 RATIO BILIRUBIN, TOTAL (test code = 2207) 0.2 MG/DL ALKALINE PHOSPHATASE (test code = 2204) 108 U/L AST (test code = 2218) 40 U/L ALT (test code = 2219) 25 U/L Brian Zeina ForrestLIPID [id number] 00:00:00* Test Item Value Reference Range Interpretation Comme nts CHOLESTEROL (test code = 2210) 172 MG/DL TRIGLYCERIDES (test code = 2232) 236 MG/DL HDL CHOLESTEROL (test code = 2220) 47 MG/DL CALC LDL CHOL (test code = 2237) 92 MG/DL RISK RATIO LDL/HDL (test cod e = 2238) 1.96 RATIO Brian Zeina ForrestPSA, [id number] 00:00:00* Test Item Value Reference Range Interpretation Comme nts PSA, TOTAL (test code = 2606) 0.57 NG/ML Brian Zeina ForrsetHEMOGLOBIN [id number] 00:00:00* Test Item Value Reference Range Interpretation Comme nts HEMOGLOBIN A1c (test code = 70603) 5.3 % Brian Zeina ForrestLIVER (HEPATIC) FUNCTION [id number] 00:00:00* Test Item Value Reference Range Interpretation Comme nts PROTEIN, TOTAL (test code = 2229) 7.6 G/DL ALBUMIN (test code = 2201) 5.1 G/DL BILIRUBIN, TOTAL (test code = 2207) 0.2 MG/DL BILIRUBIN, DIRECT (test code = 2021) 0.1 MG/DL ALKALINE PHOSPHATASE (test c ode = 220) 108 U/L AST (test code = 2218) 40 U/L ALT (test code = 2219) 25 U/L Brian ClaytonAFP, TUMOR [id number] 00:00:00* Test Item Value Reference Range Interpretation Comme nts AFP, TUMOR MARKER (test code = 59061) 2.69 NG/ML Brian ClaytonCBC W/AUTO [id number] 00:00:00* Test Item Value Reference Range Interpretation Comme nts WBC (test code = 1001) 6.0 K/UL RBC (test code = 1002) 4.53 M/UL HEMOGLOBIN (test code = 1003) 13.9 G/DL HEMATOCRIT (test code = 1004) 40.9 % MCV (test code = 1005) 90.3 fL MCH (test code = 1006) 30.7 PG MCHC (test code = 1007) 34.0 G/DL RDW (test code = 1038) 12.8 % NEUTROPHILS (test code = 1008) 56.4 % LYMPHOCYTES (test code = 1010) 32.4 % MONOCYTES (test code = 1011) 9.4 % EOSINOPHILS (test code = 1012) 1.2 % BASOPHILS (test code = 1013) 0.3 % IMMATURE GRANULOCYTES (test code = 1036) 0.3 % NUCLEATED RBCS (test code = 1065) 0.0 /100WBC'S PLATELET COUNT (test code = 1015) 314 K/UL ABSOLUTE NEUTROPHILS (test c ode = 1066) 3.36 K/UL ABSOLUTE LYMPHOCYTES (test c ode = 1067) 1.93 K/UL ABSOLUTE MONOCYTES (test cod e = 1068) 0.56 K/UL ABSOLUTE EOSINOPHILS (test c ode = 1040) 0.07 K/UL ABSOLUTE BASOPHILS (test cod e = 1069) 0.02 K/UL ABS IMMATURE GRANULOCYTES (t est code = 1020) 0.02 K/UL ABS NUCLEATED RBCS (test cod e = 76856) 0.00 K/UL Brian ClaytonCOMPREHENSIVE METABOLIC [id number] 00:00:00* Test Item Value Reference Range Interpretation Comme nts GLUCOSE (test code = 2217) 106 MG/DL BUN (test code = 2208) 12 MG/DL CREATININE (test code = 2214) 1.26 MG/DL eGFR (2020 CKD-EPI) (test co de = 14262) 72 ML/MIN/1.73 CALC BUN/CREAT (test code = 2235) 10 RATIO SODIUM (test code = 2231) 138 MEQ/L POTASSIUM (test code = 2228) 4.2 MEQ/L CHLORIDE (test code = 2215) 101 MEQ/L CARBON DIOXIDE (test code = 2206) 24 MEQ/L CALCIUM (test code = 2209) 9.7 MG/DL PROTEIN, TOTAL (test code = 2229) 7.6 G/DL ALBUMIN (test code = 2201) 5.1 G/DL CALC GLOBULIN (test code = 2240) 2.5 G/DL CALC A/G RATIO (test code = 2234) 2.0 RATIO BILIRUBIN, TOTAL (test code = 2207) 0.2 MG/DL ALKALINE PHOSPHATASE (test code = 2204) 108 U/L AST (test code = 2218) 40 U/L ALT (test code = 2219) 25 U/L Brian Pastrana ForrestLIPID [id number] 00:00:00* Test Item Value Reference Range Interpretation Comme nts CHOLESTEROL (test code = 2210) 172 MG/DL TRIGLYCERIDES (test code = 2232) 236 MG/DL HDL CHOLESTEROL (test code = 2220) 47 MG/DL CALC LDL CHOL (test code = 2237) 92 MG/DL RISK RATIO LDL/HDL (test cod e = 2238) 1.96 RATIO Brian Pastrana ForrestPSA, [id number] 00:00:00* Test Item Value Reference Range Interpretation Comme nts PSA, TOTAL (test code = 2606) 0.57 NG/ML Brian Pastrana ForrestHEMOGLOBIN [id number] 00:00:00* Test Item Value Reference Range Interpretation Comme nts HEMOGLOBIN A1c (test code = 66020) 5.3 % Brian Pastrana ForrestLIVER (HEPATIC) FUNCTION [id number] 00:00:00* Test Item Value Reference Range Interpretation Comme nts PROTEIN, TOTAL (test code = 2229) 7.6 G/DL ALBUMIN (test code = 2201) 5.1 G/DL BILIRUBIN, TOTAL (test code = 2207) 0.2 MG/DL BILIRUBIN, DIRECT (test code = 2021) 0.1 MG/DL ALKALINE PHOSPHATASE (test c ode = 2204) 108 U/L AST (test code = 2218) 40 U/L ALT (test code = 2219) 25 U/L Brian ClaytonAFP, TUMOR [id number] 00:00:00* Test Item Value Reference Range Interpretation Comme nts AFP, TUMOR MARKER (test code = 42031) 2.69 NG/ML Brian ClaytonCBC W/AUTO [id number] 00:00:00* Test Item Value Reference Range Interpretation Comme nts WBC (test code = 1001) 6.0 K/UL RBC (test code = 1002) 4.53 M/UL HEMOGLOBIN (test code = 1003) 13.9 G/DL HEMATOCRIT (test code = 1004) 40.9 % MCV (test code = 1005) 90.3 fL MCH (test code = 1006) 30.7 PG MCHC (test code = 1007) 34.0 G/DL RDW (test code = 1038) 12.8 % NEUTROPHILS (test code = 1008) 56.4 % LYMPHOCYTES (test code = 1010) 32.4 % MONOCYTES (test code = 1011) 9.4 % EOSINOPHILS (test code = 1012) 1.2 % BASOPHILS (test code = 1013) 0.3 % IMMATURE GRANULOCYTES (test code = 1036) 0.3 % NUCLEATED RBCS (test code = 1065) 0.0 /100WBC'S PLATELET COUNT (test code = 1015) 314 K/UL ABSOLUTE NEUTROPHILS (test c ode = 1066) 3.36 K/UL ABSOLUTE LYMPHOCYTES (test c ode = 1067) 1.93 K/UL ABSOLUTE MONOCYTES (test cod e = 1068) 0.56 K/UL ABSOLUTE EOSINOPHILS (test c ode = 1040) 0.07 K/UL ABSOLUTE BASOPHILS (test cod e = 1069) 0.02 K/UL ABS IMMATURE GRANULOCYTES (t est code = 1020) 0.02 K/UL ABS NUCLEATED RBCS (test cod e = 91249) 0.00 K/UL Brian ClaytonCOMPREHENSIVE METABOLIC [id number] 00:00:00* Test Item Value Reference Range Interpretation Comme nts GLUCOSE (test code = 2217) 106 MG/DL BUN (test code = 2208) 12 MG/DL CREATININE (test code = 2214) 1.26 MG/DL eGFR (2020 CKD-EPI) (test co de = 85965) 72 ML/MIN/1.73 CALC BUN/CREAT (test code = 2235) 10 RATIO SODIUM (test code = 223) 138 MEQ/L POTASSIUM (test code = 2228) 4.2 MEQ/L CHLORIDE (test code = 2215) 101 MEQ/L CARBON DIOXIDE (test code = 2206) 24 MEQ/L CALCIUM (test code = 2209) 9.7 MG/DL PROTEIN, TOTAL (test code = 2229) 7.6 G/DL ALBUMIN (test code = 2201) 5.1 G/DL CALC GLOBULIN (test code = 2240) 2.5 G/DL CALC A/G RATIO (test code = 2234) 2.0 RATIO BILIRUBIN, TOTAL (test code = 7) 0.2 MG/DL ALKALINE PHOSPHATASE (test code = 2203) 108 U/L AST (test code = 8) 40 U/L ALT (test code = 2218) 25 U/L Brian Pena Multi-cncr(5+35)2024-04-23 00:00:00* Test Item Value Reference Range Interpretation Comme nts Report Summary (test code = REPORT_SUMMARY) NEGATIVE Footnotes (test code = FOOTNOTES) See Notes PDF Report (test code = EMBEDDED_PDF) PDF Brian Pena [facility]-cn[facility](5+35)2024-04-23 00:00:00* Test Item Value Reference Range Interpretation Comme nts Report Summary (test code = REPORT_SUMMARY) NEGATIVE Footnotes (test code = FOOTNOTES) See Notes PDF Report (test code = EMBEDDED_PDF) PDF Brian Pena [facility]-cn[facility](5+35)2024-04-23 00:00:00* Test Item Value Reference Range Interpretation Comme nts Report Summary (test code = REPORT_SUMMARY) NEGATIVE Footnotes (test code = FOOTNOTES) See Notes PDF Report (test code = EMBEDDED_PDF) PDF Brian Pena [facility]-cn[facility](5+35)2024-04-23 00:00:00* Test Item Value Reference Range Interpretation Comme nts Report Summary (test code = REPORT_SUMMARY) NEGATIVE Footnotes (test code = FOOTNOTES) See Notes PDF Report (test code = EMBEDDED_PDF) PDF Brian Pena [facility]-cn[facility](5+35)2024-04-23 00:00:00* Test Item Value Reference Range Interpretation Comme nts Report Summary (test code = REPORT_SUMMARY) NEGATIVE Footnotes (test code = FOOTNOTES) See Notes PDF Report (test code = EMBEDDED_PDF) PDF Brian Pena [facility]-cn[facility](5+35)2024-04-23 00:00:00* Test Item Value Reference Range Interpretation Comme nts Report Summary (test code = REPORT_SUMMARY) NEGATIVE Footnotes (test code = FOOTNOTES) See Notes PDF Report (test code = EMBEDDED_PDF) PDF Brian Easton-cncr(5+35)2024-04-23 00:00:00* Test Item Value Reference Range Interpretation Comme nts Report Summary (test code = REPORT_SUMMARY) NEGATIVE Footnotes (test code = FOOTNOTES) See Notes PDF Report (test code = EMBEDDED_PDF) PDF Brian Pastrana AustinH. PYLORI (BREATH)2024-04-20 19:05:34* Test Item Value Reference Range Interpretation Comme nts H. PYLORI (BREATH) (test code = 54270) NEGATIVE NEGATIVE UNLESS OTHER PLAZA INDICATED, ALL TESTING PERFORMED AT [facility] [address] [place] [address] FISH FILLETER: JONNY GOODMAN M.D. CLIA NUMBER [id number] [facility] [place]. [id number] H. PYLORI (BREATH)2024-04-20 00:00:00* Test Item Value Reference Range Interpretation Comme nts H. PYLORI (BREATH) (test cod e = 85071) NEGATIVE Brian Pastrana AustinH. PYLORI (BREATH)2024-04-20 00:00:00* Test Item Value Reference Range Interpretation Comme nts H. PYLORI (BREATH) (test cod e = 10553) NEGATIVE Brian Pastrana AustinH. PYLORI (BREATH)2024-04-20 00:00:00* Test Item Value Reference Range Interpretation Comme nts H. PYLORI (BREATH) (test cod e = 26262) NEGATIVE Brian Pastrana AustinH. PYLORI (BREATH)2024-04-20 00:00:00* Test Item Value Reference Range Interpretation Comme nts H. PYLORI (BREATH) (test cod e = 19118) NEGATIVE Brian Pastrana AustinH. PYLORI (BREATH)2024-04-20 00:00:00* Test Item Value Reference Range Interpretation Comme nts H. PYLORI (BREATH) (test cod e = 29392) NEGATIVE Brian Pastrana AustinH. PYLORI (BREATH)2024-04-20 00:00:00* Test Item Value Reference Range Interpretation Comme nts H. PYLORI (BREATH) (test cod e = 95026) NEGATIVE Brian Pastrana AustinH. PYLORI (BREATH)2024-04-20 00:00:00* Test Item Value Reference Range Interpretation Comme nts H. PYLORI (BREATH) (test cod e = 33774) NEGATIVE Brian Pastrana AustinTHYROID II PROFILE (TU,T4,FTI,TSH)2024-03-31 08:11:59* Test Item Value Reference Range Interpretation Comme nts T-UPTAKE (test code = 2817) 33.1 % 24.3-39.0 THYROX. BIND. CAPAC. (test c ode = 03233) 1.0 0.8-1.3 T4 (THYROXINE) (test code = 2819) 8.3 UG/DL 4.5-10.5 CORRECTED T4 (FTI) (test cod e = 2820) 8.3 UG/DL 4.2-11.6 TSH, THIRD GENERATION (test code = 2821) 2.790 UIU/ML 0.400-4.100 COMPREHENSIVE METABOLIC [id number] 05:42:40* Test Item Value Reference Range Interpretation Comme nts GLUCOSE (test code = 2217) 90 MG/DL 70-99 BUN (test code = 2208) 15 MG/DL 6-20 CREATININE (test code = 2214) 1.41 MG/DL 0.80-1.40 H eGFR (2020 CKD-EPI) (test co de = 35489) 63 ML/MIN/1.73 >60 CALC BUN/CREAT (test code = 2235) 11 RATIO 6-28 SODIUM (test code = 2231) 138 MEQ/L 133-146 POTASSIUM (test code = 2228) 4.3 MEQ/L 3.5-5.4 CHLORIDE (test code = 2215) 100 MEQ/L 95-107 CARBON DIOXIDE (test code = 2206) 25 MEQ/L 19-31 CALCIUM (test code = 2209) 10.1 MG/DL 8.5-10.5 PROTEIN, TOTAL (test code = 2229) 7.9 G/DL 6.1-8.3 ALBUMIN (test code = 2200) 4.5 G/DL 3.5-5.2 CALC GLOBULIN (test code = 2240) 3.4 G/DL 1.9-3.7 CALC A/G RATIO (test code = 2233) 1.3 RATIO 1.0-2.6 BILIRUBIN, TOTAL (test code = 2206) 0.5 MG/DL <=1.2 ALKALINE PHOSPHATASE (test code = 2203) 70 U/L 40-119 AST (test code = 2217) 36 U/L 9-50 ALT (test code = 2218) 16 U/L 5-50 LIPID [id number] 05:42:40* Test Item Value Reference Range Interpretation Comme nts CHOLESTEROL (test code = 2209) 145 MG/DL <200 TRIGLYCERIDES (test code = 223) 107 MG/DL <150 HDL CHOLESTEROL (test code = 2219) 44 MG/DL >39 CALC LDL CHOL (test code = 2236) 81 MG/DL <100 NOTE: CALCULATED LDL IS BASED ON MOJGAN-REICH METHOD WHICHINCLUDES ADJUSTABLE TRIGLYCERIDE:VLDL CHOLESTEROL RATIO.THIS FACTOR VARIES BY MEASURED TRIGLYCERIDE AND NON-HDLCHOLESTEROL CONCENTRATIONS WITH INCREASED CALCULATED LDL SEENIN HIGHER TRIGLYCERIDE OR LOWER NON-HDL SPECIMENS. FOR MOREINFORMATION, SEE CLIENT ANNOUNCEMENT AT [email or web address] RISK RATIO LDL/HDL (test code = 2238) 1.84 RATIO <3.55 HEPATIC FUNCTION [id number] 05:42:40* Test Item Value Reference Range Interpretation Comme nts PROTEIN, TOTAL (test code = 2228) 7.9 G/DL 6.1-8.3 ALBUMIN (test code = 2200) 4.5 G/DL 3.5-5.2 BILIRUBIN, TOTAL (test code = 2206) 0.5 MG/DL <=1.2 BILIRUBIN, DIRECT (test code = 2021) 0.2 MG/DL 0.0-0.3 ALKALINE PHOSPHATASE (test code = 2203) 70 U/L 40-119 AST (test code = 8) 36 U/L 9-50 ALT (test code = 221) 16 U/L 5-50 UNLESS OTHERWISE INDICATED, ALL TESTING PERFORMED AT [facility] [address] [place], [place] [id number] FISH FILLETER: JONNY GOODMAN M.D. [place] NUMBER [id number] [facility] [place]. [id number] HEMOGLOBIN [id number] 02:30:21* Test Item Value Reference Range Interpretation Comme nts HEMOGLOBIN A1c (test code = 78709) 5.5 % 4.2-5.6 CBC W/AUTO DIFF WITH [id number] 01:48:15* Test Item Value Reference Range Interpretation Comme nts WBC (test code = 1001) 5.7 K/UL 3.5-11.0 RBC (test code = 1002) 4.58 M/UL 4.50-6.10 HEMOGLOBIN (test code = 1003) 13.7 G/DL 13.5-17.0 HEMATOCRIT (test code = 1004) 40.3 % 40.0-51.0 MCV (test code = 1005) 88.0 fL 80.0-99.0 MCH (test code = 1006) 29.9 PG 25.0-33.0 MCHC (test code = 1007) 34.0 G/DL 31.0-36.0 RDW (test code = 1038) 12.0 % 11.5-15.0 NEUTROPHILS (test code = 1008) 54.3 % LYMPHOCYTES (test code = 1010) 33.7 % MONOCYTES (test code = 1011) 10.0 % EOSINOPHILS (test code = 1012) 1.2 % BASOPHILS (test code = 1013) 0.5 % IMMATURE GRANULOCYTES (test code = 1036) 0.3 % NUCLEATED RBCS (test code = 1065) 0.0 /100 WBC'S See_Comment [Automated messa ge] The system which generated this result transmitted reference range: 0.0. The reference range was not used to interpret this result as normal/abnormal. PLATELET COUNT (test code = 1015) 327 K/UL 130-400 ABSOLUTE NEUTROPHILS (test code = 1066) 3.10 K/UL 1.50-7.50 ABSOLUTE LYMPHOCYTES (test code = 1067) 1.93 K/UL 1.00-4.00 ABSOLUTE MONOCYTES (test code = 1068) 0.57 K/UL 0.20-1.00 ABSOLUTE EOSINOPHILS (test code = 1040) 0.07 K/UL 0.00-0.50 ABSOLUTE BASOPHILS (test code = 1069) 0.03 K/UL 0.00-0.20 ABS IMMATURE GRANULOCYTES (test code = 1020) 0.02 K/UL 0.00-0.10 ABS NUCLEATED RBCS (test code = 37776) 0.00 K/UL 0.00-0.11 HEMOGLOBIN [id number] 00:00:00* Test Item Value Reference Range Interpretation Comme nts HEMOGLOBIN A1c (test code = 53759) 5.5 % Brian ClaytonTHYROID II PROFILE (TU, T4, T7, TSH)2024-03-31 00:00:00* Test Item Value Reference Range Interpretation Comme nts T-UPTAKE (test code = 2817) 33.1 % THYROX. BIND. CAPAC. (test c ode = 78147) 1.0 T4 (THYROXINE) (test code = 2819) 8.3 UG/DL CORRECTED T4 (FTI) (test cod e = 2820) 8.3 UG/DL TSH, THIRD GENERATION (test code = 2821) 2.790 UIU/ML Brian Villanueva (HEPATIC) FUNCTION [id number] 00:00:00* Test Item Value Reference Range Interpretation Comme nts PROTEIN, TOTAL (test code = 2229) 7.9 G/DL ALBUMIN (test code = 2201) 4.5 G/DL BILIRUBIN, TOTAL (test code = 2207) 0.5 MG/DL BILIRUBIN, DIRECT (test code = 2) 0.2 MG/DL ALKALINE PHOSPHATASE (test c ode = 2204) 70 U/L AST (test code = 2218) 36 U/L ALT (test code = 2219) 16 U/L Brian ClaytonCBC W/AUTO [id number] 00:00:00* Test Item Value Reference Range Interpretation Comme nts WBC (test code = 1001) 5.7 K/UL RBC (test code = 1002) 4.58 M/UL HEMOGLOBIN (test code = 1003) 13.7 G/DL HEMATOCRIT (test code = 1004) 40.3 % MCV (test code = 1005) 88.0 fL MCH (test code = 1006) 29.9 PG MCHC (test code = 1007) 34.0 G/DL RDW (test code = 1038) 12.0 % NEUTROPHILS (test code = 1008) 54.3 % LYMPHOCYTES (test code = 1010) 33.7 % MONOCYTES (test code = 1011) 10.0 % EOSINOPHILS (test code = 1012) 1.2 % BASOPHILS (test code = 1013) 0.5 % IMMATURE GRANULOCYTES (test code = 1036) 0.3 % NUCLEATED RBCS (test code = 1065) 0.0 /100WBC'S PLATELET COUNT (test code = 1015) 327 K/UL ABSOLUTE NEUTROPHILS (test c ode = 1066) 3.10 K/UL ABSOLUTE LYMPHOCYTES (test c ode = 1067) 1.93 K/UL ABSOLUTE MONOCYTES (test cod e = 1068) 0.57 K/UL ABSOLUTE EOSINOPHILS (test c ode = 1040) 0.07 K/UL ABSOLUTE BASOPHILS (test cod e = 1069) 0.03 K/UL ABS IMMATURE GRANULOCYTES (t est code = 1020) 0.02 K/UL ABS NUCLEATED RBCS (test cod e = 91337) 0.00 K/UL Brian ClaytonCOMPREHENSIVE METABOLIC [id number] 00:00:00* Test Item Value Reference Range Interpretation Comme nts GLUCOSE (test code = 2217) 90 MG/DL BUN (test code = 2208) 15 MG/DL CREATININE (test code = 2214) 1.41 MG/DL eGFR (2020 CKD-EPI) (test co de = 18051) 63 ML/MIN/1.73 CALC BUN/CREAT (test code = 2235) 11 RATIO SODIUM (test code = 2231) 138 MEQ/L POTASSIUM (test code = 2228) 4.3 MEQ/L CHLORIDE (test code = 2215) 100 MEQ/L CARBON DIOXIDE (test code = 2206) 25 MEQ/L CALCIUM (test code = 2209) 10.1 MG/DL PROTEIN, TOTAL (test code = 2229) 7.9 G/DL ALBUMIN (test code = 2201) 4.5 G/DL CALC GLOBULIN (test code = 2240) 3.4 G/DL CALC A/G RATIO (test code = 2234) 1.3 RATIO BILIRUBIN, TOTAL (test code = 2207) 0.5 MG/DL ALKALINE PHOSPHATASE (test code = 2204) 70 U/L AST (test code = 2218) 36 U/L ALT (test code = 2219) 16 U/L Brian F AustinLIPID [id number] 00:00:00* Test Item Value Reference Range Interpretation Comme nts CHOLESTEROL (test code = 2210) 145 MG/DL TRIGLYCERIDES (test code = 2232) 107 MG/DL HDL CHOLESTEROL (test code = 2220) 44 MG/DL CALC LDL CHOL (test code = 2237) 81 MG/DL RISK RATIO LDL/HDL (test cod e = 2238) 1.84 RATIO Brian ClaytonCBC W/AUTO [id number] 00:00:00* Test Item Value Reference Range Interpretation Comme nts WBC (test code = 1001) 5.7 K/UL RBC (test code = 1002) 4.58 M/UL HEMOGLOBIN (test code = 1003) 13.7 G/DL HEMATOCRIT (test code = 1004) 40.3 % MCV (test code = 1005) 88.0 fL MCH (test code = 1006) 29.9 PG MCHC (test code = 1007) 34.0 G/DL RDW (test code = 1038) 12.0 % NEUTROPHILS (test code = 1008) 54.3 % LYMPHOCYTES (test code = 1010) 33.7 % MONOCYTES (test code = 1011) 10.0 % EOSINOPHILS (test code = 1012) 1.2 % BASOPHILS (test code = 1013) 0.5 % IMMATURE GRANULOCYTES (test code = 1036) 0.3 % NUCLEATED RBCS (test code = 1065) 0.0 /100WBC'S PLATELET COUNT (test code = 1015) 327 K/UL ABSOLUTE NEUTROPHILS (test c ode = 1066) 3.10 K/UL ABSOLUTE LYMPHOCYTES (test c ode = 1067) 1.93 K/UL ABSOLUTE MONOCYTES (test cod e = 1068) 0.57 K/UL ABSOLUTE EOSINOPHILS (test c ode = 1040) 0.07 K/UL ABSOLUTE BASOPHILS (test cod e = 1069) 0.03 K/UL ABS IMMATURE GRANULOCYTES (t est code = 1020) 0.02 K/UL ABS NUCLEATED RBCS (test cod e = 80838) 0.00 K/UL Brian ClaytonHEMOGLOBIN [id number] 00:00:00* Test Item Value Reference Range Interpretation Comme nts HEMOGLOBIN A1c (test code = 77341) 5.5 % Brian ClaytonTHYROID II PROFILE (TU, T4, T7, TSH)2024-03-31 00:00:00* Test Item Value Reference Range Interpretation Comme nts T-UPTAKE (test code = 2817) 33.1 % THYROX. BIND. CAPAC. (test c ode = 85140) 1.0 T4 (THYROXINE) (test code = 2819) 8.3 UG/DL CORRECTED T4 (FTI) (test cod e = 2820) 8.3 UG/DL TSH, THIRD GENERATION (test code = 2821) 2.790 UIU/ML Brian ClaytonLUZ [facility] (HEPAT[facility]) FUNCTION [id number] 00:00:00* Test Item Value Reference Range Interpretation Comme nts PROTEIN, TOTAL (test code = 2229) 7.9 G/DL ALBUMIN (test code = 2201) 4.5 G/DL BILIRUBIN, TOTAL (test code = 2207) 0.5 MG/DL BILIRUBIN, DIRECT (test code = 2021) 0.2 MG/DL ALKALINE PHOSPHATASE (test c ode = 4) 70 U/L AST (test code = 2218) 36 U/L ALT (test code = 2219) 16 U/L Brian ClaytonCBC W/AUTO [id number] 00:00:00* Test Item Value Reference Range Interpretation Comme nts WBC (test code = 1001) 5.7 K/UL RBC (test code = 1002) 4.58 M/UL HEMOGLOBIN (test code = 1003) 13.7 G/DL HEMATOCRIT (test code = 1004) 40.3 % MCV (test code = 1005) 88.0 fL MCH (test code = 1006) 29.9 PG MCHC (test code = 1007) 34.0 G/DL RDW (test code = 1038) 12.0 % NEUTROPHILS (test code = 1008) 54.3 % LYMPHOCYTES (test code = 1010) 33.7 % MONOCYTES (test code = 1011) 10.0 % EOSINOPHILS (test code = 1012) 1.2 % BASOPHILS (test code = 1013) 0.5 % IMMATURE GRANULOCYTES (test code = 1036) 0.3 % NUCLEATED RBCS (test code = 1065) 0.0 /100WBC'S PLATELET COUNT (test code = 1015) 327 K/UL ABSOLUTE NEUTROPHILS (test c ode = 1066) 3.10 K/UL ABSOLUTE LYMPHOCYTES (test c ode = 1067) 1.93 K/UL ABSOLUTE MONOCYTES (test cod e = 1068) 0.57 K/UL ABSOLUTE EOSINOPHILS (test c ode = 1040) 0.07 K/UL ABSOLUTE BASOPHILS (test cod e = 1069) 0.03 K/UL ABS IMMATURE GRANULOCYTES (t est code = 1020) 0.02 K/UL ABS NUCLEATED RBCS (test cod e = 89209) 0.00 K/UL Brian ClaytonCOMPREHENSIVE METABOLIC [id number] 00:00:00* Test Item Value Reference Range Interpretation Comme nts GLUCOSE (test code = 2217) 90 MG/DL BUN (test code = 2208) 15 MG/DL CREATININE (test code = 2214) 1.41 MG/DL eGFR (2020 CKD-EPI) (test co de = 43161) 63 ML/MIN/1.73 CALC BUN/CREAT (test code = 2235) 11 RATIO SODIUM (test code = 2231) 138 MEQ/L POTASSIUM (test code = 2228) 4.3 MEQ/L CHLORIDE (test code = 2215) 100 MEQ/L CARBON DIOXIDE (test code = 2206) 25 MEQ/L CALCIUM (test code = 2209) 10.1 MG/DL PROTEIN, TOTAL (test code = 2229) 7.9 G/DL ALBUMIN (test code = 2201) 4.5 G/DL CALC GLOBULIN (test code = 2240) 3.4 G/DL CALC A/G RATIO (test code = 2234) 1.3 RATIO BILIRUBIN, TOTAL (test code = 2207) 0.5 MG/DL ALKALINE PHOSPHATASE (test code = 2204) 70 U/L AST (test code = 2218) 36 U/L ALT (test code = 2219) 16 U/L Brian Pastrana AustinLIPID [id number] 00:00:00* Test Item Value Reference Range Interpretation Comme nts CHOLESTEROL (test code = 2210) 145 MG/DL TRIGLYCERIDES (test code = 2232) 107 MG/DL HDL CHOLESTEROL (test code = 2220) 44 MG/DL CALC LDL CHOL (test code = 2237) 81 MG/DL RISK RATIO LDL/HDL (test cod e = 2238) 1.84 RATIO Brian ClaytonHEMOGLOBIN [id number] 00:00:00* Test Item Value Reference Range Interpretation Comme nts HEMOGLOBIN A1c (test code = 46426) 5.5 % Brian ClaytonTHYROID II PROFILE (TU, T4, T7, TSH)2024-03-31 00:00:00* Test Item Value Reference Range Interpretation Comme nts T-UPTAKE (test code = 2817) 33.1 % THYROX. BIND. CAPAC. (test c ode = 71626) 1.0 T4 (THYROXINE) (test code = 2819) 8.3 UG/DL CORRECTED T4 (FTI) (test cod e = 2820) 8.3 UG/DL TSH, THIRD GENERATION (test code = 2821) 2.790 UIU/ML Brian Pastrana ForrestLIVER (HEPATIC) FUNCTION [id number] 00:00:00* Test Item Value Reference Range Interpretation Comme nts PROTEIN, TOTAL (test code = 2229) 7.9 G/DL ALBUMIN (test code = 2201) 4.5 G/DL BILIRUBIN, TOTAL (test code = 2207) 0.5 MG/DL BILIRUBIN, DIRECT (test code = 2021) 0.2 MG/DL ALKALINE PHOSPHATASE (test c ode = 2204) 70 U/L AST (test code = 2218) 36 U/L ALT (test code = 2219) 16 U/L Brian ClaytonCBC W/AUTO [id number] 00:00:00* Test Item Value Reference Range Interpretation Comme nts WBC (test code = 1001) 5.7 K/UL RBC (test code = 1002) 4.58 M/UL HEMOGLOBIN (test code = 1003) 13.7 G/DL HEMATOCRIT (test code = 1004) 40.3 % MCV (test code = 1005) 88.0 fL MCH (test code = 1006) 29.9 PG MCHC (test code = 1007) 34.0 G/DL RDW (test code = 1038) 12.0 % NEUTROPHILS (test code = 1008) 54.3 % LYMPHOCYTES (test code = 1010) 33.7 % MONOCYTES (test code = 1011) 10.0 % EOSINOPHILS (test code = 1012) 1.2 % BASOPHILS (test code = 1013) 0.5 % IMMATURE GRANULOCYTES (test code = 1036) 0.3 % NUCLEATED RBCS (test code = 1065) 0.0 /100WBC'S PLATELET COUNT (test code = 1015) 327 K/UL ABSOLUTE NEUTROPHILS (test c ode = 1066) 3.10 K/UL ABSOLUTE LYMPHOCYTES (test c ode = 1067) 1.93 K/UL ABSOLUTE MONOCYTES (test cod e = 1068) 0.57 K/UL ABSOLUTE EOSINOPHILS (test c ode = 1040) 0.07 K/UL ABSOLUTE BASOPHILS (test cod e = 1069) 0.03 K/UL ABS IMMATURE GRANULOCYTES (t est code = 1020) 0.02 K/UL ABS NUCLEATED RBCS (test cod e = 41240) 0.00 K/UL Brian ClaytonCOMPREHENSIVE METABOLIC [id number] 00:00:00* Test Item Value Reference Range Interpretation Comme nts GLUCOSE (test code = 2217) 90 MG/DL BUN (test code = 2208) 15 MG/DL CREATININE (test code = 2214) 1.41 MG/DL eGFR (2020 CKD-EPI) (test co de = 63086) 63 ML/MIN/1.73 CALC BUN/CREAT (test code = 2235) 11 RATIO SODIUM (test code = 2231) 138 MEQ/L POTASSIUM (test code = 2228) 4.3 MEQ/L CHLORIDE (test code = 2215) 100 MEQ/L CARBON DIOXIDE (test code = 2206) 25 MEQ/L CALCIUM (test code = 2209) 10.1 MG/DL PROTEIN, TOTAL (test code = 2229) 7.9 G/DL ALBUMIN (test code = 2201) 4.5 G/DL CALC GLOBULIN (test code = 2240) 3.4 G/DL CALC A/G RATIO (test code = 2234) 1.3 RATIO BILIRUBIN, TOTAL (test code = 2207) 0.5 MG/DL ALKALINE PHOSPHATASE (test code = 2204) 70 U/L AST (test code = 2218) 36 U/L ALT (test code = 2219) 16 U/L Brian ClaytonLIPID [id number] 00:00:00* Test Item Value Reference Range Interpretation Comme nts CHOLESTEROL (test code = 2210) 145 MG/DL TRIGLYCERIDES (test code = 2232) 107 MG/DL HDL CHOLESTEROL (test code = 2220) 44 MG/DL CALC LDL CHOL (test code = 2237) 81 MG/DL RISK RATIO LDL/HDL (test cod e = 2238) 1.84 RATIO Brian ClaytonHEMOGLOBIN [id number] 00:00:00* Test Item Value Reference Range Interpretation Comme nts HEMOGLOBIN A1c (test code = 10109) 5.5 % Brian ClaytonCOMPREHENSIVE METABOLIC [id number] 00:00:00* Test Item Value Reference Range Interpretation Comme nts GLUCOSE (test code = 2217) 90 MG/DL BUN (test code = 2208) 15 MG/DL CREATININE (test code = 2214) 1.41 MG/DL eGFR (2020 CKD-EPI) (test co de = 89614) 63 ML/MIN/1.73 CALC BUN/CREAT (test code = 2235) 11 RATIO SODIUM (test code = 2231) 138 MEQ/L POTASSIUM (test code = 2228) 4.3 MEQ/L CHLORIDE (test code = 2215) 100 MEQ/L CARBON DIOXIDE (test code = 2206) 25 MEQ/L CALCIUM (test code = 2209) 10.1 MG/DL PROTEIN, TOTAL (test code = 2229) 7.9 G/DL ALBUMIN (test code = 2201) 4.5 G/DL CALC GLOBULIN (test code = 2240) 3.4 G/DL CALC A/G RATIO (test code = 2234) 1.3 RATIO BILIRUBIN, TOTAL (test code = 2207) 0.5 MG/DL ALKALINE PHOSPHATASE (test code = 2204) 70 U/L AST (test code = 2218) 36 U/L ALT (test code = 2219) 16 U/L Brian ClaytonTHYROID II PROFILE (TU, T4, T7, TSH)2024-03-31 00:00:00* Test Item Value Reference Range Interpretation Comme nts T-UPTAKE (test code = 2817) 33.1 % THYROX. BIND. CAPAC. (test c ode = 41775) 1.0 T4 (THYROXINE) (test code = 2819) 8.3 UG/DL CORRECTED T4 (FTI) (test cod e = 2820) 8.3 UG/DL TSH, THIRD GENERATION (test code = 2821) 2.790 UIU/ML Brian ClaytonLIVER (HEPATIC) FUNCTION [id number] 00:00:00* Test Item Value Reference Range Interpretation Comme nts PROTEIN, TOTAL (test code = 2229) 7.9 G/DL ALBUMIN (test code = 2201) 4.5 G/DL BILIRUBIN, TOTAL (test code = 220) 0.5 MG/DL BILIRUBIN, DIRECT (test code = 2021) 0.2 MG/DL ALKALINE PHOSPHATASE (test c ode = 2203) 70 U/L AST (test code = 2218) 36 U/L ALT (test code = 2219) 16 U/L Brian ClaytonLIPID [id number] 00:00:00* Test Item Value Reference Range Interpretation Comme nts CHOLESTEROL (test code = 2210) 145 MG/DL TRIGLYCERIDES (test code = 2232) 107 MG/DL HDL CHOLESTEROL (test code = 2220) 44 MG/DL CALC LDL CHOL (test code = 2237) 81 MG/DL RISK RATIO LDL/HDL (test cod e = 2238) 1.84 RATIO Brian ClaytonHEMOGLOBIN [id number] 00:00:00* Test Item Value Reference Range Interpretation Comme nts HEMOGLOBIN A1c (test code = 50915) 5.5 % Brian ClaytonTHYROID II PROFILE (TU, T4, T7, TSH)2024-03-31 00:00:00* Test Item Value Reference Range Interpretation Comme nts T-UPTAKE (test code = 2817) 33.1 % THYROX. BIND. CAPAC. (test c ode = 47273) 1.0 T4 (THYROXINE) (test code = 2819) 8.3 UG/DL CORRECTED T4 (FTI) (test cod e = 2820) 8.3 UG/DL TSH, THIRD GENERATION (test code = 2821) 2.790 UIU/ML Brian ClaytonLIVER (HEPATIC) FUNCTION [id number] 00:00:00* Test Item Value Reference Range Interpretation Comme nts PROTEIN, TOTAL (test code = 2229) 7.9 G/DL ALBUMIN (test code = 2201) 4.5 G/DL BILIRUBIN, TOTAL (test code = 2206) 0.5 MG/DL BILIRUBIN, DIRECT (test code = 2021) 0.2 MG/DL ALKALINE PHOSPHATASE (test c ode = 2203) 70 U/L AST (test code = 2218) 36 U/L ALT (test code = 2219) 16 U/L Brian ClaytonCBC W/AUTO [id number] 00:00:00* Test Item Value Reference Range Interpretation Comme nts WBC (test code = 1001) 5.7 K/UL RBC (test code = 1002) 4.58 M/UL HEMOGLOBIN (test code = 1003) 13.7 G/DL HEMATOCRIT (test code = 1004) 40.3 % MCV (test code = 1005) 88.0 fL MCH (test code = 1006) 29.9 PG MCHC (test code = 1007) 34.0 G/DL RDW (test code = 1038) 12.0 % NEUTROPHILS (test code = 1008) 54.3 % LYMPHOCYTES (test code = 1010) 33.7 % MONOCYTES (test code = 1011) 10.0 % EOSINOPHILS (test code = 1012) 1.2 % BASOPHILS (test code = 1013) 0.5 % IMMATURE GRANULOCYTES (test code = 1036) 0.3 % NUCLEATED RBCS (test code = 1065) 0.0 /100WBC'S PLATELET COUNT (test code = 1015) 327 K/UL ABSOLUTE NEUTROPHILS (test c ode = 1066) 3.10 K/UL ABSOLUTE LYMPHOCYTES (test c ode = 1067) 1.93 K/UL ABSOLUTE MONOCYTES (test cod e = 1068) 0.57 K/UL ABSOLUTE EOSINOPHILS (test c ode = 1040) 0.07 K/UL ABSOLUTE BASOPHILS (test cod e = 1069) 0.03 K/UL ABS IMMATURE GRANULOCYTES (t est code = 1020) 0.02 K/UL ABS NUCLEATED RBCS (test cod e = 08344) 0.00 K/UL Brian ClaytonCOMPREHENSIVE METABOLIC [id number] 00:00:00* Test Item Value Reference Range Interpretation Comme nts GLUCOSE (test code = 2217) 90 MG/DL BUN (test code = 2208) 15 MG/DL CREATININE (test code = 2214) 1.41 MG/DL eGFR (2020 CKD-EPI) (test co de = 09962) 63 ML/MIN/1.73 CALC BUN/CREAT (test code = 2235) 11 RATIO SODIUM (test code = 2231) 138 MEQ/L POTASSIUM (test code = 2228) 4.3 MEQ/L CHLORIDE (test code = 2215) 100 MEQ/L CARBON DIOXIDE (test code = 2206) 25 MEQ/L CALCIUM (test code = 2209) 10.1 MG/DL PROTEIN, TOTAL (test code = 2229) 7.9 G/DL ALBUMIN (test code = 2201) 4.5 G/DL CALC GLOBULIN (test code = 2240) 3.4 G/DL CALC A/G RATIO (test code = 2234) 1.3 RATIO BILIRUBIN, TOTAL (test code = 2207) 0.5 MG/DL ALKALINE PHOSPHATASE (test code = 220) 70 U/L AST (test code = 2218) 36 U/L ALT (test code = 2219) 16 U/L Brian Pastrana ForrestLIPID [id number] 00:00:00* Test Item Value Reference Range Interpretation Comme nts CHOLESTEROL (test code = 2210) 145 MG/DL TRIGLYCERIDES (test code = 2232) 107 MG/DL HDL CHOLESTEROL (test code = 0) 44 MG/DL CALC LDL CHOL (test code = 2237) 81 MG/DL RISK RATIO LDL/HDL (test cod e = 2238) 1.84 RATIO Brian Pastrana ForrestHEMOGLOBIN [id number] 00:00:00* Test Item Value Reference Range Interpretation Comme nts HEMOGLOBIN A1c (test code = 18051) 5.5 % Brian Pastrana ForrestTHYROID II PROFILE (TU, T4, T7, [id number] 00:00:00* Test Item Value Reference Range Interpretation Comme nts T-UPTAKE (test code = 2817) 33.1 % THYROX. BIND. CAPAC. (test c ode = 41987) 1.0 T4 (THYROXINE) (test code = 2819) 8.3 UG/DL CORRECTED T4 (FTI) (test cod e = 2820) 8.3 UG/DL TSH, THIRD GENERATION (test code = 2821) 2.790 UIU/ML Brian Zeina ForrestLIVER (HEPATIC) FUNCTION [id number] 00:00:00* Test Item Value Reference Range Interpretation Comme nts PROTEIN, TOTAL (test code = 2229) 7.9 G/DL ALBUMIN (test code = 2201) 4.5 G/DL BILIRUBIN, TOTAL (test code = 2207) 0.5 MG/DL BILIRUBIN, DIRECT (test code = 2021) 0.2 MG/DL ALKALINE PHOSPHATASE (test c ode = 2204) 70 U/L AST (test code = 2218) 36 U/L ALT (test code = 2219) 16 U/L Brian ClaytonCBC W/AUTO [id number] 00:00:00* Test Item Value Reference Range Interpretation Comme nts WBC (test code = 1001) 5.7 K/UL RBC (test code = 1002) 4.58 M/UL HEMOGLOBIN (test code = 1003) 13.7 G/DL HEMATOCRIT (test code = 1004) 40.3 % MCV (test code = 1005) 88.0 fL MCH (test code = 1006) 29.9 PG MCHC (test code = 1007) 34.0 G/DL RDW (test code = 1038) 12.0 % NEUTROPHILS (test code = 1008) 54.3 % LYMPHOCYTES (test code = 1010) 33.7 % MONOCYTES (test code = 1011) 10.0 % EOSINOPHILS (test code = 1012) 1.2 % BASOPHILS (test code = 1013) 0.5 % IMMATURE GRANULOCYTES (test code = 1036) 0.3 % NUCLEATED RBCS (test code = 1065) 0.0 /100WBC'S PLATELET COUNT (test code = 1015) 327 K/UL ABSOLUTE NEUTROPHILS (test c ode = 1066) 3.10 K/UL ABSOLUTE LYMPHOCYTES (test c ode = 1067) 1.93 K/UL ABSOLUTE MONOCYTES (test cod e = 1068) 0.57 K/UL ABSOLUTE EOSINOPHILS (test c ode = 1040) 0.07 K/UL ABSOLUTE BASOPHILS (test cod e = 1069) 0.03 K/UL ABS IMMATURE GRANULOCYTES (t est code = 1020) 0.02 K/UL ABS NUCLEATED RBCS (test cod e = 76081) 0.00 K/UL Brian ClaytonCOMPREHENSIVE METABOLIC [id number] 00:00:00* Test Item Value Reference Range Interpretation Comme nts GLUCOSE (test code = 2217) 90 MG/DL BUN (test code = 2208) 15 MG/DL CREATININE (test code = 2214) 1.41 MG/DL eGFR (2020 CKD-EPI) (test co de = 45976) 63 ML/MIN/1.73 CALC BUN/CREAT (test code = 2235) 11 RATIO SODIUM (test code = 2231) 138 MEQ/L POTASSIUM (test code = 2228) 4.3 MEQ/L CHLORIDE (test code = 2215) 100 MEQ/L CARBON DIOXIDE (test code = 2206) 25 MEQ/L CALCIUM (test code = 2209) 10.1 MG/DL PROTEIN, TOTAL (test code = 2229) 7.9 G/DL ALBUMIN (test code = 2201) 4.5 G/DL CALC GLOBULIN (test code = 2240) 3.4 G/DL CALC A/G RATIO (test code = 2234) 1.3 RATIO BILIRUBIN, TOTAL (test code = 2207) 0.5 MG/DL ALKALINE PHOSPHATASE (test code = 220) 70 U/L AST (test code = 221) 36 U/L ALT (test code = 2219) 16 U/L Brian aPstrana ForrestLIPID [id number] 00:00:00* Test Item Value Reference Range Interpretation Comme nts CHOLESTEROL (test code = 2210) 145 MG/DL TRIGLYCERIDES (test code = 2232) 107 MG/DL HDL CHOLESTEROL (test code = 2220) 44 MG/DL CALC LDL CHOL (test code = 2237) 81 MG/DL RISK RATIO LDL/HDL (test cod e = 2238) 1.84 RATIO Brian ClaytonHEMOGLOBIN [id number] 00:00:00* Test Item Value Reference Range Interpretation Comme nts HEMOGLOBIN A1c (test code = 82716) 5.5 % Brian Pastrana ForrestTHYROID II PROFILE (TU, T4, T7, TSH)2024-03-31 00:00:00* Test Item Value Reference Range Interpretation Comme nts T-UPTAKE (test code = 2817) 33.1 % THYROX. BIND. CAPAC. (test c ode = 54036) 1.0 T4 (THYROXINE) (test code = 2819) 8.3 UG/DL CORRECTED T4 (FTI) (test cod e = 2820) 8.3 UG/DL TSH, THIRD GENERATION (test code = 2821) 2.790 UIU/ML Brian Pastrana ForrestLIVER (HEPATIC) FUNCTION [id number] 00:00:00* Test Item Value Reference Range Interpretation Comme nts PROTEIN, TOTAL (test code = 2229) 7.9 G/DL ALBUMIN (test code = 2201) 4.5 G/DL BILIRUBIN, TOTAL (test code = 2207) 0.5 MG/DL BILIRUBIN, DIRECT (test code = 2021) 0.2 MG/DL ALKALINE PHOSPHATASE (test c ode = 2204) 70 U/L AST (test code = 2218) 36 U/L ALT (test code = 2219) 16 U/L Brian Pastrana ForrestCBC W/AUTO [id number] 00:00:00* Test Item Value Reference Range Interpretation Comme nts WBC (test code = 1001) 5.7 K/UL RBC (test code = 1002) 4.58 M/UL HEMOGLOBIN (test code = 1003) 13.7 G/DL HEMATOCRIT (test code = 1004) 40.3 % MCV (test code = 1005) 88.0 fL MCH (test code = 1006) 29.9 PG MCHC (test code = 1007) 34.0 G/DL RDW (test code = 1038) 12.0 % NEUTROPHILS (test code = 1008) 54.3 % LYMPHOCYTES (test code = 1010) 33.7 % MONOCYTES (test code = 1011) 10.0 % EOSINOPHILS (test code = 1012) 1.2 % BASOPHILS (test code = 1013) 0.5 % IMMATURE GRANULOCYTES (test code = 1036) 0.3 % NUCLEATED RBCS (test code = 1065) 0.0 /100WBC'S PLATELET COUNT (test code = 1015) 327 K/UL ABSOLUTE NEUTROPHILS (test c ode = 1066) 3.10 K/UL ABSOLUTE LYMPHOCYTES (test c ode = 1067) 1.93 K/UL ABSOLUTE MONOCYTES (test cod e = 1068) 0.57 K/UL ABSOLUTE EOSINOPHILS (test c ode = 1040) 0.07 K/UL ABSOLUTE BASOPHILS (test cod e = 1069) 0.03 K/UL ABS IMMATURE GRANULOCYTES (t est code = 1020) 0.02 K/UL ABS NUCLEATED RBCS (test cod e = 49357) 0.00 K/UL Brian F ForrestCOMPREHENSIVE METABOLIC [id number] 00:00:00* Test Item Value Reference Range Interpretation Comme nts GLUCOSE (test code = 2217) 90 MG/DL BUN (test code = 2208) 15 MG/DL CREATININE (test code = 2214) 1.41 MG/DL eGFR (2020 CKD-EPI) (test co de = 63360) 63 ML/MIN/1.73 CALC BUN/CREAT (test code = 2235) 11 RATIO SODIUM (test code = 223) 138 MEQ/L POTASSIUM (test code = 2228) 4.3 MEQ/L CHLORIDE (test code = 2215) 100 MEQ/L CARBON DIOXIDE (test code = 2206) 25 MEQ/L CALCIUM (test code = 2209) 10.1 MG/DL PROTEIN, TOTAL (test code = 2229) 7.9 G/DL ALBUMIN (test code = 220) 4.5 G/DL CALC GLOBULIN (test code = 2240) 3.4 G/DL CALC A/G RATIO (test code = 2234) 1.3 RATIO BILIRUBIN, TOTAL (test code = 7) 0.5 MG/DL ALKALINE PHOSPHATASE (test code = 2203) 70 U/L AST (test code = 221) 36 U/L ALT (test code = 2219) 16 U/L Brian ClaytonLIPID [id number] 00:00:00* Test Item Value Reference Range Interpretation Comme nts CHOLESTEROL (test code = 2210) 145 MG/DL TRIGLYCERIDES (test code = 2232) 107 MG/DL HDL CHOLESTEROL (test code = 0) 44 MG/DL CALC LDL CHOL (test code = 7) 81 MG/DL RISK RATIO LDL/HDL (test cod e = 2238) 1.84 RATIO Brian ClaytonHEMOGLOBIN [id number] 00:00:00* Test Item Value Reference Range Interpretation Comme nts HEMOGLOBIN A1c (test code = 35460) 5.5 % Brian Pastrana ForrestTHYROID II PROFILE (TU, T4, T7, TSH)2024-03-31 00:00:00* Test Item Value Reference Range Interpretation Comme nts T-UPTAKE (test code = 2817) 33.1 % THYROX. BIND. CAPAC. (test c ode = 78087) 1.0 T4 (THYROXINE) (test code = 2819) 8.3 UG/DL CORRECTED T4 (FTI) (test cod e = 2820) 8.3 UG/DL TSH, THIRD GENERATION (test code = 2821) 2.790 UIU/ML Brian ClaytonANASTACIO (HEPATIC) FUNCTION [id number] 00:00:00* Test Item Value Reference Range Interpretation Comme nts PROTEIN, TOTAL (test code = 2229) 7.9 G/DL ALBUMIN (test code = 2201) 4.5 G/DL BILIRUBIN, TOTAL (test code = 2207) 0.5 MG/DL BILIRUBIN, DIRECT (test code = 2022) 0.2 MG/DL ALKALINE PHOSPHATASE (test c ode = 2204) 70 U/L AST (test code = 2218) 36 U/L ALT (test code = 2219) 16 U/L Brian ClaytonCBC W/AUTO [id number] 00:00:00* Test Item Value Reference Range Interpretation Comme nts WBC (test code = 1001) 5.7 K/UL RBC (test code = 1002) 4.58 M/UL HEMOGLOBIN (test code = 1003) 13.7 G/DL HEMATOCRIT (test code = 1004) 40.3 % MCV (test code = 1005) 88.0 fL MCH (test code = 1006) 29.9 PG MCHC (test code = 1007) 34.0 G/DL RDW (test code = 1038) 12.0 % NEUTROPHILS (test code = 1008) 54.3 % LYMPHOCYTES (test code = 1010) 33.7 % MONOCYTES (test code = 1011) 10.0 % EOSINOPHILS (test code = 1012) 1.2 % BASOPHILS (test code = 1013) 0.5 % IMMATURE GRANULOCYTES (test code = 1036) 0.3 % NUCLEATED RBCS (test code = 1065) 0.0 /100WBC'S PLATELET COUNT (test code = 1015) 327 K/UL ABSOLUTE NEUTROPHILS (test c ode = 1066) 3.10 K/UL ABSOLUTE LYMPHOCYTES (test c ode = 1067) 1.93 K/UL ABSOLUTE MONOCYTES (test cod e = 1068) 0.57 K/UL ABSOLUTE EOSINOPHILS (test c ode = 1040) 0.07 K/UL ABSOLUTE BASOPHILS (test cod e = 1069) 0.03 K/UL ABS IMMATURE GRANULOCYTES (t est code = 1020) 0.02 K/UL ABS NUCLEATED RBCS (test cod e = 96160) 0.00 K/UL Brian Pastrana ForrestCOMPREHENSIVE METABOLIC [id number] 00:00:00* Test Item Value Reference Range Interpretation Comme nts GLUCOSE (test code = 2217) 90 MG/DL BUN (test code = 2208) 15 MG/DL CREATININE (test code = 2214) 1.41 MG/DL eGFR (2020 CKD-EPI) (test co de = 96793) 63 ML/MIN/1.73 CALC BUN/CREAT (test code = 2235) 11 RATIO SODIUM (test code = 2231) 138 MEQ/L POTASSIUM (test code = 2228) 4.3 MEQ/L CHLORIDE (test code = 2215) 100 MEQ/L CARBON DIOXIDE (test code = 2206) 25 MEQ/L CALCIUM (test code = 2209) 10.1 MG/DL PROTEIN, TOTAL (test code = 2229) 7.9 G/DL ALBUMIN (test code = 2201) 4.5 G/DL CALC GLOBULIN (test code = 2240) 3.4 G/DL CALC A/G RATIO (test code = 2234) 1.3 RATIO BILIRUBIN, TOTAL (test code = 2207) 0.5 MG/DL ALKALINE PHOSPHATASE (test code = 2204) 70 U/L AST (test code = 2218) 36 U/L ALT (test code = 2219) 16 U/L Brian ClaytonLIPID [id number] 00:00:00* Test Item Value Reference Range Interpretation Comme nts CHOLESTEROL (test code = 2210) 145 MG/DL TRIGLYCERIDES (test code = 2232) 107 MG/DL HDL CHOLESTEROL (test code = 2220) 44 MG/DL CALC LDL CHOL (test code = 2237) 81 MG/DL RISK RATIO LDL/HDL (test cod e = 2238) 1.84 RATIO Brian ClaytonHEMOGLOBIN [id number] 00:00:00* Test Item Value Reference Range Interpretation Comme nts HEMOGLOBIN A1c (test code = 33803) 5.5 % Brian ClaytonTHYROID II PROFILE (TU, T4, T7, TSH)2024-03-31 00:00:00* Test Item Value Reference Range Interpretation Comme nts T-UPTAKE (test code = 2817) 33.1 % THYROX. BIND. CAPAC. (test c ode = 30826) 1.0 T4 (THYROXINE) (test code = 2819) 8.3 UG/DL CORRECTED T4 (FTI) (test cod e = 2820) 8.3 UG/DL TSH, THIRD GENERATION (test code = 2821) 2.790 UIU/ML Brian Pastrana Kay (HEPATIC) FUNCTION [id number] 00:00:00* Test Item Value Reference Range Interpretation Comme nts PROTEIN, TOTAL (test code = 2229) 7.9 G/DL ALBUMIN (test code = 2201) 4.5 G/DL BILIRUBIN, TOTAL (test code = 2207) 0.5 MG/DL BILIRUBIN, DIRECT (test code = 2022) 0.2 MG/DL ALKALINE PHOSPHATASE (test c ode = 2204) 70 U/L AST (test code = 2218) 36 U/L ALT (test code = 2219) 16 U/L Brian Pastrana FreidaC W/AUTO [id number] 00:00:00* Test Item Value Reference Range Interpretation Comme nts WBC (test code = 1001) 5.7 K/UL RBC (test code = 1002) 4.58 M/UL HEMOGLOBIN (test code = 1003) 13.7 G/DL HEMATOCRIT (test code = 1004) 40.3 % MCV (test code = 1005) 88.0 fL MCH (test code = 1006) 29.9 PG MCHC (test code = 1007) 34.0 G/DL RDW (test code = 1038) 12.0 % NEUTROPHILS (test code = 1008) 54.3 % LYMPHOCYTES (test code = 1010) 33.7 % MONOCYTES (test code = 1011) 10.0 % EOSINOPHILS (test code = 1012) 1.2 % BASOPHILS (test code = 1013) 0.5 % IMMATURE GRANULOCYTES (test code = 1036) 0.3 % NUCLEATED RBCS (test code = 1065) 0.0 /100WBC'S PLATELET COUNT (test code = 1015) 327 K/UL ABSOLUTE NEUTROPHILS (test c ode = 1066) 3.10 K/UL ABSOLUTE LYMPHOCYTES (test c ode = 1067) 1.93 K/UL ABSOLUTE MONOCYTES (test cod e = 1068) 0.57 K/UL ABSOLUTE EOSINOPHILS (test c ode = 1040) 0.07 K/UL ABSOLUTE BASOPHILS (test cod e = 1069) 0.03 K/UL ABS IMMATURE GRANULOCYTES (t est code = 1020) 0.02 K/UL ABS NUCLEATED RBCS (test cod e = 74377) 0.00 K/UL Brian ClaytonCOMPREHENSIVE METABOLIC [id number] 00:00:00* Test Item Value Reference Range Interpretation Comme nts GLUCOSE (test code = 2217) 90 MG/DL BUN (test code = 2208) 15 MG/DL CREATININE (test code = 2214) 1.41 MG/DL eGFR (2020 CKD-EPI) (test co de = 27464) 63 ML/MIN/1.73 CALC BUN/CREAT (test code = 2235) 11 RATIO SODIUM (test code = 2231) 138 MEQ/L POTASSIUM (test code = 2228) 4.3 MEQ/L CHLORIDE (test code = 2215) 100 MEQ/L CARBON DIOXIDE (test code = 2206) 25 MEQ/L CALCIUM (test code = 2209) 10.1 MG/DL PROTEIN, TOTAL (test code = 2229) 7.9 G/DL ALBUMIN (test code = 2201) 4.5 G/DL CALC GLOBULIN (test code = 2240) 3.4 G/DL CALC A/G RATIO (test code = 2234) 1.3 RATIO BILIRUBIN, TOTAL (test code = 2207) 0.5 MG/DL ALKALINE PHOSPHATASE (test code = 2204) 70 U/L AST (test code = 2218) 36 U/L ALT (test code = 2219) 16 U/L Brian Pastrana AustinLIPID [id number] 00:00:00* Test Item Value Reference Range Interpretation Comme nts CHOLESTEROL (test code = 2210) 145 MG/DL TRIGLYCERIDES (test code = 2232) 107 MG/DL HDL CHOLESTEROL (test code = 2220) 44 MG/DL CALC LDL CHOL (test code = 2237) 81 MG/DL RISK RATIO LDL/HDL (test cod e = 2238) 1.84 RATIO Brian ClaytonCOMPREHENSIVE METABOLIC [id number] 01:43:07* Test Item Value Reference Range Interpretation Comme nts GLUCOSE (test code = 2217) 118 MG/DL 70-99 H BUN (test code = 2208) 14 MG/DL 6-20 CREATININE (test code = 2214) 1.52 MG/DL 0.80-1.40 H eGFR (2020 CKD-EPI) (test code = 33288) 58 ML/MIN/1.73 >60 L The NKF-ASN Taskforc e recommends use of Cystatin C to confirm eGFR inadults at risk for CKD. [facility] offers eGFR with Cystatin C-Creatinineusing the 2020 CKD-EPI eGFR_creat-cystat equation (order code 3057) toincrease the accuracy of estimated GFR. For more information, contactyour junior staff accountant or see announcement [email or web address] CALC BUN/CREAT (test code = 2234) 9 RATIO 6-28 SODIUM (test code = 223) 139 MEQ/L 133-146 POTASSIUM (test code = 2228) 4.1 MEQ/L 3.5-5.4 CHLORIDE (test code = 2215) 102 MEQ/L 95-107 CARBON DIOXIDE (test code = 2205) 24 MEQ/L 19-31 CALCIUM (test code = 2209) 9.9 MG/DL 8.5-10.5 PROTEIN, TOTAL (test code = 222) 7.5 G/DL 6.1-8.3 ALBUMIN (test code = 2201) 4.8 G/DL 3.5-5.2 CALC GLOBULIN (test code = 2240) 2.7 G/DL 1.9-3.7 CALC A/G RATIO (test code = 2234) 1.8 RATIO 1.0-2.6 BILIRUBIN, TOTAL (test code = 2207) 0.4 MG/DL <=1.2 ALKALINE PHOSPHATASE (test code = 2204) 76 U/L 40-119 AST (test code = 2218) 37 U/L 9-50 ALT (test code = 2219) 16 U/L 5-50 UNLESS OTHERWISE INDICATED, ALL TESTING PERFORMED AT [facility] [address] [place] [id number] FISH FILLETER: JONNY GOODMAN M.D. CLIA NUMBER [id number] [facility] [place]. [id number] COMPREHENSIVE METABOLIC [id number] 00:00:00* Test Item Value Reference Range Interpretation Comme nts GLUCOSE (test code = 7) 118 MG/DL BUN (test code = 8) 14 MG/DL CREATININE (test code = 2214) 1.52 MG/DL eGFR (2020 CKD-EPI) (test co de = 11445) 58 ML/MIN/1.73 CALC BUN/CREAT (test code = 2235) 9 RATIO SODIUM (test code = 2231) 139 MEQ/L POTASSIUM (test code = 2228) 4.1 MEQ/L CHLORIDE (test code = 2215) 102 MEQ/L CARBON DIOXIDE (test code = 2206) 24 MEQ/L CALCIUM (test code = 2209) 9.9 MG/DL PROTEIN, TOTAL (test code = 2229) 7.5 G/DL ALBUMIN (test code = 2201) 4.8 G/DL CALC GLOBULIN (test code = 2240) 2.7 G/DL CALC A/G RATIO (test code = 2234) 1.8 RATIO BILIRUBIN, TOTAL (test code = 2207) 0.4 MG/DL ALKALINE PHOSPHATASE (test code = 2204) 76 U/L AST (test code = 2218) 37 U/L ALT (test code = 2219) 16 U/L Brian AdamsPREHENSIVE METABOLIC [id number] 00:00:00* Test Item Value Reference Range Interpretation Comme nts GLUCOSE (test code = 2217) 118 MG/DL BUN (test code = 2208) 14 MG/DL CREATININE (test code = 2214) 1.52 MG/DL eGFR (2020 CKD-EPI) (test co de = 10560) 58 ML/MIN/1.73 CALC BUN/CREAT (test code = 2235) 9 RATIO SODIUM (test code = 2231) 139 MEQ/L POTASSIUM (test code = 2228) 4.1 MEQ/L CHLORIDE (test code = 2215) 102 MEQ/L CARBON DIOXIDE (test code = 2206) 24 MEQ/L CALCIUM (test code = 2209) 9.9 MG/DL PROTEIN, TOTAL (test code = 2229) 7.5 G/DL ALBUMIN (test code = 2201) 4.8 G/DL CALC GLOBULIN (test code = 2240) 2.7 G/DL CALC A/G RATIO (test code = 2234) 1.8 RATIO BILIRUBIN, TOTAL (test code = 2207) 0.4 MG/DL ALKALINE PHOSPHATASE (test code = 2204) 76 U/L AST (test code = 2218) 37 U/L ALT (test code = 2219) 16 U/L Brian AdamsPREHENSIVE METABOLIC [id number] 00:00:00* Test Item Value Reference Range Interpretation Comme nts GLUCOSE (test code = 2217) 118 MG/DL BUN (test code = 2208) 14 MG/DL CREATININE (test code = 2214) 1.52 MG/DL eGFR (2020 CKD-EPI) (test co de = 54600) 58 ML/MIN/1.73 CALC BUN/CREAT (test code = 2235) 9 RATIO SODIUM (test code = 2231) 139 MEQ/L POTASSIUM (test code = 2228) 4.1 MEQ/L CHLORIDE (test code = 2215) 102 MEQ/L CARBON DIOXIDE (test code = 2206) 24 MEQ/L CALCIUM (test code = 2209) 9.9 MG/DL PROTEIN, TOTAL (test code = 2229) 7.5 G/DL ALBUMIN (test code = 2201) 4.8 G/DL CALC GLOBULIN (test code = 2240) 2.7 G/DL CALC A/G RATIO (test code = 2234) 1.8 RATIO BILIRUBIN, TOTAL (test code = 2207) 0.4 MG/DL ALKALINE PHOSPHATASE (test code = 2204) 76 U/L AST (test code = 2218) 37 U/L ALT (test code = 2219) 16 U/L Brian Pastrana [facility] [id number] 00:00:00* Test Item Value Reference Range Interpretation Comme nts GLUCOSE (test code = 2217) 118 MG/DL BUN (test code = 2208) 14 MG/DL CREATININE (test code = 2214) 1.52 MG/DL eGFR (2020 CKD-EPI) (test co de = 56599) 58 ML/MIN/1.73 CALC BUN/CREAT (test code = 2235) 9 RATIO SODIUM (test code = 2231) 139 MEQ/L POTASSIUM (test code = 2228) 4.1 MEQ/L CHLORIDE (test code = 2215) 102 MEQ/L CARBON DIOXIDE (test code = 2206) 24 MEQ/L CALCIUM (test code = 2209) 9.9 MG/DL PROTEIN, TOTAL (test code = 2229) 7.5 G/DL ALBUMIN (test code = 2201) 4.8 G/DL CALC GLOBULIN (test code = 2240) 2.7 G/DL CALC A/G RATIO (test code = 2234) 1.8 RATIO BILIRUBIN, TOTAL (test code = 2207) 0.4 MG/DL ALKALINE PHOSPHATASE (test code = 2204) 76 U/L AST (test code = 2218) 37 U/L ALT (test code = 2219) 16 U/L Brian Pastrana [place]PRE[place] [id number] 00:00:00* Test Item Value Reference Range Interpretation Comme nts GLUCOSE (test code = 2217) 118 MG/DL BUN (test code = 2208) 14 MG/DL CREATININE (test code = 2214) 1.52 MG/DL eGFR (2020 CKD-EPI) (test co de = 42332) 58 ML/MIN/1.73 CALC BUN/CREAT (test code = 2235) 9 RATIO SODIUM (test code = 2231) 139 MEQ/L POTASSIUM (test code = 2228) 4.1 MEQ/L CHLORIDE (test code = 2215) 102 MEQ/L CARBON DIOXIDE (test code = 2206) 24 MEQ/L CALCIUM (test code = 2209) 9.9 MG/DL PROTEIN, TOTAL (test code = 2229) 7.5 G/DL ALBUMIN (test code = 2201) 4.8 G/DL CALC GLOBULIN (test code = 2240) 2.7 G/DL CALC A/G RATIO (test code = 2234) 1.8 RATIO BILIRUBIN, TOTAL (test code = 2207) 0.4 MG/DL ALKALINE PHOSPHATASE (test code = 2204) 76 U/L AST (test code = 2218) 37 U/L ALT (test code = 2219) 16 U/L Brian Pastrana AustinCOMPREHENSIVE METABOLIC [id number] 00:00:00* Test Item Value Reference Range Interpretation Comme nts GLUCOSE (test code = 2217) 118 MG/DL BUN (test code = 2208) 14 MG/DL CREATININE (test code = 2214) 1.52 MG/DL eGFR (2020 CKD-EPI) (test co de = 16758) 58 ML/MIN/1.73 CALC BUN/CREAT (test code = 2235) 9 RATIO SODIUM (test code = 2231) 139 MEQ/L POTASSIUM (test code = 2228) 4.1 MEQ/L CHLORIDE (test code = 2215) 102 MEQ/L CARBON DIOXIDE (test code = 2206) 24 MEQ/L CALCIUM (test code = 2209) 9.9 MG/DL PROTEIN, TOTAL (test code = 2229) 7.5 G/DL ALBUMIN (test code = 2201) 4.8 G/DL CALC GLOBULIN (test code = 2240) 2.7 G/DL CALC A/G RATIO (test code = 2234) 1.8 RATIO BILIRUBIN, TOTAL (test code = 2207) 0.4 MG/DL ALKALINE PHOSPHATASE (test code = 2204) 76 U/L AST (test code = 2218) 37 U/L ALT (test code = 2219) 16 U/L Brian F [place] BankCOMPREHENSIVE METABOL[place] [id number] 00:00:00* Test Item Value Reference Range Interpretation Comme nts GLUCOSE (test code = 2217) 118 MG/DL BUN (test code = 2208) 14 MG/DL CREATININE (test code = 2214) 1.52 MG/DL eGFR (2020 CKD-EPI) (test co de = 36977) 58 ML/MIN/1.73 CALC BUN/CREAT (test code = 2235) 9 RATIO SODIUM (test code = 2231) 139 MEQ/L POTASSIUM (test code = 2228) 4.1 MEQ/L CHLORIDE (test code = 2215) 102 MEQ/L CARBON DIOXIDE (test code = 2206) 24 MEQ/L CALCIUM (test code = 2209) 9.9 MG/DL PROTEIN, TOTAL (test code = 2229) 7.5 G/DL ALBUMIN (test code = 2201) 4.8 G/DL CALC GLOBULIN (test code = 2240) 2.7 G/DL CALC A/G RATIO (test code = 2234) 1.8 RATIO BILIRUBIN, TOTAL (test code = 2207) 0.4 MG/DL ALKALINE PHOSPHATASE (test code = 2204) 76 U/L AST (test code = 2218) 37 U/L ALT (test code = 2219) 16 U/L Brian F [facility] [id number] 00:00:00* Test Item Value Reference Range Interpretation Comme nts GLUCOSE (test code = 2217) 118 MG/DL BUN (test code = 2208) 14 MG/DL CREATININE (test code = 2214) 1.52 MG/DL eGFR (2020 CKD-EPI) (test co de = 56970) 58 ML/MIN/1.73 CALC BUN/CREAT (test code = 2235) 9 RATIO SODIUM (test code = 2231) 139 MEQ/L POTASSIUM (test code = 2228) 4.1 MEQ/L CHLORIDE (test code = 2215) 102 MEQ/L CARBON DIOXIDE (test code = 2206) 24 MEQ/L CALCIUM (test code = 2209) 9.9 MG/DL PROTEIN, TOTAL (test code = 2229) 7.5 G/DL ALBUMIN (test code = 2201) 4.8 G/DL CALC GLOBULIN (test code = 2240) 2.7 G/DL CALC A/G RATIO (test code = 2234) 1.8 RATIO BILIRUBIN, TOTAL (test code = 2207) 0.4 MG/DL ALKALINE PHOSPHATASE (test code = 2204) 76 U/L AST (test code = 2218) 37 U/L ALT (test code = 2219) 16 U/L Brian ClaytonCOMPREHENSIVE METABOLIC [id number] 00:00:00* Test Item Value Reference Range Interpretation Comme nts GLUCOSE (test code = 2217) 118 MG/DL BUN (test code = 2208) 14 MG/DL CREATININE (test code = 2214) 1.52 MG/DL eGFR (2020 CKD-EPI) (test co de = 89464) 58 ML/MIN/1.73 CALC BUN/CREAT (test code = 2235) 9 RATIO SODIUM (test code = 2231) 139 MEQ/L POTASSIUM (test code = 2228) 4.1 MEQ/L CHLORIDE (test code = 2215) 102 MEQ/L CARBON DIOXIDE (test code = 2206) 24 MEQ/L CALCIUM (test code = 2209) 9.9 MG/DL PROTEIN, TOTAL (test code = 2229) 7.5 G/DL ALBUMIN (test code = 2201) 4.8 G/DL CALC GLOBULIN (test code = 2240) 2.7 G/DL CALC A/G RATIO (test code = 2234) 1.8 RATIO BILIRUBIN, TOTAL (test code = 2207) 0.4 MG/DL ALKALINE PHOSPHATASE (test code = 2204) 76 U/L AST (test code = 2218) 37 U/L ALT (test code = 2219) 16 U/L Brian Pastrana AustinLIPID [id number] 10:08:58* Test Item Value Reference Range Interpretation Comme nts CHOLESTEROL (test code = 2210) 165 MG/DL <200 TRIGLYCERIDES (test code = 2232) 112 MG/DL <150 HDL CHOLESTEROL (test code = 2220) 51 MG/DL >39 CALC LDL CHOL (test code = 7) 93 MG/DL <100 NOTE: CALCULATED LDL IS BASED ON MOJGAN-REICH METHOD WHICHINCLUDES ADJUSTABLE TRIGLYCERIDE:VLDL CHOLESTEROL RATIO.THIS FACTOR VARIES BY MEASURED TRIGLYCERIDE AND NON-HDLCHOLESTEROL CONCENTRATIONS WITH INCREASED CALCULATED LDL SEENIN HIGHER TRIGLYCERIDE OR LOWER NON-HDL SPECIMENS. FOR MOREINFORMATION, SEE CLIENT ANNOUNCEMENT AT [email or web address] /[email or web address] RISK RATIO LDL/HDL (test code = 2237) 1.82 RATIO <3.55 COMPREHENSIVE METABOLIC [id number] 10:08:58* Test Item Value Reference Range Interpretation Comme nts GLUCOSE (test code = 2216) 98 MG/DL 70-99 BUN (test code = 2207) 15 MG/DL 6-20 CREATININE (test code = 2213) 1.50 MG/DL 0.80-1.40 H eGFR (2020 CKD-EPI) (test code = 59009) 59 ML/MIN/1.73 >60 L The NKF-ASN Taskforc e recommends use of Cystatin C to confirm eGFR inadults at risk for CKD. [facility] offers eGFR with Cystatin C-Creatinineusing the 2020 CKD-EPI eGFR_creat-cystat equation (order code 3057) toincrease the accuracy of estimated GFR. For more information, contactyour junior staff accountant or see announcement [email or web address] CALC BUN/CREAT (test code = 2234) 10 RATIO 6-28 SODIUM (test code = 2230) 141 MEQ/L 133-146 POTASSIUM (test code = 2227) 4.2 MEQ/L 3.5-5.4 CHLORIDE (test code = 2214) 99 MEQ/L 95-107 CARBON DIOXIDE (test code = 2205) 27 MEQ/L 19-31 CALCIUM (test code = 2208) 10.3 MG/DL 8.5-10.5 PROTEIN, TOTAL (test code = 2229) 8.1 G/DL 6.1-8.3 ALBUMIN (test code = 2201) 5.2 G/DL 3.5-5.2 CALC GLOBULIN (test code = 2240) 2.9 G/DL 1.9-3.7 CALC A/G RATIO (test code = 2234) 1.8 RATIO 1.0-2.6 BILIRUBIN, TOTAL (test code = 2207) 0.3 MG/DL <=1.2 ALKALINE PHOSPHATASE (test code = 2204) 67 U/L 40-119 AST (test code = 2218) 35 U/L 9-50 ALT (test code = 2219) 17 U/L 5-50 UNLESS OTHERWISE INDICATED, ALL TESTING PERFORMED AT [facility] [address] [place] [id number] FISH FILLETER: JONNY GOODMAN M.D. CLIA NUMBER [id number] [facility] [place] [place]. [id number] LIPID [id number] 00:00:00* Test Item Value Reference Range Interpretation Comme nts CHOLESTEROL (test code = 2210) 165 MG/DL TRIGLYCERIDES (test code = 2232) 112 MG/DL HDL CHOLESTEROL (test code = 2220) 51 MG/DL CALC LDL CHOL (test code = 2237) 93 MG/DL RISK RATIO LDL/HDL (test cod e = 2238) 1.82 RATIO Brian Zeina ForrestCOMPREHENSIVE METABOLIC [id number] 00:00:00* Test Item Value Reference Range Interpretation Comme nts GLUCOSE (test code = 2217) 98 MG/DL BUN (test code = 2208) 15 MG/DL CREATININE (test code = 2214) 1.50 MG/DL eGFR (2020 CKD-EPI) (test co de = 92788) 59 ML/MIN/1.73 CALC BUN/CREAT (test code = 2235) 10 RATIO SODIUM (test code = 2231) 141 MEQ/L POTASSIUM (test code = 2228) 4.2 MEQ/L CHLORIDE (test code = 2215) 99 MEQ/L CARBON DIOXIDE (test code = 2206) 27 MEQ/L CALCIUM (test code = 2209) 10.3 MG/DL PROTEIN, TOTAL (test code = 2229) 8.1 G/DL ALBUMIN (test code = 2201) 5.2 G/DL CALC GLOBULIN (test code = 2240) 2.9 G/DL CALC A/G RATIO (test code = 2234) 1.8 RATIO BILIRUBIN, TOTAL (test code = 2207) 0.3 MG/DL ALKALINE PHOSPHATASE (test code = 2204) 67 U/L AST (test code = 2218) 35 U/L ALT (test code = 2219) 17 U/L Brian Pastrana AustinLIPID [id number] 00:00:00* Test Item Value Reference Range Interpretation Comme nts CHOLESTEROL (test code = 2210) 165 MG/DL TRIGLYCERIDES (test code = 2232) 112 MG/DL HDL CHOLESTEROL (test code = 2220) 51 MG/DL CALC LDL CHOL (test code = 2237) 93 MG/DL RISK RATIO LDL/HDL (test cod e = 2238) 1.82 RATIO Brian Pastrana AustinLIPID [id number] 00:00:00* Test Item Value Reference Range Interpretation Comme nts CHOLESTEROL (test code = 2210) 165 MG/DL TRIGLYCERIDES (test code = 2232) 112 MG/DL HDL CHOLESTEROL (test code = 2220) 51 MG/DL CALC LDL CHOL (test code = 2237) 93 MG/DL RISK RATIO LDL/HDL (test cod e = 2238) 1.82 RATIO Brian ClaytonCOMPREHENSIVE METABOLIC [id number] 00:00:00* Test Item Value Reference Range Interpretation Comme nts GLUCOSE (test code = 2217) 98 MG/DL BUN (test code = 2208) 15 MG/DL CREATININE (test code = 2214) 1.50 MG/DL eGFR (2020 CKD-EPI) (test co de = 76674) 59 ML/MIN/1.73 CALC BUN/CREAT (test code = 2235) 10 RATIO SODIUM (test code = 2231) 141 MEQ/L POTASSIUM (test code = 2228) 4.2 MEQ/L CHLORIDE (test code = 2215) 99 MEQ/L CARBON DIOXIDE (test code = 2206) 27 MEQ/L CALCIUM (test code = 2209) 10.3 MG/DL PROTEIN, TOTAL (test code = 2229) 8.1 G/DL ALBUMIN (test code = 2201) 5.2 G/DL CALC GLOBULIN (test code = 2240) 2.9 G/DL CALC A/G RATIO (test code = 2234) 1.8 RATIO BILIRUBIN, TOTAL (test code = 2207) 0.3 MG/DL ALKALINE PHOSPHATASE (test code = 2204) 67 U/L AST (test code = 2218) 35 U/L ALT (test code = 2219) 17 U/L Brian Pastrana AustinLIPID [id number] 00:00:00* Test Item Value Reference Range Interpretation Comme nts CHOLESTEROL (test code = 2210) 165 MG/DL TRIGLYCERIDES (test code = 2232) 112 MG/DL HDL CHOLESTEROL (test code = 2220) 51 MG/DL CALC LDL CHOL (test code = 2237) 93 MG/DL RISK RATIO LDL/HDL (test cod e = 2238) 1.82 RATIO Brian Pastrana AustinCOMPREHENSIVE METABOLIC [id number] 00:00:00* Test Item Value Reference Range Interpretation Comme nts GLUCOSE (test code = 2217) 98 MG/DL BUN (test code = 2208) 15 MG/DL CREATININE (test code = 2214) 1.50 MG/DL eGFR (2020 CKD-EPI) (test co de = 55993) 59 ML/MIN/1.73 CALC BUN/CREAT (test code = 2235) 10 RATIO SODIUM (test code = 2231) 141 MEQ/L POTASSIUM (test code = 2228) 4.2 MEQ/L CHLORIDE (test code = 2215) 99 MEQ/L CARBON DIOXIDE (test code = 2206) 27 MEQ/L CALCIUM (test code = 2209) 10.3 MG/DL PROTEIN, TOTAL (test code = 2229) 8.1 G/DL ALBUMIN (test code = 2201) 5.2 G/DL CALC GLOBULIN (test code = 2240) 2.9 G/DL CALC A/G RATIO (test code = 2234) 1.8 RATIO BILIRUBIN, TOTAL (test code = 2207) 0.3 MG/DL ALKALINE PHOSPHATASE (test code = 2204) 67 U/L AST (test code = 2218) 35 U/L ALT (test code = 2219) 17 U/L Brian Pastrana AustinCOMPREHENSIVE METABOLIC [id number] 00:00:00* Test Item Value Reference Range Interpretation Comme nts GLUCOSE (test code = 2217) 98 MG/DL BUN (test code = 2208) 15 MG/DL CREATININE (test code = 2214) 1.50 MG/DL eGFR (2020 CKD-EPI) (test co de = 23761) 59 ML/MIN/1.73 CALC BUN/CREAT (test code = 2235) 10 RATIO SODIUM (test code = 2231) 141 MEQ/L POTASSIUM (test code = 2228) 4.2 MEQ/L CHLORIDE (test code = 2215) 99 MEQ/L CARBON DIOXIDE (test code = 2206) 27 MEQ/L CALCIUM (test code = 2209) 10.3 MG/DL PROTEIN, TOTAL (test code = 2229) 8.1 G/DL ALBUMIN (test code = 2201) 5.2 G/DL CALC GLOBULIN (test code = 2240) 2.9 G/DL CALC A/G RATIO (test code = 2234) 1.8 RATIO BILIRUBIN, TOTAL (test code = 2207) 0.3 MG/DL ALKALINE PHOSPHATASE (test code = 2204) 67 U/L AST (test code = 2218) 35 U/L ALT (test code = 2219) 17 U/L Brian Pastrana [place] BankLIPID [id number] 00:00:00* Test Item Value Reference Range Interpretation Comme nts CHOLESTEROL (test code = 2210) 165 MG/DL TRIGLYCERIDES (test code = 2232) 112 MG/DL HDL CHOLESTEROL (test code = 2220) 51 MG/DL CALC LDL CHOL (test code = 2237) 93 MG/DL RISK RATIO LDL/HDL (test cod e = 2238) 1.82 RATIO Brian F ForrestCOMPREHENSIVE METABOLIC [id number] 00:00:00* Test Item Value Reference Range Interpretation Comme nts GLUCOSE (test code = 2217) 98 MG/DL BUN (test code = 2208) 15 MG/DL CREATININE (test code = 2214) 1.50 MG/DL eGFR (2020 CKD-EPI) (test co de = 44970) 59 ML/MIN/1.73 CALC BUN/CREAT (test code = 2235) 10 RATIO SODIUM (test code = 2231) 141 MEQ/L POTASSIUM (test code = 2228) 4.2 MEQ/L CHLORIDE (test code = 2215) 99 MEQ/L CARBON DIOXIDE (test code = 2206) 27 MEQ/L CALCIUM (test code = 2209) 10.3 MG/DL PROTEIN, TOTAL (test code = 2229) 8.1 G/DL ALBUMIN (test code = 2201) 5.2 G/DL CALC GLOBULIN (test code = 2240) 2.9 G/DL CALC A/G RATIO (test code = 2234) 1.8 RATIO BILIRUBIN, TOTAL (test code = 2207) 0.3 MG/DL ALKALINE PHOSPHATASE (test code = 2204) 67 U/L AST (test code = 2218) 35 U/L ALT (test code = 2219) 17 U/L Brian Zeina AustinLIPID [id number] 00:00:00* Test Item Value Reference Range Interpretation Comme nts CHOLESTEROL (test code = 2210) 165 MG/DL TRIGLYCERIDES (test code = 2232) 112 MG/DL HDL CHOLESTEROL (test code = 2220) 51 MG/DL CALC LDL CHOL (test code = 2237) 93 MG/DL RISK RATIO LDL/HDL (test cod e = 2238) 1.82 RATIO Brian Zeina ForrestCOMPREHENSIVE METABOLIC [id number] 00:00:00* Test Item Value Reference Range Interpretation Comme nts GLUCOSE (test code = 2217) 98 MG/DL BUN (test code = 2208) 15 MG/DL CREATININE (test code = 2214) 1.50 MG/DL eGFR (2020 CKD-EPI) (test co de = 11805) 59 ML/MIN/1.73 CALC BUN/CREAT (test code = 2235) 10 RATIO SODIUM (test code = 2231) 141 MEQ/L POTASSIUM (test code = 2228) 4.2 MEQ/L CHLORIDE (test code = 2215) 99 MEQ/L CARBON DIOXIDE (test code = 2206) 27 MEQ/L CALCIUM (test code = 2209) 10.3 MG/DL PROTEIN, TOTAL (test code = 2229) 8.1 G/DL ALBUMIN (test code = 2201) 5.2 G/DL CALC GLOBULIN (test code = 2240) 2.9 G/DL CALC A/G RATIO (test code = 2234) 1.8 RATIO BILIRUBIN, TOTAL (test code = 2207) 0.3 MG/DL ALKALINE PHOSPHATASE (test code = 2204) 67 U/L AST (test code = 2218) 35 U/L ALT (test code = 2219) 17 U/L Brian F AustinLIPID [id number] 00:00:00* Test Item Value Reference Range Interpretation Comme nts CHOLESTEROL (test code = 2210) 165 MG/DL TRIGLYCERIDES (test code = 2232) 112 MG/DL HDL CHOLESTEROL (test code = 2220) 51 MG/DL CALC LDL CHOL (test code = 2237) 93 MG/DL RISK RATIO LDL/HDL (test cod e = 2238) 1.82 RATIO Brian Pastrana AustinCOMPREHENSIVE METABOLIC [id number] 00:00:00* Test Item Value Reference Range Interpretation Comme nts GLUCOSE (test code = 2217) 98 MG/DL BUN (test code = 2208) 15 MG/DL CREATININE (test code = 2214) 1.50 MG/DL eGFR (2020 CKD-EPI) (test co de = 32462) 59 ML/MIN/1.73 CALC BUN/CREAT (test code = 2235) 10 RATIO SODIUM (test code = 2231) 141 MEQ/L POTASSIUM (test code = 2228) 4.2 MEQ/L CHLORIDE (test code = 2215) 99 MEQ/L CARBON DIOXIDE (test code = 2206) 27 MEQ/L CALCIUM (test code = 2209) 10.3 MG/DL PROTEIN, TOTAL (test code = 2229) 8.1 G/DL ALBUMIN (test code = 2201) 5.2 G/DL CALC GLOBULIN (test code = 2240) 2.9 G/DL CALC A/G RATIO (test code = 2234) 1.8 RATIO BILIRUBIN, TOTAL (test code = 2207) 0.3 MG/DL ALKALINE PHOSPHATASE (test code = 2204) 67 U/L AST (test code = 2218) 35 U/L ALT (test code = 2219) 17 U/L Brian Pastrana AustinLIPID [id number] 00:00:00* Test Item Value Reference Range Interpretation Comme nts CHOLESTEROL (test code = 2210) 165 MG/DL TRIGLYCERIDES (test code = 2232) 112 MG/DL HDL CHOLESTEROL (test code = 2220) 51 MG/DL CALC LDL CHOL (test code = 2237) 93 MG/DL RISK RATIO LDL/HDL (test cod e = 2238) 1.82 RATIO Brian ClaytonCOMPREHENSIVE METABOLIC [id number] 00:00:00* Test Item Value Reference Range Interpretation Comme nts GLUCOSE (test code = 2217) 98 MG/DL BUN (test code = 2208) 15 MG/DL CREATININE (test code = 2214) 1.50 MG/DL eGFR (2020 CKD-EPI) (test co de = 11333) 59 ML/MIN/1.73 CALC BUN/CREAT (test code = 2235) 10 RATIO SODIUM (test code = 2231) 141 MEQ/L POTASSIUM (test code = 2228) 4.2 MEQ/L CHLORIDE (test code = 2215) 99 MEQ/L CARBON DIOXIDE (test code = 2206) 27 MEQ/L CALCIUM (test code = 2209) 10.3 MG/DL PROTEIN, TOTAL (test code = 2229) 8.1 G/DL ALBUMIN (test code = 2201) 5.2 G/DL CALC GLOBULIN (test code = 2240) 2.9 G/DL CALC A/G RATIO (test code = 2234) 1.8 RATIO BILIRUBIN, TOTAL (test code = 2207) 0.3 MG/DL ALKALINE PHOSPHATASE (test code = 2204) 67 U/L AST (test code = 2218) 35 U/L ALT (test code = 2219) 17 U/L Brian Zeina [place] BankLIPID [id number] 00:00:00* Test Item Value Reference Range Interpretation Comme nts CHOLESTEROL (test code = 2210) 165 MG/DL TRIGLYCERIDES (test code = 2232) 112 MG/DL HDL CHOLESTEROL (test code = 2220) 51 MG/DL CALC LDL CHOL (test code = 2237) 93 MG/DL RISK RATIO LDL/HDL (test cod e = 2238) 1.82 RATIO Brian Pastrana ForrestCOMPREHENSIVE METABOLIC [id number] 00:00:00* Test Item Value Reference Range Interpretation Comme nts GLUCOSE (test code = 2217) 98 MG/DL BUN (test code = 2208) 15 MG/DL CREATININE (test code = 2214) 1.50 MG/DL eGFR (2020 CKD-EPI) (test co de = 17474) 59 ML/MIN/1.73 CALC BUN/CREAT (test code = 2235) 10 RATIO SODIUM (test code = 2231) 141 MEQ/L POTASSIUM (test code = 2228) 4.2 MEQ/L CHLORIDE (test code = 2215) 99 MEQ/L CARBON DIOXIDE (test code = 2206) 27 MEQ/L CALCIUM (test code = 2209) 10.3 MG/DL PROTEIN, TOTAL (test code = 2229) 8.1 G/DL ALBUMIN (test code = 2201) 5.2 G/DL CALC GLOBULIN (test code = 2240) 2.9 G/DL CALC A/G RATIO (test code = 2234) 1.8 RATIO BILIRUBIN, TOTAL (test code = 2207) 0.3 MG/DL ALKALINE PHOSPHATASE (test code = 2204) 67 U/L AST (test code = 2218) 35 U/L ALT (test code = 2219) 17 U/L Brian Pastrana AustinLIPID [id number] 02:32:13* Test Item Value Reference Range Interpretation Comme nts CHOLESTEROL (test code = 2210) 117 MG/DL <200 TRIGLYCERIDES (test code = 2232) 67 MG/DL <150 HDL CHOLESTEROL (test code = 2220) 43 MG/DL >39 CALC LDL CHOL (test code = 2237) 60 MG/DL <100 NOTE: CALCULATED LDL IS BASED ON MOJGAN-REICH METHOD WHICHINCLUDES ADJUSTABLE TRIGLYCERIDE:VLDL CHOLESTEROL RATIO.THIS FACTOR VARIES BY MEASURED TRIGLYCERIDE AND NON-HDLCHOLESTEROL CONCENTRATIONS WITH INCREASED CALCULATED LDL SEENIN HIGHER TRIGLYCERIDE OR LOWER NON-HDL SPECIMENS. FOR MOREINFORMATION, SEE CLIENT ANNOUNCEMENT AT [email or web address] RISK RATIO LDL/HDL (test code = 2238) 1.40 RATIO <3.55 UNLESS OTHERW ISE INDICATED, ALL TESTING PERFORMED AT [facility] [address] [place] [id number] FISH FILLETER: JONNY GOODMAN M.D. CLIA NUMBER [id number] [facility] [place]. [id number] LIPID [id number] 00:00:00* Test Item Value Reference Range Interpretation Comme nts CHOLESTEROL (test code = 2210) 117 MG/DL TRIGLYCERIDES (test code = 2232) 67 MG/DL HDL CHOLESTEROL (test code = 2220) 43 MG/DL CALC LDL CHOL (test code = 2237) 60 MG/DL RISK RATIO LDL/HDL (test cod e = 2238) 1.40 RATIO Brian ClaytonLIPID [id number] 00:00:00* Test Item Value Reference Range Interpretation Comme nts CHOLESTEROL (test code = 2210) 117 MG/DL TRIGLYCERIDES (test code = 2232) 67 MG/DL HDL CHOLESTEROL (test code = 2220) 43 MG/DL CALC LDL CHOL (test code = 2237) 60 MG/DL RISK RATIO LDL/HDL (test cod e = 2238) 1.40 RATIO Brian ClaytonLIPID [id number] 00:00:00* Test Item Value Reference Range Interpretation Comme nts CHOLESTEROL (test code = 2210) 117 MG/DL TRIGLYCERIDES (test code = 2232) 67 MG/DL HDL CHOLESTEROL (test code = 2220) 43 MG/DL CALC LDL CHOL (test code = 2237) 60 MG/DL RISK RATIO LDL/HDL (test cod e = 2238) 1.40 RATIO Brian ClaytonLIPID [id number] 00:00:00* Test Item Value Reference Range Interpretation Comme nts CHOLESTEROL (test code = 2210) 117 MG/DL TRIGLYCERIDES (test code = 2232) 67 MG/DL HDL CHOLESTEROL (test code = 2220) 43 MG/DL CALC LDL CHOL (test code = 2237) 60 MG/DL RISK RATIO LDL/HDL (test cod e = 2238) 1.40 RATIO Brian ClaytonLIPID [id number] 00:00:00* Test Item Value Reference Range Interpretation Comme nts CHOLESTEROL (test code = 2210) 117 MG/DL TRIGLYCERIDES (test code = 2232) 67 MG/DL HDL CHOLESTEROL (test code = 2220) 43 MG/DL CALC LDL CHOL (test code = 2237) 60 MG/DL RISK RATIO LDL/HDL (test cod e = 2238) 1.40 RATIO Brian ClaytonLIPID [id number] 00:00:00* Test Item Value Reference Range Interpretation Comme nts CHOLESTEROL (test code = 2210) 117 MG/DL TRIGLYCERIDES (test code = 2232) 67 MG/DL HDL CHOLESTEROL (test code = 2220) 43 MG/DL CALC LDL CHOL (test code = 2237) 60 MG/DL RISK RATIO LDL/HDL (test cod e = 2238) 1.40 RATIO Brian ClaytonLIPID [id number] 00:00:00* Test Item Value Reference Range Interpretation Comme nts CHOLESTEROL (test code = 2210) 117 MG/DL TRIGLYCERIDES (test code = 2232) 67 MG/DL HDL CHOLESTEROL (test code = 2220) 43 MG/DL CALC LDL CHOL (test code = 2237) 60 MG/DL RISK RATIO LDL/HDL (test cod e = 2238) 1.40 RATIO Brian ClaytonLIPID [id number] 00:00:00* Test Item Value Reference Range Interpretation Comme nts CHOLESTEROL (test code = 2210) 117 MG/DL TRIGLYCERIDES (test code = 2232) 67 MG/DL HDL CHOLESTEROL (test code = 2220) 43 MG/DL CALC LDL CHOL (test code = 2237) 60 MG/DL RISK RATIO LDL/HDL (test cod e = 2238) 1.40 RATIO Brian Pastrana AustinLIPID [id number] 00:00:00* Test Item Value Reference Range Interpretation Comme nts CHOLESTEROL (test code = 2210) 117 MG/DL TRIGLYCERIDES (test code = 2232) 67 MG/DL HDL CHOLESTEROL (test code = 2220) 43 MG/DL CALC LDL CHOL (test code = 2237) 60 MG/DL RISK RATIO LDL/HDL (test cod e = 2238) 1.40 RATIO Brian Pastrana AustinLIPID [id number] 07:00:47* Test Item Value Reference Range Interpretation Comme nts CHOLESTEROL (test code = 2210) 174 MG/DL <200 TRIGLYCERIDES (test code = 2232) 390 MG/DL <150 H HDL CHOLESTEROL (test code = 2220) 32 MG/DL >39 L CALC LDL CHOL (test code = 2237) 90 MG/DL <100 NOTE: CALCULATED LDL IS BASED ON MOJGAN-REICH METHOD WHICHINCLUDES ADJUSTABLE TRIGLYCERIDE:VLDL CHOLESTEROL RATIO.THIS FACTOR VARIES BY MEASURED TRIGLYCERIDE AND NON-HDLCHOLESTEROL CONCENTRATIONS WITH INCREASED CALCULATED LDL SEENIN HIGHER TRIGLYCERIDE OR LOWER NON-HDL SPECIMENS. FOR MOREINFORMATION, SEE CLIENT ANNOUNCEMENT AT [email or web address] RISK RATIO LDL/HDL (test code = 2238) 2.81 RATIO <3.55 COMPREHENSIVE METABOLIC [id number] 07:00:47* Test Item Value Reference Range Interpretation Comme nts GLUCOSE (test code = 2217) 113 MG/DL 70-99 H BUN (test code = 2208) 13 MG/DL 6-20 CREATININE (test code = 2214) 1.30 MG/DL 0.80-1.40 eGFR (2020 CKD-EPI) (test code = 42905) 70 ML/MIN/1.73 >60 CALC BUN/CREAT (test code = 2234) 10 RATIO 6-28 SODIUM (test code = 2230) 140 MEQ/L 133-146 POTASSIUM (test code = 2227) 4.1 MEQ/L 3.5-5.4 CHLORIDE (test code = 2214) 103 MEQ/L 95-107 CARBON DIOXIDE (test code = 2205) 23 MEQ/L 19-31 CALCIUM (test code = 2208) 9.8 MG/DL 8.5-10.5 PROTEIN, TOTAL (test code = 2228) 7.7 G/DL 6.1-8.3 ALBUMIN (test code = 2200) 4.8 G/DL 3.5-5.2 CALC GLOBULIN (test code = 2239) 2.9 G/DL 1.9-3.7 CALC A/G RATIO (test code = 2233) 1.7 RATIO 1.0-2.6 BILIRUBIN, TOTAL (test code = 2206) 0.3 MG/DL See_Comment [Automated me ssage] The system which generated this result transmitted reference range: <=1.2. The reference range was not used to interpret this result as normal/abnormal. ALKALINE PHOSPHATASE (test code = 2203) 90 U/L 40-119 AST (test code = 2217) 49 U/L 9-50 ALT (test code = 2218) 34 U/L 5-50 TSH, THIRD [id number] 06:38:53* Test Item Value Reference Range Interpretation Comme nts TSH, THIRD GENERATION (test code = 2821) 3.120 UIU/ML 0.400-4.100 [facility] has impo rtant pathology staff changes effective 12/29/2022. New pathology staff will provide uninterrupted, excellent patient care and clinical consultation. See URL: [email or web address]. UNLESS OTHERWISE INDICATED, ALL TESTING PERFORMED AT [facility] [address] [place] [id number] FISH FILLETER: NONA TRINIDAD M.D. CLIA NUMBER [id number] [facility] [place]. [id number] HEMOGLOBIN [id number] 03:35:39* Test Item Value Reference Range Interpretation Comme nts HEMOGLOBIN A1c (test code = 59031) 5.5 % 4.2-5.6 CBC W/AUTO DIFF WITH [id number] 02:40:36* Test Item Value Reference Range Interpretation Comme nts WBC (test code = 1001) 6.1 K/UL 3.5-11.0 RBC (test code = 1002) 4.75 M/UL 4.50-6.10 HEMOGLOBIN (test code = 1003) 13.9 G/DL 13.5-17.0 HEMATOCRIT (test code = 1004) 41.5 % 40.0-51.0 MCV (test code = 1005) 87.4 fL 80.0-99.0 MCH (test code = 1006) 29.3 PG 25.0-33.0 MCHC (test code = 1007) 33.5 G/DL 31.0-36.0 RDW (test code = 1038) 12.5 % 11.5-15.0 NEUTROPHILS (test code = 1008) 50.5 % LYMPHOCYTES (test code = 1010) 38.9 % MONOCYTES (test code = 1011) 6.6 % EOSINOPHILS (test code = 1012) 3.3 % BASOPHILS (test code = 1013) 0.5 % IMMATURE GRANULOCYTES (test code = 1036) 0.2 % NUCLEATED RBCS (test code = 1065) 0.0 /100 WBC'S See_Comment [Automated messa ge] The system which generated this result transmitted reference range: 0.0. The reference range was not used to interpret this result as normal/abnormal. PLATELET COUNT (test code = 1015) 336 K/UL 130-400 ABSOLUTE NEUTROPHILS (test code = 1066) 3.08 K/UL 1.50-7.50 ABSOLUTE LYMPHOCYTES (test code = 1067) 2.37 K/UL 1.00-4.00 ABSOLUTE MONOCYTES (test code = 1068) 0.40 K/UL 0.20-1.00 ABSOLUTE EOSINOPHILS (test code = 1040) 0.20 K/UL 0.00-0.50 ABSOLUTE BASOPHILS (test code = 1069) 0.03 K/UL 0.00-0.20 ABS IMMATURE GRANULOCYTES (test code = 1020) 0.01 K/UL 0.00-0.10 ABS NUCLEATED RBCS (test code = 74856) 0.00 K/UL 0.00-0.11 CBC W/AUTO [id number] 00:00:00* Test Item Value Reference Range Interpretation Comme nts WBC (test code = 1001) 6.1 K/UL RBC (test code = 1002) 4.75 M/UL HEMOGLOBIN (test code = 1003) 13.9 G/DL HEMATOCRIT (test code = 1004) 41.5 % MCV (test code = 1005) 87.4 fL MCH (test code = 1006) 29.3 PG MCHC (test code = 1007) 33.5 G/DL RDW (test code = 1038) 12.5 % NEUTROPHILS (test code = 1008) 50.5 % LYMPHOCYTES (test code = 1010) 38.9 % MONOCYTES (test code = 1011) 6.6 % EOSINOPHILS (test code = 1012) 3.3 % BASOPHILS (test code = 1013) 0.5 % IMMATURE GRANULOCYTES (test code = 1036) 0.2 % NUCLEATED RBCS (test code = 1065) 0.0 /100WBC'S PLATELET COUNT (test code = 1015) 336 K/UL ABSOLUTE NEUTROPHILS (test c ode = 1066) 3.08 K/UL ABSOLUTE LYMPHOCYTES (test c ode = 1067) 2.37 K/UL ABSOLUTE MONOCYTES (test cod e = 1068) 0.40 K/UL ABSOLUTE EOSINOPHILS (test c ode = 1040) 0.20 K/UL ABSOLUTE BASOPHILS (test cod e = 1069) 0.03 K/UL ABS IMMATURE GRANULOCYTES (t est code = 1020) 0.01 K/UL ABS NUCLEATED RBCS (test cod e = 21839) 0.00 K/UL Brian ClaytonSTORMY, THIRD [id number] 00:00:00* Test Item Value Reference Range Interpretation Comme nts TSH, THIRD GENERATION (test code = 2821) 3.120 UIU/ML Brian ClaytonLIPID [id number] 00:00:00* Test Item Value Reference Range Interpretation Comme nts CHOLESTEROL (test code = 2210) 174 MG/DL TRIGLYCERIDES (test code = 2232) 390 MG/DL HDL CHOLESTEROL (test code = 2220) 32 MG/DL CALC LDL CHOL (test code = 2237) 90 MG/DL RISK RATIO LDL/HDL (test cod e = 2238) 2.81 RATIO Brian ClaytonHEMOGLOBIN [id number] 00:00:00* Test Item Value Reference Range Interpretation Comme [facility] HEMOGLOBIN A1c (test code = 82399) 5.5 % Brian ClaytonCOMPREHENSIVE METABOLIC [id number] 00:00:00* Test Item Value Reference Range Interpretation Comme nts GLUCOSE (test code = 2217) 113 MG/DL BUN (test code = 2208) 13 MG/DL CREATININE (test code = 2214) 1.30 MG/DL eGFR (2020 CKD-EPI) (test co de = 71364) 70 ML/MIN/1.73 CALC BUN/CREAT (test code = 2235) 10 RATIO SODIUM (test code = 2231) 140 MEQ/L POTASSIUM (test code = 2228) 4.1 MEQ/L CHLORIDE (test code = 2215) 103 MEQ/L CARBON DIOXIDE (test code = 2206) 23 MEQ/L CALCIUM (test code = 2209) 9.8 MG/DL PROTEIN, TOTAL (test code = 2229) 7.7 G/DL ALBUMIN (test code = 2201) 4.8 G/DL CALC GLOBULIN (test code = 2240) 2.9 G/DL CALC A/G RATIO (test code = 2234) 1.7 RATIO BILIRUBIN, TOTAL (test code = 2207) 0.3 MG/DL ALKALINE PHOSPHATASE (test code = 2204) 90 U/L AST (test code = 2218) 49 U/L ALT (test code = 2219) 34 U/L Brian ClaytonCBC W/AUTO [id number] 00:00:00* Test Item Value Reference Range Interpretation Comme nts WBC (test code = 1001) 6.1 K/UL RBC (test code = 1002) 4.75 M/UL HEMOGLOBIN (test code = 1003) 13.9 G/DL HEMATOCRIT (test code = 1004) 41.5 % MCV (test code = 1005) 87.4 fL MCH (test code = 1006) 29.3 PG MCHC (test code = 1007) 33.5 G/DL RDW (test code = 1038) 12.5 % NEUTROPHILS (test code = 1008) 50.5 % LYMPHOCYTES (test code = 1010) 38.9 % MONOCYTES (test code = 1011) 6.6 % EOSINOPHILS (test code = 1012) 3.3 % BASOPHILS (test code = 1013) 0.5 % IMMATURE GRANULOCYTES (test code = 1036) 0.2 % NUCLEATED RBCS (test code = 1065) 0.0 /100WBC'S PLATELET COUNT (test code = 1015) 336 K/UL ABSOLUTE NEUTROPHILS (test c ode = 1066) 3.08 K/UL ABSOLUTE LYMPHOCYTES (test c ode = 1067) 2.37 K/UL ABSOLUTE MONOCYTES (test cod e = 1068) 0.40 K/UL ABSOLUTE EOSINOPHILS (test c ode = 1040) 0.20 K/UL ABSOLUTE BASOPHILS (test cod e = 1069) 0.03 K/UL ABS IMMATURE GRANULOCYTES (t est code = 1020) 0.01 K/UL ABS NUCLEATED RBCS (test cod e = 33766) 0.00 K/UL Brian ClaytonTSH, THIRD [id number] 00:00:00* Test Item Value Reference Range Interpretation Comme nts TSH, THIRD GENERATION (test code = 2821) 3.120 UIU/ML Brian ClaytonLIPID [id number] 00:00:00* Test Item Value Reference Range Interpretation Comme nts CHOLESTEROL (test code = 2210) 174 MG/DL TRIGLYCERIDES (test code = 2232) 390 MG/DL HDL CHOLESTEROL (test code = 2220) 32 MG/DL CALC LDL CHOL (test code = 2237) 90 MG/DL RISK RATIO LDL/HDL (test cod e = 2238) 2.81 RATIO Brian ClaytonHEMOGLOBIN [id number] 00:00:00* Test Item Value Reference Range Interpretation Comme nts HEMOGLOBIN A1c (test code = 71726) 5.5 % Brian ClaytonCOMPREHENSIVE METABOLIC [id number] 00:00:00* Test Item Value Reference Range Interpretation Comme nts GLUCOSE (test code = 2217) 113 MG/DL BUN (test code = 2208) 13 MG/DL CREATININE (test code = 2214) 1.30 MG/DL eGFR (2020 CKD-EPI) (test co de = 92355) 70 ML/MIN/1.73 CALC BUN/CREAT (test code = 2235) 10 RATIO SODIUM (test code = 2231) 140 MEQ/L POTASSIUM (test code = 2228) 4.1 MEQ/L CHLORIDE (test code = 2215) 103 MEQ/L CARBON DIOXIDE (test code = 2206) 23 MEQ/L CALCIUM (test code = 2209) 9.8 MG/DL PROTEIN, TOTAL (test code = 2229) 7.7 G/DL ALBUMIN (test code = 2201) 4.8 G/DL CALC GLOBULIN (test code = 2240) 2.9 G/DL CALC A/G RATIO (test code = 2234) 1.7 RATIO BILIRUBIN, TOTAL (test code = 2207) 0.3 MG/DL ALKALINE PHOSPHATASE (test code = 2204) 90 U/L AST (test code = 2218) 49 U/L ALT (test code = 2219) 34 U/L Brian Pastrnaa [facility]FR[facility] W/AUTO [id number] 00:00:00* Test Item Value Reference Range Interpretation Comme nts WBC (test code = 1001) 6.1 K/UL RBC (test code = 1002) 4.75 M/UL HEMOGLOBIN (test code = 1003) 13.9 G/DL HEMATOCRIT (test code = 1004) 41.5 % MCV (test code = 1005) 87.4 fL MCH (test code = 1006) 29.3 PG MCHC (test code = 1007) 33.5 G/DL RDW (test code = 1038) 12.5 % NEUTROPHILS (test code = 1008) 50.5 % LYMPHOCYTES (test code = 1010) 38.9 % MONOCYTES (test code = 1011) 6.6 % EOSINOPHILS (test code = 1012) 3.3 % BASOPHILS (test code = 1013) 0.5 % IMMATURE GRANULOCYTES (test code = 1036) 0.2 % NUCLEATED RBCS (test code = 1065) 0.0 /100WBC'S PLATELET COUNT (test code = 1015) 336 K/UL ABSOLUTE NEUTROPHILS (test c ode = 1066) 3.08 K/UL ABSOLUTE LYMPHOCYTES (test c ode = 1067) 2.37 K/UL ABSOLUTE MONOCYTES (test cod e = 1068) 0.40 K/UL ABSOLUTE EOSINOPHILS (test c ode = 1040) 0.20 K/UL ABSOLUTE BASOPHILS (test cod e = 1069) 0.03 K/UL ABS IMMATURE GRANULOCYTES (t est code = 1020) 0.01 K/UL ABS NUCLEATED RBCS (test cod e = 41644) 0.00 K/UL Brian Salazar, THIRD [id number] 00:00:00* Test Item Value Reference Range Interpretation Comme rosa TSH, THIRD GENERATION (test code = 2821) 3.120 UIU/ML Brian ClaytonLIPID [id number] 00:00:00* Test Item Value Reference Range Interpretation Comme nts CHOLESTEROL (test code = 2210) 174 MG/DL TRIGLYCERIDES (test code = 2232) 390 MG/DL HDL CHOLESTEROL (test code = 2220) 32 MG/DL CALC LDL CHOL (test code = 2237) 90 MG/DL RISK RATIO LDL/HDL (test cod e = 2238) 2.81 RATIO Brian ClaytonLIPID [id number] 00:00:00* Test Item Value Reference Range Interpretation Comme nts CHOLESTEROL (test code = 2210) 174 MG/DL TRIGLYCERIDES (test code = 2232) 390 MG/DL HDL CHOLESTEROL (test code = 2220) 32 MG/DL CALC LDL CHOL (test code = 2237) 90 MG/DL RISK RATIO LDL/HDL (test cod e = 2238) 2.81 RATIO Brian ClaytonHEMOGLOBIN [id number] 00:00:00* Test Item Value Reference Range Interpretation Comme rosa HEMOGLOBIN A1c (test code = 83176) 5.5 % Brian ClaytonCOMPREHENSIVE METABOLIC [id number] 00:00:00* Test Item Value Reference Range Interpretation Comme nts GLUCOSE (test code = 2217) 113 MG/DL BUN (test code = 2208) 13 MG/DL CREATININE (test code = 2214) 1.30 MG/DL eGFR (2020 CKD-EPI) (test co de = 82925) 70 ML/MIN/1.73 CALC BUN/CREAT (test code = 2235) 10 RATIO SODIUM (test code = 2231) 140 MEQ/L POTASSIUM (test code = 2228) 4.1 MEQ/L CHLORIDE (test code = 2215) 103 MEQ/L CARBON DIOXIDE (test code = 2206) 23 MEQ/L CALCIUM (test code = 2209) 9.8 MG/DL PROTEIN, TOTAL (test code = 2229) 7.7 G/DL ALBUMIN (test code = 2201) 4.8 G/DL CALC GLOBULIN (test code = 2240) 2.9 G/DL CALC A/G RATIO (test code = 2234) 1.7 RATIO BILIRUBIN, TOTAL (test code = 2207) 0.3 MG/DL ALKALINE PHOSPHATASE (test code = 2204) 90 U/L AST (test code = 2218) 49 U/L ALT (test code = 2219) 34 U/L Brian ClaytonCBC W/AUTO [id number] 00:00:00* Test Item Value Reference Range Interpretation Comme nts WBC (test code = 1001) 6.1 K/UL RBC (test code = 1002) 4.75 M/UL HEMOGLOBIN (test code = 1003) 13.9 G/DL HEMATOCRIT (test code = 1004) 41.5 % MCV (test code = 1005) 87.4 fL MCH (test code = 1006) 29.3 PG MCHC (test code = 1007) 33.5 G/DL RDW (test code = 1038) 12.5 % NEUTROPHILS (test code = 1008) 50.5 % LYMPHOCYTES (test code = 1010) 38.9 % MONOCYTES (test code = 1011) 6.6 % EOSINOPHILS (test code = 1012) 3.3 % BASOPHILS (test code = 1013) 0.5 % IMMATURE GRANULOCYTES (test code = 1036) 0.2 % NUCLEATED RBCS (test code = 1065) 0.0 /100WBC'S PLATELET COUNT (test code = 1015) 336 K/UL ABSOLUTE NEUTROPHILS (test c ode = 1066) 3.08 K/UL ABSOLUTE LYMPHOCYTES (test c ode = 1067) 2.37 K/UL ABSOLUTE MONOCYTES (test cod e = 1068) 0.40 K/UL ABSOLUTE EOSINOPHILS (test c ode = 1040) 0.20 K/UL ABSOLUTE BASOPHILS (test cod e = 1069) 0.03 K/UL ABS IMMATURE GRANULOCYTES (t est code = 1020) 0.01 K/UL ABS NUCLEATED RBCS (test cod e = 90185) 0.00 K/UL Brian Pastrana ForrestTSH, THIRD [id number] 00:00:00* Test Item Value Reference Range Interpretation Comme nts TSH, THIRD GENERATION (test code = 2821) 3.120 UIU/ML Brian ClaytonHEMOGLOBIN [id number] 00:00:00* Test Item Value Reference Range Interpretation Comme [facility] HEMOGLOBIN A1c (test code = 16978) 5.5 % Brian ClaytonCOMPREHENSIVE METABOLIC [id number] 00:00:00* Test Item Value Reference Range Interpretation Comme nts GLUCOSE (test code = 2217) 113 MG/DL BUN (test code = 2208) 13 MG/DL CREATININE (test code = 2214) 1.30 MG/DL eGFR (2020 CKD-EPI) (test co de = 84012) 70 ML/MIN/1.73 CALC BUN/CREAT (test code = 2235) 10 RATIO SODIUM (test code = 2231) 140 MEQ/L POTASSIUM (test code = 2228) 4.1 MEQ/L CHLORIDE (test code = 2215) 103 MEQ/L CARBON DIOXIDE (test code = 2206) 23 MEQ/L CALCIUM (test code = 2209) 9.8 MG/DL PROTEIN, TOTAL (test code = 2229) 7.7 G/DL ALBUMIN (test code = 2201) 4.8 G/DL CALC GLOBULIN (test code = 2240) 2.9 G/DL CALC A/G RATIO (test code = 2234) 1.7 RATIO BILIRUBIN, TOTAL (test code = 2207) 0.3 MG/DL ALKALINE PHOSPHATASE (test code = 2204) 90 U/L AST (test code = 2218) 49 U/L ALT (test code = 2219) 34 U/L Brian ClaytonCBC W/AUTO [id number] 00:00:00* Test Item Value Reference Range Interpretation Comme nts WBC (test code = 1001) 6.1 K/UL RBC (test code = 1002) 4.75 M/UL HEMOGLOBIN (test code = 1003) 13.9 G/DL HEMATOCRIT (test code = 1004) 41.5 % MCV (test code = 1005) 87.4 fL MCH (test code = 1006) 29.3 PG MCHC (test code = 1007) 33.5 G/DL RDW (test code = 1038) 12.5 % NEUTROPHILS (test code = 1008) 50.5 % LYMPHOCYTES (test code = 1010) 38.9 % MONOCYTES (test code = 1011) 6.6 % EOSINOPHILS (test code = 1012) 3.3 % BASOPHILS (test code = 1013) 0.5 % IMMATURE GRANULOCYTES (test code = 1036) 0.2 % NUCLEATED RBCS (test code = 1065) 0.0 /100WBC'S PLATELET COUNT (test code = 1015) 336 K/UL ABSOLUTE NEUTROPHILS (test c ode = 1066) 3.08 K/UL ABSOLUTE LYMPHOCYTES (test c ode = 1067) 2.37 K/UL ABSOLUTE MONOCYTES (test cod e = 1068) 0.40 K/UL ABSOLUTE EOSINOPHILS (test c ode = 1040) 0.20 K/UL ABSOLUTE BASOPHILS (test cod e = 1069) 0.03 K/UL ABS IMMATURE GRANULOCYTES (t est code = 1020) 0.01 K/UL ABS NUCLEATED RBCS (test cod e = 23857) 0.00 K/UL Brian AguilarH, THIRD [id number] 00:00:00* Test Item Value Reference Range Interpretation Comme nts TSH, THIRD GENERATION (test code = 2821) 3.120 UIU/ML Brian ClaytonLIPID [id number] 00:00:00* Test Item Value Reference Range Interpretation Comme nts CHOLESTEROL (test code = 2210) 174 MG/DL TRIGLYCERIDES (test code = 2232) 390 MG/DL HDL CHOLESTEROL (test code = 2220) 32 MG/DL CALC LDL CHOL (test code = 2237) 90 MG/DL RISK RATIO LDL/HDL (test cod e = 2238) 2.81 RATIO Brian ClaytonHEMOGLOBIN [id number] 00:00:00* Test Item Value Reference Range Interpretation Comme nts HEMOGLOBIN A1c (test code = 91977) 5.5 % Brian ClaytonCOMPREHENSIVE METABOLIC [id number] 00:00:00* Test Item Value Reference Range Interpretation Comme nts GLUCOSE (test code = 2217) 113 MG/DL BUN (test code = 2208) 13 MG/DL CREATININE (test code = 2214) 1.30 MG/DL eGFR (2020 CKD-EPI) (test co de = 84563) 70 ML/MIN/1.73 CALC BUN/CREAT (test code = 2235) 10 RATIO SODIUM (test code = 2231) 140 MEQ/L POTASSIUM (test code = 2228) 4.1 MEQ/L CHLORIDE (test code = 2215) 103 MEQ/L CARBON DIOXIDE (test code = 2206) 23 MEQ/L CALCIUM (test code = 2209) 9.8 MG/DL PROTEIN, TOTAL (test code = 2229) 7.7 G/DL ALBUMIN (test code = 2201) 4.8 G/DL CALC GLOBULIN (test code = 2240) 2.9 G/DL CALC A/G RATIO (test code = 2234) 1.7 RATIO BILIRUBIN, TOTAL (test code = 2207) 0.3 MG/DL ALKALINE PHOSPHATASE (test code = 2204) 90 U/L AST (test code = 2218) 49 U/L ALT (test code = 2219) 34 U/L Brian Past[facility]ana [facility]/AUTO [id number] 00:00:00* Test Item Value Reference Range Interpretation Comme nts WBC (test code = 1001) 6.1 K/UL RBC (test code = 1002) 4.75 M/UL HEMOGLOBIN (test code = 1003) 13.9 G/DL HEMATOCRIT (test code = 1004) 41.5 % MCV (test code = 1005) 87.4 fL MCH (test code = 1006) 29.3 PG MCHC (test code = 1007) 33.5 G/DL RDW (test code = 1038) 12.5 % NEUTROPHILS (test code = 1008) 50.5 % LYMPHOCYTES (test code = 1010) 38.9 % MONOCYTES (test code = 1011) 6.6 % EOSINOPHILS (test code = 1012) 3.3 % BASOPHILS (test code = 1013) 0.5 % IMMATURE GRANULOCYTES (test code = 1036) 0.2 % NUCLEATED RBCS (test code = 1065) 0.0 /100WBC'S PLATELET COUNT (test code = 1015) 336 K/UL ABSOLUTE NEUTROPHILS (test c ode = 1066) 3.08 K/UL ABSOLUTE LYMPHOCYTES (test c ode = 1067) 2.37 K/UL ABSOLUTE MONOCYTES (test cod e = 1068) 0.40 K/UL ABSOLUTE EOSINOPHILS (test c ode = 1040) 0.20 K/UL ABSOLUTE BASOPHILS (test cod e = 1069) 0.03 K/UL ABS IMMATURE GRANULOCYTES (t est code = 1020) 0.01 K/UL ABS NUCLEATED RBCS (test cod e = 50366) 0.00 K/UL Brian AguilarH, THIRD [id number] 00:00:00* Test Item Value Reference Range Interpretation Comme nts TSH, THIRD GENERATION (test code = 2821) 3.120 UIU/ML Brian ClaytonLIPID [id number] 00:00:00* Test Item Value Reference Range Interpretation Comme nts CHOLESTEROL (test code = 2210) 174 MG/DL TRIGLYCERIDES (test code = 2232) 390 MG/DL HDL CHOLESTEROL (test code = 2220) 32 MG/DL CALC LDL CHOL (test code = 2237) 90 MG/DL RISK RATIO LDL/HDL (test cod e = 2238) 2.81 RATIO Brian ClaytonHEMOGLOBIN [id number] 00:00:00* Test Item Value Reference Range Interpretation Comme nts HEMOGLOBIN A1c (test code = 16770) 5.5 % Brian ClaytonCOMPREHENSIVE METABOLIC [id number] 00:00:00* Test Item Value Reference Range Interpretation Comme nts GLUCOSE (test code = 2217) 113 MG/DL BUN (test code = 2208) 13 MG/DL CREATININE (test code = 2214) 1.30 MG/DL eGFR (2020 CKD-EPI) (test co de = 31955) 70 ML/MIN/1.73 CALC BUN/CREAT (test code = 2235) 10 RATIO SODIUM (test code = 2231) 140 MEQ/L POTASSIUM (test code = 2228) 4.1 MEQ/L CHLORIDE (test code = 2215) 103 MEQ/L CARBON DIOXIDE (test code = 2206) 23 MEQ/L CALCIUM (test code = 2209) 9.8 MG/DL PROTEIN, TOTAL (test code = 2229) 7.7 G/DL ALBUMIN (test code = 2201) 4.8 G/DL CALC GLOBULIN (test code = 2240) 2.9 G/DL CALC A/G RATIO (test code = 2234) 1.7 RATIO BILIRUBIN, TOTAL (test code = 2207) 0.3 MG/DL ALKALINE PHOSPHATASE (test code = 2204) 90 U/L AST (test code = 2218) 49 U/L ALT (test code = 2219) 34 U/L Brian ClaytonCBC W/AUTO [id number] 00:00:00* Test Item Value Reference Range Interpretation Comme nts WBC (test code = 1001) 6.1 K/UL RBC (test code = 1002) 4.75 M/UL HEMOGLOBIN (test code = 1003) 13.9 G/DL HEMATOCRIT (test code = 1004) 41.5 % MCV (test code = 1005) 87.4 fL MCH (test code = 1006) 29.3 PG MCHC (test code = 1007) 33.5 G/DL RDW (test code = 1038) 12.5 % NEUTROPHILS (test code = 1008) 50.5 % LYMPHOCYTES (test code = 1010) 38.9 % MONOCYTES (test code = 1011) 6.6 % EOSINOPHILS (test code = 1012) 3.3 % BASOPHILS (test code = 1013) 0.5 % IMMATURE GRANULOCYTES (test code = 1036) 0.2 % NUCLEATED RBCS (test code = 1065) 0.0 /100WBC'S PLATELET COUNT (test code = 1015) 336 K/UL ABSOLUTE NEUTROPHILS (test c ode = 1066) 3.08 K/UL ABSOLUTE LYMPHOCYTES (test c ode = 1067) 2.37 K/UL ABSOLUTE MONOCYTES (test cod e = 1068) 0.40 K/UL ABSOLUTE EOSINOPHILS (test c ode = 1040) 0.20 K/UL ABSOLUTE BASOPHILS (test cod e = 1069) 0.03 K/UL ABS IMMATURE GRANULOCYTES (t est code = 1020) 0.01 K/UL ABS NUCLEATED RBCS (test cod e = 64814) 0.00 K/UL Brian ClaytonTSH, THIRD [id number] 00:00:00* Test Item Value Reference Range Interpretation Comme nts TSH, THIRD GENERATION (test code = 2821) 3.120 UIU/ML Brian ClaytonLIPID [id number] 00:00:00* Test Item Value Reference Range Interpretation Comme nts CHOLESTEROL (test code = 2210) 174 MG/DL TRIGLYCERIDES (test code = 2232) 390 MG/DL HDL CHOLESTEROL (test code = 2220) 32 MG/DL CALC LDL CHOL (test code = 2237) 90 MG/DL RISK RATIO LDL/HDL (test cod e = 2238) 2.81 RATIO Brian ClaytonHEMOGLOBIN [id number] 00:00:00* Test Item Value Reference Range Interpretation Comme nts HEMOGLOBIN A1c (test code = 27496) 5.5 % Brian ClaytonCOMPREHENSIVE METABOLIC [id number] 00:00:00* Test Item Value Reference Range Interpretation Comme nts GLUCOSE (test code = 2217) 113 MG/DL BUN (test code = 2208) 13 MG/DL CREATININE (test code = 2214) 1.30 MG/DL eGFR (2020 CKD-EPI) (test co de = 56077) 70 ML/MIN/1.73 CALC BUN/CREAT (test code = 2235) 10 RATIO SODIUM (test code = 2231) 140 MEQ/L POTASSIUM (test code = 2228) 4.1 MEQ/L CHLORIDE (test code = 2215) 103 MEQ/L CARBON DIOXIDE (test code = 2206) 23 MEQ/L CALCIUM (test code = 2209) 9.8 MG/DL PROTEIN, TOTAL (test code = 2229) 7.7 G/DL ALBUMIN (test code = 2201) 4.8 G/DL CALC GLOBULIN (test code = 2240) 2.9 G/DL CALC A/G RATIO (test code = 2234) 1.7 RATIO BILIRUBIN, TOTAL (test code = 2207) 0.3 MG/DL ALKALINE PHOSPHATASE (test code = 2204) 90 U/L AST (test code = 2218) 49 U/L ALT (test code = 2219) 34 U/L Brian ClaytonCBC W/AUTO [id number] 00:00:00* Test Item Value Reference Range Interpretation Comme [facility] WBC (test code = 1001) 6.1 K/UL RBC (test code = 1002) 4.75 M/UL HEMOGLOBIN (test code = 1003) 13.9 G/DL HEMATOCRIT (test code = 1004) 41.5 % MCV (test code = 1005) 87.4 fL MCH (test code = 1006) 29.3 PG MCHC (test code = 1007) 33.5 G/DL RDW (test code = 1038) 12.5 % NEUTROPHILS (test code = 1008) 50.5 % LYMPHOCYTES (test code = 1010) 38.9 % MONOCYTES (test code = 1011) 6.6 % EOSINOPHILS (test code = 1012) 3.3 % BASOPHILS (test code = 1013) 0.5 % IMMATURE GRANULOCYTES (test code = 1036) 0.2 % NUCLEATED RBCS (test code = 1065) 0.0 /100WBC'S PLATELET COUNT (test code = 1015) 336 K/UL ABSOLUTE NEUTROPHILS (test c ode = 1066) 3.08 K/UL ABSOLUTE LYMPHOCYTES (test c ode = 1067) 2.37 K/UL ABSOLUTE MONOCYTES (test cod e = 1068) 0.40 K/UL ABSOLUTE EOSINOPHILS (test c ode = 1040) 0.20 K/UL ABSOLUTE BASOPHILS (test cod e = 1069) 0.03 K/UL ABS IMMATURE GRANULOCYTES (t est code = 1020) 0.01 K/UL ABS NUCLEATED RBCS (test cod e = 36573) 0.00 K/UL Brian AguilarH, THIRD [id number] 00:00:00* Test Item Value Reference Range Interpretation Comme nts TSH, THIRD GENERATION (test code = 2821) 3.120 UIU/ML Brian ClaytonLIPID [id number] 00:00:00* Test Item Value Reference Range Interpretation Comme nts CHOLESTEROL (test code = 2210) 174 MG/DL TRIGLYCERIDES (test code = 2232) 390 MG/DL HDL CHOLESTEROL (test code = 2220) 32 MG/DL CALC LDL CHOL (test code = 2237) 90 MG/DL RISK RATIO LDL/HDL (test cod e = 2238) 2.81 RATIO Brian ClaytonHEMOGLOBIN [id number] 00:00:00* Test Item Value Reference Range Interpretation Comme nts HEMOGLOBIN A1c (test code = 66483) 5.5 % Brian ClaytonCOMPREHENSIVE METABOLIC [id number] 00:00:00* Test Item Value Reference Range Interpretation Comme nts GLUCOSE (test code = 2217) 113 MG/DL BUN (test code = 2208) 13 MG/DL CREATININE (test code = 2214) 1.30 MG/DL eGFR (2020 CKD-EPI) (test co de = 38640) 70 ML/MIN/1.73 CALC BUN/CREAT (test code = 2235) 10 RATIO SODIUM (test code = 2231) 140 MEQ/L POTASSIUM (test code = 2228) 4.1 MEQ/L CHLORIDE (test code = 2215) 103 MEQ/L CARBON DIOXIDE (test code = 2206) 23 MEQ/L CALCIUM (test code = 2209) 9.8 MG/DL PROTEIN, TOTAL (test code = 2229) 7.7 G/DL ALBUMIN (test code = 2201) 4.8 G/DL CALC GLOBULIN (test code = 2240) 2.9 G/DL CALC A/G RATIO (test code = 2234) 1.7 RATIO BILIRUBIN, TOTAL (test code = 2207) 0.3 MG/DL ALKALINE PHOSPHATASE (test code = 2204) 90 U/L AST (test code = 2218) 49 U/L ALT (test code = 2219) 34 U/L [facility]FR[facility]AUT[facility] [id number] 00:00:00* Test Item Value Reference Range Interpretation Comme nts WBC (test code = 1001) 6.1 K/UL RBC (test code = 1002) 4.75 M/UL HEMOGLOBIN (test code = 1003) 13.9 G/DL HEMATOCRIT (test code = 1004) 41.5 % MCV (test code = 1005) 87.4 fL MCH (test code = 1006) 29.3 PG MCHC (test code = 1007) 33.5 G/DL RDW (test code = 1038) 12.5 % NEUTROPHILS (test code = 1008) 50.5 % LYMPHOCYTES (test code = 1010) 38.9 % MONOCYTES (test code = 1011) 6.6 % EOSINOPHILS (test code = 1012) 3.3 % BASOPHILS (test code = 1013) 0.5 % IMMATURE GRANULOCYTES (test code = 1036) 0.2 % NUCLEATED RBCS (test code = 1065) 0.0 /100WBC'S PLATELET COUNT (test code = 1015) 336 K/UL ABSOLUTE NEUTROPHILS (test c ode = 1066) 3.08 K/UL ABSOLUTE LYMPHOCYTES (test c ode = 1067) 2.37 K/UL ABSOLUTE MONOCYTES (test cod e = 1068) 0.40 K/UL ABSOLUTE EOSINOPHILS (test c ode = 1040) 0.20 K/UL ABSOLUTE BASOPHILS (test cod e = 1069) 0.03 K/UL ABS IMMATURE GRANULOCYTES (t est code = 1020) 0.01 K/UL ABS NUCLEATED RBCS (test cod e = 77922) 0.00 K/UL Brian F AustinTSH, THIRD [id number] 00:00:00* Test Item Value Reference Range Interpretation Comme nts TSH, THIRD GENERATION (test code = 2821) 3.120 UIU/ML Brian ClaytonLIPID [id number] 00:00:00* Test Item Value Reference Range Interpretation Comme nts CHOLESTEROL (test code = 2210) 174 MG/DL TRIGLYCERIDES (test code = 2232) 390 MG/DL HDL CHOLESTEROL (test code = 2220) 32 MG/DL CALC LDL CHOL (test code = 2237) 90 MG/DL RISK RATIO LDL/HDL (test cod e = 2238) 2.81 RATIO Brian ClaytonHEMOGLOBIN [id number] 00:00:00* Test Item Value Reference Range Interpretation Comme nts HEMOGLOBIN A1c (test code = 66579) 5.5 % Brian ClaytonCOMPREHENSIVE METABOLIC [id number] 00:00:00* Test Item Value Reference Range Interpretation Comme nts GLUCOSE (test code = 2217) 113 MG/DL BUN (test code = 2208) 13 MG/DL CREATININE (test code = 2214) 1.30 MG/DL eGFR (2020 CKD-EPI) (test co de = 61834) 70 ML/MIN/1.73 CALC BUN/CREAT (test code = 2235) 10 RATIO SODIUM (test code = 2231) 140 MEQ/L POTASSIUM (test code = 2228) 4.1 MEQ/L CHLORIDE (test code = 2215) 103 MEQ/L CARBON DIOXIDE (test code = 2206) 23 MEQ/L CALCIUM (test code = 2209) 9.8 MG/DL PROTEIN, TOTAL (test code = 2229) 7.7 G/DL ALBUMIN (test code = 2201) 4.8 G/DL CALC GLOBULIN (test code = 2240) 2.9 G/DL CALC A/G RATIO (test code = 2234) 1.7 RATIO BILIRUBIN, TOTAL (test code = 2207) 0.3 MG/DL ALKALINE PHOSPHATASE (test code = 2204) 90 U/L AST (test code = 2218) 49 U/L ALT (test code = 2219) 34 U/L Brian ClaytonCULTURE, [id number] 10:34:43SPECIMEN NUMBER: [id number] CULTURE, URINE SPECIMEN NUMBER: [id number] SPECIMEN COMMENT: URINE SOURCE: URINE REPORT STATUS: FINAL FINAL REPORT: 04/24/2022 NO GROWTH AFTER 36 HOURS INCUBATIONCULTURE, URINE [ADDED]2022-04-24 00:00:00* Test Item Value Reference Range Interpretation Comme nts CULTURE, URINE (test code = 41879) SPECIMEN NUMBER: [id number] CULTURE, URINE [ADDED]2022-04-24 00:00:00* Test Item Value Reference Range Interpretation Comme nts CULTURE, URINE (test code = 50572) SPECIMEN NUMBER: [id number] CULTURE, URINE [ADDED]2022-04-24 00:00:00* Test Item Value Reference Range Interpretation Comme nts CULTURE, URINE (test code = 56097) SPECIMEN NUMBER: [id number] CULTURE, URINE [ADDED]2022-04-24 00:00:00* Test Item Value Reference Range Interpretation Comme nts CULTURE, URINE (test code = 61401) SPECIMEN NUMBER: [id number] CULTURE, URINE [ADDED]2022-04-24 00:00:00* Test Item Value Reference Range Interpretation Comme nts CULTURE, URINE (test code = 90415) SPECIMEN NUMBER: [id number] Brian F AustinCULTURE, URINE [ADDED]2022-04-24 00:00:00* Test Item Value Reference Range Interpretation Comme nts CULTURE, URINE (test code = 88673) SPECIMEN NUMBER: [id number] Brian F AustinCULTURE, URINE [ADDED]2022-04-24 00:00:00* Test Item Value Reference Range Interpretation Comme nts CULTURE, URINE (test code = 45273) SPECIMEN NUMBER: [id number] Brian F AustinCULTURE, URINE [ADDED]2022-04-24 00:00:00* Test Item Value Reference Range Interpretation Comme nts CULTURE, URINE (test code = 31429) SPECIMEN NUMBER: [id number] Brian F AustinCULTURE, URINE [ADDED]2022-04-24 00:00:00* Test Item Value Reference Range Interpretation Comme nts CULTURE, URINE (test code = 71961) SPECIMEN NUMBER: [id number] Brian F AustinCULTURE, URINE [ADDED]2022-04-24 00:00:00* Test Item Value Reference Range Interpretation Comme nts CULTURE, URINE (test code = 01791) SPECIMEN NUMBER: [id number] Brian ClaytonCULTURE, URINE [ADDED]2022-04-24 00:00:00* Test Item Value Reference Range Interpretation Comme nts CULTURE, URINE (test code = 82021) SPECIMEN NUMBER: [id number] Brian CookLTKAROL, URINE [ADDED]2022-04-24 00:00:00* Test Item Value Reference Range Interpretation Comme nts CULTURE, URINE (test code = 39256) SPECIMEN NUMBER: [id number] Brian CookLTKAROL, URINE [ADDED]2022-04-24 00:00:00* Test Item Value Reference Range Interpretation Comme nts CULTURE, URINE (test code = 41411) SPECIMEN NUMBER: [id number] Brian ClaytonPSA, [id number] 06:54:22* Test Item Value Reference Range Interpretation Comme nts PSA, TOTAL (test code = 2606) 0.60 NG/ML See_Comment NOTE: Methodolog y is Isadora Odessa Electrochemiluminescence Immunoassay traceable to WHO reference standard 96/760. [Automated message] The system which generated this result transmitted reference range: <=4.00. The reference range was not used to interpret this result as normal/abnormal. HEMOGLOBIN [id number] 04:52:50* Test Item Value Reference Range Interpretation Comme rosa HEMOGLOBIN A1c (test code = 35882) 5.0 % 4.2-5.6 UNLESS OTHERWISE INDICATED, ALL TESTING PERFORMED [facility] [address] [place] [address] FISH FILLETER: NONA TRINIDAD M.D. CLIA NUMBER [id number] [facility] [place] [place]. [id number] COMPREHENSIVE METABOLIC [id number] 03:02:06* Test Item Value Reference Range Interpretation Comme nts GLUCOSE (test code = 2217) 116 MG/DL 70-99 H BUN (test code = 2208) 12 MG/DL 6-20 CREATININE (test code = 2214) 1.24 MG/DL 0.80-1.40 eGFR (2020 CKD-EPI) (test code = 26397) 75 ML/MIN/1.73 >60 CALC BUN/CREAT (test code = 2235) 10 RATIO 6-28 SODIUM (test code = 2231) 138 MEQ/L 133-146 POTASSIUM (test code = 2228) 4.1 MEQ/L 3.5-5.4 CHLORIDE (test code = 2215) 100 MEQ/L 95-107 CARBON DIOXIDE (test code = 2206) 22 MEQ/L 19-31 CALCIUM (test code = 2208) 10.0 MG/DL 8.5-10.5 PROTEIN, TOTAL (test code = 2228) 7.8 G/DL 6.1-8.3 ALBUMIN (test code = 1) 4.8 G/DL 3.5-5.2 CALC GLOBULIN (test code = 2240) 3.0 G/DL 1.9-3.7 CALC A/G RATIO (test code = 2234) 1.6 RATIO 1.0-2.6 BILIRUBIN, TOTAL (test code = 2206) 0.3 MG/DL See_Comment [Automated me ssage] The system which generated this result transmitted reference range: <=1.2. The reference range was not used to interpret this result as normal/abnormal. ALKALINE PHOSPHATASE (test code = 2203) 146 U/L 40-119 H AST (test code = 221) 35 U/L 9-50 ALT (test code = 2219) 27 U/L 5-50 LIPID [id number] 03:02:06* Test Item Value Reference Range Interpretation Comme nts CHOLESTEROL (test code = 2210) 174 MG/DL <200 TRIGLYCERIDES (test code = 2232) 696 MG/DL <150 H HDL CHOLESTEROL (test code = 2220) 24 MG/DL >39 L CALC LDL CHOL (test code = 2237) (NOTE) MG/DL <100 UNABLE TO CALCUL ATE A VALID LDL CHOLESTEROL WHEN THE TRIGLYCERIDEVALUE IS GREATER THAN 400 MG/DL.UNABLE TO CALCULATE A VALID LDL CHOLESTEROL WHEN THE TRIGLYCERIDEVALUE IS GREATER THAN 400 MG/DL. NOTE: CALCULATED LDL IS BASED ON MOJGAN-REICH METHOD WHICHINCLUDES ADJUSTABLE TRIGLYCERIDE:VLDL CHOLESTEROL RATIO.THIS FACTOR VARIES BY MEASURED TRIGLYCERIDE AND NON-HDLCHOLESTEROL CONCENTRATIONS WITH INCREASED CALCULATED LDL SEENIN HIGHER TRIGLYCERIDE OR LOWER NON-HDL SPECIMENS. FOR MOREINFORMATION, SEE CLIENT ANNOUNCEMENT AT [email or web address] CalcLDL-C RISK RATIO LDL/HDL (test code = 223) (NOTE) RATIO <3.55 UNABLE TO SALINAS CULATE PSA, [id number] 00:00:00* Test Item Value Reference Range Interpretation Comme nts PSA, TOTAL (test code = 2606) 0.60 NG/ML COMPREHENSIVE METABOLIC [id number] 00:00:00* Test Item Value Reference Range Interpretation Comme nts GLUCOSE (test code = 2217) 116 MG/DL BUN (test code = 2208) 12 MG/DL CREATININE (test code = 2214) 1.24 MG/DL eGFR (2020 CKD-EPI) (test co de = 84021) 75 ML/MIN/1.73 CALC BUN/CREAT (test code = 2235) 10 RATIO SODIUM (test code = 2231) 138 MEQ/L POTASSIUM (test code = 2228) 4.1 MEQ/L CHLORIDE (test code = 2215) 100 MEQ/L CARBON DIOXIDE (test code = 2206) 22 MEQ/L CALCIUM (test code = 2209) 10.0 MG/DL PROTEIN, TOTAL (test code = 2229) 7.8 G/DL ALBUMIN (test code = 2201) 4.8 G/DL CALC GLOBULIN (test code = 2240) 3.0 G/DL CALC A/G RATIO (test code = 2234) 1.6 RATIO BILIRUBIN, TOTAL (test code = 2207) 0.3 MG/DL ALKALINE PHOSPHATASE (test code = 2204) 146 U/L AST (test code = 2218) 35 U/L ALT (test code = 2219) 27 U/L LIPID [id number] 00:00:00* Test Item Value Reference Range Interpretation Comme nts CHOLESTEROL (test code = 2210) 174 MG/DL TRIGLYCERIDES (test code = 2232) 696 MG/DL HDL CHOLESTEROL (test code = 2220) 24 MG/DL CALC LDL CHOL (test code = 2237) (NOTE) MG/DL RISK RATIO LDL/HDL (test cod e = 2238) (NOTE) RATIO HEMOGLOBIN [id number] 00:00:00* Test Item Value Reference Range Interpretation Comme nts HEMOGLOBIN A1c (test code = 48784) 5.0 % PSA, [id number] 00:00:00* Test Item Value Reference Range Interpretation Comme nts PSA, TOTAL (test code = 2606) 0.60 NG/ML COMPREHENSIVE METABOLIC [id number] 00:00:00* Test Item Value Reference Range Interpretation Comme nts GLUCOSE (test code = 2217) 116 MG/DL BUN (test code = 2208) 12 MG/DL CREATININE (test code = 2214) 1.24 MG/DL eGFR (2020 CKD-EPI) (test co de = 17711) 75 ML/MIN/1.73 CALC BUN/CREAT (test code = 2235) 10 RATIO SODIUM (test code = 2231) 138 MEQ/L POTASSIUM (test code = 2228) 4.1 MEQ/L CHLORIDE (test code = 2215) 100 MEQ/L CARBON DIOXIDE (test code = 2206) 22 MEQ/L CALCIUM (test code = 2209) 10.0 MG/DL PROTEIN, TOTAL (test code = 2229) 7.8 G/DL ALBUMIN (test code = 2201) 4.8 G/DL CALC GLOBULIN (test code = 2240) 3.0 G/DL CALC A/G RATIO (test code = 2234) 1.6 RATIO BILIRUBIN, TOTAL (test code = 2207) 0.3 MG/DL ALKALINE PHOSPHATASE (test code = 2204) 146 U/L AST (test code = 2218) 35 U/L ALT (test code = 2219) 27 U/L LIPID [id number] 00:00:00* Test Item Value Reference Range Interpretation Comme nts CHOLESTEROL (test code = 2210) 174 MG/DL TRIGLYCERIDES (test code = 2232) 696 MG/DL HDL CHOLESTEROL (test code = 2220) 24 MG/DL CALC LDL CHOL (test code = 2237) (NOTE) MG/DL RISK RATIO LDL/HDL (test cod e = 2238) (NOTE) RATIO HEMOGLOBIN [id number] 00:00:00* Test Item Value Reference Range Interpretation Comme nts HEMOGLOBIN A1c (test code = 61039) 5.0 % PSA, [id number] 00:00:00* Test Item Value Reference Range Interpretation Comme nts PSA, TOTAL (test code = 2606) 0.60 NG/ML COMPREHENSIVE METABOLIC [id number] 00:00:00* Test Item Value Reference Range Interpretation Comme nts GLUCOSE (test code = 2217) 116 MG/DL BUN (test code = 2208) 12 MG/DL CREATININE (test code = 2214) 1.24 MG/DL eGFR (2020 CKD-EPI) (test co de = 27403) 75 ML/MIN/1.73 CALC BUN/CREAT (test code = 2235) 10 RATIO SODIUM (test code = 2231) 138 MEQ/L POTASSIUM (test code = 2228) 4.1 MEQ/L CHLORIDE (test code = 2215) 100 MEQ/L CARBON DIOXIDE (test code = 2206) 22 MEQ/L CALCIUM (test code = 2209) 10.0 MG/DL PROTEIN, TOTAL (test code = 2229) 7.8 G/DL ALBUMIN (test code = 2201) 4.8 G/DL CALC GLOBULIN (test code = 2240) 3.0 G/DL CALC A/G RATIO (test code = 2234) 1.6 RATIO BILIRUBIN, TOTAL (test code = 2207) 0.3 MG/DL ALKALINE PHOSPHATASE (test code = 2204) 146 U/L AST (test code = 2218) 35 U/L ALT (test code = 2219) 27 U/L LIPID [id number] 00:00:00* Test Item Value Reference Range Interpretation Comme nts CHOLESTEROL (test code = 2210) 174 MG/DL TRIGLYCERIDES (test code = 2232) 696 MG/DL HDL CHOLESTEROL (test code = 2220) 24 MG/DL CALC LDL CHOL (test code = 2237) (NOTE) MG/DL RISK RATIO LDL/HDL (test cod e = 2238) (NOTE) RATIO HEMOGLOBIN [id number] 00:00:00* Test Item Value Reference Range Interpretation Comme nts HEMOGLOBIN A1c (test code = 99872) 5.0 % PSA, [id number] 00:00:00* Test Item Value Reference Range Interpretation Comme nts PSA, TOTAL (test code = 2606) 0.60 NG/ML COMPREHENSIVE METABOLIC [id number] 00:00:00* Test Item Value Reference Range Interpretation Comme nts GLUCOSE (test code = 2217) 116 MG/DL BUN (test code = 2208) 12 MG/DL CREATININE (test code = 2214) 1.24 MG/DL eGFR (2020 CKD-EPI) (test co de = 26879) 75 ML/MIN/1.73 CALC BUN/CREAT (test code = 2235) 10 RATIO SODIUM (test code = 2231) 138 MEQ/L POTASSIUM (test code = 2228) 4.1 MEQ/L CHLORIDE (test code = 2215) 100 MEQ/L CARBON DIOXIDE (test code = 2206) 22 MEQ/L CALCIUM (test code = 2209) 10.0 MG/DL PROTEIN, TOTAL (test code = 2229) 7.8 G/DL ALBUMIN (test code = 2201) 4.8 G/DL CALC GLOBULIN (test code = 2240) 3.0 G/DL CALC A/G RATIO (test code = 2234) 1.6 RATIO BILIRUBIN, TOTAL (test code = 2207) 0.3 MG/DL ALKALINE PHOSPHATASE (test code = 2204) 146 U/L AST (test code = 2218) 35 U/L ALT (test code = 2219) 27 U/L LIPID [id number] 00:00:00* Test Item Value Reference Range Interpretation Comme nts CHOLESTEROL (test code = 2210) 174 MG/DL TRIGLYCERIDES (test code = 2232) 696 MG/DL HDL CHOLESTEROL (test code = 2220) 24 MG/DL CALC LDL CHOL (test code = 2237) (NOTE) MG/DL RISK RATIO LDL/HDL (test cod e = 2238) (NOTE) RATIO HEMOGLOBIN [id number] 00:00:00* Test Item Value Reference Range Interpretation Comme nts HEMOGLOBIN A1c (test code = 37144) 5.0 % HEMOGLOBIN [id number] 00:00:00* Test Item Value Reference Range Interpretation Comme nts HEMOGLOBIN A1c (test code = 02564) 5.0 % Brian Zeina AustinPSA, [id number] 00:00:00* Test Item Value Reference Range Interpretation Comme nts PSA, TOTAL (test code = 2606) 0.60 NG/ML Brian F ForrestCOMPREHENSIVE METABOLIC [id number] 00:00:00* Test Item Value Reference Range Interpretation Comme nts GLUCOSE (test code = 2217) 116 MG/DL BUN (test code = 8) 12 MG/DL CREATININE (test code = 2214) 1.24 MG/DL eGFR (2020 CKD-EPI) (test co de = 82316) 75 ML/MIN/1.73 CALC BUN/CREAT (test code = 2235) 10 RATIO SODIUM (test code = 2231) 138 MEQ/L POTASSIUM (test code = 2228) 4.1 MEQ/L CHLORIDE (test code = 2215) 100 MEQ/L CARBON DIOXIDE (test code = 2206) 22 MEQ/L CALCIUM (test code = 2209) 10.0 MG/DL PROTEIN, TOTAL (test code = 2229) 7.8 G/DL ALBUMIN (test code = 2201) 4.8 G/DL CALC GLOBULIN (test code = 2240) 3.0 G/DL CALC A/G RATIO (test code = 2234) 1.6 RATIO BILIRUBIN, TOTAL (test code = 2207) 0.3 MG/DL ALKALINE PHOSPHATASE (test code = 2204) 146 U/L AST (test code = 2218) 35 U/L ALT (test code = 2219) 27 U/L Brian ClaytonLIPID [id number] 00:00:00* Test Item Value Reference Range Interpretation Comme nts CHOLESTEROL (test code = 2210) 174 MG/DL TRIGLYCERIDES (test code = 2232) 696 MG/DL HDL CHOLESTEROL (test code = 0) 24 MG/DL CALC LDL CHOL (test code = 2237) (NOTE) MG/DL RISK RATIO LDL/HDL (test cod e = 2238) (NOTE) RATIO Brian ClaytonHEMOGLOBIN [id number] 00:00:00* Test Item Value Reference Range Interpretation Comme rosa HEMOGLOBIN A1c (test code = 97066) 5.0 % Brian ClaytonPSA, [id number] 00:00:00* Test Item Value Reference Range Interpretation Comme nts PSA, TOTAL (test code = 2606) 0.60 NG/ML Brian ClaytonPSA, [id number] 00:00:00* Test Item Value Reference Range Interpretation Comme nts PSA, TOTAL (test code = 2606) 0.60 NG/ML Brian ClaytonCOMPREHENSIVE METABOLIC [id number] 00:00:00* Test Item Value Reference Range Interpretation Comme nts GLUCOSE (test code = 2217) 116 MG/DL BUN (test code = 8) 12 MG/DL CREATININE (test code = 2214) 1.24 MG/DL eGFR (2020 CKD-EPI) (test co de = 58366) 75 ML/MIN/1.73 CALC BUN/CREAT (test code = 2235) 10 RATIO SODIUM (test code = 2231) 138 MEQ/L POTASSIUM (test code = 2228) 4.1 MEQ/L CHLORIDE (test code = 2215) 100 MEQ/L CARBON DIOXIDE (test code = 2206) 22 MEQ/L CALCIUM (test code = 2209) 10.0 MG/DL PROTEIN, TOTAL (test code = 2229) 7.8 G/DL ALBUMIN (test code = 2201) 4.8 G/DL CALC GLOBULIN (test code = 2240) 3.0 G/DL CALC A/G RATIO (test code = 2234) 1.6 RATIO BILIRUBIN, TOTAL (test code = 2207) 0.3 MG/DL ALKALINE PHOSPHATASE (test code = 2204) 146 U/L AST (test code = 2218) 35 U/L ALT (test code = 2219) 27 U/L Brian ClaytonLIPID [id number] 00:00:00* Test Item Value Reference Range Interpretation Comme nts CHOLESTEROL (test code = 2210) 174 MG/DL TRIGLYCERIDES (test code = 2232) 696 MG/DL HDL CHOLESTEROL (test code = 2220) 24 MG/DL CALC LDL CHOL (test code = 2237) (NOTE) MG/DL RISK RATIO LDL/HDL (test cod e = 2238) (NOTE) RATIO Brian ClaytonHEMOGLOBIN [id number] 00:00:00* Test Item Value Reference Range Interpretation Comme nts HEMOGLOBIN A1c (test code = 04675) 5.0 % Brian ClaytonPSA, [id number] 00:00:00* Test Item Value Reference Range Interpretation Comme nts PSA, TOTAL (test code = 2606) 0.60 NG/ML Brian ClaytonCOMPREHENSIVE METABOLIC [id number] 00:00:00* Test Item Value Reference Range Interpretation Comme nts GLUCOSE (test code = 2217) 116 MG/DL BUN (test code = 2208) 12 MG/DL CREATININE (test code = 2214) 1.24 MG/DL eGFR (2020 CKD-EPI) (test co de = 04809) 75 ML/MIN/1.73 CALC BUN/CREAT (test code = 2235) 10 RATIO SODIUM (test code = 2231) 138 MEQ/L POTASSIUM (test code = 2228) 4.1 MEQ/L CHLORIDE (test code = 2215) 100 MEQ/L CARBON DIOXIDE (test code = 2206) 22 MEQ/L CALCIUM (test code = 2209) 10.0 MG/DL PROTEIN, TOTAL (test code = 2229) 7.8 G/DL ALBUMIN (test code = 2201) 4.8 G/DL CALC GLOBULIN (test code = 2240) 3.0 G/DL CALC A/G RATIO (test code = 2234) 1.6 RATIO BILIRUBIN, TOTAL (test code = 2207) 0.3 MG/DL ALKALINE PHOSPHATASE (test code = 2204) 146 U/L AST (test code = 2218) 35 U/L ALT (test code = 2219) 27 U/L Brian ClaytonLIPID [id number] 00:00:00* Test Item Value Reference Range Interpretation Comme nts CHOLESTEROL (test code = 2210) 174 MG/DL TRIGLYCERIDES (test code = 2232) 696 MG/DL HDL CHOLESTEROL (test code = 2220) 24 MG/DL CALC LDL CHOL (test code = 2237) (NOTE) MG/DL RISK RATIO LDL/HDL (test cod e = 2238) (NOTE) RATIO Brian ClaytonHEMOGLOBIN [id number] 00:00:00* Test Item Value Reference Range Interpretation Comme nts HEMOGLOBIN A1c (test code = 14739) 5.0 % Brian ClaytonCOMPREHENSIVE METABOLIC [id number] 00:00:00* Test Item Value Reference Range Interpretation Comme nts GLUCOSE (test code = 2217) 116 MG/DL BUN (test code = 2208) 12 MG/DL CREATININE (test code = 2214) 1.24 MG/DL eGFR (2020 CKD-EPI) (test co de = 22513) 75 ML/MIN/1.73 CALC BUN/CREAT (test code = 2235) 10 RATIO SODIUM (test code = 2231) 138 MEQ/L POTASSIUM (test code = 2228) 4.1 MEQ/L CHLORIDE (test code = 2215) 100 MEQ/L CARBON DIOXIDE (test code = 2206) 22 MEQ/L CALCIUM (test code = 2209) 10.0 MG/DL PROTEIN, TOTAL (test code = 2229) 7.8 G/DL ALBUMIN (test code = 2201) 4.8 G/DL CALC GLOBULIN (test code = 2240) 3.0 G/DL CALC A/G RATIO (test code = 2234) 1.6 RATIO BILIRUBIN, TOTAL (test code = 2207) 0.3 MG/DL ALKALINE PHOSPHATASE (test code = 2204) 146 U/L AST (test code = 2218) 35 U/L ALT (test code = 2219) 27 U/L Brian ClaytonLIPID [id number] 00:00:00* Test Item Value Reference Range Interpretation Comme nts CHOLESTEROL (test code = 2210) 174 MG/DL TRIGLYCERIDES (test code = 2232) 696 MG/DL HDL CHOLESTEROL (test code = 2220) 24 MG/DL CALC LDL CHOL (test code = 2237) (NOTE) MG/DL RISK RATIO LDL/HDL (test cod e = 2238) (NOTE) RATIO Brian ClaytonHEMOGLOBIN [id number] 00:00:00* Test Item Value Reference Range Interpretation Comme rosa HEMOGLOBIN A1c (test code = 71249) 5.0 % Brian ClaytonPSA, [id number] 00:00:00* Test Item Value Reference Range Interpretation Comme nts PSA, TOTAL (test code = 2606) 0.60 NG/ML Brian ClaytonCOMPREHENSIVE METABOLIC [id number] 00:00:00* Test Item Value Reference Range Interpretation Comme nts GLUCOSE (test code = 2217) 116 MG/DL BUN (test code = 2208) 12 MG/DL CREATININE (test code = 2214) 1.24 MG/DL eGFR (2020 CKD-EPI) (test co de = 87405) 75 ML/MIN/1.73 CALC BUN/CREAT (test code = 2235) 10 RATIO SODIUM (test code = 2231) 138 MEQ/L POTASSIUM (test code = 2228) 4.1 MEQ/L CHLORIDE (test code = 2215) 100 MEQ/L CARBON DIOXIDE (test code = 2206) 22 MEQ/L CALCIUM (test code = 2209) 10.0 MG/DL PROTEIN, TOTAL (test code = 2229) 7.8 G/DL ALBUMIN (test code = 2201) 4.8 G/DL CALC GLOBULIN (test code = 2240) 3.0 G/DL CALC A/G RATIO (test code = 2234) 1.6 RATIO BILIRUBIN, TOTAL (test code = 2207) 0.3 MG/DL ALKALINE PHOSPHATASE (test code = 2204) 146 U/L AST (test code = 2218) 35 U/L ALT (test code = 2219) 27 U/L Brian ClaytonLIPID [id number] 00:00:00* Test Item Value Reference Range Interpretation Comme nts CHOLESTEROL (test code = 2210) 174 MG/DL TRIGLYCERIDES (test code = 2232) 696 MG/DL HDL CHOLESTEROL (test code = 2220) 24 MG/DL CALC LDL CHOL (test code = 2237) (NOTE) MG/DL RISK RATIO LDL/HDL (test cod e = 2238) (NOTE) RATIO Brian ClaytonHEMOGLOBIN [id number] 00:00:00* Test Item Value Reference Range Interpretation Comme nts HEMOGLOBIN A1c (test code = 16634) 5.0 % Biran ClaytonPSA, [id number] 00:00:00* Test Item Value Reference Range Interpretation Comme nts PSA, TOTAL (test code = 2606) 0.60 NG/ML Brian ClaytonCOMPREHENSIVE METABOLIC [id number] 00:00:00* Test Item Value Reference Range Interpretation Comme nts GLUCOSE (test code = 2217) 116 MG/DL BUN (test code = 2208) 12 MG/DL CREATININE (test code = 2214) 1.24 MG/DL eGFR (2020 CKD-EPI) (test co de = 12146) 75 ML/MIN/1.73 CALC BUN/CREAT (test code = 2235) 10 RATIO SODIUM (test code = 2231) 138 MEQ/L POTASSIUM (test code = 2228) 4.1 MEQ/L CHLORIDE (test code = 2215) 100 MEQ/L CARBON DIOXIDE (test code = 2206) 22 MEQ/L CALCIUM (test code = 2209) 10.0 MG/DL PROTEIN, TOTAL (test code = 2229) 7.8 G/DL ALBUMIN (test code = 2201) 4.8 G/DL CALC GLOBULIN (test code = 2240) 3.0 G/DL CALC A/G RATIO (test code = 2234) 1.6 RATIO BILIRUBIN, TOTAL (test code = 2207) 0.3 MG/DL ALKALINE PHOSPHATASE (test code = 2204) 146 U/L AST (test code = 2218) 35 U/L ALT (test code = 2219) 27 U/L Brian ClaytonLIPID [id number] 00:00:00* Test Item Value Reference Range Interpretation Comme nts CHOLESTEROL (test code = 2210) 174 MG/DL TRIGLYCERIDES (test code = 2232) 696 MG/DL HDL CHOLESTEROL (test code = 2220) 24 MG/DL CALC LDL CHOL (test code = 2237) (NOTE) MG/DL RISK RATIO LDL/HDL (test cod e = 2238) (NOTE) RATIO Brian ClaytonHEMOGLOBIN [id number] 00:00:00* Test Item Value Reference Range Interpretation Comme nts HEMOGLOBIN A1c (test code = 26101) 5.0 % Brian ClaytonPSA, [id number] 00:00:00* Test Item Value Reference Range Interpretation Comme nts PSA, TOTAL (test code = 2606) 0.60 NG/ML Brian ClaytonCOMPREHENSIVE METABOLIC [id number] 00:00:00* Test Item Value Reference Range Interpretation Comme nts GLUCOSE (test code = 2217) 116 MG/DL BUN (test code = 2208) 12 MG/DL CREATININE (test code = 2214) 1.24 MG/DL eGFR (2020 CKD-EPI) (test co de = 78714) 75 ML/MIN/1.73 CALC BUN/CREAT (test code = 2235) 10 RATIO SODIUM (test code = 2231) 138 MEQ/L POTASSIUM (test code = 2228) 4.1 MEQ/L CHLORIDE (test code = 2215) 100 MEQ/L CARBON DIOXIDE (test code = 2206) 22 MEQ/L CALCIUM (test code = 2209) 10.0 MG/DL PROTEIN, TOTAL (test code = 2229) 7.8 G/DL ALBUMIN (test code = 2201) 4.8 G/DL CALC GLOBULIN (test code = 2240) 3.0 G/DL CALC A/G RATIO (test code = 2234) 1.6 RATIO BILIRUBIN, TOTAL (test code = 2207) 0.3 MG/DL ALKALINE PHOSPHATASE (test code = 2204) 146 U/L AST (test code = 2218) 35 U/L ALT (test code = 2219) 27 U/L Brian F AustinLIPID [id number] 00:00:00* Test Item Value Reference Range Interpretation Comme nts CHOLESTEROL (test code = 2210) 174 MG/DL TRIGLYCERIDES (test code = 2232) 696 MG/DL HDL CHOLESTEROL (test code = 2220) 24 MG/DL CALC LDL CHOL (test code = 2237) (NOTE) MG/DL RISK RATIO LDL/HDL (test cod e = 2238) (NOTE) RATIO Brian ClaytonHEMOGLOBIN [id number] 00:00:00* Test Item Value Reference Range Interpretation Comme nts HEMOGLOBIN A1c (test code = 26319) 5.0 % Brian ClaytonPSA, [id number] 00:00:00* Test Item Value Reference Range Interpretation Comme nts PSA, TOTAL (test code = 2606) 0.60 NG/ML Brian ClaytonCOMPREHENSIVE METABOLIC [id number] 00:00:00* Test Item Value Reference Range Interpretation Comme nts GLUCOSE (test code = 2217) 116 MG/DL BUN (test code = 2208) 12 MG/DL CREATININE (test code = 2214) 1.24 MG/DL eGFR (2020 CKD-EPI) (test co de = 68369) 75 ML/MIN/1.73 CALC BUN/CREAT (test code = 2235) 10 RATIO SODIUM (test code = 2231) 138 MEQ/L POTASSIUM (test code = 2228) 4.1 MEQ/L CHLORIDE (test code = 2215) 100 MEQ/L CARBON DIOXIDE (test code = 2206) 22 MEQ/L CALCIUM (test code = 2209) 10.0 MG/DL PROTEIN, TOTAL (test code = 2229) 7.8 G/DL ALBUMIN (test code = 2201) 4.8 G/DL CALC GLOBULIN (test code = 2240) 3.0 G/DL CALC A/G RATIO (test code = 2234) 1.6 RATIO BILIRUBIN, TOTAL (test code = 2207) 0.3 MG/DL ALKALINE PHOSPHATASE (test code = 2204) 146 U/L AST (test code = 2218) 35 U/L ALT (test code = 2219) 27 U/L Brian ClaytonLIPID [id number] 00:00:00* Test Item Value Reference Range Interpretation Comme nts CHOLESTEROL (test code = 2210) 174 MG/DL TRIGLYCERIDES (test code = 2232) 696 MG/DL HDL CHOLESTEROL (test code = 2220) 24 MG/DL CALC LDL CHOL (test code = 2237) (NOTE) MG/DL RISK RATIO LDL/HDL (test cod e = 2238) (NOTE) RATIO Brian ClaytonHEMOGLOBIN [id number] 00:00:00* Test Item Value Reference Range Interpretation Comme nts HEMOGLOBIN A1c (test code = 69404) 5.0 % Brian ClaytonPSA, [id number] 00:00:00* Test Item Value Reference Range Interpretation Comme nts PSA, TOTAL (test code = 2606) 0.60 NG/ML Brian ClaytonCOMPREHENSIVE METABOLIC [id number] 00:00:00* Test Item Value Reference Range Interpretation Comme nts GLUCOSE (test code = 2217) 116 MG/DL BUN (test code = 2208) 12 MG/DL CREATININE (test code = 2214) 1.24 MG/DL eGFR (2020 CKD-EPI) (test co de = 76040) 75 ML/MIN/1.73 CALC BUN/CREAT (test code = 2235) 10 RATIO SODIUM (test code = 2231) 138 MEQ/L POTASSIUM (test code = 2228) 4.1 MEQ/L CHLORIDE (test code = 2215) 100 MEQ/L CARBON DIOXIDE (test code = 2206) 22 MEQ/L CALCIUM (test code = 2209) 10.0 MG/DL PROTEIN, TOTAL (test code = 2229) 7.8 G/DL ALBUMIN (test code = 2201) 4.8 G/DL CALC GLOBULIN (test code = 2240) 3.0 G/DL CALC A/G RATIO (test code = 2234) 1.6 RATIO BILIRUBIN, TOTAL (test code = 2207) 0.3 MG/DL ALKALINE PHOSPHATASE (test code = 2204) 146 U/L AST (test code = 2218) 35 U/L ALT (test code = 2219) 27 U/L Brian ClaytonLIPID [id number] 00:00:00* Test Item Value Reference Range Interpretation Comme nts CHOLESTEROL (test code = 2210) 174 MG/DL TRIGLYCERIDES (test code = 2232) 696 MG/DL HDL CHOLESTEROL (test code = 2220) 24 MG/DL CALC LDL CHOL (test code = 2237) (NOTE) MG/DL RISK RATIO LDL/HDL (test cod e = 2238) (NOTE) RATIO Brian ClaytonLIPID [id number] 05:26:31* Test Item Value Reference Range Interpretation Comme nts CHOLESTEROL (test code = 2210) 141 MG/DL <200 TRIGLYCERIDES (test code = 2232) 348 MG/DL <150 H HDL CHOLESTEROL (test code = 2220) 26 MG/DL >39 L CALC LDL CHOL (test code = 2237) 73 MG/DL <100 NOTE: CALCULATED LDL IS BASED ON MOJGAN-REICH METHOD WHICHINCLUDES ADJUSTABLE TRIGLYCERIDE:VLDL CHOLESTEROL RATIO.THIS FACTOR VARIES BY MEASURED TRIGLYCERIDE AND NON-HDLCHOLESTEROL CONCENTRATIONS WITH INCREASED CALCULATED LDL SEENIN HIGHER TRIGLYCERIDE OR LOWER NON-HDL SPECIMENS. FOR MOREINFORMATION, SEE CLIENT ANNOUNCEMENT AT [email or web address] RISK RATIO LDL/HDL (test code = 2238) 2.81 RATIO <3.55 UNLESS OTHERW ISE INDICATED, ALL TESTING PERFORMED ATCLINICAL PATHOLOGY [employer] [address] [place] [address] FISH FILLETER: NONA TRINID[place] M.D. CLIA NUMBER [id number] [facility] [place]. [id number] LIPID [id number] 00:00:00* Test Item Value Reference Range Interpretation Comme nts CHOLESTEROL (test code = 2210) 141 MG/DL TRIGLYCERIDES (test code = 2232) 348 MG/DL HDL CHOLESTEROL (test code = 2220) 26 MG/DL CALC LDL CHOL (test code = 2237) 73 MG/DL RISK RATIO LDL/HDL (test cod e = 2238) 2.81 RATIO LIPID [id number] 00:00:00* Test Item Value Reference Range Interpretation Comme nts CHOLESTEROL (test code = 2210) 141 MG/DL TRIGLYCERIDES (test code = 2232) 348 MG/DL HDL CHOLESTEROL (test code = 2220) 26 MG/DL CALC LDL CHOL (test code = 2237) 73 MG/DL RISK RATIO LDL/HDL (test cod e = 2238) 2.81 RATIO LIPID [id number] 00:00:00* Test Item Value Reference Range Interpretation Comme nts CHOLESTEROL (test code = 2210) 141 MG/DL TRIGLYCERIDES (test code = 2232) 348 MG/DL HDL CHOLESTEROL (test code = 2220) 26 MG/DL CALC LDL CHOL (test code = 2237) 73 MG/DL RISK RATIO LDL/HDL (test cod e = 2238) 2.81 RATIO LIPID [id number] 00:00:00* Test Item Value Reference Range Interpretation Comme nts CHOLESTEROL (test code = 2210) 141 MG/DL TRIGLYCERIDES (test code = 2232) 348 MG/DL HDL CHOLESTEROL (test code = 2220) 26 MG/DL CALC LDL CHOL (test code = 2237) 73 MG/DL RISK RATIO LDL/HDL (test cod e = 2238) 2.81 RATIO LIPID [id number] 00:00:00* Test Item Value Reference Range Interpretation Comme nts CHOLESTEROL (test code = 2210) 141 MG/DL TRIGLYCERIDES (test code = 2232) 348 MG/DL HDL CHOLESTEROL (test code = 2220) 26 MG/DL CALC LDL CHOL (test code = 2237) 73 MG/DL RISK RATIO LDL/HDL (test cod e = 2238) 2.81 RATIO Brian Pastrana AustinLIPID [id number] 00:00:00* Test Item Value Reference Range Interpretation Comme nts CHOLESTEROL (test code = 2210) 141 MG/DL TRIGLYCERIDES (test code = 2232) 348 MG/DL HDL CHOLESTEROL (test code = 2220) 26 MG/DL CALC LDL CHOL (test code = 2237) 73 MG/DL RISK RATIO LDL/HDL (test cod e = 2238) 2.81 RATIO Brian Pastrana AustinLIPID [id number] 00:00:00* Test Item Value Reference Range Interpretation Comme nts CHOLESTEROL (test code = 2210) 141 MG/DL TRIGLYCERIDES (test code = 2232) 348 MG/DL HDL CHOLESTEROL (test code = 2220) 26 MG/DL CALC LDL CHOL (test code = 2237) 73 MG/DL RISK RATIO LDL/HDL (test cod e = 2238) 2.81 RATIO Brian Pastrana AustinLIPID [id number] 00:00:00* Test Item Value Reference Range Interpretation Comme nts CHOLESTEROL (test code = 2210) 141 MG/DL TRIGLYCERIDES (test code = 2232) 348 MG/DL HDL CHOLESTEROL (test code = 2220) 26 MG/DL CALC LDL CHOL (test code = 2237) 73 MG/DL RISK RATIO LDL/HDL (test cod e = 2238) 2.81 RATIO Brian ClaytonLIPID [id number] 00:00:00* Test Item Value Reference Range Interpretation Comme nts CHOLESTEROL (test code = 2210) 141 MG/DL TRIGLYCERIDES (test code = 2232) 348 MG/DL HDL CHOLESTEROL (test code = 2220) 26 MG/DL CALC LDL CHOL (test code = 2237) 73 MG/DL RISK RATIO LDL/HDL (test cod e = 2238) 2.81 RATIO Brian ClaytonLIPID [id number] 00:00:00* Test Item Value Reference Range Interpretation Comme nts CHOLESTEROL (test code = 2210) 141 MG/DL TRIGLYCERIDES (test code = 2232) 348 MG/DL HDL CHOLESTEROL (test code = 2220) 26 MG/DL CALC LDL CHOL (test code = 2237) 73 MG/DL RISK RATIO LDL/HDL (test cod e = 2238) 2.81 RATIO Brian ClaytonLIPID [id number] 00:00:00* Test Item Value Reference Range Interpretation Comme nts CHOLESTEROL (test code = 2210) 141 MG/DL TRIGLYCERIDES (test code = 2232) 348 MG/DL HDL CHOLESTEROL (test code = 2220) 26 MG/DL CALC LDL CHOL (test code = 2237) 73 MG/DL RISK RATIO LDL/HDL (test cod e = 2238) 2.81 RATIO Brian ClaytonLIPID [id number] 00:00:00* Test Item Value Reference Range Interpretation Comme nts CHOLESTEROL (test code = 2210) 141 MG/DL TRIGLYCERIDES (test code = 2232) 348 MG/DL HDL CHOLESTEROL (test code = 2220) 26 MG/DL CALC LDL CHOL (test code = 2237) 73 MG/DL RISK RATIO LDL/HDL (test cod e = 2238) 2.81 RATIO Brian ClaytonLIPID [id number] 00:00:00* Test Item Value Reference Range Interpretation Comme nts CHOLESTEROL (test code = 2210) 141 MG/DL TRIGLYCERIDES (test code = 2232) 348 MG/DL HDL CHOLESTEROL (test code = 2220) 26 MG/DL CALC LDL CHOL (test code = 2237) 73 MG/DL RISK RATIO LDL/HDL (test cod e = 2238) 2.81 RATIO Brian [id number] 00:00:00* Test Item Value Reference Range Interpretation Comme nts GGT (test code = 2216) 63 U/L COMPREHENSIVE METABOLIC [id number] 00:00:00* Test Item Value Reference Range Interpretation Comme nts GLUCOSE (test code = 2217) 91 MG/DL BUN (test code = 2208) 12 MG/DL CREATININE (test code = 2214) 1.33 MG/DL eGFR AMER. (test cod e = 48205) 76 ML/MIN/1.73 eGFR NON- AMER. (test code = 79105) 66 ML/MIN/1.73 CALC BUN/CREAT (test code = 2235) 9 RATIO SODIUM (test code = 2231) 140 MEQ/L POTASSIUM (test code = 2228) 4.2 MEQ/L CHLORIDE (test code = 2215) 105 MEQ/L CARBON DIOXIDE (test code = 2206) 21 MEQ/L CALCIUM (test code = 2209) 9.5 MG/DL PROTEIN, TOTAL (test code = 2229) 7.9 G/DL ALBUMIN (test code = 2201) 4.7 G/DL CALC GLOBULIN (test code = 2240) 3.2 G/DL CALC A/G RATIO (test code = 2234) 1.5 RATIO BILIRUBIN, TOTAL (test code = 2207) 0.3 MG/DL ALKALINE PHOSPHATASE (test code = 2204) 136 U/L AST (test code = 2218) 32 U/L ALT (test code = 2219) 24 U/L [id number] 00:00:00* Test Item Value Reference Range Interpretation Comme nts GGT (test code = 2216) 63 U/L COMPREHENSIVE METABOLIC [id number] 00:00:00* Test Item Value Reference Range Interpretation Comme nts GLUCOSE (test code = 2217) 91 MG/DL BUN (test code = 2208) 12 MG/DL CREATININE (test code = 2214) 1.33 MG/DL eGFR AMER. (test cod e = 46848) 76 ML/MIN/1.73 eGFR NON- AMER. (test code = 89809) 66 ML/MIN/1.73 CALC BUN/CREAT (test code = 2235) 9 RATIO SODIUM (test code = 2231) 140 MEQ/L POTASSIUM (test code = 2228) 4.2 MEQ/L CHLORIDE (test code = 2215) 105 MEQ/L CARBON DIOXIDE (test code = 2206) 21 MEQ/L CALCIUM (test code = 2209) 9.5 MG/DL PROTEIN, TOTAL (test code = 2229) 7.9 G/DL ALBUMIN (test code = 2201) 4.7 G/DL CALC GLOBULIN (test code = 2240) 3.2 G/DL CALC A/G RATIO (test code = 2234) 1.5 RATIO BILIRUBIN, TOTAL (test code = 2207) 0.3 MG/DL ALKALINE PHOSPHATASE (test code = 2204) 136 U/L AST (test code = 2218) 32 U/L ALT (test code = 2219) 24 U/L [id number] 00:00:00* Test Item Value Reference Range Interpretation Comme nts GGT (test code = 2216) 63 U/L COMPREHENSIVE METABOLIC [id number] 00:00:00* Test Item Value Reference Range Interpretation Comme nts GLUCOSE (test code = 2217) 91 MG/DL BUN (test code = 2208) 12 MG/DL CREATININE (test code = 2214) 1.33 MG/DL eGFR AMER. (test cod e = 64324) 76 ML/MIN/1.73 eGFR NON- AMER. (test code = 00562) 66 ML/MIN/1.73 CALC BUN/CREAT (test code = 2235) 9 RATIO SODIUM (test code = 2231) 140 MEQ/L POTASSIUM (test code = 2228) 4.2 MEQ/L CHLORIDE (test code = 2215) 105 MEQ/L CARBON DIOXIDE (test code = 2206) 21 MEQ/L CALCIUM (test code = 2209) 9.5 MG/DL PROTEIN, TOTAL (test code = 2229) 7.9 G/DL ALBUMIN (test code = 2201) 4.7 G/DL CALC GLOBULIN (test code = 2240) 3.2 G/DL CALC A/G RATIO (test code = 2234) 1.5 RATIO BILIRUBIN, TOTAL (test code = 2207) 0.3 MG/DL ALKALINE PHOSPHATASE (test code = 2204) 136 U/L AST (test code = 2218) 32 U/L ALT (test code = 2219) 24 U/L [id number] 00:00:00* Test Item Value Reference Range Interpretation Comme nts GGT (test code = 2216) 63 U/L COMPREHENSIVE METABOLIC [id number] 00:00:00* Test Item Value Reference Range Interpretation Comme nts GLUCOSE (test code = 2217) 91 MG/DL BUN (test code = 2208) 12 MG/DL CREATININE (test code = 2214) 1.33 MG/DL eGFR AMER. (test cod e = 91774) 76 ML/MIN/1.73 eGFR NON- AMER. (test code = 70352) 66 ML/MIN/1.73 CALC BUN/CREAT (test code = 2235) 9 RATIO SODIUM (test code = 2231) 140 MEQ/L POTASSIUM (test code = 2228) 4.2 MEQ/L CHLORIDE (test code = 2215) 105 MEQ/L CARBON DIOXIDE (test code = 2206) 21 MEQ/L CALCIUM (test code = 2209) 9.5 MG/DL PROTEIN, TOTAL (test code = 2229) 7.9 G/DL ALBUMIN (test code = 2201) 4.7 G/DL CALC GLOBULIN (test code = 2240) 3.2 G/DL CALC A/G RATIO (test code = 2234) 1.5 RATIO BILIRUBIN, TOTAL (test code = 2207) 0.3 MG/DL ALKALINE PHOSPHATASE (test code = 2204) 136 U/L AST (test code = 2218) 32 U/L ALT (test code = 2219) 24 U/L [id number] 00:00:00* Test Item Value Reference Range Interpretation Comme nts GGT (test code = 2216) 63 U/L Brian F AustinCOMPREHENSIVE METABOLIC [id number] 00:00:00* Test Item Value Reference Range Interpretation Comme nts GLUCOSE (test code = 2217) 91 MG/DL BUN (test code = 2208) 12 MG/DL CREATININE (test code = 2214) 1.33 MG/DL eGFR AMER. (test cod e = 68927) 76 ML/MIN/1.73 eGFR NON- AMER. (test code = 65913) 66 ML/MIN/1.73 CALC BUN/CREAT (test code = 2235) 9 RATIO SODIUM (test code = 2231) 140 MEQ/L POTASSIUM (test code = 2228) 4.2 MEQ/L CHLORIDE (test code = 2215) 105 MEQ/L CARBON DIOXIDE (test code = 2206) 21 MEQ/L CALCIUM (test code = 2209) 9.5 MG/DL PROTEIN, TOTAL (test code = 2229) 7.9 G/DL ALBUMIN (test code = 2201) 4.7 G/DL CALC GLOBULIN (test code = 2240) 3.2 G/DL CALC A/G RATIO (test code = 2234) 1.5 RATIO BILIRUBIN, TOTAL (test code = 2207) 0.3 MG/DL ALKALINE PHOSPHATASE (test code = 2204) 136 U/L AST (test code = 2218) 32 U/L ALT (test code = 2219) 24 U/L Brian [id number] 00:00:00* Test Item Value Reference Range Interpretation Comme nts GGT (test code = 2216) 63 U/L Brian ClaytonCOMPREHENSIVE METABOLIC [id number] 00:00:00* Test Item Value Reference Range Interpretation Comme nts GLUCOSE (test code = 2217) 91 MG/DL BUN (test code = 2208) 12 MG/DL CREATININE (test code = 2214) 1.33 MG/DL eGFR AMER. (test cod e = 93404) 76 ML/MIN/1.73 eGFR NON- AMER. (test code = 41538) 66 ML/MIN/1.73 CALC BUN/CREAT (test code = 2235) 9 RATIO SODIUM (test code = 2231) 140 MEQ/L POTASSIUM (test code = 2228) 4.2 MEQ/L CHLORIDE (test code = 2215) 105 MEQ/L CARBON DIOXIDE (test code = 2206) 21 MEQ/L CALCIUM (test code = 2209) 9.5 MG/DL PROTEIN, TOTAL (test code = 2229) 7.9 G/DL ALBUMIN (test code = 2201) 4.7 G/DL CALC GLOBULIN (test code = 2240) 3.2 G/DL CALC A/G RATIO (test code = 2234) 1.5 RATIO BILIRUBIN, TOTAL (test code = 2207) 0.3 MG/DL ALKALINE PHOSPHATASE (test code = 2204) 136 U/L AST (test code = 2218) 32 U/L ALT (test code = 2219) 24 U/L Brian [id number] 00:00:00* Test Item Value Reference Range Interpretation Comme nts GGT (test code = 2216) 63 U/L Brian Pastrana [id number] 00:00:00* Test Item Value Reference Range Interpretation Comme nts GGT (test code = 2216) 63 U/L Brian ClaytonCOMPREHENSIVE METABOLIC [id number] 00:00:00* Test Item Value Reference Range Interpretation Comme nts GLUCOSE (test code = 2217) 91 MG/DL BUN (test code = 2208) 12 MG/DL CREATININE (test code = 2214) 1.33 MG/DL eGFR AMER. (test cod e = 18667) 76 ML/MIN/1.73 eGFR NON- AMER. (test code = 85176) 66 ML/MIN/1.73 CALC BUN/CREAT (test code = 2235) 9 RATIO SODIUM (test code = 2231) 140 MEQ/L POTASSIUM (test code = 2228) 4.2 MEQ/L CHLORIDE (test code = 2215) 105 MEQ/L CARBON DIOXIDE (test code = 2206) 21 MEQ/L CALCIUM (test code = 2209) 9.5 MG/DL PROTEIN, TOTAL (test code = 2229) 7.9 G/DL ALBUMIN (test code = 2201) 4.7 G/DL CALC GLOBULIN (test code = 2240) 3.2 G/DL CALC A/G RATIO (test code = 2234) 1.5 RATIO BILIRUBIN, TOTAL (test code = 2207) 0.3 MG/DL ALKALINE PHOSPHATASE (test code = 2204) 136 U/L AST (test code = 2218) 32 U/L ALT (test code = 2219) 24 U/L Brian ClaytonCOMPREHENSIVE METABOLIC [id number] 00:00:00* Test Item Value Reference Range Interpretation Comme nts GLUCOSE (test code = 2217) 91 MG/DL BUN (test code = 2208) 12 MG/DL CREATININE (test code = 2214) 1.33 MG/DL eGFR AMER. (test cod e = 11129) 76 ML/MIN/1.73 eGFR NON- AMER. (test code = 82099) 66 ML/MIN/1.73 CALC BUN/CREAT (test code = 2235) 9 RATIO SODIUM (test code = 2231) 140 MEQ/L POTASSIUM (test code = 2228) 4.2 MEQ/L CHLORIDE (test code = 2215) 105 MEQ/L CARBON DIOXIDE (test code = 2206) 21 MEQ/L CALCIUM (test code = 2209) 9.5 MG/DL PROTEIN, TOTAL (test code = 2229) 7.9 G/DL ALBUMIN (test code = 2201) 4.7 G/DL CALC GLOBULIN (test code = 2240) 3.2 G/DL CALC A/G RATIO (test code = 2234) 1.5 RATIO BILIRUBIN, TOTAL (test code = 2207) 0.3 MG/DL ALKALINE PHOSPHATASE (test code = 2204) 136 U/L AST (test code = 2218) 32 U/L ALT (test code = 2219) 24 U/L Brian Pastrana [id number] 00:00:00* Test Item Value Reference Range Interpretation Comme nts GGT (test code = 2216) 63 U/L Brian Pastrana ForrestCOMPREHENSIVE METABOLIC [id number] 00:00:00* Test Item Value Reference Range Interpretation Comme nts GLUCOSE (test code = 2217) 91 MG/DL BUN (test code = 2208) 12 MG/DL CREATININE (test code = 2214) 1.33 MG/DL eGFR AMER. (test cod e = 77501) 76 ML/MIN/1.73 eGFR NON- AMER. (test code = 61476) 66 ML/MIN/1.73 CALC BUN/CREAT (test code = 2235) 9 RATIO SODIUM (test code = 2231) 140 MEQ/L POTASSIUM (test code = 2228) 4.2 MEQ/L CHLORIDE (test code = 2215) 105 MEQ/L CARBON DIOXIDE (test code = 2206) 21 MEQ/L CALCIUM (test code = 2209) 9.5 MG/DL PROTEIN, TOTAL (test code = 2229) 7.9 G/DL ALBUMIN (test code = 2201) 4.7 G/DL CALC GLOBULIN (test code = 2240) 3.2 G/DL CALC A/G RATIO (test code = 2234) 1.5 RATIO BILIRUBIN, TOTAL (test code = 2207) 0.3 MG/DL ALKALINE PHOSPHATASE (test code = 2204) 136 U/L AST (test code = 2218) 32 U/L ALT (test code = 2219) 24 U/L Brian Pastrana [id number] 00:00:00* Test Item Value Reference Range Interpretation Comme nts GGT (test code = 2216) 63 U/L Brian ClaytonCOMPREHENSIVE METABOLIC [id number] 00:00:00* Test Item Value Reference Range Interpretation Comme nts GLUCOSE (test code = 2217) 91 MG/DL BUN (test code = 2208) 12 MG/DL CREATININE (test code = 2214) 1.33 MG/DL eGFR AMER. (test cod e = 21266) 76 ML/MIN/1.73 eGFR NON- AMER. (test code = 45628) 66 ML/MIN/1.73 CALC BUN/CREAT (test code = 2235) 9 RATIO SODIUM (test code = 2231) 140 MEQ/L POTASSIUM (test code = 2228) 4.2 MEQ/L CHLORIDE (test code = 2215) 105 MEQ/L CARBON DIOXIDE (test code = 2206) 21 MEQ/L CALCIUM (test code = 2209) 9.5 MG/DL PROTEIN, TOTAL (test code = 2229) 7.9 G/DL ALBUMIN (test code = 2201) 4.7 G/DL CALC GLOBULIN (test code = 2240) 3.2 G/DL CALC A/G RATIO (test code = 2234) 1.5 RATIO BILIRUBIN, TOTAL (test code = 2207) 0.3 MG/DL ALKALINE PHOSPHATASE (test code = 2204) 136 U/L AST (test code = 2218) 32 U/L ALT (test code = 2219) 24 U/L Brian Pastrana [id number] 00:00:00* Test Item Value Reference Range Interpretation Comme nts GGT (test code = 2216) 63 U/L Brian ClaytonCOMPREHENSIVE METABOLIC [id number] 00:00:00* Test Item Value Reference Range Interpretation Comme nts GLUCOSE (test code = 2217) 91 MG/DL BUN (test code = 2208) 12 MG/DL CREATININE (test code = 2214) 1.33 MG/DL eGFR AMER. (test cod e = 61855) 76 ML/MIN/1.73 eGFR NON- AMER. (test code = 19056) 66 ML/MIN/1.73 CALC BUN/CREAT (test code = 2235) 9 RATIO SODIUM (test code = 2231) 140 MEQ/L POTASSIUM (test code = 2228) 4.2 MEQ/L CHLORIDE (test code = 2215) 105 MEQ/L CARBON DIOXIDE (test code = 2206) 21 MEQ/L CALCIUM (test code = 2209) 9.5 MG/DL PROTEIN, TOTAL (test code = 2229) 7.9 G/DL ALBUMIN (test code = 2201) 4.7 G/DL CALC GLOBULIN (test code = 2240) 3.2 G/DL CALC A/G RATIO (test code = 2234) 1.5 RATIO BILIRUBIN, TOTAL (test code = 2207) 0.3 MG/DL ALKALINE PHOSPHATASE (test code = 2204) 136 U/L AST (test code = 2218) 32 U/L ALT (test code = 2219) 24 U/L Brian [id number] 00:00:00* Test Item Value Reference Range Interpretation Comme nts GGT (test code = 2216) 63 U/L Brian ClaytonCOMPREHENSIVE METABOLIC [id number] 00:00:00* Test Item Value Reference Range Interpretation Comme nts GLUCOSE (test code = 2217) 91 MG/DL BUN (test code = 2208) 12 MG/DL CREATININE (test code = 2214) 1.33 MG/DL eGFR AMER. (test cod e = 45730) 76 ML/MIN/1.73 eGFR NON- AMER. (test code = 34994) 66 ML/MIN/1.73 CALC BUN/CREAT (test code = 2235) 9 RATIO SODIUM (test code = 2231) 140 MEQ/L POTASSIUM (test code = 2228) 4.2 MEQ/L CHLORIDE (test code = 2215) 105 MEQ/L CARBON DIOXIDE (test code = 2206) 21 MEQ/L CALCIUM (test code = 2209) 9.5 MG/DL PROTEIN, TOTAL (test code = 2229) 7.9 G/DL ALBUMIN (test code = 2201) 4.7 G/DL CALC GLOBULIN (test code = 2240) 3.2 G/DL CALC A/G RATIO (test code = 2234) 1.5 RATIO BILIRUBIN, TOTAL (test code = 2207) 0.3 MG/DL ALKALINE PHOSPHATASE (test code = 2204) 136 U/L AST (test code = 2218) 32 U/L ALT (test code = 2219) 24 U/L Brian [id number] 00:00:00* Test Item Value Reference Range Interpretation Comme nts GGT (test code = 2216) 63 U/L Brian Pastrana [place] [id number] 00:00:00* Test Item Value Reference Range Interpretation Comme nts GLUCOSE (test code = 2217) 91 MG/DL BUN (test code = 2208) 12 MG/DL CREATININE (test code = 2214) 1.33 MG/DL eGFR AMER. (test cod e = 06874) 76 ML/MIN/1.73 eGFR NON- AMER. (test code = 00060) 66 ML/MIN/1.73 CALC BUN/CREAT (test code = 2235) 9 RATIO SODIUM (test code = 2231) 140 MEQ/L POTASSIUM (test code = 2228) 4.2 MEQ/L CHLORIDE (test code = 2215) 105 MEQ/L CARBON DIOXIDE (test code = 2206) 21 MEQ/L CALCIUM (test code = 2209) 9.5 MG/DL PROTEIN, TOTAL (test code = 2229) 7.9 G/DL ALBUMIN (test code = 2201) 4.7 G/DL CALC GLOBULIN (test code = 2240) 3.2 G/DL CALC A/G RATIO (test code = 2234) 1.5 RATIO BILIRUBIN, TOTAL (test code = 2207) 0.3 MG/DL ALKALINE PHOSPHATASE (test code = 2204) 136 U/L AST (test code = 2218) 32 U/L ALT (test code = 2219) 24 U/L Brian Pastrana [place] [id number] 00:00:00* Test Item Value Reference Range Interpretation Comme nts GLUCOSE (test code = 2217) 91 MG/DL BUN (test code = 2208) 14 MG/DL CREATININE (test code = 2214) 1.32 MG/DL eGFR AMER. (test cod e = 89253) 77 ML/MIN/1.73 eGFR NON- AMER. (test code = 89307) 67 ML/MIN/1.73 CALC BUN/CREAT (test code = 2235) 11 RATIO SODIUM (test code = 2231) 139 MEQ/L POTASSIUM (test code = 2228) 4.4 MEQ/L CHLORIDE (test code = 2215) 106 MEQ/L CARBON DIOXIDE (test code = 2206) 21 MEQ/L CALCIUM (test code = 2209) 9.4 MG/DL PROTEIN, TOTAL (test code = 2229) 7.6 G/DL ALBUMIN (test code = 2201) 4.5 G/DL CALC GLOBULIN (test code = 2240) 3.1 G/DL CALC A/G RATIO (test code = 2234) 1.5 RATIO BILIRUBIN, TOTAL (test code = 2207) 0.3 MG/DL ALKALINE PHOSPHATASE (test code = 2204) 122 U/L AST (test code = 2218) 40 U/L ALT (test code = 2219) 35 U/L COMPREHENSIVE METABOLIC [id number] 00:00:00* Test Item Value Reference Range Interpretation Comme nts GLUCOSE (test code = 2217) 91 MG/DL BUN (test code = 2208) 14 MG/DL CREATININE (test code = 2214) 1.32 MG/DL eGFR AMER. (test cod e = 11324) 77 ML/MIN/1.73 eGFR NON- AMER. (test code = 09193) 67 ML/MIN/1.73 CALC BUN/CREAT (test code = 2235) 11 RATIO SODIUM (test code = 2231) 139 MEQ/L POTASSIUM (test code = 2228) 4.4 MEQ/L CHLORIDE (test code = 2215) 106 MEQ/L CARBON DIOXIDE (test code = 2206) 21 MEQ/L CALCIUM (test code = 2209) 9.4 MG/DL PROTEIN, TOTAL (test code = 2229) 7.6 G/DL ALBUMIN (test code = 2201) 4.5 G/DL CALC GLOBULIN (test code = 2240) 3.1 G/DL CALC A/G RATIO (test code = 2234) 1.5 RATIO BILIRUBIN, TOTAL (test code = 2207) 0.3 MG/DL ALKALINE PHOSPHATASE (test code = 2204) 122 U/L AST (test code = 2218) 40 U/L ALT (test code = 2219) 35 U/L COMPREHENSIVE METABOLIC [id number] 00:00:00* Test Item Value Reference Range Interpretation Comme nts GLUCOSE (test code = 2217) 91 MG/DL BUN (test code = 2208) 14 MG/DL CREATININE (test code = 2214) 1.32 MG/DL eGFR AMER. (test cod e = 62818) 77 ML/MIN/1.73 eGFR NON- AMER. (test code = 26236) 67 ML/MIN/1.73 CALC BUN/CREAT (test code = 2235) 11 RATIO SODIUM (test code = 2231) 139 MEQ/L POTASSIUM (test code = 2228) 4.4 MEQ/L CHLORIDE (test code = 2215) 106 MEQ/L CARBON DIOXIDE (test code = 2206) 21 MEQ/L CALCIUM (test code = 2209) 9.4 MG/DL PROTEIN, TOTAL (test code = 2229) 7.6 G/DL ALBUMIN (test code = 2201) 4.5 G/DL CALC GLOBULIN (test code = 2240) 3.1 G/DL CALC A/G RATIO (test code = 2234) 1.5 RATIO BILIRUBIN, TOTAL (test code = 2207) 0.3 MG/DL ALKALINE PHOSPHATASE (test code = 2204) 122 U/L AST (test code = 2218) 40 U/L ALT (test code = 2219) 35 U/L COMPREHENSIVE METABOLIC [id number] 00:00:00* Test Item Value Reference Range Interpretation Comme nts GLUCOSE (test code = 2217) 91 MG/DL BUN (test code = 2208) 14 MG/DL CREATININE (test code = 2214) 1.32 MG/DL eGFR AMER. (test cod e = 83780) 77 ML/MIN/1.73 eGFR NON- AMER. (test code = 20194) 67 ML/MIN/1.73 CALC BUN/CREAT (test code = 2235) 11 RATIO SODIUM (test code = 2231) 139 MEQ/L POTASSIUM (test code = 2228) 4.4 MEQ/L CHLORIDE (test code = 2215) 106 MEQ/L CARBON DIOXIDE (test code = 2206) 21 MEQ/L CALCIUM (test code = 2209) 9.4 MG/DL PROTEIN, TOTAL (test code = 2229) 7.6 G/DL ALBUMIN (test code = 2201) 4.5 G/DL CALC GLOBULIN (test code = 2240) 3.1 G/DL CALC A/G RATIO (test code = 2234) 1.5 RATIO BILIRUBIN, TOTAL (test code = 2207) 0.3 MG/DL ALKALINE PHOSPHATASE (test code = 2204) 122 U/L AST (test code = 2218) 40 U/L ALT (test code = 2219) 35 U/L COMPREHENSIVE METABOLIC [id number] 00:00:00* Test Item Value Reference Range Interpretation Comme nts GLUCOSE (test code = 2217) 91 MG/DL BUN (test code = 2208) 14 MG/DL CREATININE (test code = 2214) 1.32 MG/DL eGFR AMER. (test cod e = 49840) 77 ML/MIN/1.73 eGFR NON- AMER. (test code = 07144) 67 ML/MIN/1.73 CALC BUN/CREAT (test code = 2235) 11 RATIO SODIUM (test code = 2231) 139 MEQ/L POTASSIUM (test code = 2228) 4.4 MEQ/L CHLORIDE (test code = 2215) 106 MEQ/L CARBON DIOXIDE (test code = 2206) 21 MEQ/L CALCIUM (test code = 2209) 9.4 MG/DL PROTEIN, TOTAL (test code = 2229) 7.6 G/DL ALBUMIN (test code = 2201) 4.5 G/DL CALC GLOBULIN (test code = 2240) 3.1 G/DL CALC A/G RATIO (test code = 2234) 1.5 RATIO BILIRUBIN, TOTAL (test code = 2207) 0.3 MG/DL ALKALINE PHOSPHATASE (test code = 2204) 122 U/L AST (test code = 2218) 40 U/L ALT (test code = 2219) 35 U/L Brian ClaytonCOMPREHENSIVE METABOLIC [id number] 00:00:00* Test Item Value Reference Range Interpretation Comme nts GLUCOSE (test code = 2217) 91 MG/DL BUN (test code = 2208) 14 MG/DL CREATININE (test code = 2214) 1.32 MG/DL eGFR AMER. (test cod e = 29195) 77 ML/MIN/1.73 eGFR NON- AMER. (test code = 46301) 67 ML/MIN/1.73 CALC BUN/CREAT (test code = 2235) 11 RATIO SODIUM (test code = 2231) 139 MEQ/L POTASSIUM (test code = 2228) 4.4 MEQ/L CHLORIDE (test code = 2215) 106 MEQ/L CARBON DIOXIDE (test code = 2206) 21 MEQ/L CALCIUM (test code = 2209) 9.4 MG/DL PROTEIN, TOTAL (test code = 2229) 7.6 G/DL ALBUMIN (test code = 2201) 4.5 G/DL CALC GLOBULIN (test code = 2240) 3.1 G/DL CALC A/G RATIO (test code = 2234) 1.5 RATIO BILIRUBIN, TOTAL (test code = 2207) 0.3 MG/DL ALKALINE PHOSPHATASE (test code = 2204) 122 U/L AST (test code = 2218) 40 U/L ALT (test code = 2219) 35 U/L Brian ClaytonCOMPREHENSIVE METABOLIC [id number] 00:00:00* Test Item Value Reference Range Interpretation Comme nts GLUCOSE (test code = 2217) 91 MG/DL BUN (test code = 2208) 14 MG/DL CREATININE (test code = 2214) 1.32 MG/DL eGFR AMER. (test cod e = 85889) 77 ML/MIN/1.73 eGFR NON- AMER. (test code = 83399) 67 ML/MIN/1.73 CALC BUN/CREAT (test code = 2235) 11 RATIO SODIUM (test code = 2231) 139 MEQ/L POTASSIUM (test code = 2228) 4.4 MEQ/L CHLORIDE (test code = 2215) 106 MEQ/L CARBON DIOXIDE (test code = 2206) 21 MEQ/L CALCIUM (test code = 2209) 9.4 MG/DL PROTEIN, TOTAL (test code = 2229) 7.6 G/DL ALBUMIN (test code = 2201) 4.5 G/DL CALC GLOBULIN (test code = 2240) 3.1 G/DL CALC A/G RATIO (test code = 2234) 1.5 RATIO BILIRUBIN, TOTAL (test code = 2207) 0.3 MG/DL ALKALINE PHOSPHATASE (test code = 2204) 122 U/L AST (test code = 2218) 40 U/L ALT (test code = 2219) 35 U/L Brian ClaytonCOMPREHENSIVE METABOLIC [id number] 00:00:00* Test Item Value Reference Range Interpretation Comme nts GLUCOSE (test code = 2217) 91 MG/DL BUN (test code = 2208) 14 MG/DL CREATININE (test code = 2214) 1.32 MG/DL eGFR AMER. (test cod e = 37740) 77 ML/MIN/1.73 eGFR NON- AMER. (test code = 56294) 67 ML/MIN/1.73 CALC BUN/CREAT (test code = 2235) 11 RATIO SODIUM (test code = 2231) 139 MEQ/L POTASSIUM (test code = 2228) 4.4 MEQ/L CHLORIDE (test code = 2215) 106 MEQ/L CARBON DIOXIDE (test code = 2206) 21 MEQ/L CALCIUM (test code = 2209) 9.4 MG/DL PROTEIN, TOTAL (test code = 2229) 7.6 G/DL ALBUMIN (test code = 2201) 4.5 G/DL CALC GLOBULIN (test code = 2240) 3.1 G/DL CALC A/G RATIO (test code = 2234) 1.5 RATIO BILIRUBIN, TOTAL (test code = 2207) 0.3 MG/DL ALKALINE PHOSPHATASE (test code = 2204) 122 U/L AST (test code = 2218) 40 U/L ALT (test code = 2219) 35 U/L Brian Pastrana [place] [id number] 00:00:00* Test Item Value Reference Range Interpretation Comme nts GLUCOSE (test code = 2217) 91 MG/DL BUN (test code = 2208) 14 MG/DL CREATININE (test code = 2214) 1.32 MG/DL eGFR AMER. (test cod e = 17883) 77 ML/MIN/1.73 eGFR NON- AMER. (test code = 73659) 67 ML/MIN/1.73 CALC BUN/CREAT (test code = 2235) 11 RATIO SODIUM (test code = 2231) 139 MEQ/L POTASSIUM (test code = 2228) 4.4 MEQ/L CHLORIDE (test code = 2215) 106 MEQ/L CARBON DIOXIDE (test code = 2206) 21 MEQ/L CALCIUM (test code = 2209) 9.4 MG/DL PROTEIN, TOTAL (test code = 2229) 7.6 G/DL ALBUMIN (test code = 2201) 4.5 G/DL CALC GLOBULIN (test code = 2240) 3.1 G/DL CALC A/G RATIO (test code = 2234) 1.5 RATIO BILIRUBIN, TOTAL (test code = 2207) 0.3 MG/DL ALKALINE PHOSPHATASE (test code = 2204) 122 U/L AST (test code = 2218) 40 U/L ALT (test code = 2219) 35 U/L Brian F AustinCOMPREHENSIVE METABOLIC [id number] 00:00:00* Test Item Value Reference Range Interpretation Comme nts GLUCOSE (test code = 2217) 91 MG/DL BUN (test code = 2208) 14 MG/DL CREATININE (test code = 2214) 1.32 MG/DL eGFR AMER. (test cod e = 07326) 77 ML/MIN/1.73 eGFR NON- AMER. (test code = 40363) 67 ML/MIN/1.73 CALC BUN/CREAT (test code = 2235) 11 RATIO SODIUM (test code = 2231) 139 MEQ/L POTASSIUM (test code = 2228) 4.4 MEQ/L CHLORIDE (test code = 2215) 106 MEQ/L CARBON DIOXIDE (test code = 2206) 21 MEQ/L CALCIUM (test code = 2209) 9.4 MG/DL PROTEIN, TOTAL (test code = 2229) 7.6 G/DL ALBUMIN (test code = 2201) 4.5 G/DL CALC GLOBULIN (test code = 2240) 3.1 G/DL CALC A/G RATIO (test code = 2234) 1.5 RATIO BILIRUBIN, TOTAL (test code = 2207) 0.3 MG/DL ALKALINE PHOSPHATASE (test code = 2204) 122 U/L AST (test code = 2218) 40 U/L ALT (test code = 2219) 35 U/L Brian F AustinCOMPREHENSIVE METABOLIC [id number] 00:00:00* Test Item Value Reference Range Interpretation Comme nts GLUCOSE (test code = 2217) 91 MG/DL BUN (test code = 2208) 14 MG/DL CREATININE (test code = 2214) 1.32 MG/DL eGFR AMER. (test cod e = 20335) 77 ML/MIN/1.73 eGFR NON- AMER. (test code = 61197) 67 ML/MIN/1.73 CALC BUN/CREAT (test code = 2235) 11 RATIO SODIUM (test code = 2231) 139 MEQ/L POTASSIUM (test code = 2228) 4.4 MEQ/L CHLORIDE (test code = 2215) 106 MEQ/L CARBON DIOXIDE (test code = 2206) 21 MEQ/L CALCIUM (test code = 2209) 9.4 MG/DL PROTEIN, TOTAL (test code = 2229) 7.6 G/DL ALBUMIN (test code = 2201) 4.5 G/DL CALC GLOBULIN (test code = 2240) 3.1 G/DL CALC A/G RATIO (test code = 2234) 1.5 RATIO BILIRUBIN, TOTAL (test code = 2207) 0.3 MG/DL ALKALINE PHOSPHATASE (test code = 2204) 122 U/L AST (test code = 2218) 40 U/L ALT (test code = 2219) 35 U/L Brian F [place] [id number] 00:00:00* Test Item Value Reference Range Interpretation Comme nts GLUCOSE (test code = 2217) 91 MG/DL BUN (test code = 2208) 14 MG/DL CREATININE (test code = 2214) 1.32 MG/DL eGFR AMER. (test cod e = 82701) 77 ML/MIN/1.73 eGFR NON- AMER. (test code = 88057) 67 ML/MIN/1.73 CALC BUN/CREAT (test code = 2235) 11 RATIO SODIUM (test code = 2231) 139 MEQ/L POTASSIUM (test code = 2228) 4.4 MEQ/L CHLORIDE (test code = 2215) 106 MEQ/L CARBON DIOXIDE (test code = 2206) 21 MEQ/L CALCIUM (test code = 2209) 9.4 MG/DL PROTEIN, TOTAL (test code = 2229) 7.6 G/DL ALBUMIN (test code = 2201) 4.5 G/DL CALC GLOBULIN (test code = 2240) 3.1 G/DL CALC A/G RATIO (test code = 2234) 1.5 RATIO BILIRUBIN, TOTAL (test code = 2207) 0.3 MG/DL ALKALINE PHOSPHATASE (test code = 2204) 122 U/L AST (test code = 2218) 40 U/L ALT (test code = 2219) 35 U/L Brian ClaytonCOMPREHENSIVE METABOLIC [id number] 00:00:00* Test Item Value Reference Range Interpretation Comme nts GLUCOSE (test code = 2217) 91 MG/DL BUN (test code = 2208) 14 MG/DL CREATININE (test code = 2214) 1.32 MG/DL eGFR AMER. (test cod e = 24918) 77 ML/MIN/1.73 eGFR NON- AMER. (test code = 20468) 67 ML/MIN/1.73 CALC BUN/CREAT (test code = 2235) 11 RATIO SODIUM (test code = 2231) 139 MEQ/L POTASSIUM (test code = 2228) 4.4 MEQ/L CHLORIDE (test code = 2215) 106 MEQ/L CARBON DIOXIDE (test code = 2206) 21 MEQ/L CALCIUM (test code = 2209) 9.4 MG/DL PROTEIN, TOTAL (test code = 2229) 7.6 G/DL ALBUMIN (test code = 2201) 4.5 G/DL CALC GLOBULIN (test code = 2240) 3.1 G/DL CALC A/G RATIO (test code = 2234) 1.5 RATIO BILIRUBIN, TOTAL (test code = 2207) 0.3 MG/DL ALKALINE PHOSPHATASE (test code = 2204) 122 U/L AST (test code = 2218) 40 U/L ALT (test code = 2219) 35 U/L Brian ClaytonCBC W/AUTO [id number] 00:00:00* Test Item Value Reference Range Interpretation Comme nts WBC (test code = 1001) 5.9 K/UL RBC (test code = 1002) 4.76 M/UL HEMOGLOBIN (test code = 1003) 14.3 G/DL HEMATOCRIT (test code = 1004) 40.6 % MCV (test code = 1005) 85.3 fL MCH (test code = 1006) 30.0 PG MCHC (test code = 1007) 35.2 G/DL RDW (test code = 1038) 12.6 % NEUTROPHILS (test code = 1008) 53.1 % LYMPHOCYTES (test code = 1010) 35.4 % MONOCYTES (test code = 1011) 8.0 % EOSINOPHILS (test code = 1012) 2.1 % BASOPHILS (test code = 1013) 0.9 % IMMATURE GRANULOCYTES (test code = 1036) 0.5 % NUCLEATED RBCS (test code = 1065) 0.0 /100WBC'S PLATELET COUNT (test code = 1015) 308 K/UL ABSOLUTE NEUTROPHILS (test c ode = 1066) 3.11 K/UL ABSOLUTE LYMPHOCYTES (test c ode = 1067) 2.07 K/UL ABSOLUTE MONOCYTES (test cod e = 1068) 0.47 K/UL ABSOLUTE EOSINOPHILS (test c ode = 1040) 0.12 K/UL ABSOLUTE BASOPHILS (test cod e = 1069) 0.05 K/UL ABS IMMATURE GRANULOCYTES (t est code = 1020) 0.03 K/UL ABS NUCLEATED RBCS (test cod e = 37299) 0.00 K/UL LIPID [id number] 00:00:00* Test Item Value Reference Range Interpretation Comme nts CHOLESTEROL (test code = 2210) 195 MG/DL TRIGLYCERIDES (test code = 2232) 480 MG/DL HDL CHOLESTEROL (test code = 2220) 28 MG/DL CALC LDL CHOL (test code = 2237) (NOTE) MG/DL RISK RATIO LDL/HDL (test cod e = 2238) 3.86 RATIO CBC W/AUTO [id number] 00:00:00* Test Item Value Reference Range Interpretation Comme nts WBC (test code = 1001) 5.9 K/UL RBC (test code = 1002) 4.76 M/UL HEMOGLOBIN (test code = 1003) 14.3 G/DL HEMATOCRIT (test code = 1004) 40.6 % MCV (test code = 1005) 85.3 fL MCH (test code = 1006) 30.0 PG MCHC (test code = 1007) 35.2 G/DL RDW (test code = 1038) 12.6 % NEUTROPHILS (test code = 1008) 53.1 % LYMPHOCYTES (test code = 1010) 35.4 % MONOCYTES (test code = 1011) 8.0 % EOSINOPHILS (test code = 1012) 2.1 % BASOPHILS (test code = 1013) 0.9 % IMMATURE GRANULOCYTES (test code = 1036) 0.5 % NUCLEATED RBCS (test code = 1065) 0.0 /100WBC'S PLATELET COUNT (test code = 1015) 308 K/UL ABSOLUTE NEUTROPHILS (test c ode = 1066) 3.11 K/UL ABSOLUTE LYMPHOCYTES (test c ode = 1067) 2.07 K/UL ABSOLUTE MONOCYTES (test cod e = 1068) 0.47 K/UL ABSOLUTE EOSINOPHILS (test c ode = 1040) 0.12 K/UL ABSOLUTE BASOPHILS (test cod e = 1069) 0.05 K/UL ABS IMMATURE GRANULOCYTES (t est code = 1020) 0.03 K/UL ABS NUCLEATED RBCS (test cod e = 75188) 0.00 K/UL LIPID [id number] 00:00:00* Test Item Value Reference Range Interpretation Comme nts CHOLESTEROL (test code = 2210) 195 MG/DL TRIGLYCERIDES (test code = 2232) 480 MG/DL HDL CHOLESTEROL (test code = 2220) 28 MG/DL CALC LDL CHOL (test code = 2237) (NOTE) MG/DL RISK RATIO LDL/HDL (test cod e = 2238) 3.86 RATIO CBC W/AUTO [id number] 00:00:00* Test Item Value Reference Range Interpretation Comme nts WBC (test code = 1001) 5.9 K/UL RBC (test code = 1002) 4.76 M/UL HEMOGLOBIN (test code = 1003) 14.3 G/DL HEMATOCRIT (test code = 1004) 40.6 % MCV (test code = 1005) 85.3 fL MCH (test code = 1006) 30.0 PG MCHC (test code = 1007) 35.2 G/DL RDW (test code = 1038) 12.6 % NEUTROPHILS (test code = 1008) 53.1 % LYMPHOCYTES (test code = 1010) 35.4 % MONOCYTES (test code = 1011) 8.0 % EOSINOPHILS (test code = 1012) 2.1 % BASOPHILS (test code = 1013) 0.9 % IMMATURE GRANULOCYTES (test code = 1036) 0.5 % NUCLEATED RBCS (test code = 1065) 0.0 /100WBC'S PLATELET COUNT (test code = 1015) 308 K/UL ABSOLUTE NEUTROPHILS (test c ode = 1066) 3.11 K/UL ABSOLUTE LYMPHOCYTES (test c ode = 1067) 2.07 K/UL ABSOLUTE MONOCYTES (test cod e = 1068) 0.47 K/UL ABSOLUTE EOSINOPHILS (test c ode = 1040) 0.12 K/UL ABSOLUTE BASOPHILS (test cod e = 1069) 0.05 K/UL ABS IMMATURE GRANULOCYTES (t est code = 1020) 0.03 K/UL ABS NUCLEATED RBCS (test cod e = 10825) 0.00 K/UL LIPID [id number] 00:00:00* Test Item Value Reference Range Interpretation Comme nts CHOLESTEROL (test code = 2210) 195 MG/DL TRIGLYCERIDES (test code = 2232) 480 MG/DL HDL CHOLESTEROL (test code = 2220) 28 MG/DL CALC LDL CHOL (test code = 2237) (NOTE) MG/DL RISK RATIO LDL/HDL (test cod e = 2238) 3.86 RATIO CBC W/AUTO [id number] 00:00:00* Test Item Value Reference Range Interpretation Comme nts WBC (test code = 1001) 5.9 K/UL RBC (test code = 1002) 4.76 M/UL HEMOGLOBIN (test code = 1003) 14.3 G/DL HEMATOCRIT (test code = 1004) 40.6 % MCV (test code = 1005) 85.3 fL MCH (test code = 1006) 30.0 PG MCHC (test code = 1007) 35.2 G/DL RDW (test code = 1038) 12.6 % NEUTROPHILS (test code = 1008) 53.1 % LYMPHOCYTES (test code = 1010) 35.4 % MONOCYTES (test code = 1011) 8.0 % EOSINOPHILS (test code = 1012) 2.1 % BASOPHILS (test code = 1013) 0.9 % IMMATURE GRANULOCYTES (test code = 1036) 0.5 % NUCLEATED RBCS (test code = 1065) 0.0 /100WBC'S PLATELET COUNT (test code = 1015) 308 K/UL ABSOLUTE NEUTROPHILS (test c ode = 1066) 3.11 K/UL ABSOLUTE LYMPHOCYTES (test c ode = 1067) 2.07 K/UL ABSOLUTE MONOCYTES (test cod e = 1068) 0.47 K/UL ABSOLUTE EOSINOPHILS (test c ode = 1040) 0.12 K/UL ABSOLUTE BASOPHILS (test cod e = 1069) 0.05 K/UL ABS IMMATURE GRANULOCYTES (t est code = 1020) 0.03 K/UL ABS NUCLEATED RBCS (test cod e = 25995) 0.00 K/UL LIPID [id number] 00:00:00* Test Item Value Reference Range Interpretation Comme nts CHOLESTEROL (test code = 2210) 195 MG/DL TRIGLYCERIDES (test code = 2232) 480 MG/DL HDL CHOLESTEROL (test code = 2220) 28 MG/DL CALC LDL CHOL (test code = 2237) (NOTE) MG/DL RISK RATIO LDL/HDL (test cod e = 2238) 3.86 RATIO CBC W/AUTO [id number] 00:00:00* Test Item Value Reference Range Interpretation Comme nts WBC (test code = 1001) 5.9 K/UL RBC (test code = 1002) 4.76 M/UL HEMOGLOBIN (test code = 1003) 14.3 G/DL HEMATOCRIT (test code = 1004) 40.6 % MCV (test code = 1005) 85.3 fL MCH (test code = 1006) 30.0 PG MCHC (test code = 1007) 35.2 G/DL RDW (test code = 1038) 12.6 % NEUTROPHILS (test code = 1008) 53.1 % LYMPHOCYTES (test code = 1010) 35.4 % MONOCYTES (test code = 1011) 8.0 % EOSINOPHILS (test code = 1012) 2.1 % BASOPHILS (test code = 1013) 0.9 % IMMATURE GRANULOCYTES (test code = 1036) 0.5 % NUCLEATED RBCS (test code = 1065) 0.0 /100WBC'S PLATELET COUNT (test code = 1015) 308 K/UL ABSOLUTE NEUTROPHILS (test c ode = 1066) 3.11 K/UL ABSOLUTE LYMPHOCYTES (test c ode = 1067) 2.07 K/UL ABSOLUTE MONOCYTES (test cod e = 1068) 0.47 K/UL ABSOLUTE EOSINOPHILS (test c ode = 1040) 0.12 K/UL ABSOLUTE BASOPHILS (test cod e = 1069) 0.05 K/UL ABS IMMATURE GRANULOCYTES (t est code = 1020) 0.03 K/UL ABS NUCLEATED RBCS (test cod e = 65325) 0.00 K/UL Brian F AustinLIPID [id number] 00:00:00* Test Item Value Reference Range Interpretation Comme nts CHOLESTEROL (test code = 2210) 195 MG/DL TRIGLYCERIDES (test code = 2232) 480 MG/DL HDL CHOLESTEROL (test code = 2220) 28 MG/DL CALC LDL CHOL (test code = 2237) (NOTE) MG/DL RISK RATIO LDL/HDL (test cod e = 2238) 3.86 RATIO Brian ClaytonCBC W/AUTO [id number] 00:00:00* Test Item Value Reference Range Interpretation Comme nts WBC (test code = 1001) 5.9 K/UL RBC (test code = 1002) 4.76 M/UL HEMOGLOBIN (test code = 1003) 14.3 G/DL HEMATOCRIT (test code = 1004) 40.6 % MCV (test code = 1005) 85.3 fL MCH (test code = 1006) 30.0 PG MCHC (test code = 1007) 35.2 G/DL RDW (test code = 1038) 12.6 % NEUTROPHILS (test code = 1008) 53.1 % LYMPHOCYTES (test code = 1010) 35.4 % MONOCYTES (test code = 1011) 8.0 % EOSINOPHILS (test code = 1012) 2.1 % BASOPHILS (test code = 1013) 0.9 % IMMATURE GRANULOCYTES (test code = 1036) 0.5 % NUCLEATED RBCS (test code = 1065) 0.0 /100WBC'S PLATELET COUNT (test code = 1015) 308 K/UL ABSOLUTE NEUTROPHILS (test c ode = 1066) 3.11 K/UL ABSOLUTE LYMPHOCYTES (test c ode = 1067) 2.07 K/UL ABSOLUTE MONOCYTES (test cod e = 1068) 0.47 K/UL ABSOLUTE EOSINOPHILS (test c ode = 1040) 0.12 K/UL ABSOLUTE BASOPHILS (test cod e = 1069) 0.05 K/UL ABS IMMATURE GRANULOCYTES (t est code = 1020) 0.03 K/UL ABS NUCLEATED RBCS (test cod e = 69020) 0.00 K/UL Brian ClaytonCBC W/AUTO [id number] 00:00:00* Test Item Value Reference Range Interpretation Comme nts WBC (test code = 1001) 5.9 K/UL RBC (test code = 1002) 4.76 M/UL HEMOGLOBIN (test code = 1003) 14.3 G/DL HEMATOCRIT (test code = 1004) 40.6 % MCV (test code = 1005) 85.3 fL MCH (test code = 1006) 30.0 PG MCHC (test code = 1007) 35.2 G/DL RDW (test code = 1038) 12.6 % NEUTROPHILS (test code = 1008) 53.1 % LYMPHOCYTES (test code = 1010) 35.4 % MONOCYTES (test code = 1011) 8.0 % EOSINOPHILS (test code = 1012) 2.1 % BASOPHILS (test code = 1013) 0.9 % IMMATURE GRANULOCYTES (test code = 1036) 0.5 % NUCLEATED RBCS (test code = 1065) 0.0 /100WBC'S PLATELET COUNT (test code = 1015) 308 K/UL ABSOLUTE NEUTROPHILS (test c ode = 1066) 3.11 K/UL ABSOLUTE LYMPHOCYTES (test c ode = 1067) 2.07 K/UL ABSOLUTE MONOCYTES (test cod e = 1068) 0.47 K/UL ABSOLUTE EOSINOPHILS (test c ode = 1040) 0.12 K/UL ABSOLUTE BASOPHILS (test cod e = 1069) 0.05 K/UL ABS IMMATURE GRANULOCYTES (t est code = 1020) 0.03 K/UL ABS NUCLEATED RBCS (test cod e = 62313) 0.00 K/UL Brian ClaytonLIPID [id number] 00:00:00* Test Item Value Reference Range Interpretation Comme nts CHOLESTEROL (test code = 2210) 195 MG/DL TRIGLYCERIDES (test code = 2232) 480 MG/DL HDL CHOLESTEROL (test code = 2220) 28 MG/DL CALC LDL CHOL (test code = 2237) (NOTE) MG/DL RISK RATIO LDL/HDL (test cod e = 2238) 3.86 RATIO Brian Pastrana ForrestCBC W/AUTO [id number] 00:00:00* Test Item Value Reference Range Interpretation Comme nts WBC (test code = 1001) 5.9 K/UL RBC (test code = 1002) 4.76 M/UL HEMOGLOBIN (test code = 1003) 14.3 G/DL HEMATOCRIT (test code = 1004) 40.6 % MCV (test code = 1005) 85.3 fL MCH (test code = 1006) 30.0 PG MCHC (test code = 1007) 35.2 G/DL RDW (test code = 1038) 12.6 % NEUTROPHILS (test code = 1008) 53.1 % LYMPHOCYTES (test code = 1010) 35.4 % MONOCYTES (test code = 1011) 8.0 % EOSINOPHILS (test code = 1012) 2.1 % BASOPHILS (test code = 1013) 0.9 % IMMATURE GRANULOCYTES (test code = 1036) 0.5 % NUCLEATED RBCS (test code = 1065) 0.0 /100WBC'S PLATELET COUNT (test code = 1015) 308 K/UL ABSOLUTE NEUTROPHILS (test c ode = 1066) 3.11 K/UL ABSOLUTE LYMPHOCYTES (test c ode = 1067) 2.07 K/UL ABSOLUTE MONOCYTES (test cod e = 1068) 0.47 K/UL ABSOLUTE EOSINOPHILS (test c ode = 1040) 0.12 K/UL ABSOLUTE BASOPHILS (test cod e = 1069) 0.05 K/UL ABS IMMATURE GRANULOCYTES (t est code = 1020) 0.03 K/UL ABS NUCLEATED RBCS (test cod e = 85167) 0.00 K/UL Brian Pastrana AustinLIPID [id number] 00:00:00* Test Item Value Reference Range Interpretation Comme nts CHOLESTEROL (test code = 2210) 195 MG/DL TRIGLYCERIDES (test code = 2232) 480 MG/DL HDL CHOLESTEROL (test code = 2220) 28 MG/DL CALC LDL CHOL (test code = 2237) (NOTE) MG/DL RISK RATIO LDL/HDL (test cod e = 2238) 3.86 RATIO Brian Pastrana AustinLIPID [id number] 00:00:00* Test Item Value Reference Range Interpretation Comme nts CHOLESTEROL (test code = 2210) 195 MG/DL TRIGLYCERIDES (test code = 2232) 480 MG/DL HDL CHOLESTEROL (test code = 2220) 28 MG/DL CALC LDL CHOL (test code = 2237) (NOTE) MG/DL RISK RATIO LDL/HDL (test cod e = 2238) 3.86 RATIO Brian ClaytonCBC W/AUTO [id number] 00:00:00* Test Item Value Reference Range Interpretation Comme nts WBC (test code = 1001) 5.9 K/UL RBC (test code = 1002) 4.76 M/UL HEMOGLOBIN (test code = 1003) 14.3 G/DL HEMATOCRIT (test code = 1004) 40.6 % MCV (test code = 1005) 85.3 fL MCH (test code = 1006) 30.0 PG MCHC (test code = 1007) 35.2 G/DL RDW (test code = 1038) 12.6 % NEUTROPHILS (test code = 1008) 53.1 % LYMPHOCYTES (test code = 1010) 35.4 % MONOCYTES (test code = 1011) 8.0 % EOSINOPHILS (test code = 1012) 2.1 % BASOPHILS (test code = 1013) 0.9 % IMMATURE GRANULOCYTES (test code = 1036) 0.5 % NUCLEATED RBCS (test code = 1065) 0.0 /100WBC'S PLATELET COUNT (test code = 1015) 308 K/UL ABSOLUTE NEUTROPHILS (test c ode = 1066) 3.11 K/UL ABSOLUTE LYMPHOCYTES (test c ode = 1067) 2.07 K/UL ABSOLUTE MONOCYTES (test cod e = 1068) 0.47 K/UL ABSOLUTE EOSINOPHILS (test c ode = 1040) 0.12 K/UL ABSOLUTE BASOPHILS (test cod e = 1069) 0.05 K/UL ABS IMMATURE GRANULOCYTES (t est code = 1020) 0.03 K/UL ABS NUCLEATED RBCS (test cod e = 08293) 0.00 K/UL Brian Pastrana ForrestLIPID [id number] 00:00:00* Test Item Value Reference Range Interpretation Comme nts CHOLESTEROL (test code = 2210) 195 MG/DL TRIGLYCERIDES (test code = 2232) 480 MG/DL HDL CHOLESTEROL (test code = 2220) 28 MG/DL CALC LDL CHOL (test code = 2237) (NOTE) MG/DL RISK RATIO LDL/HDL (test cod e = 2238) 3.86 RATIO Brian ClaytonCBC W/AUTO [id number] 00:00:00* Test Item Value Reference Range Interpretation Comme nts WBC (test code = 1001) 5.9 K/UL RBC (test code = 1002) 4.76 M/UL HEMOGLOBIN (test code = 1003) 14.3 G/DL HEMATOCRIT (test code = 1004) 40.6 % MCV (test code = 1005) 85.3 fL MCH (test code = 1006) 30.0 PG MCHC (test code = 1007) 35.2 G/DL RDW (test code = 1038) 12.6 % NEUTROPHILS (test code = 1008) 53.1 % LYMPHOCYTES (test code = 1010) 35.4 % MONOCYTES (test code = 1011) 8.0 % EOSINOPHILS (test code = 1012) 2.1 % BASOPHILS (test code = 1013) 0.9 % IMMATURE GRANULOCYTES (test code = 1036) 0.5 % NUCLEATED RBCS (test code = 1065) 0.0 /100WBC'S PLATELET COUNT (test code = 1015) 308 K/UL ABSOLUTE NEUTROPHILS (test c ode = 1066) 3.11 K/UL ABSOLUTE LYMPHOCYTES (test c ode = 1067) 2.07 K/UL ABSOLUTE MONOCYTES (test cod e = 1068) 0.47 K/UL ABSOLUTE EOSINOPHILS (test c ode = 1040) 0.12 K/UL ABSOLUTE BASOPHILS (test cod e = 1069) 0.05 K/UL ABS IMMATURE GRANULOCYTES (t est code = 1020) 0.03 K/UL ABS NUCLEATED RBCS (test cod e = 68255) 0.00 K/UL Brian Zeina ForrestLIPID [id number] 00:00:00* Test Item Value Reference Range Interpretation Comme nts CHOLESTEROL (test code = 2210) 195 MG/DL TRIGLYCERIDES (test code = 2232) 480 MG/DL HDL CHOLESTEROL (test code = 2220) 28 MG/DL CALC LDL CHOL (test code = 2237) (NOTE) MG/DL RISK RATIO LDL/HDL (test cod e = 2238) 3.86 RATIO Brian ClaytonCBC W/AUTO [id number] 00:00:00* Test Item Value Reference Range Interpretation Comme nts WBC (test code = 1001) 5.9 K/UL RBC (test code = 1002) 4.76 M/UL HEMOGLOBIN (test code = 1003) 14.3 G/DL HEMATOCRIT (test code = 1004) 40.6 % MCV (test code = 1005) 85.3 fL MCH (test code = 1006) 30.0 PG MCHC (test code = 1007) 35.2 G/DL RDW (test code = 1038) 12.6 % NEUTROPHILS (test code = 1008) 53.1 % LYMPHOCYTES (test code = 1010) 35.4 % MONOCYTES (test code = 1011) 8.0 % EOSINOPHILS (test code = 1012) 2.1 % BASOPHILS (test code = 1013) 0.9 % IMMATURE GRANULOCYTES (test code = 1036) 0.5 % NUCLEATED RBCS (test code = 1065) 0.0 /100WBC'S PLATELET COUNT (test code = 1015) 308 K/UL ABSOLUTE NEUTROPHILS (test c ode = 1066) 3.11 K/UL ABSOLUTE LYMPHOCYTES (test c ode = 1067) 2.07 K/UL ABSOLUTE MONOCYTES (test cod e = 1068) 0.47 K/UL ABSOLUTE EOSINOPHILS (test c ode = 1040) 0.12 K/UL ABSOLUTE BASOPHILS (test cod e = 1069) 0.05 K/UL ABS IMMATURE GRANULOCYTES (t est code = 1020) 0.03 K/UL ABS NUCLEATED RBCS (test cod e = 69669) 0.00 K/UL Brian ClaytonLIPID [id number] 00:00:00* Test Item Value Reference Range Interpretation Comme nts CHOLESTEROL (test code = 2210) 195 MG/DL TRIGLYCERIDES (test code = 2232) 480 MG/DL HDL CHOLESTEROL (test code = 2220) 28 MG/DL CALC LDL CHOL (test code = 2237) (NOTE) MG/DL RISK RATIO LDL/HDL (test cod e = 2238) 3.86 RATIO Brian ClaytonCBC W/AUTO [id number] 00:00:00* Test Item Value Reference Range Interpretation Comme nts WBC (test code = 1001) 5.9 K/UL RBC (test code = 1002) 4.76 M/UL HEMOGLOBIN (test code = 1003) 14.3 G/DL HEMATOCRIT (test code = 1004) 40.6 % MCV (test code = 1005) 85.3 fL MCH (test code = 1006) 30.0 PG MCHC (test code = 1007) 35.2 G/DL RDW (test code = 1038) 12.6 % NEUTROPHILS (test code = 1008) 53.1 % LYMPHOCYTES (test code = 1010) 35.4 % MONOCYTES (test code = 1011) 8.0 % EOSINOPHILS (test code = 1012) 2.1 % BASOPHILS (test code = 1013) 0.9 % IMMATURE GRANULOCYTES (test code = 1036) 0.5 % NUCLEATED RBCS (test code = 1065) 0.0 /100WBC'S PLATELET COUNT (test code = 1015) 308 K/UL ABSOLUTE NEUTROPHILS (test c ode = 1066) 3.11 K/UL ABSOLUTE LYMPHOCYTES (test c ode = 1067) 2.07 K/UL ABSOLUTE MONOCYTES (test cod e = 1068) 0.47 K/UL ABSOLUTE EOSINOPHILS (test c ode = 1040) 0.12 K/UL ABSOLUTE BASOPHILS (test cod e = 1069) 0.05 K/UL ABS IMMATURE GRANULOCYTES (t est code = 1020) 0.03 K/UL ABS NUCLEATED RBCS (test cod e = 95258) 0.00 K/UL Brian ClaytonLIPID [id number] 00:00:00* Test Item Value Reference Range Interpretation Comme nts CHOLESTEROL (test code = 2210) 195 MG/DL TRIGLYCERIDES (test code = 2232) 480 MG/DL HDL CHOLESTEROL (test code = 2220) 28 MG/DL CALC LDL CHOL (test code = 2237) (NOTE) MG/DL RISK RATIO LDL/HDL (test cod e = 2238) 3.86 RATIO Brian ClaytonCBC W/AUTO [id number] 00:00:00* Test Item Value Reference Range Interpretation Comme nts WBC (test code = 1001) 5.9 K/UL RBC (test code = 1002) 4.76 M/UL HEMOGLOBIN (test code = 1003) 14.3 G/DL HEMATOCRIT (test code = 1004) 40.6 % MCV (test code = 1005) 85.3 fL MCH (test code = 1006) 30.0 PG MCHC (test code = 1007) 35.2 G/DL RDW (test code = 1038) 12.6 % NEUTROPHILS (test code = 1008) 53.1 % LYMPHOCYTES (test code = 1010) 35.4 % MONOCYTES (test code = 1011) 8.0 % EOSINOPHILS (test code = 1012) 2.1 % BASOPHILS (test code = 1013) 0.9 % IMMATURE GRANULOCYTES (test code = 1036) 0.5 % NUCLEATED RBCS (test code = 1065) 0.0 /100WBC'S PLATELET COUNT (test code = 1015) 308 K/UL ABSOLUTE NEUTROPHILS (test c ode = 1066) 3.11 K/UL ABSOLUTE LYMPHOCYTES (test c ode = 1067) 2.07 K/UL ABSOLUTE MONOCYTES (test cod e = 1068) 0.47 K/UL ABSOLUTE EOSINOPHILS (test c ode = 1040) 0.12 K/UL ABSOLUTE BASOPHILS (test cod e = 1069) 0.05 K/UL ABS IMMATURE GRANULOCYTES (t est code = 1020) 0.03 K/UL ABS NUCLEATED RBCS (test cod e = 76648) 0.00 K/UL Brian ClaytonLIPID [id number] 00:00:00* Test Item Value Reference Range Interpretation Comme nts CHOLESTEROL (test code = 2210) 195 MG/DL TRIGLYCERIDES (test code = 2232) 480 MG/DL HDL CHOLESTEROL (test code = 2220) 28 MG/DL CALC LDL CHOL (test code = 2237) (NOTE) MG/DL RISK RATIO LDL/HDL (test cod e = 2238) 3.86 RATIO Brian CookLTURE, [id number] 00:00:00* Test Item Value Reference Range Interpretation Comme nts CULTURE, URINE (test code = 72323) SPECIMEN NUMBER: [id number] CULTURE, [id number] 00:00:00* Test Item Value Reference Range Interpretation Comme nts CULTURE, URINE (test code = 58229) SPECIMEN NUMBER: [id number] CULTURE, [id number] 00:00:00* Test Item Value Reference Range Interpretation Comme nts CULTURE, URINE (test code = 73603) SPECIMEN NUMBER: [id number] CULTURE, [id number] 00:00:00* Test Item Value Reference Range Interpretation Comme nts CULTURE, URINE (test code = 66383) SPECIMEN NUMBER: [id number] CULTURE, [id number] 00:00:00* Test Item Value Reference Range Interpretation Comme nts CULTURE, URINE (test code = 85893) SPECIMEN NUMBER: [id number] Brian ClaytonCULTURE, [id number] 00:00:00* Test Item Value Reference Range Interpretation Comme nts CULTURE, URINE (test code = 93771) SPECIMEN NUMBER: [id number] Brian ClaytonCULTURE, [id number] 00:00:00* Test Item Value Reference Range Interpretation Comme nts CULTURE, URINE (test code = 80323) SPECIMEN NUMBER: [id number] Brian Tamayo, [id number] 00:00:00* Test Item Value Reference Range Interpretation Comme nts CULTURE, URINE (test code = 86599) SPECIMEN NUMBER: [id number] Brian Tamayo, [id number] 00:00:00* Test Item Value Reference Range Interpretation Comme nts CULTURE, URINE (test code = 82546) SPECIMEN NUMBER: [id number] Brian Tamayo, [id number] 00:00:00* Test Item Value Reference Range Interpretation Comme nts CULTURE, URINE (test code = 08371) SPECIMEN NUMBER: [id number] Brian Tamayo, [id number] 00:00:00* Test Item Value Reference Range Interpretation Comme nts CULTURE, URINE (test code = 31216) SPECIMEN NUMBER: [id number] Brian Tamayo, [id number] 00:00:00* Test Item Value Reference Range Interpretation Comme nts CULTURE, URINE (test code = 40204) SPECIMEN NUMBER: [id number] Brian Tamayo, [id number] 00:00:00* Test Item Value Reference Range Interpretation Comme nts CULTURE, URINE (test code = 98102) SPECIMEN NUMBER: [id number] Brian ClaytonLIVER (HEPATIC) FUNCTION [id number] 00:00:00* Test Item Value Reference Range Interpretation Comme nts PROTEIN, TOTAL (test code = 2229) 8.0 G/DL ALBUMIN (test code = 2201) 4.8 G/DL BILIRUBIN, TOTAL (test code = 2207) 0.5 MG/DL BILIRUBIN, DIRECT (test code = 2022) 0.1 MG/DL ALKALINE PHOSPHATASE (test c ode = 2204) 111 U/L AST (test code = 2218) 34 U/L ALT (test code = 2219) 21 U/L CBC W/AUTO [id number] 00:00:00* Test Item Value Reference Range Interpretation Comme nts WBC (test code = 1001) 8.1 K/UL RBC (test code = 1002) 4.88 M/UL HEMOGLOBIN (test code = 1003) 14.4 G/DL HEMATOCRIT (test code = 1004) 41.9 % MCV (test code = 1005) 85.9 fL MCH (test code = 1006) 29.5 PG MCHC (test code = 1007) 34.4 G/DL RDW (test code = 1038) 12.9 % NEUTROPHILS (test code = 1008) 69.4 % LYMPHOCYTES (test code = 1010) 23.0 % MONOCYTES (test code = 1011) 6.1 % EOSINOPHILS (test code = 1012) 0.9 % BASOPHILS (test code = 1013) 0.6 % PLATELET COUNT (test code = 1015) 312 K/UL BASIC METABOLIC [id number] 00:00:00* Test Item Value Reference Range Interpretation Comme nts GLUCOSE (test code = 2217) 93 MG/DL BUN (test code = 2208) 14 MG/DL CREATININE (test code = 2214) 1.57 MG/DL eGFR AMER. (test cod e = 53782) 63 ML/MIN/1.73 eGFR NON- AMER. (test code = 33325) 54 ML/MIN/1.73 SODIUM (test code = 2231) 140 MEQ/L POTASSIUM (test code = 2228) 4.2 MEQ/L CHLORIDE (test code = 2215) 104 MEQ/L CARBON DIOXIDE (test code = 2206) 22 MEQ/L CALCIUM (test code = 2209) 9.9 MG/DL LIPID [id number] 00:00:00* Test Item Value Reference Range Interpretation Comme nts CHOLESTEROL (test code = 2210) 144 MG/DL TRIGLYCERIDES (test code = 2232) 274 MG/DL HDL CHOLESTEROL (test code = 2220) 34 MG/DL CALC LDL CHOL (test code = 2237) 74 MG/DL RISK RATIO LDL/HDL (test cod e = 2238) 2.18 RATIO HEMOGLOBIN [id number] 00:00:00* Test Item Value Reference Range Interpretation Comme nts HEMOGLOBIN A1c (test code = 21656) 5.2 % LIVER (HEPATIC) FUNCTION [id number] 00:00:00* Test Item Value Reference Range Interpretation Comme nts PROTEIN, TOTAL (test code = 2229) 8.0 G/DL ALBUMIN (test code = 2201) 4.8 G/DL BILIRUBIN, TOTAL (test code = 2207) 0.5 MG/DL BILIRUBIN, DIRECT (test code = 2022) 0.1 MG/DL ALKALINE PHOSPHATASE (test c ode = 2204) 111 U/L AST (test code = 2218) 34 U/L ALT (test code = 2219) 21 U/L CBC W/AUTO [id number] 00:00:00* Test Item Value Reference Range Interpretation Comme nts WBC (test code = 1001) 8.1 K/UL RBC (test code = 1002) 4.88 M/UL HEMOGLOBIN (test code = 1003) 14.4 G/DL HEMATOCRIT (test code = 1004) 41.9 % MCV (test code = 1005) 85.9 fL MCH (test code = 1006) 29.5 PG MCHC (test code = 1007) 34.4 G/DL RDW (test code = 1038) 12.9 % NEUTROPHILS (test code = 1008) 69.4 % LYMPHOCYTES (test code = 1010) 23.0 % MONOCYTES (test code = 1011) 6.1 % EOSINOPHILS (test code = 1012) 0.9 % BASOPHILS (test code = 1013) 0.6 % PLATELET COUNT (test code = 1015) 312 K/UL BASIC METABOLIC [id number] 00:00:00* Test Item Value Reference Range Interpretation Comme nts GLUCOSE (test code = 2217) 93 MG/DL BUN (test code = 2208) 14 MG/DL CREATININE (test code = 2214) 1.57 MG/DL eGFR AMER. (test cod e = 39604) 63 ML/MIN/1.73 eGFR NON- AMER. (test code = 43824) 54 ML/MIN/1.73 SODIUM (test code = 2231) 140 MEQ/L POTASSIUM (test code = 2228) 4.2 MEQ/L CHLORIDE (test code = 2215) 104 MEQ/L CARBON DIOXIDE (test code = 2206) 22 MEQ/L CALCIUM (test code = 2209) 9.9 MG/DL LIPID [id number] 00:00:00* Test Item Value Reference Range Interpretation Comme nts CHOLESTEROL (test code = 2210) 144 MG/DL TRIGLYCERIDES (test code = 2232) 274 MG/DL HDL CHOLESTEROL (test code = 2220) 34 MG/DL CALC LDL CHOL (test code = 2237) 74 MG/DL RISK RATIO LDL/HDL (test cod e = 2238) 2.18 RATIO HEMOGLOBIN [id number] 00:00:00* Test Item Value Reference Range Interpretation Comme nts HEMOGLOBIN A1c (test code = 63836) 5.2 % LIVER (HEPATIC) FUNCTION [id number] 00:00:00* Test Item Value Reference Range Interpretation Comme nts PROTEIN, TOTAL (test code = 2229) 8.0 G/DL ALBUMIN (test code = 2201) 4.8 G/DL BILIRUBIN, TOTAL (test code = 2207) 0.5 MG/DL BILIRUBIN, DIRECT (test code = 2021) 0.1 MG/DL ALKALINE PHOSPHATASE (test c ode = 4) 111 U/L AST (test code = 2218) 34 U/L ALT (test code = 2219) 21 U/L CBC W/AUTO [id number] 00:00:00* Test Item Value Reference Range Interpretation Comme nts WBC (test code = 1001) 8.1 K/UL RBC (test code = 1002) 4.88 M/UL HEMOGLOBIN (test code = 1003) 14.4 G/DL HEMATOCRIT (test code = 1004) 41.9 % MCV (test code = 1005) 85.9 fL MCH (test code = 1006) 29.5 PG MCHC (test code = 1007) 34.4 G/DL RDW (test code = 1038) 12.9 % NEUTROPHILS (test code = 1008) 69.4 % LYMPHOCYTES (test code = 1010) 23.0 % MONOCYTES (test code = 1011) 6.1 % EOSINOPHILS (test code = 1012) 0.9 % BASOPHILS (test code = 1013) 0.6 % PLATELET COUNT (test code = 1015) 312 K/UL BASIC METABOLIC [id number] 00:00:00* Test Item Value Reference Range Interpretation Comme nts GLUCOSE (test code = 2217) 93 MG/DL BUN (test code = 2208) 14 MG/DL CREATININE (test code = 2214) 1.57 MG/DL eGFR AMER. (test cod e = 56475) 63 ML/MIN/1.73 eGFR NON- AMER. (test code = 36064) 54 ML/MIN/1.73 SODIUM (test code = 2231) 140 MEQ/L POTASSIUM (test code = 2228) 4.2 MEQ/L CHLORIDE (test code = 2215) 104 MEQ/L CARBON DIOXIDE (test code = 2206) 22 MEQ/L CALCIUM (test code = 2209) 9.9 MG/DL LIPID [id number] 00:00:00* Test Item Value Reference Range Interpretation Comme nts CHOLESTEROL (test code = 2210) 144 MG/DL TRIGLYCERIDES (test code = 2232) 274 MG/DL HDL CHOLESTEROL (test code = 2220) 34 MG/DL CALC LDL CHOL (test code = 2237) 74 MG/DL RISK RATIO LDL/HDL (test cod e = 2238) 2.18 RATIO HEMOGLOBIN [id number] 00:00:00* Test Item Value Reference Range Interpretation Comme nts HEMOGLOBIN A1c (test code = 08199) 5.2 % LIVER (HEPATIC) FUNCTION [id number] 00:00:00* Test Item Value Reference Range Interpretation Comme nts PROTEIN, TOTAL (test code = 2229) 8.0 G/DL ALBUMIN (test code = 2201) 4.8 G/DL BILIRUBIN, TOTAL (test code = 2207) 0.5 MG/DL BILIRUBIN, DIRECT (test code = 2021) 0.1 MG/DL ALKALINE PHOSPHATASE (test c ode = 2204) 111 U/L AST (test code = 2218) 34 U/L ALT (test code = 2219) 21 U/L CBC W/AUTO [id number] 00:00:00* Test Item Value Reference Range Interpretation Comme nts WBC (test code = 1001) 8.1 K/UL RBC (test code = 1002) 4.88 M/UL HEMOGLOBIN (test code = 1003) 14.4 G/DL HEMATOCRIT (test code = 1004) 41.9 % MCV (test code = 1005) 85.9 fL MCH (test code = 1006) 29.5 PG MCHC (test code = 1007) 34.4 G/DL RDW (test code = 1038) 12.9 % NEUTROPHILS (test code = 1008) 69.4 % LYMPHOCYTES (test code = 1010) 23.0 % MONOCYTES (test code = 1011) 6.1 % EOSINOPHILS (test code = 1012) 0.9 % BASOPHILS (test code = 1013) 0.6 % PLATELET COUNT (test code = 1015) 312 K/UL BASIC METABOLIC [id number] 00:00:00* Test Item Value Reference Range Interpretation Comme nts GLUCOSE (test code = 2217) 93 MG/DL BUN (test code = 2208) 14 MG/DL CREATININE (test code = 2214) 1.57 MG/DL eGFR AMER. (test cod e = 54447) 63 ML/MIN/1.73 eGFR NON- AMER. (test code = 14155) 54 ML/MIN/1.73 SODIUM (test code = 2231) 140 MEQ/L POTASSIUM (test code = 2228) 4.2 MEQ/L CHLORIDE (test code = 2215) 104 MEQ/L CARBON DIOXIDE (test code = 2206) 22 MEQ/L CALCIUM (test code = 2209) 9.9 MG/DL LIPID [id number] 00:00:00* Test Item Value Reference Range Interpretation Comme nts CHOLESTEROL (test code = 2210) 144 MG/DL TRIGLYCERIDES (test code = 2232) 274 MG/DL HDL CHOLESTEROL (test code = 2220) 34 MG/DL CALC LDL CHOL (test code = 2237) 74 MG/DL RISK RATIO LDL/HDL (test cod e = 2238) 2.18 RATIO HEMOGLOBIN [id number] 00:00:00* Test Item Value Reference Range Interpretation Comme nts HEMOGLOBIN A1c (test code = 72491) 5.2 % BASIC METABOLIC [id number] 00:00:00* Test Item Value Reference Range Interpretation Comme nts GLUCOSE (test code = 2217) 93 MG/DL BUN (test code = 2208) 14 MG/DL CREATININE (test code = 2214) 1.57 MG/DL eGFR AMER. (test cod e = 67833) 63 ML/MIN/1.73 eGFR NON- AMER. (test code = 34885) 54 ML/MIN/1.73 SODIUM (test code = 2231) 140 MEQ/L POTASSIUM (test code = 2228) 4.2 MEQ/L CHLORIDE (test code = 2215) 104 MEQ/L CARBON DIOXIDE (test code = 2206) 22 MEQ/L CALCIUM (test code = 2209) 9.9 MG/DL Brian ClaytonLIPID [id number] 00:00:00* Test Item Value Reference Range Interpretation Comme nts CHOLESTEROL (test code = 2210) 144 MG/DL TRIGLYCERIDES (test code = 2232) 274 MG/DL HDL CHOLESTEROL (test code = 2220) 34 MG/DL CALC LDL CHOL (test code = 2237) 74 MG/DL RISK RATIO LDL/HDL (test cod e = 2238) 2.18 RATIO Brian ClaytonHEMOGLOBIN [id number] 00:00:00* Test Item Value Reference Range Interpretation Comme nts HEMOGLOBIN A1c (test code = 41416) 5.2 % Brian ClaytonLIVER (HEPATIC) FUNCTION [id number] 00:00:00* Test Item Value Reference Range Interpretation Comme nts PROTEIN, TOTAL (test code = 2229) 8.0 G/DL ALBUMIN (test code = 2201) 4.8 G/DL BILIRUBIN, TOTAL (test code = 2207) 0.5 MG/DL BILIRUBIN, DIRECT (test code = 2021) 0.1 MG/DL ALKALINE PHOSPHATASE (test c ode = 2204) 111 U/L AST (test code = 2218) 34 U/L ALT (test code = 2219) 21 U/L Brian ClaytonLIVER (HEPATIC) FUNCTION [id number] 00:00:00* Test Item Value Reference Range Interpretation Comme nts PROTEIN, TOTAL (test code = 2229) 8.0 G/DL ALBUMIN (test code = 2201) 4.8 G/DL BILIRUBIN, TOTAL (test code = 2207) 0.5 MG/DL BILIRUBIN, DIRECT (test code = 2021) 0.1 MG/DL ALKALINE PHOSPHATASE (test c ode = 2204) 111 U/L AST (test code = 2218) 34 U/L ALT (test code = 2219) 21 U/L Brian ClaytonCBC W/AUTO [id number] 00:00:00* Test Item Value Reference Range Interpretation Comme nts WBC (test code = 1001) 8.1 K/UL RBC (test code = 1002) 4.88 M/UL HEMOGLOBIN (test code = 1003) 14.4 G/DL HEMATOCRIT (test code = 1004) 41.9 % MCV (test code = 1005) 85.9 fL MCH (test code = 1006) 29.5 PG MCHC (test code = 1007) 34.4 G/DL RDW (test code = 1038) 12.9 % NEUTROPHILS (test code = 1008) 69.4 % LYMPHOCYTES (test code = 1010) 23.0 % MONOCYTES (test code = 1011) 6.1 % EOSINOPHILS (test code = 1012) 0.9 % BASOPHILS (test code = 1013) 0.6 % PLATELET COUNT (test code = 1015) 312 K/UL Brian Pastrana ForrestBASIC METABOLIC [id number] 00:00:00* Test Item Value Reference Range Interpretation Comme nts GLUCOSE (test code = 2217) 93 MG/DL BUN (test code = 2208) 14 MG/DL CREATININE (test code = 2214) 1.57 MG/DL eGFR AMER. (test cod e = 58280) 63 ML/MIN/1.73 eGFR NON- AMER. (test code = 17056) 54 ML/MIN/1.73 SODIUM (test code = 2231) 140 MEQ/L POTASSIUM (test code = 2228) 4.2 MEQ/L CHLORIDE (test code = 2215) 104 MEQ/L CARBON DIOXIDE (test code = 2206) 22 MEQ/L CALCIUM (test code = 2209) 9.9 MG/DL Brian Pastrana ForrestLIPID [id number] 00:00:00* Test Item Value Reference Range Interpretation Comme nts CHOLESTEROL (test code = 2210) 144 MG/DL TRIGLYCERIDES (test code = 2232) 274 MG/DL HDL CHOLESTEROL (test code = 2220) 34 MG/DL CALC LDL CHOL (test code = 2237) 74 MG/DL RISK RATIO LDL/HDL (test cod e = 2238) 2.18 RATIO Brian Pastrana ForrestHEMOGLOBIN [id number] 00:00:00* Test Item Value Reference Range Interpretation Comme nts HEMOGLOBIN A1c (test code = 90626) 5.2 % Brian Pastrana ForrestLIVER (HEPATIC) FUNCTION [id number] 00:00:00* Test Item Value Reference Range Interpretation Comme nts PROTEIN, TOTAL (test code = 2229) 8.0 G/DL ALBUMIN (test code = 2201) 4.8 G/DL BILIRUBIN, TOTAL (test code = 2207) 0.5 MG/DL BILIRUBIN, DIRECT (test code = 202) 0.1 MG/DL ALKALINE PHOSPHATASE (test c ode = 2204) 111 U/L AST (test code = 2218) 34 U/L ALT (test code = 2219) 21 U/L [facility] [id number] 00:00:00* Test Item Value Reference Range Interpretation Comme nts WBC (test code = 1001) 8.1 K/UL RBC (test code = 1002) 4.88 M/UL HEMOGLOBIN (test code = 1003) 14.4 G/DL HEMATOCRIT (test code = 1004) 41.9 % MCV (test code = 1005) 85.9 fL MCH (test code = 1006) 29.5 PG MCHC (test code = 1007) 34.4 G/DL RDW (test code = 1038) 12.9 % NEUTROPHILS (test code = 1008) 69.4 % LYMPHOCYTES (test code = 1010) 23.0 % MONOCYTES (test code = 1011) 6.1 % EOSINOPHILS (test code = 1012) 0.9 % BASOPHILS (test code = 1013) 0.6 % PLATELET COUNT (test code = 1015) 312 K/UL Brian Pastrana Red BankBASIC METABOLIC [id number] 00:00:00* Test Item Value Reference Range Interpretation Comme nts GLUCOSE (test code = 2217) 93 MG/DL BUN (test code = 2208) 14 MG/DL CREATININE (test code = 2214) 1.57 MG/DL eGFR AMER. (test cod e = 54142) 63 ML/MIN/1.73 eGFR NON- AMER. (test code = 01661) 54 ML/MIN/1.73 SODIUM (test code = 2231) 140 MEQ/L POTASSIUM (test code = 2228) 4.2 MEQ/L CHLORIDE (test code = 2215) 104 MEQ/L CARBON DIOXIDE (test code = 2206) 22 MEQ/L CALCIUM (test code = 2209) 9.9 MG/DL Brian Pastrana Red BankLIPID [id number] 00:00:00* Test Item Value Reference Range Interpretation Comme nts CHOLESTEROL (test code = 2210) 144 MG/DL TRIGLYCERIDES (test code = 2232) 274 MG/DL HDL CHOLESTEROL (test code = 2220) 34 MG/DL CALC LDL CHOL (test code = 2237) 74 MG/DL RISK RATIO LDL/HDL (test cod e = 2238) 2.18 RATIO Brian ClaytonHEMOGLOBIN [id number] 00:00:00* Test Item Value Reference Range Interpretation Comme rosa HEMOGLOBIN A1c (test code = 34160) 5.2 % Brian ClaytonLIVER (HEPATIC) FUNCTION [id number] 00:00:00* Test Item Value Reference Range Interpretation Comme nts PROTEIN, TOTAL (test code = 2229) 8.0 G/DL ALBUMIN (test code = 2201) 4.8 G/DL BILIRUBIN, TOTAL (test code = 2206) 0.5 MG/DL BILIRUBIN, DIRECT (test code = 2021) 0.1 MG/DL ALKALINE PHOSPHATASE (test c ode = 2203) 111 U/L AST (test code = 2218) 34 U/L ALT (test code = 2219) 21 U/L Brian ClaytonCBC W/AUTO [id number] 00:00:00* Test Item Value Reference Range Interpretation Comme nts WBC (test code = 1001) 8.1 K/UL RBC (test code = 1002) 4.88 M/UL HEMOGLOBIN (test code = 1003) 14.4 G/DL HEMATOCRIT (test code = 1004) 41.9 % MCV (test code = 1005) 85.9 fL MCH (test code = 1006) 29.5 PG MCHC (test code = 1007) 34.4 G/DL RDW (test code = 1038) 12.9 % NEUTROPHILS (test code = 1008) 69.4 % LYMPHOCYTES (test code = 1010) 23.0 % MONOCYTES (test code = 1011) 6.1 % EOSINOPHILS (test code = 1012) 0.9 % BASOPHILS (test code = 1013) 0.6 % PLATELET COUNT (test code = 1015) 312 K/UL Brian ClaytonBASIC METABOLIC [id number] 00:00:00* Test Item Value Reference Range Interpretation Comme nts GLUCOSE (test code = 2217) 93 MG/DL BUN (test code = 2208) 14 MG/DL CREATININE (test code = 2214) 1.57 MG/DL eGFR AMER. (test cod e = 58295) 63 ML/MIN/1.73 eGFR NON- AMER. (test code = 53919) 54 ML/MIN/1.73 SODIUM (test code = 2231) 140 MEQ/L POTASSIUM (test code = 2228) 4.2 MEQ/L CHLORIDE (test code = 2215) 104 MEQ/L CARBON DIOXIDE (test code = 2206) 22 MEQ/L CALCIUM (test code = 2209) 9.9 MG/DL Brian ClaytonCBC W/AUTO [id number] 00:00:00* Test Item Value Reference Range Interpretation Comme nts WBC (test code = 1001) 8.1 K/UL RBC (test code = 1002) 4.88 M/UL HEMOGLOBIN (test code = 1003) 14.4 G/DL HEMATOCRIT (test code = 1004) 41.9 % MCV (test code = 1005) 85.9 fL MCH (test code = 1006) 29.5 PG MCHC (test code = 1007) 34.4 G/DL RDW (test code = 1038) 12.9 % NEUTROPHILS (test code = 1008) 69.4 % LYMPHOCYTES (test code = 1010) 23.0 % MONOCYTES (test code = 1011) 6.1 % EOSINOPHILS (test code = 1012) 0.9 % BASOPHILS (test code = 1013) 0.6 % PLATELET COUNT (test code = 1015) 312 K/UL Brian ClaytonLIPID [id number] 00:00:00* Test Item Value Reference Range Interpretation Comme nts CHOLESTEROL (test code = 2210) 144 MG/DL TRIGLYCERIDES (test code = 2232) 274 MG/DL HDL CHOLESTEROL (test code = 2220) 34 MG/DL CALC LDL CHOL (test code = 2237) 74 MG/DL RISK RATIO LDL/HDL (test cod e = 2238) 2.18 RATIO Brian ClaytonHEMOGLOBIN [id number] 00:00:00* Test Item Value Reference Range Interpretation Comme rosa HEMOGLOBIN A1c (test code = 94512) 5.2 % Brian ClaytonBASIC METABOLIC [id number] 00:00:00* Test Item Value Reference Range Interpretation Comme nts GLUCOSE (test code = 2217) 93 MG/DL BUN (test code = 2208) 14 MG/DL CREATININE (test code = 2214) 1.57 MG/DL eGFR AMER. (test cod e = ) 63 ML/MIN/1.73 eGFR NON- AMER. (test code = 22528) 54 ML/MIN/1.73 SODIUM (test code = 2231) 140 MEQ/L POTASSIUM (test code = 2228) 4.2 MEQ/L CHLORIDE (test code = 2215) 104 MEQ/L CARBON DIOXIDE (test code = 2206) 22 MEQ/L CALCIUM (test code = 2209) 9.9 MG/DL Brian ClaytonLIPID [id number] 00:00:00* Test Item Value Reference Range Interpretation Comme nts CHOLESTEROL (test code = 2210) 144 MG/DL TRIGLYCERIDES (test code = 2232) 274 MG/DL HDL CHOLESTEROL (test code = 2220) 34 MG/DL CALC LDL CHOL (test code = 2237) 74 MG/DL RISK RATIO LDL/HDL (test cod e = 2237) 2.18 RATIO Brian ClaytonHEMOGLOBIN [id number] 00:00:00* Test Item Value Reference Range Interpretation Comme nts HEMOGLOBIN A1c (test code = 84517) 5.2 % Brian ClaytonLIVER (HEPATIC) FUNCTION [id number] 00:00:00* Test Item Value Reference Range Interpretation Comme nts PROTEIN, TOTAL (test code = 2229) 8.0 G/DL ALBUMIN (test code = 2201) 4.8 G/DL BILIRUBIN, TOTAL (test code = 2207) 0.5 MG/DL BILIRUBIN, DIRECT (test code = 2021) 0.1 MG/DL ALKALINE PHOSPHATASE (test c ode = 2203) 111 U/L AST (test code = 2218) 34 U/L ALT (test code = 2219) 21 U/L Brian ClaytonCBC W/AUTO [id number] 00:00:00* Test Item Value Reference Range Interpretation Comme nts WBC (test code = 1001) 8.1 K/UL RBC (test code = 1002) 4.88 M/UL HEMOGLOBIN (test code = 1003) 14.4 G/DL HEMATOCRIT (test code = 1004) 41.9 % MCV (test code = 1005) 85.9 fL MCH (test code = 1006) 29.5 PG MCHC (test code = 1007) 34.4 G/DL RDW (test code = 1038) 12.9 % NEUTROPHILS (test code = 1008) 69.4 % LYMPHOCYTES (test code = 1010) 23.0 % MONOCYTES (test code = 1011) 6.1 % EOSINOPHILS (test code = 1012) 0.9 % BASOPHILS (test code = 1013) 0.6 % PLATELET COUNT (test code = 1015) 312 K/UL Brian Pastrana ForrestBASIC METABOLIC [id number] 00:00:00* Test Item Value Reference Range Interpretation Comme nts GLUCOSE (test code = 2217) 93 MG/DL BUN (test code = 2208) 14 MG/DL CREATININE (test code = 2214) 1.57 MG/DL eGFR AMER. (test cod e = 69095) 63 ML/MIN/1.73 eGFR NON- AMER. (test code = 94252) 54 ML/MIN/1.73 SODIUM (test code = 2231) 140 MEQ/L POTASSIUM (test code = 2228) 4.2 MEQ/L CHLORIDE (test code = 2215) 104 MEQ/L CARBON DIOXIDE (test code = 2206) 22 MEQ/L CALCIUM (test code = 2209) 9.9 MG/DL Brian Pastrana ForrestLIPID [id number] 00:00:00* Test Item Value Reference Range Interpretation Comme nts CHOLESTEROL (test code = 2210) 144 MG/DL TRIGLYCERIDES (test code = 2232) 274 MG/DL HDL CHOLESTEROL (test code = 2220) 34 MG/DL CALC LDL CHOL (test code = 2237) 74 MG/DL RISK RATIO LDL/HDL (test cod e = 2238) 2.18 RATIO Brian ClaytonHEMOGLOBIN [id number] 00:00:00* Test Item Value Reference Range Interpretation Comme nts HEMOGLOBIN A1c (test code = 41092) 5.2 % Brian Pastrana ForrestLIVER (HEPATIC) FUNCTION [id number] 00:00:00* Test Item Value Reference Range Interpretation Comme nts PROTEIN, TOTAL (test code = 2229) 8.0 G/DL ALBUMIN (test code = 2201) 4.8 G/DL BILIRUBIN, TOTAL (test code = 7) 0.5 MG/DL BILIRUBIN, DIRECT (test code = 2021) 0.1 MG/DL ALKALINE PHOSPHATASE (test c ode = 2204) 111 U/L AST (test code = 2218) 34 U/L ALT (test code = 2219) 21 U/L [facility]FR[facility] [id number] 00:00:00* Test Item Value Reference Range Interpretation Comme nts WBC (test code = 1001) 8.1 K/UL RBC (test code = 1002) 4.88 M/UL HEMOGLOBIN (test code = 1003) 14.4 G/DL HEMATOCRIT (test code = 1004) 41.9 % MCV (test code = 1005) 85.9 fL MCH (test code = 1006) 29.5 PG MCHC (test code = 1007) 34.4 G/DL RDW (test code = 1038) 12.9 % NEUTROPHILS (test code = 1008) 69.4 % LYMPHOCYTES (test code = 1010) 23.0 % MONOCYTES (test code = 1011) 6.1 % EOSINOPHILS (test code = 1012) 0.9 % BASOPHILS (test code = 1013) 0.6 % PLATELET COUNT (test code = 1015) 312 K/UL Brian Pastrana Red BankBASI METABOLIC [id number] 00:00:00* Test Item Value Reference Range Interpretation Comme nts GLUCOSE (test code = 2217) 93 MG/DL BUN (test code = 2208) 14 MG/DL CREATININE (test code = 2214) 1.57 MG/DL eGFR AMER. (test cod e = 91442) 63 ML/MIN/1.73 eGFR NON- AMER. (test code = 35842) 54 ML/MIN/1.73 SODIUM (test code = 2231) 140 MEQ/L POTASSIUM (test code = 2228) 4.2 MEQ/L CHLORIDE (test code = 2215) 104 MEQ/L CARBON DIOXIDE (test code = 2206) 22 MEQ/L CALCIUM (test code = 2209) 9.9 MG/DL Brian Pastrana Red BankLIPID [id number] 00:00:00* Test Item Value Reference Range Interpretation Comme nts CHOLESTEROL (test code = 2210) 144 MG/DL TRIGLYCERIDES (test code = 2232) 274 MG/DL HDL CHOLESTEROL (test code = 2220) 34 MG/DL CALC LDL CHOL (test code = 2237) 74 MG/DL RISK RATIO LDL/HDL (test cod e = 2238) 2.18 RATIO Brian ClaytonHEMOGLOBIN [id number] 00:00:00* Test Item Value Reference Range Interpretation Comme rosa HEMOGLOBIN A1c (test code = 71743) 5.2 % Brian ClaytonLIVER (HEPATIC) FUNCTION [id number] 00:00:00* Test Item Value Reference Range Interpretation Comme nts PROTEIN, TOTAL (test code = 2229) 8.0 G/DL ALBUMIN (test code = 2201) 4.8 G/DL BILIRUBIN, TOTAL (test code = 2207) 0.5 MG/DL BILIRUBIN, DIRECT (test code = 2021) 0.1 MG/DL ALKALINE PHOSPHATASE (test c ode = 2204) 111 U/L AST (test code = 2218) 34 U/L ALT (test code = 2219) 21 U/L Brian ClaytonCBC W/AUTO [id number] 00:00:00* Test Item Value Reference Range Interpretation Comme nts WBC (test code = 1001) 8.1 K/UL RBC (test code = 1002) 4.88 M/UL HEMOGLOBIN (test code = 1003) 14.4 G/DL HEMATOCRIT (test code = 1004) 41.9 % MCV (test code = 1005) 85.9 fL MCH (test code = 1006) 29.5 PG MCHC (test code = 1007) 34.4 G/DL RDW (test code = 1038) 12.9 % NEUTROPHILS (test code = 1008) 69.4 % LYMPHOCYTES (test code = 1010) 23.0 % MONOCYTES (test code = 1011) 6.1 % EOSINOPHILS (test code = 1012) 0.9 % BASOPHILS (test code = 1013) 0.6 % PLATELET COUNT (test code = 1015) 312 K/UL Brian ClaytonBASIC METABOLIC [id number] 00:00:00* Test Item Value Reference Range Interpretation Comme nts GLUCOSE (test code = 2217) 93 MG/DL BUN (test code = 2208) 14 MG/DL CREATININE (test code = 2214) 1.57 MG/DL eGFR AMER. (test cod e = 55545) 63 ML/MIN/1.73 eGFR NON- AMER. (test code = 34026) 54 ML/MIN/1.73 SODIUM (test code = 2231) 140 MEQ/L POTASSIUM (test code = 2228) 4.2 MEQ/L CHLORIDE (test code = 2215) 104 MEQ/L CARBON DIOXIDE (test code = 2206) 22 MEQ/L CALCIUM (test code = 2209) 9.9 MG/DL Brian ClaytonLIPID [id number] 00:00:00* Test Item Value Reference Range Interpretation Comme nts CHOLESTEROL (test code = 2210) 144 MG/DL TRIGLYCERIDES (test code = 2232) 274 MG/DL HDL CHOLESTEROL (test code = 2220) 34 MG/DL CALC LDL CHOL (test code = 2237) 74 MG/DL RISK RATIO LDL/HDL (test cod e = 2238) 2.18 RATIO Brian ClaytonHEMOGLOBIN [id number] 00:00:00* Test Item Value Reference Range Interpretation Comme nts HEMOGLOBIN A1c (test code = 00306) 5.2 % Brian ClaytonLIVER (HEPATIC) FUNCTION [id number] 00:00:00* Test Item Value Reference Range Interpretation Comme nts PROTEIN, TOTAL (test code = 2229) 8.0 G/DL ALBUMIN (test code = 2201) 4.8 G/DL BILIRUBIN, TOTAL (test code = 2207) 0.5 MG/DL BILIRUBIN, DIRECT (test code = 2021) 0.1 MG/DL ALKALINE PHOSPHATASE (test c ode = 2204) 111 U/L AST (test code = 2218) 34 U/L ALT (test code = 2219) 21 U/L Brian ClaytonCBC W/AUTO [id number] 00:00:00* Test Item Value Reference Range Interpretation Comme nts WBC (test code = 1001) 8.1 K/UL RBC (test code = 1002) 4.88 M/UL HEMOGLOBIN (test code = 1003) 14.4 G/DL HEMATOCRIT (test code = 1004) 41.9 % MCV (test code = 1005) 85.9 fL MCH (test code = 1006) 29.5 PG MCHC (test code = 1007) 34.4 G/DL RDW (test code = 1038) 12.9 % NEUTROPHILS (test code = 1008) 69.4 % LYMPHOCYTES (test code = 1010) 23.0 % MONOCYTES (test code = 1011) 6.1 % EOSINOPHILS (test code = 1012) 0.9 % BASOPHILS (test code = 1013) 0.6 % PLATELET COUNT (test code = 1015) 312 K/UL Brian ClaytonBASIC METABOLIC [id number] 00:00:00* Test Item Value Reference Range Interpretation Comme nts GLUCOSE (test code = 2217) 93 MG/DL BUN (test code = 2208) 14 MG/DL CREATININE (test code = 2214) 1.57 MG/DL eGFR AMER. (test cod e = 22727) 63 ML/MIN/1.73 eGFR NON- AMER. (test code = 81507) 54 ML/MIN/1.73 SODIUM (test code = 2231) 140 MEQ/L POTASSIUM (test code = 2228) 4.2 MEQ/L CHLORIDE (test code = 2215) 104 MEQ/L CARBON DIOXIDE (test code = 2206) 22 MEQ/L CALCIUM (test code = 2209) 9.9 MG/DL Brian ClaytonLIPID [id number] 00:00:00* Test Item Value Reference Range Interpretation Comme nts CHOLESTEROL (test code = 2210) 144 MG/DL TRIGLYCERIDES (test code = 2232) 274 MG/DL HDL CHOLESTEROL (test code = 2220) 34 MG/DL CALC LDL CHOL (test code = 2237) 74 MG/DL RISK RATIO LDL/HDL (test cod e = 2238) 2.18 RATIO Brian ClaytonHEMOGLOBIN [id number] 00:00:00* Test Item Value Reference Range Interpretation Comme nts HEMOGLOBIN A1c (test code = 38188) 5.2 % Brian ClaytonLIVER (HEPATIC) FUNCTION [id number] 00:00:00* Test Item Value Reference Range Interpretation Comme nts PROTEIN, TOTAL (test code = 2229) 8.0 G/DL ALBUMIN (test code = 2201) 4.8 G/DL BILIRUBIN, TOTAL (test code = 7) 0.5 MG/DL BILIRUBIN, DIRECT (test code = 2021) 0.1 MG/DL ALKALINE PHOSPHATASE (test c ode = 2204) 111 U/L AST (test code = 2218) 34 U/L ALT (test code = 2219) 21 U/L Brian ClaytonCBC W/AUTO [id number] 00:00:00* Test Item Value Reference Range Interpretation Comme nts WBC (test code = 1001) 8.1 K/UL RBC (test code = 1002) 4.88 M/UL HEMOGLOBIN (test code = 1003) 14.4 G/DL HEMATOCRIT (test code = 1004) 41.9 % MCV (test code = 1005) 85.9 fL MCH (test code = 1006) 29.5 PG MCHC (test code = 1007) 34.4 G/DL RDW (test code = 1038) 12.9 % NEUTROPHILS (test code = 1008) 69.4 % LYMPHOCYTES (test code = 1010) 23.0 % MONOCYTES (test code = 1011) 6.1 % EOSINOPHILS (test code = 1012) 0.9 % BASOPHILS (test code = 1013) 0.6 % PLATELET COUNT (test code = 1015) 312 K/UL Brian ClaytonCBC W/AUTO [id number] 00:00:00* Test Item Value Reference Range Interpretation Comme nts WBC (test code = 1001) 6.4 K/UL RBC (test code = 1002) 4.76 M/UL HEMOGLOBIN (test code = 1003) 14.3 G/DL HEMATOCRIT (test code = 1004) 40.0 % MCV (test code = 1005) 84.0 fL MCH (test code = 1006) 30.0 PG MCHC (test code = 1007) 35.8 G/DL RDW (test code = 1038) 12.9 % NEUTROPHILS (test code = 1008) 49.0 % LYMPHOCYTES (test code = 1010) 39.2 % MONOCYTES (test code = 1011) 8.2 % EOSINOPHILS (test code = 1012) 2.8 % BASOPHILS (test code = 1013) 0.8 % PLATELET COUNT (test code = 1015) 307 K/UL LIPID [id number] 00:00:00* Test Item Value Reference Range Interpretation Comme nts CHOLESTEROL (test code = 2210) 150 MG/DL TRIGLYCERIDES (test code = 2232) 320 MG/DL HDL CHOLESTEROL (test code = 2220) 29 MG/DL CALC LDL CHOL (test code = 2237) 82 MG/DL RISK RATIO LDL/HDL (test cod e = 2238) 2.83 RATIO HEMOGLOBIN [id number] 00:00:00* Test Item Value Reference Range Interpretation Comme nts HEMOGLOBIN A1c (test code = 87650) 5.3 % COMPREHENSIVE METABOLIC [id number] 00:00:00* Test Item Value Reference Range Interpretation Comme nts GLUCOSE (test code = 2217) 93 MG/DL BUN (test code = 2208) 13 MG/DL CREATININE (test code = 2214) 1.28 MG/DL eGFR AMER. (test cod e = 86904) 81 ML/MIN/1.73 eGFR NON- AMER. (test code = 02855) 70 ML/MIN/1.73 CALC BUN/CREAT (test code = 2235) 10 RATIO SODIUM (test code = 2231) 139 MEQ/L POTASSIUM (test code = 2228) 4.3 MEQ/L CHLORIDE (test code = 2215) 103 MEQ/L CARBON DIOXIDE (test code = 2206) 22 MEQ/L CALCIUM (test code = 2209) 9.4 MG/DL PROTEIN, TOTAL (test code = 2229) 8.0 G/DL ALBUMIN (test code = 2201) 4.7 G/DL CALC GLOBULIN (test code = 2240) 3.3 G/DL CALC A/G RATIO (test code = 2234) 1.4 RATIO BILIRUBIN, TOTAL (test code = 2207) 0.3 MG/DL ALKALINE PHOSPHATASE (test code = 2204) 118 U/L AST (test code = 2218) 41 U/L ALT (test code = 2219) 27 U/L [id number] 00:00:00* Test Item Value Reference Range Interpretation Comme nts TSH, THIRD GENERATION (test code = 2821) 3.260 UIU/ML CBC W/AUTO [id number] 00:00:00* Test Item Value Reference Range Interpretation Comme nts WBC (test code = 1001) 6.4 K/UL RBC (test code = 1002) 4.76 M/UL HEMOGLOBIN (test code = 1003) 14.3 G/DL HEMATOCRIT (test code = 1004) 40.0 % MCV (test code = 1005) 84.0 fL MCH (test code = 1006) 30.0 PG MCHC (test code = 1007) 35.8 G/DL RDW (test code = 1038) 12.9 % NEUTROPHILS (test code = 1008) 49.0 % LYMPHOCYTES (test code = 1010) 39.2 % MONOCYTES (test code = 1011) 8.2 % EOSINOPHILS (test code = 1012) 2.8 % BASOPHILS (test code = 1013) 0.8 % PLATELET COUNT (test code = 1015) 307 K/UL LIPID [id number] 00:00:00* Test Item Value Reference Range Interpretation Comme nts CHOLESTEROL (test code = 2210) 150 MG/DL TRIGLYCERIDES (test code = 2232) 320 MG/DL HDL CHOLESTEROL (test code = 2220) 29 MG/DL CALC LDL CHOL (test code = 2237) 82 MG/DL RISK RATIO LDL/HDL (test cod e = 2238) 2.83 RATIO HEMOGLOBIN [id number] 00:00:00* Test Item Value Reference Range Interpretation Comme nts HEMOGLOBIN A1c (test code = 64691) 5.3 % COMPREHENSIVE METABOLIC [id number] 00:00:00* Test Item Value Reference Range Interpretation Comme nts GLUCOSE (test code = 2217) 93 MG/DL BUN (test code = 2208) 13 MG/DL CREATININE (test code = 2214) 1.28 MG/DL eGFR AMER. (test cod e = 10910) 81 ML/MIN/1.73 eGFR NON- AMER. (test code = 54851) 70 ML/MIN/1.73 CALC BUN/CREAT (test code = 2235) 10 RATIO SODIUM (test code = 2231) 139 MEQ/L POTASSIUM (test code = 2228) 4.3 MEQ/L CHLORIDE (test code = 2215) 103 MEQ/L CARBON DIOXIDE (test code = 2206) 22 MEQ/L CALCIUM (test code = 2209) 9.4 MG/DL PROTEIN, TOTAL (test code = 2229) 8.0 G/DL ALBUMIN (test code = 2201) 4.7 G/DL CALC GLOBULIN (test code = 2240) 3.3 G/DL CALC A/G RATIO (test code = 2234) 1.4 RATIO BILIRUBIN, TOTAL (test code = 2207) 0.3 MG/DL ALKALINE PHOSPHATASE (test code = 2204) 118 U/L AST (test code = 2218) 41 U/L ALT (test code = 2219) 27 U/L [id number] 00:00:00* Test Item Value Reference Range Interpretation Comme nts TSH, THIRD GENERATION (test code = 2821) 3.260 UIU/ML CBC W/AUTO [id number] 00:00:00* Test Item Value Reference Range Interpretation Comme nts WBC (test code = 1001) 6.4 K/UL RBC (test code = 1002) 4.76 M/UL HEMOGLOBIN (test code = 1003) 14.3 G/DL HEMATOCRIT (test code = 1004) 40.0 % MCV (test code = 1005) 84.0 fL MCH (test code = 1006) 30.0 PG MCHC (test code = 1007) 35.8 G/DL RDW (test code = 1038) 12.9 % NEUTROPHILS (test code = 1008) 49.0 % LYMPHOCYTES (test code = 1010) 39.2 % MONOCYTES (test code = 1011) 8.2 % EOSINOPHILS (test code = 1012) 2.8 % BASOPHILS (test code = 1013) 0.8 % PLATELET COUNT (test code = 1015) 307 K/UL LIPID [id number] 00:00:00* Test Item Value Reference Range Interpretation Comme nts CHOLESTEROL (test code = 2210) 150 MG/DL TRIGLYCERIDES (test code = 2232) 320 MG/DL HDL CHOLESTEROL (test code = 2220) 29 MG/DL CALC LDL CHOL (test code = 2237) 82 MG/DL RISK RATIO LDL/HDL (test cod e = 2238) 2.83 RATIO HEMOGLOBIN [id number] 00:00:00* Test Item Value Reference Range Interpretation Comme nts HEMOGLOBIN A1c (test code = 74586) 5.3 % COMPREHENSIVE METABOLIC [id number] 00:00:00* Test Item Value Reference Range Interpretation Comme nts GLUCOSE (test code = 2217) 93 MG/DL BUN (test code = 2208) 13 MG/DL CREATININE (test code = 2214) 1.28 MG/DL eGFR AMER. (test cod e = 88842) 81 ML/MIN/1.73 eGFR NON- AMER. (test code = 98770) 70 ML/MIN/1.73 CALC BUN/CREAT (test code = 2235) 10 RATIO SODIUM (test code = 2231) 139 MEQ/L POTASSIUM (test code = 2228) 4.3 MEQ/L CHLORIDE (test code = 2215) 103 MEQ/L CARBON DIOXIDE (test code = 2206) 22 MEQ/L CALCIUM (test code = 2209) 9.4 MG/DL PROTEIN, TOTAL (test code = 2229) 8.0 G/DL ALBUMIN (test code = 2201) 4.7 G/DL CALC GLOBULIN (test code = 2240) 3.3 G/DL CALC A/G RATIO (test code = 2234) 1.4 RATIO BILIRUBIN, TOTAL (test code = 2207) 0.3 MG/DL ALKALINE PHOSPHATASE (test code = 2204) 118 U/L AST (test code = 2218) 41 U/L ALT (test code = 2219) 27 U/L [id number] 00:00:00* Test Item Value Reference Range Interpretation Comme nts TSH, THIRD GENERATION (test code = 2821) 3.260 UIU/ML CBC W/AUTO [id number] 00:00:00* Test Item Value Reference Range Interpretation Comme nts WBC (test code = 1001) 6.4 K/UL RBC (test code = 1002) 4.76 M/UL HEMOGLOBIN (test code = 1003) 14.3 G/DL HEMATOCRIT (test code = 1004) 40.0 % MCV (test code = 1005) 84.0 fL MCH (test code = 1006) 30.0 PG MCHC (test code = 1007) 35.8 G/DL RDW (test code = 1038) 12.9 % NEUTROPHILS (test code = 1008) 49.0 % LYMPHOCYTES (test code = 1010) 39.2 % MONOCYTES (test code = 1011) 8.2 % EOSINOPHILS (test code = 1012) 2.8 % BASOPHILS (test code = 1013) 0.8 % PLATELET COUNT (test code = 1015) 307 K/UL LIPID [id number] 00:00:00* Test Item Value Reference Range Interpretation Comme nts CHOLESTEROL (test code = 2210) 150 MG/DL TRIGLYCERIDES (test code = 2232) 320 MG/DL HDL CHOLESTEROL (test code = 2220) 29 MG/DL CALC LDL CHOL (test code = 2237) 82 MG/DL RISK RATIO LDL/HDL (test cod e = 2238) 2.83 RATIO HEMOGLOBIN [id number] 00:00:00* Test Item Value Reference Range Interpretation Comme nts HEMOGLOBIN A1c (test code = 06298) 5.3 % COMPREHENSIVE METABOLIC [id number] 00:00:00* Test Item Value Reference Range Interpretation Comme nts GLUCOSE (test code = 2217) 93 MG/DL BUN (test code = 2208) 13 MG/DL CREATININE (test code = 2214) 1.28 MG/DL eGFR AMER. (test cod e = 15770) 81 ML/MIN/1.73 eGFR NON- AMER. (test code = 58329) 70 ML/MIN/1.73 CALC BUN/CREAT (test code = 2235) 10 RATIO SODIUM (test code = 2231) 139 MEQ/L POTASSIUM (test code = 2228) 4.3 MEQ/L CHLORIDE (test code = 2215) 103 MEQ/L CARBON DIOXIDE (test code = 2206) 22 MEQ/L CALCIUM (test code = 2209) 9.4 MG/DL PROTEIN, TOTAL (test code = 2229) 8.0 G/DL ALBUMIN (test code = 2201) 4.7 G/DL CALC GLOBULIN (test code = 2240) 3.3 G/DL CALC A/G RATIO (test code = 2234) 1.4 RATIO BILIRUBIN, TOTAL (test code = 2207) 0.3 MG/DL ALKALINE PHOSPHATASE (test code = 2204) 118 U/L AST (test code = 2218) 41 U/L ALT (test code = 2219) 27 U/L [id number] 00:00:00* Test Item Value Reference Range Interpretation Comme nts TSH, THIRD GENERATION (test code = 2821) 3.260 UIU/ML COMPREHENSIVE METABOLIC [id number] 00:00:00* Test Item Value Reference Range Interpretation Comme nts GLUCOSE (test code = 2217) 93 MG/DL BUN (test code = 2208) 13 MG/DL CREATININE (test code = 2214) 1.28 MG/DL eGFR AMER. (test cod e = 75007) 81 ML/MIN/1.73 eGFR NON- AMER. (test code = 34040) 70 ML/MIN/1.73 CALC BUN/CREAT (test code = 2235) 10 RATIO SODIUM (test code = 2231) 139 MEQ/L POTASSIUM (test code = 2228) 4.3 MEQ/L CHLORIDE (test code = 2215) 103 MEQ/L CARBON DIOXIDE (test code = 2206) 22 MEQ/L CALCIUM (test code = 2209) 9.4 MG/DL PROTEIN, TOTAL (test code = 2229) 8.0 G/DL ALBUMIN (test code = 2201) 4.7 G/DL CALC GLOBULIN (test code = 2240) 3.3 G/DL CALC A/G RATIO (test code = 2234) 1.4 RATIO BILIRUBIN, TOTAL (test code = 2207) 0.3 MG/DL ALKALINE PHOSPHATASE (test code = 2204) 118 U/L AST (test code = 2218) 41 U/L ALT (test code = 2219) 27 U/L Brian [id number] 00:00:00* Test Item Value Reference Range Interpretation Comme nts TSH, THIRD GENERATION (test code = 2821) 3.260 UIU/ML Brian ClaytonCBC W/AUTO [id number] 00:00:00* Test Item Value Reference Range Interpretation Comme nts WBC (test code = 1001) 6.4 K/UL RBC (test code = 1002) 4.76 M/UL HEMOGLOBIN (test code = 1003) 14.3 G/DL HEMATOCRIT (test code = 1004) 40.0 % MCV (test code = 1005) 84.0 fL MCH (test code = 1006) 30.0 PG MCHC (test code = 1007) 35.8 G/DL RDW (test code = 1038) 12.9 % NEUTROPHILS (test code = 1008) 49.0 % LYMPHOCYTES (test code = 1010) 39.2 % MONOCYTES (test code = 1011) 8.2 % EOSINOPHILS (test code = 1012) 2.8 % BASOPHILS (test code = 1013) 0.8 % PLATELET COUNT (test code = 1015) 307 K/UL Brian ClaytonCBC W/AUTO [id number] 00:00:00* Test Item Value Reference Range Interpretation Comme nts WBC (test code = 1001) 6.4 K/UL RBC (test code = 1002) 4.76 M/UL HEMOGLOBIN (test code = 1003) 14.3 G/DL HEMATOCRIT (test code = 1004) 40.0 % MCV (test code = 1005) 84.0 fL MCH (test code = 1006) 30.0 PG MCHC (test code = 1007) 35.8 G/DL RDW (test code = 1038) 12.9 % NEUTROPHILS (test code = 1008) 49.0 % LYMPHOCYTES (test code = 1010) 39.2 % MONOCYTES (test code = 1011) 8.2 % EOSINOPHILS (test code = 1012) 2.8 % BASOPHILS (test code = 1013) 0.8 % PLATELET COUNT (test code = 1015) 307 K/UL Brian ClaytonLIPID [id number] 00:00:00* Test Item Value Reference Range Interpretation Comme nts CHOLESTEROL (test code = 2210) 150 MG/DL TRIGLYCERIDES (test code = 2232) 320 MG/DL HDL CHOLESTEROL (test code = 2220) 29 MG/DL CALC LDL CHOL (test code = 2237) 82 MG/DL RISK RATIO LDL/HDL (test cod e = 2238) 2.83 RATIO Brian ClaytonHEMOGLOBIN [id number] 00:00:00* Test Item Value Reference Range Interpretation Comme nts HEMOGLOBIN A1c (test code = 26857) 5.3 % Brian ClaytonCOMPREHENSIVE METABOLIC [id number] 00:00:00* Test Item Value Reference Range Interpretation Comme nts GLUCOSE (test code = 2217) 93 MG/DL BUN (test code = 2208) 13 MG/DL CREATININE (test code = 2214) 1.28 MG/DL eGFR AMER. (test cod e = 86098) 81 ML/MIN/1.73 eGFR NON- AMER. (test code = 93216) 70 ML/MIN/1.73 CALC BUN/CREAT (test code = 2235) 10 RATIO SODIUM (test code = 2231) 139 MEQ/L POTASSIUM (test code = 2228) 4.3 MEQ/L CHLORIDE (test code = 2215) 103 MEQ/L CARBON DIOXIDE (test code = 2206) 22 MEQ/L CALCIUM (test code = 2209) 9.4 MG/DL PROTEIN, TOTAL (test code = 2229) 8.0 G/DL ALBUMIN (test code = 2201) 4.7 G/DL CALC GLOBULIN (test code = 2240) 3.3 G/DL CALC A/G RATIO (test code = 2234) 1.4 RATIO BILIRUBIN, TOTAL (test code = 2207) 0.3 MG/DL ALKALINE PHOSPHATASE (test code = 2204) 118 U/L AST (test code = 2218) 41 U/L ALT (test code = 2219) 27 U/L Brian [id number] 00:00:00* Test Item Value Reference Range Interpretation Comme nts TSH, THIRD GENERATION (test code = 2821) 3.260 UIU/ML Brian ClaytonCBC W/AUTO [id number] 00:00:00* Test Item Value Reference Range Interpretation Comme nts WBC (test code = 1001) 6.4 K/UL RBC (test code = 1002) 4.76 M/UL HEMOGLOBIN (test code = 1003) 14.3 G/DL HEMATOCRIT (test code = 1004) 40.0 % MCV (test code = 1005) 84.0 fL MCH (test code = 1006) 30.0 PG MCHC (test code = 1007) 35.8 G/DL RDW (test code = 1038) 12.9 % NEUTROPHILS (test code = 1008) 49.0 % LYMPHOCYTES (test code = 1010) 39.2 % MONOCYTES (test code = 1011) 8.2 % EOSINOPHILS (test code = 1012) 2.8 % BASOPHILS (test code = 1013) 0.8 % PLATELET COUNT (test code = 1015) 307 K/UL Brian ClaytonLIPID [id number] 00:00:00* Test Item Value Reference Range Interpretation Comme nts CHOLESTEROL (test code = 2210) 150 MG/DL TRIGLYCERIDES (test code = 2232) 320 MG/DL HDL CHOLESTEROL (test code = 2220) 29 MG/DL CALC LDL CHOL (test code = 2237) 82 MG/DL RISK RATIO LDL/HDL (test cod e = 2238) 2.83 RATIO Brian ClaytonHEMOGLOBIN [id number] 00:00:00* Test Item Value Reference Range Interpretation Comme rosa HEMOGLOBIN A1c (test code = 33910) 5.3 % Brian ClaytonCOMPREHENSIVE METABOLIC [id number] 00:00:00* Test Item Value Reference Range Interpretation Comme nts GLUCOSE (test code = 2217) 93 MG/DL BUN (test code = 2208) 13 MG/DL CREATININE (test code = 2214) 1.28 MG/DL eGFR AMER. (test cod e = 86682) 81 ML/MIN/1.73 eGFR NON- AMER. (test code = 96150) 70 ML/MIN/1.73 CALC BUN/CREAT (test code = 2235) 10 RATIO SODIUM (test code = 2231) 139 MEQ/L POTASSIUM (test code = 2228) 4.3 MEQ/L CHLORIDE (test code = 2215) 103 MEQ/L CARBON DIOXIDE (test code = 2206) 22 MEQ/L CALCIUM (test code = 2209) 9.4 MG/DL PROTEIN, TOTAL (test code = 2229) 8.0 G/DL ALBUMIN (test code = 2201) 4.7 G/DL CALC GLOBULIN (test code = 2240) 3.3 G/DL CALC A/G RATIO (test code = 2234) 1.4 RATIO BILIRUBIN, TOTAL (test code = 2207) 0.3 MG/DL ALKALINE PHOSPHATASE (test code = 2204) 118 U/L AST (test code = 2218) 41 U/L ALT (test code = 2219) 27 U/L Brian [id number] 00:00:00* Test Item Value Reference Range Interpretation Comme [facility] TSH, THIRD GENERATION (test code = 2821) 3.260 UIU/ML Brian ClaytonCBC W/AUTO [id number] 00:00:00* Test Item Value Reference Range Interpretation Comme [facility] WBC (test code = 1001) 6.4 K/UL RBC (test code = 1002) 4.76 M/UL HEMOGLOBIN (test code = 1003) 14.3 G/DL HEMATOCRIT (test code = 1004) 40.0 % MCV (test code = 1005) 84.0 fL MCH (test code = 1006) 30.0 PG MCHC (test code = 1007) 35.8 G/DL RDW (test code = 1038) 12.9 % NEUTROPHILS (test code = 1008) 49.0 % LYMPHOCYTES (test code = 1010) 39.2 % MONOCYTES (test code = 1011) 8.2 % EOSINOPHILS (test code = 1012) 2.8 % BASOPHILS (test code = 1013) 0.8 % PLATELET COUNT (test code = 1015) 307 K/UL Brian Pastrana AustinLIPID [id number] 00:00:00* Test Item Value Reference Range Interpretation Comme nts CHOLESTEROL (test code = 2210) 150 MG/DL TRIGLYCERIDES (test code = 2232) 320 MG/DL HDL CHOLESTEROL (test code = 2220) 29 MG/DL CALC LDL CHOL (test code = 2237) 82 MG/DL RISK RATIO LDL/HDL (test cod e = 2238) 2.83 RATIO Brian ClaytonHEMOGLOBIN [id number] 00:00:00* Test Item Value Reference Range Interpretation Comme nts HEMOGLOBIN A1c (test code = 19900) 5.3 % Brian ClaytonCOMPREHENSIVE METABOLIC [id number] 00:00:00* Test Item Value Reference Range Interpretation Comme nts GLUCOSE (test code = 2217) 93 MG/DL BUN (test code = 2208) 13 MG/DL CREATININE (test code = 2214) 1.28 MG/DL eGFR AMER. (test cod e = 90025) 81 ML/MIN/1.73 eGFR NON- AMER. (test code = 51624) 70 ML/MIN/1.73 CALC BUN/CREAT (test code = 2235) 10 RATIO SODIUM (test code = 2231) 139 MEQ/L POTASSIUM (test code = 2228) 4.3 MEQ/L CHLORIDE (test code = 2215) 103 MEQ/L CARBON DIOXIDE (test code = 2206) 22 MEQ/L CALCIUM (test code = 2209) 9.4 MG/DL PROTEIN, TOTAL (test code = 2229) 8.0 G/DL ALBUMIN (test code = 2201) 4.7 G/DL CALC GLOBULIN (test code = 2240) 3.3 G/DL CALC A/G RATIO (test code = 2234) 1.4 RATIO BILIRUBIN, TOTAL (test code = 2207) 0.3 MG/DL ALKALINE PHOSPHATASE (test code = 2204) 118 U/L AST (test code = 2218) 41 U/L ALT (test code = 2219) 27 U/L Brian Pastrana AustinLIPID [id number] 00:00:00* Test Item Value Reference Range Interpretation Comme nts CHOLESTEROL (test code = 2210) 150 MG/DL TRIGLYCERIDES (test code = 2232) 320 MG/DL HDL CHOLESTEROL (test code = 2220) 29 MG/DL CALC LDL CHOL (test code = 2237) 82 MG/DL RISK RATIO LDL/HDL (test cod e = 2238) 2.83 RATIO Brian [id number] 00:00:00* Test Item Value Reference Range Interpretation Comme rosa TSH, THIRD GENERATION (test code = 2821) 3.260 UIU/ML Brian ClaytonHEMOGLOBIN [id number] 00:00:00* Test Item Value Reference Range Interpretation Comme nts HEMOGLOBIN A1c (test code = 21445) 5.3 % Brian ClaytonCOMPREHENSIVE METABOLIC [id number] 00:00:00* Test Item Value Reference Range Interpretation Comme nts GLUCOSE (test code = 2217) 93 MG/DL BUN (test code = 2208) 13 MG/DL CREATININE (test code = 2214) 1.28 MG/DL eGFR AMER. (test cod e = 72013) 81 ML/MIN/1.73 eGFR NON- AMER. (test code = 22209) 70 ML/MIN/1.73 CALC BUN/CREAT (test code = 2235) 10 RATIO SODIUM (test code = 2231) 139 MEQ/L POTASSIUM (test code = 2228) 4.3 MEQ/L CHLORIDE (test code = 2215) 103 MEQ/L CARBON DIOXIDE (test code = 2206) 22 MEQ/L CALCIUM (test code = 2209) 9.4 MG/DL PROTEIN, TOTAL (test code = 2229) 8.0 G/DL ALBUMIN (test code = 2201) 4.7 G/DL CALC GLOBULIN (test code = 2240) 3.3 G/DL CALC A/G RATIO (test code = 2234) 1.4 RATIO BILIRUBIN, TOTAL (test code = 2207) 0.3 MG/DL ALKALINE PHOSPHATASE (test code = 2204) 118 U/L AST (test code = 2218) 41 U/L ALT (test code = 2219) 27 U/L Brian Pastrana [id number] 00:00:00* Test Item Value Reference Range Interpretation Comme nts TSH, THIRD GENERATION (test code = 2821) 3.260 UIU/ML Brian ClaytonCBC W/AUTO [id number] 00:00:00* Test Item Value Reference Range Interpretation Comme nts WBC (test code = 1001) 6.4 K/UL RBC (test code = 1002) 4.76 M/UL HEMOGLOBIN (test code = 1003) 14.3 G/DL HEMATOCRIT (test code = 1004) 40.0 % MCV (test code = 1005) 84.0 fL MCH (test code = 1006) 30.0 PG MCHC (test code = 1007) 35.8 G/DL RDW (test code = 1038) 12.9 % NEUTROPHILS (test code = 1008) 49.0 % LYMPHOCYTES (test code = 1010) 39.2 % MONOCYTES (test code = 1011) 8.2 % EOSINOPHILS (test code = 1012) 2.8 % BASOPHILS (test code = 1013) 0.8 % PLATELET COUNT (test code = 1015) 307 K/UL Brian ClaytonLIPID [id number] 00:00:00* Test Item Value Reference Range Interpretation Comme nts CHOLESTEROL (test code = 2210) 150 MG/DL TRIGLYCERIDES (test code = 2232) 320 MG/DL HDL CHOLESTEROL (test code = 2220) 29 MG/DL CALC LDL CHOL (test code = 2237) 82 MG/DL RISK RATIO LDL/HDL (test cod e = 2238) 2.83 RATIO Brian ClaytonHEMOGLOBIN [id number] 00:00:00* Test Item Value Reference Range Interpretation Comme rosa HEMOGLOBIN A1c (test code = 64178) 5.3 % Brian ClaytonCOMPREHENSIVE METABOLIC [id number] 00:00:00* Test Item Value Reference Range Interpretation Comme nts GLUCOSE (test code = 2217) 93 MG/DL BUN (test code = 2208) 13 MG/DL CREATININE (test code = 2214) 1.28 MG/DL eGFR AMER. (test cod e = 81347) 81 ML/MIN/1.73 eGFR NON- AMER. (test code = 74869) 70 ML/MIN/1.73 CALC BUN/CREAT (test code = 2235) 10 RATIO SODIUM (test code = 2231) 139 MEQ/L POTASSIUM (test code = 2228) 4.3 MEQ/L CHLORIDE (test code = 2215) 103 MEQ/L CARBON DIOXIDE (test code = 2206) 22 MEQ/L CALCIUM (test code = 2209) 9.4 MG/DL PROTEIN, TOTAL (test code = 2229) 8.0 G/DL ALBUMIN (test code = 2201) 4.7 G/DL CALC GLOBULIN (test code = 2240) 3.3 G/DL CALC A/G RATIO (test code = 2234) 1.4 RATIO BILIRUBIN, TOTAL (test code = 2207) 0.3 MG/DL ALKALINE PHOSPHATASE (test code = 2204) 118 U/L AST (test code = 2218) 41 U/L ALT (test code = 2219) 27 U/L Brian [id number] 00:00:00* Test Item Value Reference Range Interpretation Comme nts TSH, THIRD GENERATION (test code = 2821) 3.260 UIU/ML Brian ClaytonCBC W/AUTO [id number] 00:00:00* Test Item Value Reference Range Interpretation Comme nts WBC (test code = 1001) 6.4 K/UL RBC (test code = 1002) 4.76 M/UL HEMOGLOBIN (test code = 1003) 14.3 G/DL HEMATOCRIT (test code = 1004) 40.0 % MCV (test code = 1005) 84.0 fL MCH (test code = 1006) 30.0 PG MCHC (test code = 1007) 35.8 G/DL RDW (test code = 1038) 12.9 % NEUTROPHILS (test code = 1008) 49.0 % LYMPHOCYTES (test code = 1010) 39.2 % MONOCYTES (test code = 1011) 8.2 % EOSINOPHILS (test code = 1012) 2.8 % BASOPHILS (test code = 1013) 0.8 % PLATELET COUNT (test code = 1015) 307 K/UL Brian ClaytonLIPID [id number] 00:00:00* Test Item Value Reference Range Interpretation Comme nts CHOLESTEROL (test code = 2210) 150 MG/DL TRIGLYCERIDES (test code = 2232) 320 MG/DL HDL CHOLESTEROL (test code = 2220) 29 MG/DL CALC LDL CHOL (test code = 2237) 82 MG/DL RISK RATIO LDL/HDL (test cod e = 2238) 2.83 RATIO Brian ClaytonHEMOGLOBIN [id number] 00:00:00* Test Item Value Reference Range Interpretation Comme rosa HEMOGLOBIN A1c (test code = 85072) 5.3 % Brian ClaytonCOMPREHENSIVE METABOLIC [id number] 00:00:00* Test Item Value Reference Range Interpretation Comme nts GLUCOSE (test code = 2217) 93 MG/DL BUN (test code = 2208) 13 MG/DL CREATININE (test code = 2214) 1.28 MG/DL eGFR AMER. (test cod e = 43342) 81 ML/MIN/1.73 eGFR NON- AMER. (test code = 77722) 70 ML/MIN/1.73 CALC BUN/CREAT (test code = 2235) 10 RATIO SODIUM (test code = 2231) 139 MEQ/L POTASSIUM (test code = 2228) 4.3 MEQ/L CHLORIDE (test code = 2215) 103 MEQ/L CARBON DIOXIDE (test code = 2206) 22 MEQ/L CALCIUM (test code = 2209) 9.4 MG/DL PROTEIN, TOTAL (test code = 2229) 8.0 G/DL ALBUMIN (test code = 2201) 4.7 G/DL CALC GLOBULIN (test code = 2240) 3.3 G/DL CALC A/G RATIO (test code = 2234) 1.4 RATIO BILIRUBIN, TOTAL (test code = 2207) 0.3 MG/DL ALKALINE PHOSPHATASE (test code = 2204) 118 U/L AST (test code = 2218) 41 U/L ALT (test code = 2219) 27 U/L Brian [id number] 00:00:00* Test Item Value Reference Range Interpretation Comme rosa TSH, THIRD GENERATION (test code = 2821) 3.260 UIU/ML Brian ClaytonCBC W/AUTO [id number] 00:00:00* Test Item Value Reference Range Interpretation Comme rosa WBC (test code = 1001) 6.4 K/UL RBC (test code = 1002) 4.76 M/UL HEMOGLOBIN (test code = 1003) 14.3 G/DL HEMATOCRIT (test code = 1004) 40.0 % MCV (test code = 1005) 84.0 fL MCH (test code = 1006) 30.0 PG MCHC (test code = 1007) 35.8 G/DL RDW (test code = 1038) 12.9 % NEUTROPHILS (test code = 1008) 49.0 % LYMPHOCYTES (test code = 1010) 39.2 % MONOCYTES (test code = 1011) 8.2 % EOSINOPHILS (test code = 1012) 2.8 % BASOPHILS (test code = 1013) 0.8 % PLATELET COUNT (test code = 1015) 307 K/UL Brian Pastrana AustinLIPID [id number] 00:00:00* Test Item Value Reference Range Interpretation Comme nts CHOLESTEROL (test code = 2210) 150 MG/DL TRIGLYCERIDES (test code = 2232) 320 MG/DL HDL CHOLESTEROL (test code = 2220) 29 MG/DL CALC LDL CHOL (test code = 2237) 82 MG/DL RISK RATIO LDL/HDL (test cod e = 2238) 2.83 RATIO Brian ClaytonHEMOGLOBIN [id number] 00:00:00* Test Item Value Reference Range Interpretation Comme nts HEMOGLOBIN A1c (test code = 35832) 5.3 % Brian ClaytonCOMPREHENSIVE METABOLIC [id number] 00:00:00* Test Item Value Reference Range Interpretation Comme nts GLUCOSE (test code = 2217) 93 MG/DL BUN (test code = 2208) 13 MG/DL CREATININE (test code = 2214) 1.28 MG/DL eGFR AMER. (test cod e = 02636) 81 ML/MIN/1.73 eGFR NON- AMER. (test code = 55698) 70 ML/MIN/1.73 CALC BUN/CREAT (test code = 2235) 10 RATIO SODIUM (test code = 2231) 139 MEQ/L POTASSIUM (test code = 2228) 4.3 MEQ/L CHLORIDE (test code = 2215) 103 MEQ/L CARBON DIOXIDE (test code = 2206) 22 MEQ/L CALCIUM (test code = 2209) 9.4 MG/DL PROTEIN, TOTAL (test code = 2229) 8.0 G/DL ALBUMIN (test code = 2201) 4.7 G/DL CALC GLOBULIN (test code = 2240) 3.3 G/DL CALC A/G RATIO (test code = 2234) 1.4 RATIO BILIRUBIN, TOTAL (test code = 2207) 0.3 MG/DL ALKALINE PHOSPHATASE (test code = 2204) 118 U/L AST (test code = 2218) 41 U/L ALT (test code = 2219) 27 U/L Brian [id number] 00:00:00* Test Item Value Reference Range Interpretation Comme nts TSH, THIRD GENERATION (test code = 2821) 3.260 UIU/ML Brian ClaytonCBC W/AUTO [id number] 00:00:00* Test Item Value Reference Range Interpretation Comme nts WBC (test code = 1001) 6.4 K/UL RBC (test code = 1002) 4.76 M/UL HEMOGLOBIN (test code = 1003) 14.3 G/DL HEMATOCRIT (test code = 1004) 40.0 % MCV (test code = 1005) 84.0 fL MCH (test code = 1006) 30.0 PG MCHC (test code = 1007) 35.8 G/DL RDW (test code = 1038) 12.9 % NEUTROPHILS (test code = 1008) 49.0 % LYMPHOCYTES (test code = 1010) 39.2 % MONOCYTES (test code = 1011) 8.2 % EOSINOPHILS (test code = 1012) 2.8 % BASOPHILS (test code = 1013) 0.8 % PLATELET COUNT (test code = 1015) 307 K/UL Brian ClaytonLIPID [id number] 00:00:00* Test Item Value Reference Range Interpretation Comme nts CHOLESTEROL (test code = 2210) 150 MG/DL TRIGLYCERIDES (test code = 2232) 320 MG/DL HDL CHOLESTEROL (test code = 2220) 29 MG/DL CALC LDL CHOL (test code = 2237) 82 MG/DL RISK RATIO LDL/HDL (test cod e = 2238) 2.83 RATIO Brian ClaytonHEMOGLOBIN [id number] 00:00:00* Test Item Value Reference Range Interpretation Comme rosa HEMOGLOBIN A1c (test code = 26732) 5.3 % Brian ClaytonCOMPREHENSIVE METABOLIC [id number] 00:00:00* Test Item Value Reference Range Interpretation Comme nts GLUCOSE (test code = 2217) 93 MG/DL BUN (test code = 2208) 13 MG/DL CREATININE (test code = 2214) 1.28 MG/DL eGFR AMER. (test cod e = 51156) 81 ML/MIN/1.73 eGFR NON- AMER. (test code = 80312) 70 ML/MIN/1.73 CALC BUN/CREAT (test code = 2235) 10 RATIO SODIUM (test code = 2231) 139 MEQ/L POTASSIUM (test code = 2228) 4.3 MEQ/L CHLORIDE (test code = 2215) 103 MEQ/L CARBON DIOXIDE (test code = 2206) 22 MEQ/L CALCIUM (test code = 2209) 9.4 MG/DL PROTEIN, TOTAL (test code = 2229) 8.0 G/DL ALBUMIN (test code = 2201) 4.7 G/DL CALC GLOBULIN (test code = 2240) 3.3 G/DL CALC A/G RATIO (test code = 2234) 1.4 RATIO BILIRUBIN, TOTAL (test code = 2207) 0.3 MG/DL ALKALINE PHOSPHATASE (test code = 2204) 118 U/L AST (test code = 2218) 41 U/L ALT (test code = 2219) 27 U/L Brian [id number] 00:00:00* Test Item Value Reference Range Interpretation Comme nts TSH, THIRD GENERATION (test code = 2821) 3.260 UIU/ML Brian ClaytonCBC W/AUTO [id number] 00:00:00* Test Item Value Reference Range Interpretation Comme nts WBC (test code = 1001) 6.4 K/UL RBC (test code = 1002) 4.76 M/UL HEMOGLOBIN (test code = 1003) 14.3 G/DL HEMATOCRIT (test code = 1004) 40.0 % MCV (test code = 1005) 84.0 fL MCH (test code = 1006) 30.0 PG MCHC (test code = 1007) 35.8 G/DL RDW (test code = 1038) 12.9 % NEUTROPHILS (test code = 1008) 49.0 % LYMPHOCYTES (test code = 1010) 39.2 % MONOCYTES (test code = 1011) 8.2 % EOSINOPHILS (test code = 1012) 2.8 % BASOPHILS (test code = 1013) 0.8 % PLATELET COUNT (test code = 1015) 307 K/UL Brian ClaytonLIPID [id number] 00:00:00* Test Item Value Reference Range Interpretation Comme nts CHOLESTEROL (test code = 2210) 150 MG/DL TRIGLYCERIDES (test code = 2232) 320 MG/DL HDL CHOLESTEROL (test code = 2220) 29 MG/DL CALC LDL CHOL (test code = 2237) 82 MG/DL RISK RATIO LDL/HDL (test cod e = 2238) 2.83 RATIO Brian ClaytonHEMOGLOBIN [id number] 00:00:00* Test Item Value Reference Range Interpretation Comme nts HEMOGLOBIN A1c (test code = 86771) 5.3 % Brian ClaytonCOMPREHENSIVE METABOLIC [id number] 00:00:00* Test Item Value Reference Range Interpretation Comme nts GLUCOSE (test code = 2217) 94 MG/DL BUN (test code = 2208) 16 MG/DL CREATININE (test code = 2214) 1.57 MG/DL eGFR AMER. (test cod e = 55726) 64 ML/MIN/1.73 eGFR NON- AMER. (test code = 91475) 55 ML/MIN/1.73 CALC BUN/CREAT (test code = 2235) 10 RATIO SODIUM (test code = 2231) 141 MEQ/L POTASSIUM (test code = 2228) 3.7 MEQ/L CHLORIDE (test code = 2215) 97 MEQ/L CARBON DIOXIDE (test code = 2206) 23 MEQ/L CALCIUM (test code = 2209) 9.9 MG/DL PROTEIN, TOTAL (test code = 2229) 8.1 G/DL ALBUMIN (test code = 2201) 5.1 G/DL CALC GLOBULIN (test code = 2240) 3.0 G/DL CALC A/G RATIO (test code = 2234) 1.7 RATIO BILIRUBIN, TOTAL (test code = 2207) 0.6 MG/DL ALKALINE PHOSPHATASE (test code = 2204) 117 U/L AST (test code = 2218) 41 U/L ALT (test code = 2219) 38 U/L LIPID [id number] 00:00:00* Test Item Value Reference Range Interpretation Comme nts CHOLESTEROL (test code = 2210) 195 MG/DL TRIGLYCERIDES (test code = 2232) 366 MG/DL HDL CHOLESTEROL (test code = 2220) 28 MG/DL CALC LDL CHOL (test code = 2237) 94 MG/DL RISK RATIO LDL/HDL (test cod e = 2238) 3.35 RATIO CBC W/AUTO [id number] 00:00:00* Test Item Value Reference Range Interpretation Comme nts WBC (test code = 1001) 6.5 K/UL RBC (test code = 1002) 4.65 M/UL HEMOGLOBIN (test code = 1003) 14.7 G/DL HEMATOCRIT (test code = 1004) 40.6 % MCV (test code = 1005) 87.3 fL MCH (test code = 1006) 31.6 PG MCHC (test code = 1007) 36.2 G/DL RDW (test code = 1038) 12.9 % NEUTROPHILS (test code = 1008) 56.0 % LYMPHOCYTES (test code = 1010) 34.7 % MONOCYTES (test code = 1011) 7.6 % EOSINOPHILS (test code = 1012) 1.2 % BASOPHILS (test code = 1013) 0.5 % PLATELET COUNT (test code = 1015) 275 K/UL HEMOGLOBIN [id number] 00:00:00* Test Item Value Reference Range Interpretation Comme nts HEMOGLOBIN A1c (test code = 67747) 5.1 % [id number] 00:00:00* Test Item Value Reference Range Interpretation Comme nts TSH, THIRD GENERATION (test code = 2821) 3.430 UIU/ML COMPREHENSIVE METABOLIC [id number] 00:00:00* Test Item Value Reference Range Interpretation Comme nts GLUCOSE (test code = 2217) 94 MG/DL BUN (test code = 2208) 16 MG/DL CREATININE (test code = 2214) 1.57 MG/DL eGFR AMER. (test cod e = 82831) 64 ML/MIN/1.73 eGFR NON- AMER. (test code = 29841) 55 ML/MIN/1.73 CALC BUN/CREAT (test code = 2235) 10 RATIO SODIUM (test code = 2231) 141 MEQ/L POTASSIUM (test code = 2228) 3.7 MEQ/L CHLORIDE (test code = 2215) 97 MEQ/L CARBON DIOXIDE (test code = 2206) 23 MEQ/L CALCIUM (test code = 2209) 9.9 MG/DL PROTEIN, TOTAL (test code = 2229) 8.1 G/DL ALBUMIN (test code = 2201) 5.1 G/DL CALC GLOBULIN (test code = 2240) 3.0 G/DL CALC A/G RATIO (test code = 2234) 1.7 RATIO BILIRUBIN, TOTAL (test code = 2207) 0.6 MG/DL ALKALINE PHOSPHATASE (test code = 2204) 117 U/L AST (test code = 2218) 41 U/L ALT (test code = 2219) 38 U/L LIPID [id number] 00:00:00* Test Item Value Reference Range Interpretation Comme nts CHOLESTEROL (test code = 2210) 195 MG/DL TRIGLYCERIDES (test code = 2232) 366 MG/DL HDL CHOLESTEROL (test code = 2220) 28 MG/DL CALC LDL CHOL (test code = 2237) 94 MG/DL RISK RATIO LDL/HDL (test cod e = 2238) 3.35 RATIO CBC W/AUTO [id number] 00:00:00* Test Item Value Reference Range Interpretation Comme nts WBC (test code = 1001) 6.5 K/UL RBC (test code = 1002) 4.65 M/UL HEMOGLOBIN (test code = 1003) 14.7 G/DL HEMATOCRIT (test code = 1004) 40.6 % MCV (test code = 1005) 87.3 fL MCH (test code = 1006) 31.6 PG MCHC (test code = 1007) 36.2 G/DL RDW (test code = 1038) 12.9 % NEUTROPHILS (test code = 1008) 56.0 % LYMPHOCYTES (test code = 1010) 34.7 % MONOCYTES (test code = 1011) 7.6 % EOSINOPHILS (test code = 1012) 1.2 % BASOPHILS (test code = 1013) 0.5 % PLATELET COUNT (test code = 1015) 275 K/UL HEMOGLOBIN [id number] 00:00:00* Test Item Value Reference Range Interpretation Comme nts HEMOGLOBIN A1c (test code = 28977) 5.1 % [id number] 00:00:00* Test Item Value Reference Range Interpretation Comme nts TSH, THIRD GENERATION (test code = 2821) 3.430 UIU/ML COMPREHENSIVE METABOLIC [id number] 00:00:00* Test Item Value Reference Range Interpretation Comme nts GLUCOSE (test code = 2217) 94 MG/DL BUN (test code = 2208) 16 MG/DL CREATININE (test code = 2214) 1.57 MG/DL eGFR AMER. (test cod e = ) 64 ML/MIN/1.73 eGFR NON- AMER. (test code = 26970) 55 ML/MIN/1.73 CALC BUN/CREAT (test code = 2235) 10 RATIO SODIUM (test code = 2231) 141 MEQ/L POTASSIUM (test code = 2228) 3.7 MEQ/L CHLORIDE (test code = 2215) 97 MEQ/L CARBON DIOXIDE (test code = 2206) 23 MEQ/L CALCIUM (test code = 2209) 9.9 MG/DL PROTEIN, TOTAL (test code = 222) 8.1 G/DL ALBUMIN (test code = 2201) 5.1 G/DL CALC GLOBULIN (test code = 2240) 3.0 G/DL CALC A/G RATIO (test code = 2234) 1.7 RATIO BILIRUBIN, TOTAL (test code = 2206) 0.6 MG/DL ALKALINE PHOSPHATASE (test code = 2204) 117 U/L AST (test code = 2218) 41 U/L ALT (test code = 2219) 38 U/L LIPID [id number] 00:00:00* Test Item Value Reference Range Interpretation Comme nts CHOLESTEROL (test code = 2210) 195 MG/DL TRIGLYCERIDES (test code = 2232) 366 MG/DL HDL CHOLESTEROL (test code = 2220) 28 MG/DL CALC LDL CHOL (test code = 2237) 94 MG/DL RISK RATIO LDL/HDL (test cod e = 2237) 3.35 RATIO CBC W/AUTO [id number] 00:00:00* Test Item Value Reference Range Interpretation Comme nts WBC (test code = 1001) 6.5 K/UL RBC (test code = 1002) 4.65 M/UL HEMOGLOBIN (test code = 1003) 14.7 G/DL HEMATOCRIT (test code = 1004) 40.6 % MCV (test code = 1005) 87.3 fL MCH (test code = 1006) 31.6 PG MCHC (test code = 1007) 36.2 G/DL RDW (test code = 1038) 12.9 % NEUTROPHILS (test code = 1008) 56.0 % LYMPHOCYTES (test code = 1010) 34.7 % MONOCYTES (test code = 1011) 7.6 % EOSINOPHILS (test code = 1012) 1.2 % BASOPHILS (test code = 1013) 0.5 % PLATELET COUNT (test code = 1015) 275 K/UL HEMOGLOBIN [id number] 00:00:00* Test Item Value Reference Range Interpretation Comme nts HEMOGLOBIN A1c (test code = 49955) 5.1 % [id number] 00:00:00* Test Item Value Reference Range Interpretation Comme nts TSH, THIRD GENERATION (test code = 2821) 3.430 UIU/ML COMPREHENSIVE METABOLIC [id number] 00:00:00* Test Item Value Reference Range Interpretation Comme nts GLUCOSE (test code = 2217) 94 MG/DL BUN (test code = 2208) 16 MG/DL CREATININE (test code = 2214) 1.57 MG/DL eGFR AMER. (test cod e = 17962) 64 ML/MIN/1.73 eGFR NON- AMER. (test code = 07644) 55 ML/MIN/1.73 CALC BUN/CREAT (test code = 2235) 10 RATIO SODIUM (test code = 2231) 141 MEQ/L POTASSIUM (test code = 2228) 3.7 MEQ/L CHLORIDE (test code = 2215) 97 MEQ/L CARBON DIOXIDE (test code = 2206) 23 MEQ/L CALCIUM (test code = 2209) 9.9 MG/DL PROTEIN, TOTAL (test code = 2229) 8.1 G/DL ALBUMIN (test code = 2201) 5.1 G/DL CALC GLOBULIN (test code = 2240) 3.0 G/DL CALC A/G RATIO (test code = 2234) 1.7 RATIO BILIRUBIN, TOTAL (test code = 2207) 0.6 MG/DL ALKALINE PHOSPHATASE (test code = 2204) 117 U/L AST (test code = 2218) 41 U/L ALT (test code = 2219) 38 U/L LIPID [id number] 00:00:00* Test Item Value Reference Range Interpretation Comme nts CHOLESTEROL (test code = 2210) 195 MG/DL TRIGLYCERIDES (test code = 2232) 366 MG/DL HDL CHOLESTEROL (test code = 2220) 28 MG/DL CALC LDL CHOL (test code = 2237) 94 MG/DL RISK RATIO LDL/HDL (test cod e = 2238) 3.35 RATIO CBC W/AUTO [id number] 00:00:00* Test Item Value Reference Range Interpretation Comme nts WBC (test code = 1001) 6.5 K/UL RBC (test code = 1002) 4.65 M/UL HEMOGLOBIN (test code = 1003) 14.7 G/DL HEMATOCRIT (test code = 1004) 40.6 % MCV (test code = 1005) 87.3 fL MCH (test code = 1006) 31.6 PG MCHC (test code = 1007) 36.2 G/DL RDW (test code = 1038) 12.9 % NEUTROPHILS (test code = 1008) 56.0 % LYMPHOCYTES (test code = 1010) 34.7 % MONOCYTES (test code = 1011) 7.6 % EOSINOPHILS (test code = 1012) 1.2 % BASOPHILS (test code = 1013) 0.5 % PLATELET COUNT (test code = 1015) 275 K/UL HEMOGLOBIN [id number] 00:00:00* Test Item Value Reference Range Interpretation Comme nts HEMOGLOBIN A1c (test code = 87885) 5.1 % [id number] 00:00:00* Test Item Value Reference Range Interpretation Comme nts TSH, THIRD GENERATION (test code = 2821) 3.430 UIU/ML HEMOGLOBIN [id number] 00:00:00* Test Item Value Reference Range Interpretation Comme nts HEMOGLOBIN A1c (test code = 36817) 5.1 % Brian F [id number] 00:00:00* Test Item Value Reference Range Interpretation Comme nts TSH, THIRD GENERATION (test code = 2821) 3.430 UIU/ML Brian F AustinCOMPREHENSIVE METABOLIC [id number] 00:00:00* Test Item Value Reference Range Interpretation Comme nts GLUCOSE (test code = 2217) 94 MG/DL BUN (test code = 2208) 16 MG/DL CREATININE (test code = 2214) 1.57 MG/DL eGFR AMER. (test cod e = 39726) 64 ML/MIN/1.73 eGFR NON- AMER. (test code = 47609) 55 ML/MIN/1.73 CALC BUN/CREAT (test code = 2235) 10 RATIO SODIUM (test code = 2231) 141 MEQ/L POTASSIUM (test code = 2228) 3.7 MEQ/L CHLORIDE (test code = 2215) 97 MEQ/L CARBON DIOXIDE (test code = 2206) 23 MEQ/L CALCIUM (test code = 2209) 9.9 MG/DL PROTEIN, TOTAL (test code = 2229) 8.1 G/DL ALBUMIN (test code = 2201) 5.1 G/DL CALC GLOBULIN (test code = 2240) 3.0 G/DL CALC A/G RATIO (test code = 2234) 1.7 RATIO BILIRUBIN, TOTAL (test code = 2207) 0.6 MG/DL ALKALINE PHOSPHATASE (test code = 2204) 117 U/L AST (test code = 2218) 41 U/L ALT (test code = 2219) 38 U/L Brian ClaytonLIPID [id number] 00:00:00* Test Item Value Reference Range Interpretation Comme nts CHOLESTEROL (test code = 2210) 195 MG/DL TRIGLYCERIDES (test code = 2232) 366 MG/DL HDL CHOLESTEROL (test code = 2220) 28 MG/DL CALC LDL CHOL (test code = 2237) 94 MG/DL RISK RATIO LDL/HDL (test cod e = 2238) 3.35 RATIO Brian ClaytonCBC W/AUTO [id number] 00:00:00* Test Item Value Reference Range Interpretation Comme nts WBC (test code = 1001) 6.5 K/UL RBC (test code = 1002) 4.65 M/UL HEMOGLOBIN (test code = 1003) 14.7 G/DL HEMATOCRIT (test code = 1004) 40.6 % MCV (test code = 1005) 87.3 fL MCH (test code = 1006) 31.6 PG MCHC (test code = 1007) 36.2 G/DL RDW (test code = 1038) 12.9 % NEUTROPHILS (test code = 1008) 56.0 % LYMPHOCYTES (test code = 1010) 34.7 % MONOCYTES (test code = 1011) 7.6 % EOSINOPHILS (test code = 1012) 1.2 % BASOPHILS (test code = 1013) 0.5 % PLATELET COUNT (test code = 1015) 275 K/UL Brian F AustinHEMOGLOBIN [id number] 00:00:00* Test Item Value Reference Range Interpretation Comme rosa HEMOGLOBIN A1c (test code = 67957) 5.1 % Brian Pastrana [id number] 00:00:00* Test Item Value Reference Range Interpretation Comme rosa TSH, THIRD GENERATION (test code = 2821) 3.430 UIU/ML Brian ClaytonCOMPREHENSIVE METABOLIC [id number] 00:00:00* Test Item Value Reference Range Interpretation Comme nts GLUCOSE (test code = 2217) 94 MG/DL BUN (test code = 2208) 16 MG/DL CREATININE (test code = 2214) 1.57 MG/DL eGFR AMER. (test cod e = 58091) 64 ML/MIN/1.73 eGFR NON- AMER. (test code = 01076) 55 ML/MIN/1.73 CALC BUN/CREAT (test code = 2235) 10 RATIO SODIUM (test code = 2231) 141 MEQ/L POTASSIUM (test code = 2228) 3.7 MEQ/L CHLORIDE (test code = 2215) 97 MEQ/L CARBON DIOXIDE (test code = 2206) 23 MEQ/L CALCIUM (test code = 2209) 9.9 MG/DL PROTEIN, TOTAL (test code = 2229) 8.1 G/DL ALBUMIN (test code = 2201) 5.1 G/DL CALC GLOBULIN (test code = 2240) 3.0 G/DL CALC A/G RATIO (test code = 2234) 1.7 RATIO BILIRUBIN, TOTAL (test code = 2207) 0.6 MG/DL ALKALINE PHOSPHATASE (test code = 2204) 117 U/L AST (test code = 2218) 41 U/L ALT (test code = 2219) 38 U/L Brian ClaytonCOMPREHENSIVE METABOLIC [id number] 00:00:00* Test Item Value Reference Range Interpretation Comme nts GLUCOSE (test code = 2217) 94 MG/DL BUN (test code = 2208) 16 MG/DL CREATININE (test code = 2214) 1.57 MG/DL eGFR AMER. (test cod e = 75764) 64 ML/MIN/1.73 eGFR NON- AMER. (test code = 23378) 55 ML/MIN/1.73 CALC BUN/CREAT (test code = 2235) 10 RATIO SODIUM (test code = 2231) 141 MEQ/L POTASSIUM (test code = 2228) 3.7 MEQ/L CHLORIDE (test code = 2215) 97 MEQ/L CARBON DIOXIDE (test code = 2206) 23 MEQ/L CALCIUM (test code = 2209) 9.9 MG/DL PROTEIN, TOTAL (test code = 2229) 8.1 G/DL ALBUMIN (test code = 2201) 5.1 G/DL CALC GLOBULIN (test code = 2240) 3.0 G/DL CALC A/G RATIO (test code = 2234) 1.7 RATIO BILIRUBIN, TOTAL (test code = 2207) 0.6 MG/DL ALKALINE PHOSPHATASE (test code = 2204) 117 U/L AST (test code = 2218) 41 U/L ALT (test code = 2219) 38 U/L Brian ClaytonLIPID [id number] 00:00:00* Test Item Value Reference Range Interpretation Comme nts CHOLESTEROL (test code = 2210) 195 MG/DL TRIGLYCERIDES (test code = 2232) 366 MG/DL HDL CHOLESTEROL (test code = 2220) 28 MG/DL CALC LDL CHOL (test code = 2237) 94 MG/DL RISK RATIO LDL/HDL (test cod e = 2238) 3.35 RATIO Brian ClaytonCBC W/AUTO [id number] 00:00:00* Test Item Value Reference Range Interpretation Comme nts WBC (test code = 1001) 6.5 K/UL RBC (test code = 1002) 4.65 M/UL HEMOGLOBIN (test code = 1003) 14.7 G/DL HEMATOCRIT (test code = 1004) 40.6 % MCV (test code = 1005) 87.3 fL MCH (test code = 1006) 31.6 PG MCHC (test code = 1007) 36.2 G/DL RDW (test code = 1038) 12.9 % NEUTROPHILS (test code = 1008) 56.0 % LYMPHOCYTES (test code = 1010) 34.7 % MONOCYTES (test code = 1011) 7.6 % EOSINOPHILS (test code = 1012) 1.2 % BASOPHILS (test code = 1013) 0.5 % PLATELET COUNT (test code = 1015) 275 K/UL Brian ClaytonHEMOGLOBIN [id number] 00:00:00* Test Item Value Reference Range Interpretation Comme rosa HEMOGLOBIN A1c (test code = 04128) 5.1 % Brian [id number] 00:00:00* Test Item Value Reference Range Interpretation Comme rosa TSH, THIRD GENERATION (test code = 2821) 3.430 UIU/ML Brian ClaytonCOMPREHENSIVE METABOLIC [id number] 00:00:00* Test Item Value Reference Range Interpretation Comme nts GLUCOSE (test code = 2217) 94 MG/DL BUN (test code = 2208) 16 MG/DL CREATININE (test code = 2214) 1.57 MG/DL eGFR AMER. (test cod e = 60503) 64 ML/MIN/1.73 eGFR NON- AMER. (test code = 78159) 55 ML/MIN/1.73 CALC BUN/CREAT (test code = 2235) 10 RATIO SODIUM (test code = 2231) 141 MEQ/L POTASSIUM (test code = 2228) 3.7 MEQ/L CHLORIDE (test code = 2215) 97 MEQ/L CARBON DIOXIDE (test code = 2206) 23 MEQ/L CALCIUM (test code = 2209) 9.9 MG/DL PROTEIN, TOTAL (test code = 2229) 8.1 G/DL ALBUMIN (test code = 2201) 5.1 G/DL CALC GLOBULIN (test code = 2240) 3.0 G/DL CALC A/G RATIO (test code = 2234) 1.7 RATIO BILIRUBIN, TOTAL (test code = 2207) 0.6 MG/DL ALKALINE PHOSPHATASE (test code = 2204) 117 U/L AST (test code = 2218) 41 U/L ALT (test code = 2219) 38 U/L Brian ClaytonLIPID [id number] 00:00:00* Test Item Value Reference Range Interpretation Comme nts CHOLESTEROL (test code = 2210) 195 MG/DL TRIGLYCERIDES (test code = 2232) 366 MG/DL HDL CHOLESTEROL (test code = 2220) 28 MG/DL CALC LDL CHOL (test code = 2237) 94 MG/DL RISK RATIO LDL/HDL (test cod e = 2238) 3.35 RATIO Brian ClaytonCBC W/AUTO [id number] 00:00:00* Test Item Value Reference Range Interpretation Comme nts WBC (test code = 1001) 6.5 K/UL RBC (test code = 1002) 4.65 M/UL HEMOGLOBIN (test code = 1003) 14.7 G/DL HEMATOCRIT (test code = 1004) 40.6 % MCV (test code = 1005) 87.3 fL MCH (test code = 1006) 31.6 PG MCHC (test code = 1007) 36.2 G/DL RDW (test code = 1038) 12.9 % NEUTROPHILS (test code = 1008) 56.0 % LYMPHOCYTES (test code = 1010) 34.7 % MONOCYTES (test code = 1011) 7.6 % EOSINOPHILS (test code = 1012) 1.2 % BASOPHILS (test code = 1013) 0.5 % PLATELET COUNT (test code = 1015) 275 K/UL Brian ClaytonHEMOGLOBIN [id number] 00:00:00* Test Item Value Reference Range Interpretation Comme rosa HEMOGLOBIN A1c (test code = 61595) 5.1 % Brian Pastrana [id number] 00:00:00* Test Item Value Reference Range Interpretation Comme nts TSH, THIRD GENERATION (test code = 2821) 3.430 UIU/ML Brian ClaytonLIPID [id number] 00:00:00* Test Item Value Reference Range Interpretation Comme nts CHOLESTEROL (test code = 2210) 195 MG/DL TRIGLYCERIDES (test code = 2232) 366 MG/DL HDL CHOLESTEROL (test code = 2220) 28 MG/DL CALC LDL CHOL (test code = 2237) 94 MG/DL RISK RATIO LDL/HDL (test cod e = 2238) 3.35 RATIO Brian ClaytonCBC W/AUTO [id number] 00:00:00* Test Item Value Reference Range Interpretation Comme nts WBC (test code = 1001) 6.5 K/UL RBC (test code = 1002) 4.65 M/UL HEMOGLOBIN (test code = 1003) 14.7 G/DL HEMATOCRIT (test code = 1004) 40.6 % MCV (test code = 1005) 87.3 fL MCH (test code = 1006) 31.6 PG MCHC (test code = 1007) 36.2 G/DL RDW (test code = 1038) 12.9 % NEUTROPHILS (test code = 1008) 56.0 % LYMPHOCYTES (test code = 1010) 34.7 % MONOCYTES (test code = 1011) 7.6 % EOSINOPHILS (test code = 1012) 1.2 % BASOPHILS (test code = 1013) 0.5 % PLATELET COUNT (test code = 1015) 275 K/UL Brian ClaytonHEMOGLOBIN [id number] 00:00:00* Test Item Value Reference Range Interpretation Comme rosa HEMOGLOBIN A1c (test code = 98412) 5.1 % Brian [id number] 00:00:00* Test Item Value Reference Range Interpretation Comme nts TSH, THIRD GENERATION (test code = 2821) 3.430 UIU/ML Brian ClaytonCOMPREHENSIVE METABOLIC [id number] 00:00:00* Test Item Value Reference Range Interpretation Comme nts GLUCOSE (test code = 2217) 94 MG/DL BUN (test code = 2208) 16 MG/DL CREATININE (test code = 2214) 1.57 MG/DL eGFR AMER. (test cod e = 56207) 64 ML/MIN/1.73 eGFR NON- AMER. (test code = 87519) 55 ML/MIN/1.73 CALC BUN/CREAT (test code = 2235) 10 RATIO SODIUM (test code = 2231) 141 MEQ/L POTASSIUM (test code = 2228) 3.7 MEQ/L CHLORIDE (test code = 2215) 97 MEQ/L CARBON DIOXIDE (test code = 2206) 23 MEQ/L CALCIUM (test code = 2209) 9.9 MG/DL PROTEIN, TOTAL (test code = 2229) 8.1 G/DL ALBUMIN (test code = 2201) 5.1 G/DL CALC GLOBULIN (test code = 2240) 3.0 G/DL CALC A/G RATIO (test code = 2234) 1.7 RATIO BILIRUBIN, TOTAL (test code = 2207) 0.6 MG/DL ALKALINE PHOSPHATASE (test code = 2204) 117 U/L AST (test code = 2218) 41 U/L ALT (test code = 2219) 38 U/L Brian ClaytonLIPID [id number] 00:00:00* Test Item Value Reference Range Interpretation Comme nts CHOLESTEROL (test code = 2210) 195 MG/DL TRIGLYCERIDES (test code = 2232) 366 MG/DL HDL CHOLESTEROL (test code = 2220) 28 MG/DL CALC LDL CHOL (test code = 2237) 94 MG/DL RISK RATIO LDL/HDL (test cod e = 2238) 3.35 RATIO Brian ClaytonCBC W/AUTO [id number] 00:00:00* Test Item Value Reference Range Interpretation Comme nts WBC (test code = 1001) 6.5 K/UL RBC (test code = 1002) 4.65 M/UL HEMOGLOBIN (test code = 1003) 14.7 G/DL HEMATOCRIT (test code = 1004) 40.6 % MCV (test code = 1005) 87.3 fL MCH (test code = 1006) 31.6 PG MCHC (test code = 1007) 36.2 G/DL RDW (test code = 1038) 12.9 % NEUTROPHILS (test code = 1008) 56.0 % LYMPHOCYTES (test code = 1010) 34.7 % MONOCYTES (test code = 1011) 7.6 % EOSINOPHILS (test code = 1012) 1.2 % BASOPHILS (test code = 1013) 0.5 % PLATELET COUNT (test code = 1015) 275 K/UL Brian ClaytonHEMOGLOBIN [id number] 00:00:00* Test Item Value Reference Range Interpretation Comme rosa HEMOGLOBIN A1c (test code = 48876) 5.1 % Brian [id number] 00:00:00* Test Item Value Reference Range Interpretation Comme rosa TSH, THIRD GENERATION (test code = 2821) 3.430 UIU/ML Brian ClaytonCOMPREHENSIVE METABOLIC [id number] 00:00:00* Test Item Value Reference Range Interpretation Comme nts GLUCOSE (test code = 2217) 94 MG/DL BUN (test code = 2208) 16 MG/DL CREATININE (test code = 2214) 1.57 MG/DL eGFR AMER. (test cod e = 33995) 64 ML/MIN/1.73 eGFR NON- AMER. (test code = 21915) 55 ML/MIN/1.73 CALC BUN/CREAT (test code = 2235) 10 RATIO SODIUM (test code = 2231) 141 MEQ/L POTASSIUM (test code = 2228) 3.7 MEQ/L CHLORIDE (test code = 2215) 97 MEQ/L CARBON DIOXIDE (test code = 2206) 23 MEQ/L CALCIUM (test code = 2209) 9.9 MG/DL PROTEIN, TOTAL (test code = 2229) 8.1 G/DL ALBUMIN (test code = 2201) 5.1 G/DL CALC GLOBULIN (test code = 2240) 3.0 G/DL CALC A/G RATIO (test code = 2234) 1.7 RATIO BILIRUBIN, TOTAL (test code = 2207) 0.6 MG/DL ALKALINE PHOSPHATASE (test code = 2204) 117 U/L AST (test code = 2218) 41 U/L ALT (test code = 2219) 38 U/L Brian Zeina ClaytonLIPID [id number] 00:00:00* Test Item Value Reference Range Interpretation Comme nts CHOLESTEROL (test code = 2210) 195 MG/DL TRIGLYCERIDES (test code = 2232) 366 MG/DL HDL CHOLESTEROL (test code = 2220) 28 MG/DL CALC LDL CHOL (test code = 2237) 94 MG/DL RISK RATIO LDL/HDL (test cod e = 2238) 3.35 RATIO Brian Pastrana ForrestCBC W/AUTO [id number] 00:00:00* Test Item Value Reference Range Interpretation Comme nts WBC (test code = 1001) 6.5 K/UL RBC (test code = 1002) 4.65 M/UL HEMOGLOBIN (test code = 1003) 14.7 G/DL HEMATOCRIT (test code = 1004) 40.6 % MCV (test code = 1005) 87.3 fL MCH (test code = 1006) 31.6 PG MCHC (test code = 1007) 36.2 G/DL RDW (test code = 1038) 12.9 % NEUTROPHILS (test code = 1008) 56.0 % LYMPHOCYTES (test code = 1010) 34.7 % MONOCYTES (test code = 1011) 7.6 % EOSINOPHILS (test code = 1012) 1.2 % BASOPHILS (test code = 1013) 0.5 % PLATELET COUNT (test code = 1015) 275 K/UL Brian ClaytonHEMOGLOBIN [id number] 00:00:00* Test Item Value Reference Range Interpretation Comme nts HEMOGLOBIN A1c (test code = 97052) 5.1 % Brian [id number] 00:00:00* Test Item Value Reference Range Interpretation Comme nts TSH, THIRD GENERATION (test code = 2821) 3.430 UIU/ML Brian ClaytonCOMPREHENSIVE METABOLIC [id number] 00:00:00* Test Item Value Reference Range Interpretation Comme nts GLUCOSE (test code = 2217) 94 MG/DL BUN (test code = 2208) 16 MG/DL CREATININE (test code = 2214) 1.57 MG/DL eGFR AMER. (test cod e = 09635) 64 ML/MIN/1.73 eGFR NON- AMER. (test code = 78677) 55 ML/MIN/1.73 CALC BUN/CREAT (test code = 2235) 10 RATIO SODIUM (test code = 2231) 141 MEQ/L POTASSIUM (test code = 2228) 3.7 MEQ/L CHLORIDE (test code = 2215) 97 MEQ/L CARBON DIOXIDE (test code = 2206) 23 MEQ/L CALCIUM (test code = 2209) 9.9 MG/DL PROTEIN, TOTAL (test code = 2229) 8.1 G/DL ALBUMIN (test code = 2201) 5.1 G/DL CALC GLOBULIN (test code = 2240) 3.0 G/DL CALC A/G RATIO (test code = 2234) 1.7 RATIO BILIRUBIN, TOTAL (test code = 2207) 0.6 MG/DL ALKALINE PHOSPHATASE (test code = 2204) 117 U/L AST (test code = 2218) 41 U/L ALT (test code = 2219) 38 U/L Brian ClaytonLIPID [id number] 00:00:00* Test Item Value Reference Range Interpretation Comme nts CHOLESTEROL (test code = 2210) 195 MG/DL TRIGLYCERIDES (test code = 2232) 366 MG/DL HDL CHOLESTEROL (test code = 2220) 28 MG/DL CALC LDL CHOL (test code = 2237) 94 MG/DL RISK RATIO LDL/HDL (test cod e = 2238) 3.35 RATIO Brian ClaytonCBC W/AUTO [id number] 00:00:00* Test Item Value Reference Range Interpretation Comme nts WBC (test code = 1001) 6.5 K/UL RBC (test code = 1002) 4.65 M/UL HEMOGLOBIN (test code = 1003) 14.7 G/DL HEMATOCRIT (test code = 1004) 40.6 % MCV (test code = 1005) 87.3 fL MCH (test code = 1006) 31.6 PG MCHC (test code = 1007) 36.2 G/DL RDW (test code = 1038) 12.9 % NEUTROPHILS (test code = 1008) 56.0 % LYMPHOCYTES (test code = 1010) 34.7 % MONOCYTES (test code = 1011) 7.6 % EOSINOPHILS (test code = 1012) 1.2 % BASOPHILS (test code = 1013) 0.5 % PLATELET COUNT (test code = 1015) 275 K/UL Brian ClaytonHEMOGLOBIN [id number] 00:00:00* Test Item Value Reference Range Interpretation Comme rosa HEMOGLOBIN A1c (test code = 83585) 5.1 % Brian [id number] 00:00:00* Test Item Value Reference Range Interpretation Comme nts TSH, THIRD GENERATION (test code = 2821) 3.430 UIU/ML Brian ClaytonCOMPREHENSIVE METABOLIC [id number] 00:00:00* Test Item Value Reference Range Interpretation Comme nts GLUCOSE (test code = 2217) 94 MG/DL BUN (test code = 2208) 16 MG/DL CREATININE (test code = 2214) 1.57 MG/DL eGFR AMER. (test cod e = 78248) 64 ML/MIN/1.73 eGFR NON- AMER. (test code = 01740) 55 ML/MIN/1.73 CALC BUN/CREAT (test code = 2235) 10 RATIO SODIUM (test code = 2231) 141 MEQ/L POTASSIUM (test code = 2228) 3.7 MEQ/L CHLORIDE (test code = 2215) 97 MEQ/L CARBON DIOXIDE (test code = 2206) 23 MEQ/L CALCIUM (test code = 2209) 9.9 MG/DL PROTEIN, TOTAL (test code = 2229) 8.1 G/DL ALBUMIN (test code = 2201) 5.1 G/DL CALC GLOBULIN (test code = 2240) 3.0 G/DL CALC A/G RATIO (test code = 2234) 1.7 RATIO BILIRUBIN, TOTAL (test code = 2207) 0.6 MG/DL ALKALINE PHOSPHATASE (test code = 2204) 117 U/L AST (test code = 2218) 41 U/L ALT (test code = 2219) 38 U/L Brian ClaytonLIPID [id number] 00:00:00* Test Item Value Reference Range Interpretation Comme nts CHOLESTEROL (test code = 2210) 195 MG/DL TRIGLYCERIDES (test code = 2232) 366 MG/DL HDL CHOLESTEROL (test code = 2220) 28 MG/DL CALC LDL CHOL (test code = 2237) 94 MG/DL RISK RATIO LDL/HDL (test cod e = 2238) 3.35 RATIO Brian ClaytonCBC W/AUTO [id number] 00:00:00* Test Item Value Reference Range Interpretation Comme nts WBC (test code = 1001) 6.5 K/UL RBC (test code = 1002) 4.65 M/UL HEMOGLOBIN (test code = 1003) 14.7 G/DL HEMATOCRIT (test code = 1004) 40.6 % MCV (test code = 1005) 87.3 fL MCH (test code = 1006) 31.6 PG MCHC (test code = 1007) 36.2 G/DL RDW (test code = 1038) 12.9 % NEUTROPHILS (test code = 1008) 56.0 % LYMPHOCYTES (test code = 1010) 34.7 % MONOCYTES (test code = 1011) 7.6 % EOSINOPHILS (test code = 1012) 1.2 % BASOPHILS (test code = 1013) 0.5 % PLATELET COUNT (test code = 1015) 275 K/UL Brian ClaytonHEMOGLOBIN [id number] 00:00:00* Test Item Value Reference Range Interpretation Comme rosa HEMOGLOBIN A1c (test code = 01507) 5.1 % Brian [id number] 00:00:00* Test Item Value Reference Range Interpretation Comme nts TSH, THIRD GENERATION (test code = 2821) 3.430 UIU/ML Brian ClaytonCOMPREHENSIVE METABOLIC [id number] 00:00:00* Test Item Value Reference Range Interpretation Comme nts GLUCOSE (test code = 2217) 94 MG/DL BUN (test code = 2208) 16 MG/DL CREATININE (test code = 2214) 1.57 MG/DL eGFR AMER. (test cod e = 55114) 64 ML/MIN/1.73 eGFR NON- AMER. (test code = 96361) 55 ML/MIN/1.73 CALC BUN/CREAT (test code = 2235) 10 RATIO SODIUM (test code = 2231) 141 MEQ/L POTASSIUM (test code = 2228) 3.7 MEQ/L CHLORIDE (test code = 2215) 97 MEQ/L CARBON DIOXIDE (test code = 2206) 23 MEQ/L CALCIUM (test code = 2209) 9.9 MG/DL PROTEIN, TOTAL (test code = 2229) 8.1 G/DL ALBUMIN (test code = 2201) 5.1 G/DL CALC GLOBULIN (test code = 2240) 3.0 G/DL CALC A/G RATIO (test code = 2234) 1.7 RATIO BILIRUBIN, TOTAL (test code = 2207) 0.6 MG/DL ALKALINE PHOSPHATASE (test code = 2204) 117 U/L AST (test code = 2218) 41 U/L ALT (test code = 2219) 38 U/L Brian ClaytonLIPID [id number] 00:00:00* Test Item Value Reference Range Interpretation Comme nts CHOLESTEROL (test code = 2210) 195 MG/DL TRIGLYCERIDES (test code = 2232) 366 MG/DL HDL CHOLESTEROL (test code = 2220) 28 MG/DL CALC LDL CHOL (test code = 2237) 94 MG/DL RISK RATIO LDL/HDL (test cod e = 2238) 3.35 RATIO Brian ClaytonCBC W/AUTO [id number] 00:00:00* Test Item Value Reference Range Interpretation Comme nts WBC (test code = 1001) 6.5 K/UL RBC (test code = 1002) 4.65 M/UL HEMOGLOBIN (test code = 1003) 14.7 G/DL HEMATOCRIT (test code = 1004) 40.6 % MCV (test code = 1005) 87.3 fL MCH (test code = 1006) 31.6 PG MCHC (test code = 1007) 36.2 G/DL RDW (test code = 1038) 12.9 % NEUTROPHILS (test code = 1008) 56.0 % LYMPHOCYTES (test code = 1010) 34.7 % MONOCYTES (test code = 1011) 7.6 % EOSINOPHILS (test code = 1012) 1.2 % BASOPHILS (test code = 1013) 0.5 % PLATELET COUNT (test code = 1015) 275 K/UL Brian Pastrana AustinLIPID [id number] 00:00:00* Test Item Value Reference Range Interpretation Comme nts CHOLESTEROL (test code = 2210) 232 MG/DL TRIGLYCERIDES (test code = 2232) 333 MG/DL HDL CHOLESTEROL (test code = 2220) 27 MG/DL CALC LDL CHOL (test code = 2237) 138 MG/DL RISK RATIO LDL/HDL (test cod e = 2238) 5.13 RATIO COMPREHENSIVE METABOLIC [id number] 00:00:00* Test Item Value Reference Range Interpretation Comme nts GLUCOSE (test code = 2217) 99 MG/DL BUN (test code = 2208) 11 MG/DL CREATININE (test code = 2214) 1.12 MG/DL eGFR AMER. (test cod e = 69567) 96 ML/MIN/1.73 eGFR NON- AMER. (test code = 62679) 83 ML/MIN/1.73 CALC BUN/CREAT (test code = 2235) 10 RATIO SODIUM (test code = 2231) 150 MEQ/L POTASSIUM (test code = 2228) 4.7 MEQ/L CHLORIDE (test code = 2215) 109 MEQ/L CARBON DIOXIDE (test code = 2206) 25 MEQ/L CALCIUM (test code = 2209) 9.8 MG/DL PROTEIN, TOTAL (test code = 2229) 8.4 G/DL ALBUMIN (test code = 2201) 4.8 G/DL CALC GLOBULIN (test code = 2240) 3.6 G/DL CALC A/G RATIO (test code = 2234) 1.3 RATIO BILIRUBIN, TOTAL (test code = 2207) 0.5 MG/DL ALKALINE PHOSPHATASE (test code = 2204) 124 U/L AST (test code = 2218) 121 U/L ALT (test code = 2219) 125 U/L ACUTE HEPATITIS [id number] 00:00:00* Test Item Value Reference Range Interpretation Comme nts HEPATITIS A IgM (test code = 16876) NON-REACTIVE HEPATITIS B CORE IgM (test c ode = 4644) NON-REACTIVE HEPATITIS B SURF AG (test co de = 2739) NON-REACTIVE HEPATITIS C ANTIBODY (test c ode = 9451) NON-REACTIVE HCV INDEX (test code = 87005) 0.17 INTERPRETATION HEPATITIS A: (test code = 2552) (NOTE) INTERPRETATION HEPATITIS B: (test code = 02253) (NOTE) INTERPRETATION HEPATITIS C: (test code = 71042) (NOTE) LIPID [id number] 00:00:00* Test Item Value Reference Range Interpretation Comme nts CHOLESTEROL (test code = 2210) 232 MG/DL TRIGLYCERIDES (test code = 2232) 333 MG/DL HDL CHOLESTEROL (test code = 2220) 27 MG/DL CALC LDL CHOL (test code = 2237) 138 MG/DL RISK RATIO LDL/HDL (test cod e = 2238) 5.13 RATIO COMPREHENSIVE METABOLIC [id number] 00:00:00* Test Item Value Reference Range Interpretation Comme nts GLUCOSE (test code = 2217) 99 MG/DL BUN (test code = 2208) 11 MG/DL CREATININE (test code = 2214) 1.12 MG/DL eGFR AMER. (test cod e = 53047) 96 ML/MIN/1.73 eGFR NON- AMER. (test code = 17877) 83 ML/MIN/1.73 CALC BUN/CREAT (test code = 2235) 10 RATIO SODIUM (test code = 2231) 150 MEQ/L POTASSIUM (test code = 2228) 4.7 MEQ/L CHLORIDE (test code = 2215) 109 MEQ/L CARBON DIOXIDE (test code = 2206) 25 MEQ/L CALCIUM (test code = 2209) 9.8 MG/DL PROTEIN, TOTAL (test code = 2229) 8.4 G/DL ALBUMIN (test code = 2201) 4.8 G/DL CALC GLOBULIN (test code = 2240) 3.6 G/DL CALC A/G RATIO (test code = 2234) 1.3 RATIO BILIRUBIN, TOTAL (test code = 2207) 0.5 MG/DL ALKALINE PHOSPHATASE (test code = 2204) 124 U/L AST (test code = 2218) 121 U/L ALT (test code = 2219) 125 U/L ACUTE HEPATITIS [id number] 00:00:00* Test Item Value Reference Range Interpretation Comme nts HEPATITIS A IgM (test code = 49937) NON-REACTIVE HEPATITIS B CORE IgM (test c ode = 4644) NON-REACTIVE HEPATITIS B SURF AG (test co de = 2739) NON-REACTIVE HEPATITIS C ANTIBODY (test c ode = 4600) NON-REACTIVE HCV INDEX (test code = 48371) 0.17 INTERPRETATION HEPATITIS A: (test code = 2552) (NOTE) INTERPRETATION HEPATITIS B: (test code = 43949) (NOTE) INTERPRETATION HEPATITIS C: (test code = 92565) (NOTE) LIPID [id number] 00:00:00* Test Item Value Reference Range Interpretation Comme nts CHOLESTEROL (test code = 2210) 232 MG/DL TRIGLYCERIDES (test code = 2232) 333 MG/DL HDL CHOLESTEROL (test code = 2220) 27 MG/DL CALC LDL CHOL (test code = 2237) 138 MG/DL RISK RATIO LDL/HDL (test cod e = 2238) 5.13 RATIO COMPREHENSIVE METABOLIC [id number] 00:00:00* Test Item Value Reference Range Interpretation Comme nts GLUCOSE (test code = 2217) 99 MG/DL BUN (test code = 2208) 11 MG/DL CREATININE (test code = 2214) 1.12 MG/DL eGFR AMER. (test cod e = 24421) 96 ML/MIN/1.73 eGFR NON- AMER. (test code = 46896) 83 ML/MIN/1.73 CALC BUN/CREAT (test code = 2235) 10 RATIO SODIUM (test code = 2231) 150 MEQ/L POTASSIUM (test code = 2228) 4.7 MEQ/L CHLORIDE (test code = 2215) 109 MEQ/L CARBON DIOXIDE (test code = 2206) 25 MEQ/L CALCIUM (test code = 2209) 9.8 MG/DL PROTEIN, TOTAL (test code = 2229) 8.4 G/DL ALBUMIN (test code = 2201) 4.8 G/DL CALC GLOBULIN (test code = 2240) 3.6 G/DL CALC A/G RATIO (test code = 2234) 1.3 RATIO BILIRUBIN, TOTAL (test code = 2207) 0.5 MG/DL ALKALINE PHOSPHATASE (test code = 2204) 124 U/L AST (test code = 2218) 121 U/L ALT (test code = 2219) 125 U/L ACUTE HEPATITIS [id number] 00:00:00* Test Item Value Reference Range Interpretation Comme nts HEPATITIS A IgM (test code = 25400) NON-REACTIVE HEPATITIS B CORE IgM (test c ode = 4644) NON-REACTIVE HEPATITIS B SURF AG (test co de = 2139) NON-REACTIVE HEPATITIS C ANTIBODY (test c ode = 6019) NON-REACTIVE HCV INDEX (test code = 66991) 0.17 INTERPRETATION HEPATITIS A: (test code = 2552) (NOTE) INTERPRETATION HEPATITIS B: (test code = 83495) (NOTE) INTERPRETATION HEPATITIS C: (test code = 87252) (NOTE) LIPID [id number] 00:00:00* Test Item Value Reference Range Interpretation Comme nts CHOLESTEROL (test code = 2210) 232 MG/DL TRIGLYCERIDES (test code = 2232) 333 MG/DL HDL CHOLESTEROL (test code = 2220) 27 MG/DL CALC LDL CHOL (test code = 2237) 138 MG/DL RISK RATIO LDL/HDL (test cod e = 2238) 5.13 RATIO COMPREHENSIVE METABOLIC [id number] 00:00:00* Test Item Value Reference Range Interpretation Comme nts GLUCOSE (test code = 2217) 99 MG/DL BUN (test code = 2208) 11 MG/DL CREATININE (test code = 2214) 1.12 MG/DL eGFR AMER. (test cod e = 86504) 96 ML/MIN/1.73 eGFR NON- AMER. (test code = 03208) 83 ML/MIN/1.73 CALC BUN/CREAT (test code = 2235) 10 RATIO SODIUM (test code = 2231) 150 MEQ/L POTASSIUM (test code = 2228) 4.7 MEQ/L CHLORIDE (test code = 2215) 109 MEQ/L CARBON DIOXIDE (test code = 2206) 25 MEQ/L CALCIUM (test code = 2209) 9.8 MG/DL PROTEIN, TOTAL (test code = 2229) 8.4 G/DL ALBUMIN (test code = 2201) 4.8 G/DL CALC GLOBULIN (test code = 2240) 3.6 G/DL CALC A/G RATIO (test code = 2234) 1.3 RATIO BILIRUBIN, TOTAL (test code = 2207) 0.5 MG/DL ALKALINE PHOSPHATASE (test code = 2204) 124 U/L AST (test code = 2218) 121 U/L ALT (test code = 2219) 125 U/L ACUTE HEPATITIS [id number] 00:00:00* Test Item Value Reference Range Interpretation Comme nts HEPATITIS A IgM (test code = 02013) NON-REACTIVE HEPATITIS B CORE IgM (test c ode = 4644) NON-REACTIVE HEPATITIS B SURF AG (test co de = 2739) NON-REACTIVE HEPATITIS C ANTIBODY (test c ode = 4675) NON-REACTIVE HCV INDEX (test code = 99671) 0.17 INTERPRETATION HEPATITIS A: (test code = 2552) (NOTE) INTERPRETATION HEPATITIS B: (test code = 96608) (NOTE) INTERPRETATION HEPATITIS C: (test code = 81823) (NOTE) LIPID [id number] 00:00:00* Test Item Value Reference Range Interpretation Comme nts CHOLESTEROL (test code = 2210) 232 MG/DL TRIGLYCERIDES (test code = 2232) 333 MG/DL HDL CHOLESTEROL (test code = 2220) 27 MG/DL CALC LDL CHOL (test code = 2237) 138 MG/DL RISK RATIO LDL/HDL (test cod e = 2238) 5.13 RATIO Brian Zeina AustinLIPID [id number] 00:00:00* Test Item Value Reference Range Interpretation Comme nts CHOLESTEROL (test code = 2210) 232 MG/DL TRIGLYCERIDES (test code = 2232) 333 MG/DL HDL CHOLESTEROL (test code = 2220) 27 MG/DL CALC LDL CHOL (test code = 2237) 138 MG/DL RISK RATIO LDL/HDL (test cod e = 2238) 5.13 RATIO Brian F Red BankCOMPREHENSIVE METABOLIC [id number] 00:00:00* Test Item Value Reference Range Interpretation Comme nts GLUCOSE (test code = 2217) 99 MG/DL BUN (test code = 2208) 11 MG/DL CREATININE (test code = 2214) 1.12 MG/DL eGFR AMER. (test cod e = 52380) 96 ML/MIN/1.73 eGFR NON- AMER. (test code = 89086) 83 ML/MIN/1.73 CALC BUN/CREAT (test code = 2235) 10 RATIO SODIUM (test code = 2231) 150 MEQ/L POTASSIUM (test code = 2228) 4.7 MEQ/L CHLORIDE (test code = 2215) 109 MEQ/L CARBON DIOXIDE (test code = 2206) 25 MEQ/L CALCIUM (test code = 2209) 9.8 MG/DL PROTEIN, TOTAL (test code = 2229) 8.4 G/DL ALBUMIN (test code = 2201) 4.8 G/DL CALC GLOBULIN (test code = 2240) 3.6 G/DL CALC A/G RATIO (test code = 2234) 1.3 RATIO BILIRUBIN, TOTAL (test code = 2207) 0.5 MG/DL ALKALINE PHOSPHATASE (test code = 2204) 124 U/L AST (test code = 2218) 121 U/L ALT (test code = 2219) 125 U/L Brian ClaytonACUTE HEPATITIS [id number] 00:00:00* Test Item Value Reference Range Interpretation Comme nts HEPATITIS A IgM (test code = 55693) NON-REACTIVE HEPATITIS B CORE IgM (test c ode = 4644) NON-REACTIVE HEPATITIS B SURF AG (test co de = 2739) NON-REACTIVE HEPATITIS C ANTIBODY (test c ode = 4675) NON-REACTIVE HCV INDEX (test code = 41899) 0.17 INTERPRETATION HEPATITIS A: (test code = 2552) (NOTE) INTERPRETATION HEPATITIS B: (test code = 44042) (NOTE) INTERPRETATION HEPATITIS C: (test code = 05114) (NOTE) Brian ClaytonLIPID [id number] 00:00:00* Test Item Value Reference Range Interpretation Comme nts CHOLESTEROL (test code = 2210) 232 MG/DL TRIGLYCERIDES (test code = 2232) 333 MG/DL HDL CHOLESTEROL (test code = 2220) 27 MG/DL CALC LDL CHOL (test code = 2237) 138 MG/DL RISK RATIO LDL/HDL (test cod e = 2238) 5.13 RATIO Brian ClaytonCOMPREHENSIVE METABOLIC [id number] 00:00:00* Test Item Value Reference Range Interpretation Comme nts GLUCOSE (test code = 2217) 99 MG/DL BUN (test code = 2208) 11 MG/DL CREATININE (test code = 2214) 1.12 MG/DL eGFR AMER. (test cod e = 61952) 96 ML/MIN/1.73 eGFR NON- AMER. (test code = 80579) 83 ML/MIN/1.73 CALC BUN/CREAT (test code = 2235) 10 RATIO SODIUM (test code = 2231) 150 MEQ/L POTASSIUM (test code = 2228) 4.7 MEQ/L CHLORIDE (test code = 2215) 109 MEQ/L CARBON DIOXIDE (test code = 2206) 25 MEQ/L CALCIUM (test code = 2209) 9.8 MG/DL PROTEIN, TOTAL (test code = 2229) 8.4 G/DL ALBUMIN (test code = 2201) 4.8 G/DL CALC GLOBULIN (test code = 2240) 3.6 G/DL CALC A/G RATIO (test code = 2234) 1.3 RATIO BILIRUBIN, TOTAL (test code = 2207) 0.5 MG/DL ALKALINE PHOSPHATASE (test code = 2204) 124 U/L AST (test code = 2218) 121 U/L ALT (test code = 2219) 125 U/L Brian ClaytonACUTE HEPATITIS [id number] 00:00:00* Test Item Value Reference Range Interpretation Comme nts HEPATITIS A IgM (test code = 96947) NON-REACTIVE HEPATITIS B CORE IgM (test c ode = 4644) NON-REACTIVE HEPATITIS B SURF AG (test co de = 2739) NON-REACTIVE HEPATITIS C ANTIBODY (test c ode = 4675) NON-REACTIVE HCV INDEX (test code = 56173) 0.17 INTERPRETATION HEPATITIS A: (test code = 2552) (NOTE) INTERPRETATION HEPATITIS B: (test code = 90829) (NOTE) INTERPRETATION HEPATITIS C: (test code = 45762) (NOTE) Brian ClaytonLIPID [id number] 00:00:00* Test Item Value Reference Range Interpretation Comme nts CHOLESTEROL (test code = 2210) 232 MG/DL TRIGLYCERIDES (test code = 2232) 333 MG/DL HDL CHOLESTEROL (test code = 2220) 27 MG/DL CALC LDL CHOL (test code = 2237) 138 MG/DL RISK RATIO LDL/HDL (test cod e = 2238) 5.13 RATIO Brian ClaytonCOMPREHENSIVE METABOLIC [id number] 00:00:00* Test Item Value Reference Range Interpretation Comme nts GLUCOSE (test code = 2217) 99 MG/DL BUN (test code = 2208) 11 MG/DL CREATININE (test code = 2214) 1.12 MG/DL eGFR AMER. (test cod e = 87824) 96 ML/MIN/1.73 eGFR NON- AMER. (test code = 39394) 83 ML/MIN/1.73 CALC BUN/CREAT (test code = 2235) 10 RATIO SODIUM (test code = 2231) 150 MEQ/L POTASSIUM (test code = 2228) 4.7 MEQ/L CHLORIDE (test code = 2215) 109 MEQ/L CARBON DIOXIDE (test code = 2206) 25 MEQ/L CALCIUM (test code = 2209) 9.8 MG/DL PROTEIN, TOTAL (test code = 2229) 8.4 G/DL ALBUMIN (test code = 2201) 4.8 G/DL CALC GLOBULIN (test code = 2240) 3.6 G/DL CALC A/G RATIO (test code = 2234) 1.3 RATIO BILIRUBIN, TOTAL (test code = 2207) 0.5 MG/DL ALKALINE PHOSPHATASE (test code = 2204) 124 U/L AST (test code = 2218) 121 U/L ALT (test code = 2219) 125 U/L Brian ClaytonCOMPREHENSIVE METABOLIC [id number] 00:00:00* Test Item Value Reference Range Interpretation Comme nts GLUCOSE (test code = 2217) 99 MG/DL BUN (test code = 2208) 11 MG/DL CREATININE (test code = 2214) 1.12 MG/DL eGFR AMER. (test cod e = 07579) 96 ML/MIN/1.73 eGFR NON- AMER. (test code = 01950) 83 ML/MIN/1.73 CALC BUN/CREAT (test code = 2235) 10 RATIO SODIUM (test code = 2231) 150 MEQ/L POTASSIUM (test code = 2228) 4.7 MEQ/L CHLORIDE (test code = 2215) 109 MEQ/L CARBON DIOXIDE (test code = 2206) 25 MEQ/L CALCIUM (test code = 2209) 9.8 MG/DL PROTEIN, TOTAL (test code = 2229) 8.4 G/DL ALBUMIN (test code = 2201) 4.8 G/DL CALC GLOBULIN (test code = 2240) 3.6 G/DL CALC A/G RATIO (test code = 2234) 1.3 RATIO BILIRUBIN, TOTAL (test code = 2207) 0.5 MG/DL ALKALINE PHOSPHATASE (test code = 2204) 124 U/L AST (test code = 2218) 121 U/L ALT (test code = 2219) 125 U/L Brian ClaytonACUTE HEPATITIS [id number] 00:00:00* Test Item Value Reference Range Interpretation Comme nts HEPATITIS A IgM (test code = 04187) NON-REACTIVE HEPATITIS B CORE IgM (test c ode = 4644) NON-REACTIVE HEPATITIS B SURF AG (test co de = 2739) NON-REACTIVE HEPATITIS C ANTIBODY (test c ode = 4675) NON-REACTIVE HCV INDEX (test code = 90873) 0.17 INTERPRETATION HEPATITIS A: (test code = 2552) (NOTE) INTERPRETATION HEPATITIS B: (test code = 70860) (NOTE) INTERPRETATION HEPATITIS C: (test code = 37064) (NOTE) Brian ClaytonACUTE HEPATITIS [id number] 00:00:00* Test Item Value Reference Range Interpretation Comme nts HEPATITIS A IgM (test code = 07095) NON-REACTIVE HEPATITIS B CORE IgM (test c ode = 4644) NON-REACTIVE HEPATITIS B SURF AG (test co de = 2739) NON-REACTIVE HEPATITIS C ANTIBODY (test c ode = 4675) NON-REACTIVE HCV INDEX (test code = 11364) 0.17 INTERPRETATION HEPATITIS A: (test code = 2552) (NOTE) INTERPRETATION HEPATITIS B: (test code = 65912) (NOTE) INTERPRETATION HEPATITIS C: (test code = 18365) (NOTE) Brian ClaytonLIPID [id number] 00:00:00* Test Item Value Reference Range Interpretation Comme nts CHOLESTEROL (test code = 2210) 232 MG/DL TRIGLYCERIDES (test code = 2232) 333 MG/DL HDL CHOLESTEROL (test code = 2220) 27 MG/DL CALC LDL CHOL (test code = 2237) 138 MG/DL RISK RATIO LDL/HDL (test cod e = 2238) 5.13 RATIO Brian ClaytonCOMPREHENSIVE METABOLIC [id number] 00:00:00* Test Item Value Reference Range Interpretation Comme nts GLUCOSE (test code = 2217) 99 MG/DL BUN (test code = 2208) 11 MG/DL CREATININE (test code = 2214) 1.12 MG/DL eGFR AMER. (test cod e = 84995) 96 ML/MIN/1.73 eGFR NON- AMER. (test code = 40409) 83 ML/MIN/1.73 CALC BUN/CREAT (test code = 2235) 10 RATIO SODIUM (test code = 2231) 150 MEQ/L POTASSIUM (test code = 2228) 4.7 MEQ/L CHLORIDE (test code = 2215) 109 MEQ/L CARBON DIOXIDE (test code = 2206) 25 MEQ/L CALCIUM (test code = 2209) 9.8 MG/DL PROTEIN, TOTAL (test code = 2229) 8.4 G/DL ALBUMIN (test code = 2201) 4.8 G/DL CALC GLOBULIN (test code = 2240) 3.6 G/DL CALC A/G RATIO (test code = 2234) 1.3 RATIO BILIRUBIN, TOTAL (test code = 2207) 0.5 MG/DL ALKALINE PHOSPHATASE (test code = 2204) 124 U/L AST (test code = 2218) 121 U/L ALT (test code = 2219) 125 U/L Brian ClaytonACUTE HEPATITIS [id number] 00:00:00* Test Item Value Reference Range Interpretation Comme nts HEPATITIS A IgM (test code = 52009) NON-REACTIVE HEPATITIS B CORE IgM (test c ode = 4644) NON-REACTIVE HEPATITIS B SURF AG (test co de = 2739) NON-REACTIVE HEPATITIS C ANTIBODY (test c ode = 4655) NON-REACTIVE HCV INDEX (test code = 45126) 0.17 INTERPRETATION HEPATITIS A: (test code = 2552) (NOTE) INTERPRETATION HEPATITIS B: (test code = 57664) (NOTE) INTERPRETATION HEPATITIS C: (test code = 66303) (NOTE) Brian F ForrestLIPID [id number] 00:00:00* Test Item Value Reference Range Interpretation Comme nts CHOLESTEROL (test code = 2210) 232 MG/DL TRIGLYCERIDES (test code = 2232) 333 MG/DL HDL CHOLESTEROL (test code = 2220) 27 MG/DL CALC LDL CHOL (test code = 2237) 138 MG/DL RISK RATIO LDL/HDL (test cod e = 2238) 5.13 RATIO Brian Pastrana ForrestCOMPREHENSIVE METABOLIC [id number] 00:00:00* Test Item Value Reference Range Interpretation Comme nts GLUCOSE (test code = 2217) 99 MG/DL BUN (test code = 2208) 11 MG/DL CREATININE (test code = 2214) 1.12 MG/DL eGFR AMER. (test cod e = 82220) 96 ML/MIN/1.73 eGFR NON- AMER. (test code = 77648) 83 ML/MIN/1.73 CALC BUN/CREAT (test code = 2235) 10 RATIO SODIUM (test code = 2231) 150 MEQ/L POTASSIUM (test code = 2228) 4.7 MEQ/L CHLORIDE (test code = 2215) 109 MEQ/L CARBON DIOXIDE (test code = 2206) 25 MEQ/L CALCIUM (test code = 2209) 9.8 MG/DL PROTEIN, TOTAL (test code = 2229) 8.4 G/DL ALBUMIN (test code = 2201) 4.8 G/DL CALC GLOBULIN (test code = 2240) 3.6 G/DL CALC A/G RATIO (test code = 2234) 1.3 RATIO BILIRUBIN, TOTAL (test code = 2207) 0.5 MG/DL ALKALINE PHOSPHATASE (test code = 2204) 124 U/L AST (test code = 2218) 121 U/L ALT (test code = 2219) 125 U/L Brian Zeina ForrestACUTE HEPATITIS [id number] 00:00:00* Test Item Value Reference Range Interpretation Comme nts HEPATITIS A IgM (test code = 22082) NON-REACTIVE HEPATITIS B CORE IgM (test c ode = 4644) NON-REACTIVE HEPATITIS B SURF AG (test co de = 2739) NON-REACTIVE HEPATITIS C ANTIBODY (test c ode = 4675) NON-REACTIVE HCV INDEX (test code = 35507) 0.17 INTERPRETATION HEPATITIS A: (test code = 2552) (NOTE) INTERPRETATION HEPATITIS B: (test code = 79331) (NOTE) INTERPRETATION HEPATITIS C: (test code = 92507) (NOTE) Brian ClaytonLIPID [id number] 00:00:00* Test Item Value Reference Range Interpretation Comme nts CHOLESTEROL (test code = 2210) 232 MG/DL TRIGLYCERIDES (test code = 2232) 333 MG/DL HDL CHOLESTEROL (test code = 2220) 27 MG/DL CALC LDL CHOL (test code = 2237) 138 MG/DL RISK RATIO LDL/HDL (test cod e = 2238) 5.13 RATIO Brian ClaytonCOMPREHENSIVE METABOLIC [id number] 00:00:00* Test Item Value Reference Range Interpretation Comme nts GLUCOSE (test code = 2217) 99 MG/DL BUN (test code = 2208) 11 MG/DL CREATININE (test code = 2214) 1.12 MG/DL eGFR AMER. (test cod e = 67343) 96 ML/MIN/1.73 eGFR NON- AMER. (test code = 92298) 83 ML/MIN/1.73 CALC BUN/CREAT (test code = 2235) 10 RATIO SODIUM (test code = 2231) 150 MEQ/L POTASSIUM (test code = 2228) 4.7 MEQ/L CHLORIDE (test code = 2215) 109 MEQ/L CARBON DIOXIDE (test code = 2206) 25 MEQ/L CALCIUM (test code = 2209) 9.8 MG/DL PROTEIN, TOTAL (test code = 2229) 8.4 G/DL ALBUMIN (test code = 2201) 4.8 G/DL CALC GLOBULIN (test code = 2240) 3.6 G/DL CALC A/G RATIO (test code = 2234) 1.3 RATIO BILIRUBIN, TOTAL (test code = 2207) 0.5 MG/DL ALKALINE PHOSPHATASE (test code = 2204) 124 U/L AST (test code = 2218) 121 U/L ALT (test code = 2219) 125 U/L Brian ClaytonACUTE HEPATITIS [id number] 00:00:00* Test Item Value Reference Range Interpretation Comme nts HEPATITIS A IgM (test code = 07950) NON-REACTIVE HEPATITIS B CORE IgM (test c ode = 4644) NON-REACTIVE HEPATITIS B SURF AG (test co de = 3929) NON-REACTIVE HEPATITIS C ANTIBODY (test c ode = 4652) NON-REACTIVE HCV INDEX (test code = 39530) 0.17 INTERPRETATION HEPATITIS A: (test code = 2552) (NOTE) INTERPRETATION HEPATITIS B: (test code = 34902) (NOTE) INTERPRETATION HEPATITIS C: (test code = 05663) (NOTE) Brian ClaytonLIPID [id number] 00:00:00* Test Item Value Reference Range Interpretation Comme nts CHOLESTEROL (test code = 2210) 232 MG/DL TRIGLYCERIDES (test code = 2232) 333 MG/DL HDL CHOLESTEROL (test code = 2220) 27 MG/DL CALC LDL CHOL (test code = 2237) 138 MG/DL RISK RATIO LDL/HDL (test cod e = 2238) 5.13 RATIO Brian ClaytonCOMPREHENSIVE METABOLIC [id number] 00:00:00* Test Item Value Reference Range Interpretation Comme nts GLUCOSE (test code = 2217) 99 MG/DL BUN (test code = 2208) 11 MG/DL CREATININE (test code = 2214) 1.12 MG/DL eGFR AMER. (test cod e = 24773) 96 ML/MIN/1.73 eGFR NON- AMER. (test code = 60512) 83 ML/MIN/1.73 CALC BUN/CREAT (test code = 2235) 10 RATIO SODIUM (test code = 2231) 150 MEQ/L POTASSIUM (test code = 2228) 4.7 MEQ/L CHLORIDE (test code = 2215) 109 MEQ/L CARBON DIOXIDE (test code = 2206) 25 MEQ/L CALCIUM (test code = 2209) 9.8 MG/DL PROTEIN, TOTAL (test code = 2229) 8.4 G/DL ALBUMIN (test code = 2201) 4.8 G/DL CALC GLOBULIN (test code = 2240) 3.6 G/DL CALC A/G RATIO (test code = 2234) 1.3 RATIO BILIRUBIN, TOTAL (test code = 2207) 0.5 MG/DL ALKALINE PHOSPHATASE (test code = 2204) 124 U/L AST (test code = 2218) 121 U/L ALT (test code = 2219) 125 U/L Brian ClaytonACUTE HEPATITIS [id number] 00:00:00* Test Item Value Reference Range Interpretation Comme nts HEPATITIS A IgM (test code = 76637) NON-REACTIVE HEPATITIS B CORE IgM (test c ode = 4644) NON-REACTIVE HEPATITIS B SURF AG (test co de = 0789) NON-REACTIVE HEPATITIS C ANTIBODY (test c ode = 4612) NON-REACTIVE HCV INDEX (test code = 78020) 0.17 INTERPRETATION HEPATITIS A: (test code = 2552) (NOTE) INTERPRETATION HEPATITIS B: (test code = 48351) (NOTE) INTERPRETATION HEPATITIS C: (test code = 06989) (NOTE) Brian ClaytonLIPID [id number] 00:00:00* Test Item Value Reference Range Interpretation Comme nts CHOLESTEROL (test code = 2210) 232 MG/DL TRIGLYCERIDES (test code = 2232) 333 MG/DL HDL CHOLESTEROL (test code = 2220) 27 MG/DL CALC LDL CHOL (test code = 2237) 138 MG/DL RISK RATIO LDL/HDL (test cod e = 2238) 5.13 RATIO Brian ClaytonCOMPREHENSIVE METABOLIC [id number] 00:00:00* Test Item Value Reference Range Interpretation Comme nts GLUCOSE (test code = 2217) 99 MG/DL BUN (test code = 2208) 11 MG/DL CREATININE (test code = 2214) 1.12 MG/DL eGFR AMER. (test cod e = 32359) 96 ML/MIN/1.73 eGFR NON- AMER. (test code = 07218) 83 ML/MIN/1.73 CALC BUN/CREAT (test code = 2235) 10 RATIO SODIUM (test code = 2231) 150 MEQ/L POTASSIUM (test code = 2228) 4.7 MEQ/L CHLORIDE (test code = 2215) 109 MEQ/L CARBON DIOXIDE (test code = 2206) 25 MEQ/L CALCIUM (test code = 2209) 9.8 MG/DL PROTEIN, TOTAL (test code = 2229) 8.4 G/DL ALBUMIN (test code = 2201) 4.8 G/DL CALC GLOBULIN (test code = 2240) 3.6 G/DL CALC A/G RATIO (test code = 2234) 1.3 RATIO BILIRUBIN, TOTAL (test code = 2207) 0.5 MG/DL ALKALINE PHOSPHATASE (test code = 2204) 124 U/L AST (test code = 2218) 121 U/L ALT (test code = 2219) 125 U/L Brian ClaytonACUTE HEPATITIS [id number] 00:00:00* Test Item Value Reference Range Interpretation Comme nts HEPATITIS A IgM (test code = 64436) NON-REACTIVE HEPATITIS B CORE IgM (test c ode = 4601) NON-REACTIVE HEPATITIS B SURF AG (test co de = 7230) NON-REACTIVE HEPATITIS C ANTIBODY (test c ode = 8037) NON-REACTIVE HCV INDEX (test code = 16628) 0.17 INTERPRETATION HEPATITIS A: (test code = 2552) (NOTE) INTERPRETATION HEPATITIS B: (test code = 71430) (NOTE) INTERPRETATION HEPATITIS C: (test code = 80439) (NOTE) Brian ClaytonCOMPREHENSIVE METABOLIC [id number] 00:00:00* Test Item Value Reference Range Interpretation Comme nts GLUCOSE (test code = 2217) 91 MG/DL BUN (test code = 2208) 14 MG/DL CREATININE (test code = 2214) 1.10 MG/DL eGFR AMER. (test cod e = 29567) 100 ML/MIN/1.73 eGFR NON- AMER. (test code = 01135) 86 ML/MIN/1.73 CALC BUN/CREAT (test code = 2235) 13 RATIO SODIUM (test code = 2231) 138 MEQ/L POTASSIUM (test code = 2228) 5.0 MEQ/L CHLORIDE (test code = 2215) 98 MEQ/L CARBON DIOXIDE (test code = 2206) 19 MEQ/L CALCIUM (test code = 2209) 9.7 MG/DL PROTEIN, TOTAL (test code = 2229) 8.2 G/DL ALBUMIN (test code = 2201) 4.7 G/DL CALC GLOBULIN (test code = 2240) 3.5 G/DL CALC A/G RATIO (test code = 2234) 1.3 RATIO BILIRUBIN, TOTAL (test code = 2207) 0.5 MG/DL ALKALINE PHOSPHATASE (test code = 2204) 117 U/L AST (test code = 2218) 87 U/L ALT (test code = 2219) 84 U/L LIPID [id number] 00:00:00* Test Item Value Reference Range Interpretation Comme nts CHOLESTEROL (test code = 2210) 225 MG/DL TRIGLYCERIDES (test code = 2232) 387 MG/DL HDL CHOLESTEROL (test code = 2220) 31 MG/DL CALC LDL CHOL (test code = 2237) 117 MG/DL RISK RATIO LDL/HDL (test cod e = 2238) 3.76 RATIO CBC W/AUTO [id number] 00:00:00* Test Item Value Reference Range Interpretation Comme nts WBC (test code = 1001) 5.9 K/UL RBC (test code = 1002) 5.32 M/UL HEMOGLOBIN (test code = 1003) 15.5 G/DL HEMATOCRIT (test code = 1004) 45.1 % MCV (test code = 1005) 84.8 fL MCH (test code = 1006) 29.1 PG MCHC (test code = 1007) 34.4 G/DL RDW (test code = 1038) 13.3 % NEUTROPHILS (test code = 1008) 48.5 % LYMPHOCYTES (test code = 1010) 41.3 % MONOCYTES (test code = 1011) 6.8 % EOSINOPHILS (test code = 1012) 2.9 % BASOPHILS (test code = 1013) 0.5 % PLATELET COUNT (test code = 1015) 287 K/UL HEMOGLOBIN [id number] 00:00:00* Test Item Value Reference Range Interpretation Comme nts HEMOGLOBIN A1c (test code = 34648) 5.6 % [id number] 00:00:00* Test Item Value Reference Range Interpretation Comme nts TSH (test code = 2821) 3.23 UIU/ML COMPREHENSIVE METABOLIC [id number] 00:00:00* Test Item Value Reference Range Interpretation Comme nts GLUCOSE (test code = 2217) 91 MG/DL BUN (test code = 2208) 14 MG/DL CREATININE (test code = 2214) 1.10 MG/DL eGFR AMER. (test cod e = 66727) 100 ML/MIN/1.73 eGFR NON- AMER. (test code = 81013) 86 ML/MIN/1.73 CALC BUN/CREAT (test code = 2235) 13 RATIO SODIUM (test code = 2231) 138 MEQ/L POTASSIUM (test code = 2228) 5.0 MEQ/L CHLORIDE (test code = 2215) 98 MEQ/L CARBON DIOXIDE (test code = 2206) 19 MEQ/L CALCIUM (test code = 2209) 9.7 MG/DL PROTEIN, TOTAL (test code = 2229) 8.2 G/DL ALBUMIN (test code = 2201) 4.7 G/DL CALC GLOBULIN (test code = 2240) 3.5 G/DL CALC A/G RATIO (test code = 2234) 1.3 RATIO BILIRUBIN, TOTAL (test code = 2207) 0.5 MG/DL ALKALINE PHOSPHATASE (test code = 2204) 117 U/L AST (test code = 2218) 87 U/L ALT (test code = 2219) 84 U/L LIPID [id number] 00:00:00* Test Item Value Reference Range Interpretation Comme nts CHOLESTEROL (test code = 2210) 225 MG/DL TRIGLYCERIDES (test code = 2232) 387 MG/DL HDL CHOLESTEROL (test code = 2220) 31 MG/DL CALC LDL CHOL (test code = 2237) 117 MG/DL RISK RATIO LDL/HDL (test cod e = 2238) 3.76 RATIO CBC W/AUTO [id number] 00:00:00* Test Item Value Reference Range Interpretation Comme nts WBC (test code = 1001) 5.9 K/UL RBC (test code = 1002) 5.32 M/UL HEMOGLOBIN (test code = 1003) 15.5 G/DL HEMATOCRIT (test code = 1004) 45.1 % MCV (test code = 1005) 84.8 fL MCH (test code = 1006) 29.1 PG MCHC (test code = 1007) 34.4 G/DL RDW (test code = 1038) 13.3 % NEUTROPHILS (test code = 1008) 48.5 % LYMPHOCYTES (test code = 1010) 41.3 % MONOCYTES (test code = 1011) 6.8 % EOSINOPHILS (test code = 1012) 2.9 % BASOPHILS (test code = 1013) 0.5 % PLATELET COUNT (test code = 1015) 287 K/UL HEMOGLOBIN [id number] 00:00:00* Test Item Value Reference Range Interpretation Comme nts HEMOGLOBIN A1c (test code = 33450) 5.6 % [id number] 00:00:00* Test Item Value Reference Range Interpretation Comme nts TSH (test code = 2821) 3.23 UIU/ML COMPREHENSIVE METABOLIC [id number] 00:00:00* Test Item Value Reference Range Interpretation Comme nts GLUCOSE (test code = 2217) 91 MG/DL BUN (test code = 2208) 14 MG/DL CREATININE (test code = 2214) 1.10 MG/DL eGFR AMER. (test cod e = 58366) 100 ML/MIN/1.73 eGFR NON- AMER. (test code = 09972) 86 ML/MIN/1.73 CALC BUN/CREAT (test code = 2235) 13 RATIO SODIUM (test code = 2231) 138 MEQ/L POTASSIUM (test code = 2228) 5.0 MEQ/L CHLORIDE (test code = 2215) 98 MEQ/L CARBON DIOXIDE (test code = 2206) 19 MEQ/L CALCIUM (test code = 2209) 9.7 MG/DL PROTEIN, TOTAL (test code = 2229) 8.2 G/DL ALBUMIN (test code = 2201) 4.7 G/DL CALC GLOBULIN (test code = 2240) 3.5 G/DL CALC A/G RATIO (test code = 2234) 1.3 RATIO BILIRUBIN, TOTAL (test code = 2207) 0.5 MG/DL ALKALINE PHOSPHATASE (test code = 2204) 117 U/L AST (test code = 2218) 87 U/L ALT (test code = 2219) 84 U/L LIPID [id number] 00:00:00* Test Item Value Reference Range Interpretation Comme nts CHOLESTEROL (test code = 2210) 225 MG/DL TRIGLYCERIDES (test code = 2232) 387 MG/DL HDL CHOLESTEROL (test code = 2220) 31 MG/DL CALC LDL CHOL (test code = 2237) 117 MG/DL RISK RATIO LDL/HDL (test cod e = 2238) 3.76 RATIO CBC W/AUTO [id number] 00:00:00* Test Item Value Reference Range Interpretation Comme nts WBC (test code = 1001) 5.9 K/UL RBC (test code = 1002) 5.32 M/UL HEMOGLOBIN (test code = 1003) 15.5 G/DL HEMATOCRIT (test code = 1004) 45.1 % MCV (test code = 1005) 84.8 fL MCH (test code = 1006) 29.1 PG MCHC (test code = 1007) 34.4 G/DL RDW (test code = 1038) 13.3 % NEUTROPHILS (test code = 1008) 48.5 % LYMPHOCYTES (test code = 1010) 41.3 % MONOCYTES (test code = 1011) 6.8 % EOSINOPHILS (test code = 1012) 2.9 % BASOPHILS (test code = 1013) 0.5 % PLATELET COUNT (test code = 1015) 287 K/UL HEMOGLOBIN [id number] 00:00:00* Test Item Value Reference Range Interpretation Comme nts HEMOGLOBIN A1c (test code = 55919) 5.6 % [id number] 00:00:00* Test Item Value Reference Range Interpretation Comme nts TSH (test code = 2821) 3.23 UIU/ML COMPREHENSIVE METABOLIC [id number] 00:00:00* Test Item Value Reference Range Interpretation Comme nts GLUCOSE (test code = 2217) 91 MG/DL BUN (test code = 2208) 14 MG/DL CREATININE (test code = 2214) 1.10 MG/DL eGFR AMER. (test cod e = 08004) 100 ML/MIN/1.73 eGFR NON- AMER. (test code = 15065) 86 ML/MIN/1.73 CALC BUN/CREAT (test code = 2235) 13 RATIO SODIUM (test code = 2231) 138 MEQ/L POTASSIUM (test code = 2228) 5.0 MEQ/L CHLORIDE (test code = 2215) 98 MEQ/L CARBON DIOXIDE (test code = 2206) 19 MEQ/L CALCIUM (test code = 2209) 9.7 MG/DL PROTEIN, TOTAL (test code = 2229) 8.2 G/DL ALBUMIN (test code = 2201) 4.7 G/DL CALC GLOBULIN (test code = 2240) 3.5 G/DL CALC A/G RATIO (test code = 2234) 1.3 RATIO BILIRUBIN, TOTAL (test code = 2207) 0.5 MG/DL ALKALINE PHOSPHATASE (test code = 2204) 117 U/L AST (test code = 2218) 87 U/L ALT (test code = 2219) 84 U/L LIPID [id number] 00:00:00* Test Item Value Reference Range Interpretation Comme nts CHOLESTEROL (test code = 2210) 225 MG/DL TRIGLYCERIDES (test code = 2232) 387 MG/DL HDL CHOLESTEROL (test code = 2220) 31 MG/DL CALC LDL CHOL (test code = 2237) 117 MG/DL RISK RATIO LDL/HDL (test cod e = 2238) 3.76 RATIO CBC W/AUTO [id number] 00:00:00* Test Item Value Reference Range Interpretation Comme nts WBC (test code = 1001) 5.9 K/UL RBC (test code = 1002) 5.32 M/UL HEMOGLOBIN (test code = 1003) 15.5 G/DL HEMATOCRIT (test code = 1004) 45.1 % MCV (test code = 1005) 84.8 fL MCH (test code = 1006) 29.1 PG MCHC (test code = 1007) 34.4 G/DL RDW (test code = 1038) 13.3 % NEUTROPHILS (test code = 1008) 48.5 % LYMPHOCYTES (test code = 1010) 41.3 % MONOCYTES (test code = 1011) 6.8 % EOSINOPHILS (test code = 1012) 2.9 % BASOPHILS (test code = 1013) 0.5 % PLATELET COUNT (test code = 1015) 287 K/UL HEMOGLOBIN [id number] 00:00:00* Test Item Value Reference Range Interpretation Comme nts HEMOGLOBIN A1c (test code = 13670) 5.6 % [id number] 00:00:00* Test Item Value Reference Range Interpretation Comme nts TSH (test code = 2821) 3.23 UIU/ML CBC W/AUTO [id number] 00:00:00* Test Item Value Reference Range Interpretation Comme nts WBC (test code = 1001) 5.9 K/UL RBC (test code = 1002) 5.32 M/UL HEMOGLOBIN (test code = 1003) 15.5 G/DL HEMATOCRIT (test code = 1004) 45.1 % MCV (test code = 1005) 84.8 fL MCH (test code = 1006) 29.1 PG MCHC (test code = 1007) 34.4 G/DL RDW (test code = 1038) 13.3 % NEUTROPHILS (test code = 1008) 48.5 % LYMPHOCYTES (test code = 1010) 41.3 % MONOCYTES (test code = 1011) 6.8 % EOSINOPHILS (test code = 1012) 2.9 % BASOPHILS (test code = 1013) 0.5 % PLATELET COUNT (test code = 1015) 287 K/UL Brian Pastrana AustinHEMOGLOBIN [id number] 00:00:00* Test Item Value Reference Range Interpretation Comme nts HEMOGLOBIN A1c (test code = 84117) 5.6 % Brian Pastrana [id number] 00:00:00* Test Item Value Reference Range Interpretation Comme nts TSH (test code = 2821) 3.23 UIU/ML Brian ClaytonCOMPREHENSIVE METABOLIC [id number] 00:00:00* Test Item Value Reference Range Interpretation Comme nts GLUCOSE (test code = 2217) 91 MG/DL BUN (test code = 2208) 14 MG/DL CREATININE (test code = 2214) 1.10 MG/DL eGFR AMER. (test cod e = 48892) 100 ML/MIN/1.73 eGFR NON- AMER. (test code = 13829) 86 ML/MIN/1.73 CALC BUN/CREAT (test code = 2235) 13 RATIO SODIUM (test code = 2231) 138 MEQ/L POTASSIUM (test code = 2228) 5.0 MEQ/L CHLORIDE (test code = 2215) 98 MEQ/L CARBON DIOXIDE (test code = 2206) 19 MEQ/L CALCIUM (test code = 2209) 9.7 MG/DL PROTEIN, TOTAL (test code = 2229) 8.2 G/DL ALBUMIN (test code = 2201) 4.7 G/DL CALC GLOBULIN (test code = 2240) 3.5 G/DL CALC A/G RATIO (test code = 2234) 1.3 RATIO BILIRUBIN, TOTAL (test code = 2207) 0.5 MG/DL ALKALINE PHOSPHATASE (test code = 2204) 117 U/L AST (test code = 2218) 87 U/L ALT (test code = 2219) 84 U/L Brian Pastrana AustinLIPID [id number] 00:00:00* Test Item Value Reference Range Interpretation Comme nts CHOLESTEROL (test code = 2210) 225 MG/DL TRIGLYCERIDES (test code = 2232) 387 MG/DL HDL CHOLESTEROL (test code = 2220) 31 MG/DL CALC LDL CHOL (test code = 2237) 117 MG/DL RISK RATIO LDL/HDL (test cod e = 2238) 3.76 RATIO Brian Pastrana AustinCOMPREHENSIVE METABOLIC [id number] 00:00:00* Test Item Value Reference Range Interpretation Comme nts GLUCOSE (test code = 2217) 91 MG/DL BUN (test code = 2208) 14 MG/DL CREATININE (test code = 2214) 1.10 MG/DL eGFR AMER. (test cod e = 69744) 100 ML/MIN/1.73 eGFR NON- AMER. (test code = 50723) 86 ML/MIN/1.73 CALC BUN/CREAT (test code = 2235) 13 RATIO SODIUM (test code = 2231) 138 MEQ/L POTASSIUM (test code = 2228) 5.0 MEQ/L CHLORIDE (test code = 2215) 98 MEQ/L CARBON DIOXIDE (test code = 2206) 19 MEQ/L CALCIUM (test code = 2209) 9.7 MG/DL PROTEIN, TOTAL (test code = 2229) 8.2 G/DL ALBUMIN (test code = 2201) 4.7 G/DL CALC GLOBULIN (test code = 2240) 3.5 G/DL CALC A/G RATIO (test code = 2234) 1.3 RATIO BILIRUBIN, TOTAL (test code = 2207) 0.5 MG/DL ALKALINE PHOSPHATASE (test code = 2204) 117 U/L AST (test code = 2218) 87 U/L ALT (test code = 2219) 84 U/L Brian Pastrana ForrestCBC W/AUTO [id number] 00:00:00* Test Item Value Reference Range Interpretation Comme nts WBC (test code = 1001) 5.9 K/UL RBC (test code = 1002) 5.32 M/UL HEMOGLOBIN (test code = 1003) 15.5 G/DL HEMATOCRIT (test code = 1004) 45.1 % MCV (test code = 1005) 84.8 fL MCH (test code = 1006) 29.1 PG MCHC (test code = 1007) 34.4 G/DL RDW (test code = 1038) 13.3 % NEUTROPHILS (test code = 1008) 48.5 % LYMPHOCYTES (test code = 1010) 41.3 % MONOCYTES (test code = 1011) 6.8 % EOSINOPHILS (test code = 1012) 2.9 % BASOPHILS (test code = 1013) 0.5 % PLATELET COUNT (test code = 1015) 287 K/UL Brian Pastrana ForrestHEMOGLOBIN [id number] 00:00:00* Test Item Value Reference Range Interpretation Comme [facility] HEMOGLOBIN A1c (test code = 63607) 5.6 % Brian Pastrana [id number] 00:00:00* Test Item Value Reference Range Interpretation Comme [facility] TSH (test code = 2821) 3.23 UIU/ML Brian ClaytonCOMPREHENSIVE METABOLIC [id number] 00:00:00* Test Item Value Reference Range Interpretation Comme nts GLUCOSE (test code = 2217) 91 MG/DL BUN (test code = 2208) 14 MG/DL CREATININE (test code = 2214) 1.10 MG/DL eGFR AMER. (test cod e = 23447) 100 ML/MIN/1.73 eGFR NON- AMER. (test code = 13335) 86 ML/MIN/1.73 CALC BUN/CREAT (test code = 2235) 13 RATIO SODIUM (test code = 2231) 138 MEQ/L POTASSIUM (test code = 2228) 5.0 MEQ/L CHLORIDE (test code = 2215) 98 MEQ/L CARBON DIOXIDE (test code = 2206) 19 MEQ/L CALCIUM (test code = 2209) 9.7 MG/DL PROTEIN, TOTAL (test code = 2229) 8.2 G/DL ALBUMIN (test code = 2201) 4.7 G/DL CALC GLOBULIN (test code = 2240) 3.5 G/DL CALC A/G RATIO (test code = 2234) 1.3 RATIO BILIRUBIN, TOTAL (test code = 2207) 0.5 MG/DL ALKALINE PHOSPHATASE (test code = 2204) 117 U/L AST (test code = 2218) 87 U/L ALT (test code = 2219) 84 U/L Brian ClaytonLIPID [id number] 00:00:00* Test Item Value Reference Range Interpretation Comme nts CHOLESTEROL (test code = 2210) 225 MG/DL TRIGLYCERIDES (test code = 2232) 387 MG/DL HDL CHOLESTEROL (test code = 2220) 31 MG/DL CALC LDL CHOL (test code = 2237) 117 MG/DL RISK RATIO LDL/HDL (test cod e = 2238) 3.76 RATIO Brian ClaytonCBC W/AUTO [id number] 00:00:00* Test Item Value Reference Range Interpretation Comme nts WBC (test code = 1001) 5.9 K/UL RBC (test code = 1002) 5.32 M/UL HEMOGLOBIN (test code = 1003) 15.5 G/DL HEMATOCRIT (test code = 1004) 45.1 % MCV (test code = 1005) 84.8 fL MCH (test code = 1006) 29.1 PG MCHC (test code = 1007) 34.4 G/DL RDW (test code = 1038) 13.3 % NEUTROPHILS (test code = 1008) 48.5 % LYMPHOCYTES (test code = 1010) 41.3 % MONOCYTES (test code = 1011) 6.8 % EOSINOPHILS (test code = 1012) 2.9 % BASOPHILS (test code = 1013) 0.5 % PLATELET COUNT (test code = 1015) 287 K/UL Brian ClaytonHEMOGLOBIN [id number] 00:00:00* Test Item Value Reference Range Interpretation Comme nts HEMOGLOBIN A1c (test code = 10258) 5.6 % Brian [id number] 00:00:00* Test Item Value Reference Range Interpretation Comme nts TSH (test code = 2821) 3.23 UIU/ML Brian ClaytonCOMPREHENSIVE METABOLIC [id number] 00:00:00* Test Item Value Reference Range Interpretation Comme nts GLUCOSE (test code = 2217) 91 MG/DL BUN (test code = 2208) 14 MG/DL CREATININE (test code = 2214) 1.10 MG/DL eGFR AMER. (test cod e = 53483) 100 ML/MIN/1.73 eGFR NON- AMER. (test code = 36228) 86 ML/MIN/1.73 CALC BUN/CREAT (test code = 2235) 13 RATIO SODIUM (test code = 2231) 138 MEQ/L POTASSIUM (test code = 2228) 5.0 MEQ/L CHLORIDE (test code = 2215) 98 MEQ/L CARBON DIOXIDE (test code = 2206) 19 MEQ/L CALCIUM (test code = 2209) 9.7 MG/DL PROTEIN, TOTAL (test code = 2229) 8.2 G/DL ALBUMIN (test code = 2201) 4.7 G/DL CALC GLOBULIN (test code = 2240) 3.5 G/DL CALC A/G RATIO (test code = 2234) 1.3 RATIO BILIRUBIN, TOTAL (test code = 2207) 0.5 MG/DL ALKALINE PHOSPHATASE (test code = 2204) 117 U/L AST (test code = 2218) 87 U/L ALT (test code = 2219) 84 U/L Brian ClaytonLIPID [id number] 00:00:00* Test Item Value Reference Range Interpretation Comme nts CHOLESTEROL (test code = 2210) 225 MG/DL TRIGLYCERIDES (test code = 2232) 387 MG/DL HDL CHOLESTEROL (test code = 2220) 31 MG/DL CALC LDL CHOL (test code = 2237) 117 MG/DL RISK RATIO LDL/HDL (test cod e = 2238) 3.76 RATIO Brian Pastrana AustinLIPID [id number] 00:00:00* Test Item Value Reference Range Interpretation Comme nts CHOLESTEROL (test code = 2210) 225 MG/DL TRIGLYCERIDES (test code = 2232) 387 MG/DL HDL CHOLESTEROL (test code = 2220) 31 MG/DL CALC LDL CHOL (test code = 2237) 117 MG/DL RISK RATIO LDL/HDL (test cod e = 2238) 3.76 RATIO Brian Pastrana AustinCBC W/AUTO [id number] 00:00:00* Test Item Value Reference Range Interpretation Comme nts WBC (test code = 1001) 5.9 K/UL RBC (test code = 1002) 5.32 M/UL HEMOGLOBIN (test code = 1003) 15.5 G/DL HEMATOCRIT (test code = 1004) 45.1 % MCV (test code = 1005) 84.8 fL MCH (test code = 1006) 29.1 PG MCHC (test code = 1007) 34.4 G/DL RDW (test code = 1038) 13.3 % NEUTROPHILS (test code = 1008) 48.5 % LYMPHOCYTES (test code = 1010) 41.3 % MONOCYTES (test code = 1011) 6.8 % EOSINOPHILS (test code = 1012) 2.9 % BASOPHILS (test code = 1013) 0.5 % PLATELET COUNT (test code = 1015) 287 K/UL Brian ClaytonHEMOGLOBIN [id number] 00:00:00* Test Item Value Reference Range Interpretation Comme nts HEMOGLOBIN A1c (test code = 78295) 5.6 % Brian [id number] 00:00:00* Test Item Value Reference Range Interpretation Comme nts TSH (test code = 2821) 3.23 UIU/ML Brian ClaytonCBC W/AUTO [id number] 00:00:00* Test Item Value Reference Range Interpretation Comme nts WBC (test code = 1001) 5.9 K/UL RBC (test code = 1002) 5.32 M/UL HEMOGLOBIN (test code = 1003) 15.5 G/DL HEMATOCRIT (test code = 1004) 45.1 % MCV (test code = 1005) 84.8 fL MCH (test code = 1006) 29.1 PG MCHC (test code = 1007) 34.4 G/DL RDW (test code = 1038) 13.3 % NEUTROPHILS (test code = 1008) 48.5 % LYMPHOCYTES (test code = 1010) 41.3 % MONOCYTES (test code = 1011) 6.8 % EOSINOPHILS (test code = 1012) 2.9 % BASOPHILS (test code = 1013) 0.5 % PLATELET COUNT (test code = 1015) 287 K/UL Brian ClaytonHEMOGLOBIN [id number] 00:00:00* Test Item Value Reference Range Interpretation Comme nts HEMOGLOBIN A1c (test code = 69304) 5.6 % Brian [id number] 00:00:00* Test Item Value Reference Range Interpretation Comme nts TSH (test code = 2821) 3.23 UIU/ML Brian ClaytonCOMPREHENSIVE METABOLIC [id number] 00:00:00* Test Item Value Reference Range Interpretation Comme nts GLUCOSE (test code = 2217) 91 MG/DL BUN (test code = 2208) 14 MG/DL CREATININE (test code = 2214) 1.10 MG/DL eGFR AMER. (test cod e = 84588) 100 ML/MIN/1.73 eGFR NON- AMER. (test code = 82143) 86 ML/MIN/1.73 CALC BUN/CREAT (test code = 2235) 13 RATIO SODIUM (test code = 2231) 138 MEQ/L POTASSIUM (test code = 2228) 5.0 MEQ/L CHLORIDE (test code = 2215) 98 MEQ/L CARBON DIOXIDE (test code = 2206) 19 MEQ/L CALCIUM (test code = 2209) 9.7 MG/DL PROTEIN, TOTAL (test code = 2229) 8.2 G/DL ALBUMIN (test code = 2201) 4.7 G/DL CALC GLOBULIN (test code = 2240) 3.5 G/DL CALC A/G RATIO (test code = 2234) 1.3 RATIO BILIRUBIN, TOTAL (test code = 2207) 0.5 MG/DL ALKALINE PHOSPHATASE (test code = 2204) 117 U/L AST (test code = 2218) 87 U/L ALT (test code = 2219) 84 U/L Brian ClaytonLIPID [id number] 00:00:00* Test Item Value Reference Range Interpretation Comme nts CHOLESTEROL (test code = 2210) 225 MG/DL TRIGLYCERIDES (test code = 2232) 387 MG/DL HDL CHOLESTEROL (test code = 2220) 31 MG/DL CALC LDL CHOL (test code = 2237) 117 MG/DL RISK RATIO LDL/HDL (test cod e = 2238) 3.76 RATIO Brian ClaytonCBC W/AUTO [id number] 00:00:00* Test Item Value Reference Range Interpretation Comme nts WBC (test code = 1001) 5.9 K/UL RBC (test code = 1002) 5.32 M/UL HEMOGLOBIN (test code = 1003) 15.5 G/DL HEMATOCRIT (test code = 1004) 45.1 % MCV (test code = 1005) 84.8 fL MCH (test code = 1006) 29.1 PG MCHC (test code = 1007) 34.4 G/DL RDW (test code = 1038) 13.3 % NEUTROPHILS (test code = 1008) 48.5 % LYMPHOCYTES (test code = 1010) 41.3 % MONOCYTES (test code = 1011) 6.8 % EOSINOPHILS (test code = 1012) 2.9 % BASOPHILS (test code = 1013) 0.5 % PLATELET COUNT (test code = 1015) 287 K/UL Brian ClaytonHEMOGLOBIN [id number] 00:00:00* Test Item Value Reference Range Interpretation Comme [facility] HEMOGLOBIN A1c (test code = 76956) 5.6 % Brian [id number] 00:00:00* Test Item Value Reference Range Interpretation Comme nts TSH (test code = 2821) 3.23 UIU/ML Brian ClaytonCOMPREHENSIVE METABOLIC [id number] 00:00:00* Test Item Value Reference Range Interpretation Comme nts GLUCOSE (test code = 2217) 91 MG/DL BUN (test code = 2208) 14 MG/DL CREATININE (test code = 2214) 1.10 MG/DL eGFR AMER. (test cod e = 25028) 100 ML/MIN/1.73 eGFR NON- AMER. (test code = 41600) 86 ML/MIN/1.73 CALC BUN/CREAT (test code = 2235) 13 RATIO SODIUM (test code = 2231) 138 MEQ/L POTASSIUM (test code = 2228) 5.0 MEQ/L CHLORIDE (test code = 2215) 98 MEQ/L CARBON DIOXIDE (test code = 2206) 19 MEQ/L CALCIUM (test code = 2209) 9.7 MG/DL PROTEIN, TOTAL (test code = 2229) 8.2 G/DL ALBUMIN (test code = 2201) 4.7 G/DL CALC GLOBULIN (test code = 2240) 3.5 G/DL CALC A/G RATIO (test code = 2234) 1.3 RATIO BILIRUBIN, TOTAL (test code = 2207) 0.5 MG/DL ALKALINE PHOSPHATASE (test code = 2204) 117 U/L AST (test code = 2218) 87 U/L ALT (test code = 2219) 84 U/L Brian ClaytonLIPID [id number] 00:00:00* Test Item Value Reference Range Interpretation Comme nts CHOLESTEROL (test code = 2210) 225 MG/DL TRIGLYCERIDES (test code = 2232) 387 MG/DL HDL CHOLESTEROL (test code = 2220) 31 MG/DL CALC LDL CHOL (test code = 2237) 117 MG/DL RISK RATIO LDL/HDL (test cod e = 2238) 3.76 RATIO Brian ClaytonCBC W/AUTO [id number] 00:00:00* Test Item Value Reference Range Interpretation Comme nts WBC (test code = 1001) 5.9 K/UL RBC (test code = 1002) 5.32 M/UL HEMOGLOBIN (test code = 1003) 15.5 G/DL HEMATOCRIT (test code = 1004) 45.1 % MCV (test code = 1005) 84.8 fL MCH (test code = 1006) 29.1 PG MCHC (test code = 1007) 34.4 G/DL RDW (test code = 1038) 13.3 % NEUTROPHILS (test code = 1008) 48.5 % LYMPHOCYTES (test code = 1010) 41.3 % MONOCYTES (test code = 1011) 6.8 % EOSINOPHILS (test code = 1012) 2.9 % BASOPHILS (test code = 1013) 0.5 % PLATELET COUNT (test code = 1015) 287 K/UL Brian ClaytonHEMOGLOBIN [id number] 00:00:00* Test Item Value Reference Range Interpretation Comme rosa HEMOGLOBIN A1c (test code = 39185) 5.6 % Brian [id number] 00:00:00* Test Item Value Reference Range Interpretation Comme nts TSH (test code = 2821) 3.23 UIU/ML Brian ClaytonCOMPREHENSIVE METABOLIC [id number] 00:00:00* Test Item Value Reference Range Interpretation Comme nts GLUCOSE (test code = 2217) 91 MG/DL BUN (test code = 2208) 14 MG/DL CREATININE (test code = 2214) 1.10 MG/DL eGFR AMER. (test cod e = 16716) 100 ML/MIN/1.73 eGFR NON- AMER. (test code = 75995) 86 ML/MIN/1.73 CALC BUN/CREAT (test code = 2235) 13 RATIO SODIUM (test code = 2231) 138 MEQ/L POTASSIUM (test code = 2228) 5.0 MEQ/L CHLORIDE (test code = 2215) 98 MEQ/L CARBON DIOXIDE (test code = 2206) 19 MEQ/L CALCIUM (test code = 2209) 9.7 MG/DL PROTEIN, TOTAL (test code = 2229) 8.2 G/DL ALBUMIN (test code = 2201) 4.7 G/DL CALC GLOBULIN (test code = 2240) 3.5 G/DL CALC A/G RATIO (test code = 2234) 1.3 RATIO BILIRUBIN, TOTAL (test code = 2207) 0.5 MG/DL ALKALINE PHOSPHATASE (test code = 2204) 117 U/L AST (test code = 2218) 87 U/L ALT (test code = 2219) 84 U/L Brian ClaytonLIPID [id number] 00:00:00* Test Item Value Reference Range Interpretation Comme nts CHOLESTEROL (test code = 2210) 225 MG/DL TRIGLYCERIDES (test code = 2232) 387 MG/DL HDL CHOLESTEROL (test code = 2220) 31 MG/DL CALC LDL CHOL (test code = 2237) 117 MG/DL RISK RATIO LDL/HDL (test cod e = 2238) 3.76 RATIO Brian ClaytonCBC W/AUTO [id number] 00:00:00* Test Item Value Reference Range Interpretation Comme nts WBC (test code = 1001) 5.9 K/UL RBC (test code = 1002) 5.32 M/UL HEMOGLOBIN (test code = 1003) 15.5 G/DL HEMATOCRIT (test code = 1004) 45.1 % MCV (test code = 1005) 84.8 fL MCH (test code = 1006) 29.1 PG MCHC (test code = 1007) 34.4 G/DL RDW (test code = 1038) 13.3 % NEUTROPHILS (test code = 1008) 48.5 % LYMPHOCYTES (test code = 1010) 41.3 % MONOCYTES (test code = 1011) 6.8 % EOSINOPHILS (test code = 1012) 2.9 % BASOPHILS (test code = 1013) 0.5 % PLATELET COUNT (test code = 1015) 287 K/UL Brian ClaytonHEMOGLOBIN [id number] 00:00:00* Test Item Value Reference Range Interpretation Comme rosa HEMOGLOBIN A1c (test code = 59529) 5.6 % Brian [id number] 00:00:00* Test Item Value Reference Range Interpretation Comme rosa TSH (test code = 2821) 3.23 UIU/ML Brian ClaytonCOMPREHENSIVE METABOLIC [id number] 00:00:00* Test Item Value Reference Range Interpretation Comme nts GLUCOSE (test code = 2217) 91 MG/DL BUN (test code = 2208) 14 MG/DL CREATININE (test code = 2214) 1.10 MG/DL eGFR AMER. (test cod e = 80055) 100 ML/MIN/1.73 eGFR NON- AMER. (test code = 37044) 86 ML/MIN/1.73 CALC BUN/CREAT (test code = 2235) 13 RATIO SODIUM (test code = 2231) 138 MEQ/L POTASSIUM (test code = 2228) 5.0 MEQ/L CHLORIDE (test code = 2215) 98 MEQ/L CARBON DIOXIDE (test code = 2206) 19 MEQ/L CALCIUM (test code = 2209) 9.7 MG/DL PROTEIN, TOTAL (test code = 2229) 8.2 G/DL ALBUMIN (test code = 2201) 4.7 G/DL CALC GLOBULIN (test code = 2240) 3.5 G/DL CALC A/G RATIO (test code = 2234) 1.3 RATIO BILIRUBIN, TOTAL (test code = 2207) 0.5 MG/DL ALKALINE PHOSPHATASE (test code = 2204) 117 U/L AST (test code = 2218) 87 U/L ALT (test code = 2219) 84 U/L Brian Pastrana ForrestLIPID [id number] 00:00:00* Test Item Value Reference Range Interpretation Comme nts CHOLESTEROL (test code = 2210) 225 MG/DL TRIGLYCERIDES (test code = 2232) 387 MG/DL HDL CHOLESTEROL (test code = 2220) 31 MG/DL CALC LDL CHOL (test code = 2237) 117 MG/DL RISK RATIO LDL/HDL (test cod e = 2238) 3.76 RATIO Brian Pastrana ForrestCBC W/AUTO [id number] 00:00:00* Test Item Value Reference Range Interpretation Comme nts WBC (test code = 1001) 5.9 K/UL RBC (test code = 1002) 5.32 M/UL HEMOGLOBIN (test code = 1003) 15.5 G/DL HEMATOCRIT (test code = 1004) 45.1 % MCV (test code = 1005) 84.8 fL MCH (test code = 1006) 29.1 PG MCHC (test code = 1007) 34.4 G/DL RDW (test code = 1038) 13.3 % NEUTROPHILS (test code = 1008) 48.5 % LYMPHOCYTES (test code = 1010) 41.3 % MONOCYTES (test code = 1011) 6.8 % EOSINOPHILS (test code = 1012) 2.9 % BASOPHILS (test code = 1013) 0.5 % PLATELET COUNT (test code = 1015) 287 K/UL Brian ClaytonHEMOGLOBIN [id number] 00:00:00* Test Item Value Reference Range Interpretation Comme nts HEMOGLOBIN A1c (test code = 87715) 5.6 % Brian [id number] 00:00:00* Test Item Value Reference Range Interpretation Comme nts TSH (test code = 2821) 3.23 UIU/ML Brian ClaytonCOMPREHENSIVE METABOLIC [id number] 00:00:00* Test Item Value Reference Range Interpretation Comme nts GLUCOSE (test code = 2217) 91 MG/DL BUN (test code = 2208) 14 MG/DL CREATININE (test code = 2214) 1.10 MG/DL eGFR AMER. (test cod e = 38435) 100 ML/MIN/1.73 eGFR NON- AMER. (test code = 88010) 86 ML/MIN/1.73 CALC BUN/CREAT (test code = 2235) 13 RATIO SODIUM (test code = 2231) 138 MEQ/L POTASSIUM (test code = 2228) 5.0 MEQ/L CHLORIDE (test code = 2215) 98 MEQ/L CARBON DIOXIDE (test code = 2206) 19 MEQ/L CALCIUM (test code = 2209) 9.7 MG/DL PROTEIN, TOTAL (test code = 2229) 8.2 G/DL ALBUMIN (test code = 2201) 4.7 G/DL CALC GLOBULIN (test code = 2240) 3.5 G/DL CALC A/G RATIO (test code = 2234) 1.3 RATIO BILIRUBIN, TOTAL (test code = 2207) 0.5 MG/DL ALKALINE PHOSPHATASE (test code = 2204) 117 U/L AST (test code = 2218) 87 U/L ALT (test code = 2219) 84 U/L Brian Pastrana AustinLIPID [id number] 00:00:00* Test Item Value Reference Range Interpretation Comme nts CHOLESTEROL (test code = 2210) 225 MG/DL TRIGLYCERIDES (test code = 2232) 387 MG/DL HDL CHOLESTEROL (test code = 2220) 31 MG/DL CALC LDL CHOL (test code = 2237) 117 MG/DL RISK RATIO LDL/HDL (test cod e = 2238) 3.76 RATIO Brian ClaytonCOMPREHENSIVE METABOLIC [id number] 00:00:00* Test Item Value Reference Range Interpretation Comme nts GLUCOSE (test code = 2217) 96 MG/DL BUN (test code = 2208) 11 MG/DL CREATININE (test code = 2214) 1.15 MG/DL eGFR AMER. (test cod e = 93272) 94 ML/MIN/1.73 eGFR NON- AMER. (test code = 30033) 81 ML/MIN/1.73 CALC BUN/CREAT (test code = 2235) 10 RATIO SODIUM (test code = 2231) 141 MEQ/L POTASSIUM (test code = 2228) 4.4 MEQ/L CHLORIDE (test code = 2215) 99 MEQ/L CARBON DIOXIDE (test code = 2206) 24 MEQ/L CALCIUM (test code = 2209) 9.4 MG/DL PROTEIN, TOTAL (test code = 2229) 7.9 G/DL ALBUMIN (test code = 2201) 4.7 G/DL CALC GLOBULIN (test code = 2240) 3.2 G/DL CALC A/G RATIO (test code = 2234) 1.5 RATIO BILIRUBIN, TOTAL (test code = 2207) 0.2 MG/DL ALKALINE PHOSPHATASE (test code = 2204) 86 U/L AST (test code = 2218) 58 U/L ALT (test code = 2219) 53 U/L LIPID [id number] 00:00:00* Test Item Value Reference Range Interpretation Comme nts CHOLESTEROL (test code = 2210) 225 MG/DL TRIGLYCERIDES (test code = 2232) 294 MG/DL HDL CHOLESTEROL (test code = 2220) 33 MG/DL CALC LDL CHOL (test code = 2237) 133 MG/DL RISK RATIO LDL/HDL (test cod e = 2238) 4.04 RATIO CBC W/AUTO [id number] 00:00:00* Test Item Value Reference Range Interpretation Comme nts WBC (test code = 1001) 5.4 K/UL RBC (test code = 1002) 4.87 M/UL HEMOGLOBIN (test code = 1003) 14.9 G/DL HEMATOCRIT (test code = 1004) 42.2 % MCV (test code = 1005) 86.7 fL MCH (test code = 1006) 30.6 PG MCHC (test code = 1007) 35.3 G/DL RDW (test code = 1038) 13.8 % NEUTROPHILS (test code = 1008) 41.2 % LYMPHOCYTES (test code = 1010) 45.9 % MONOCYTES (test code = 1011) 8.1 % EOSINOPHILS (test code = 1012) 4.6 % BASOPHILS (test code = 1013) 0.2 % PLATELET COUNT (test code = 1015) 293 K/UL HEMOGLOBIN [id number] 00:00:00* Test Item Value Reference Range Interpretation Comme nts HEMOGLOBIN A1c (test code = 64490) 5.3 % THYROID II PROFILE (T3U, T4, T7, TSH)2016-06-23 00:00:00* Test Item Value Reference Range Interpretation Comme nts T3 UPTAKE (test code = 2817) 33.6 % T4 (THYROXINE) (test code = 2819) 4.1 UG/DL CALCULATED T7 (FTI) (test co de = 2820) 1.38 TSH (test code = 2821) 3.0 UIU/ML COMPREHENSIVE METABOLIC [id number] 00:00:00* Test Item Value Reference Range Interpretation Comme nts GLUCOSE (test code = 2217) 96 MG/DL BUN (test code = 2208) 11 MG/DL CREATININE (test code = 2214) 1.15 MG/DL eGFR AMER. (test cod e = 42421) 94 ML/MIN/1.73 eGFR NON- AMER. (test code = 60386) 81 ML/MIN/1.73 CALC BUN/CREAT (test code = 2235) 10 RATIO SODIUM (test code = 2231) 141 MEQ/L POTASSIUM (test code = 2228) 4.4 MEQ/L CHLORIDE (test code = 2215) 99 MEQ/L CARBON DIOXIDE (test code = 2206) 24 MEQ/L CALCIUM (test code = 2209) 9.4 MG/DL PROTEIN, TOTAL (test code = 2229) 7.9 G/DL ALBUMIN (test code = 2201) 4.7 G/DL CALC GLOBULIN (test code = 2240) 3.2 G/DL CALC A/G RATIO (test code = 2234) 1.5 RATIO BILIRUBIN, TOTAL (test code = 2207) 0.2 MG/DL ALKALINE PHOSPHATASE (test code = 2204) 86 U/L AST (test code = 2218) 58 U/L ALT (test code = 2219) 53 U/L LIPID [id number] 00:00:00* Test Item Value Reference Range Interpretation Comme nts CHOLESTEROL (test code = 2210) 225 MG/DL TRIGLYCERIDES (test code = 2232) 294 MG/DL HDL CHOLESTEROL (test code = 2220) 33 MG/DL CALC LDL CHOL (test code = 2237) 133 MG/DL RISK RATIO LDL/HDL (test cod e = 2238) 4.04 RATIO CBC W/AUTO [id number] 00:00:00* Test Item Value Reference Range Interpretation Comme nts WBC (test code = 1001) 5.4 K/UL RBC (test code = 1002) 4.87 M/UL HEMOGLOBIN (test code = 1003) 14.9 G/DL HEMATOCRIT (test code = 1004) 42.2 % MCV (test code = 1005) 86.7 fL MCH (test code = 1006) 30.6 PG MCHC (test code = 1007) 35.3 G/DL RDW (test code = 1038) 13.8 % NEUTROPHILS (test code = 1008) 41.2 % LYMPHOCYTES (test code = 1010) 45.9 % MONOCYTES (test code = 1011) 8.1 % EOSINOPHILS (test code = 1012) 4.6 % BASOPHILS (test code = 1013) 0.2 % PLATELET COUNT (test code = 1015) 293 K/UL HEMOGLOBIN [id number] 00:00:00* Test Item Value Reference Range Interpretation Comme nts HEMOGLOBIN A1c (test code = 75704) 5.3 % THYROID II PROFILE (T3U, T4, T7, TSH)2016-06-23 00:00:00* Test Item Value Reference Range Interpretation Comme nts T3 UPTAKE (test code = 2817) 33.6 % T4 (THYROXINE) (test code = 2819) 4.1 UG/DL CALCULATED T7 (FTI) (test co de = 2820) 1.38 TSH (test code = 2821) 3.0 UIU/ML COMPREHENSIVE METABOLIC [id number] 00:00:00* Test Item Value Reference Range Interpretation Comme nts GLUCOSE (test code = 2217) 96 MG/DL BUN (test code = 2208) 11 MG/DL CREATININE (test code = 2214) 1.15 MG/DL eGFR AMER. (test cod e = 32149) 94 ML/MIN/1.73 eGFR NON- AMER. (test code = 79131) 81 ML/MIN/1.73 CALC BUN/CREAT (test code = 2235) 10 RATIO SODIUM (test code = 2231) 141 MEQ/L POTASSIUM (test code = 2228) 4.4 MEQ/L CHLORIDE (test code = 2215) 99 MEQ/L CARBON DIOXIDE (test code = 2206) 24 MEQ/L CALCIUM (test code = 2209) 9.4 MG/DL PROTEIN, TOTAL (test code = 2229) 7.9 G/DL ALBUMIN (test code = 2201) 4.7 G/DL CALC GLOBULIN (test code = 2240) 3.2 G/DL CALC A/G RATIO (test code = 2234) 1.5 RATIO BILIRUBIN, TOTAL (test code = 2207) 0.2 MG/DL ALKALINE PHOSPHATASE (test code = 2204) 86 U/L AST (test code = 2218) 58 U/L ALT (test code = 2219) 53 U/L LIPID [id number] 00:00:00* Test Item Value Reference Range Interpretation Comme nts CHOLESTEROL (test code = 2210) 225 MG/DL TRIGLYCERIDES (test code = 2232) 294 MG/DL HDL CHOLESTEROL (test code = 2220) 33 MG/DL CALC LDL CHOL (test code = 2237) 133 MG/DL RISK RATIO LDL/HDL (test cod e = 2238) 4.04 RATIO CBC W/AUTO [id number] 00:00:00* Test Item Value Reference Range Interpretation Comme nts WBC (test code = 1001) 5.4 K/UL RBC (test code = 1002) 4.87 M/UL HEMOGLOBIN (test code = 1003) 14.9 G/DL HEMATOCRIT (test code = 1004) 42.2 % MCV (test code = 1005) 86.7 fL MCH (test code = 1006) 30.6 PG MCHC (test code = 1007) 35.3 G/DL RDW (test code = 1038) 13.8 % NEUTROPHILS (test code = 1008) 41.2 % LYMPHOCYTES (test code = 1010) 45.9 % MONOCYTES (test code = 1011) 8.1 % EOSINOPHILS (test code = 1012) 4.6 % BASOPHILS (test code = 1013) 0.2 % PLATELET COUNT (test code = 1015) 293 K/UL HEMOGLOBIN [id number] 00:00:00* Test Item Value Reference Range Interpretation Comme nts HEMOGLOBIN A1c (test code = 29022) 5.3 % THYROID II PROFILE (T3U, T4, T7, TSH)2016-06-23 00:00:00* Test Item Value Reference Range Interpretation Comme nts T3 UPTAKE (test code = 2817) 33.6 % T4 (THYROXINE) (test code = 2819) 4.1 UG/DL CALCULATED T7 (FTI) (test co de = 2820) 1.38 TSH (test code = 2821) 3.0 UIU/ML COMPREHENSIVE METABOLIC [id number] 00:00:00* Test Item Value Reference Range Interpretation Comme nts GLUCOSE (test code = 2217) 96 MG/DL BUN (test code = 2208) 11 MG/DL CREATININE (test code = 2214) 1.15 MG/DL eGFR AMER. (test cod e = 37487) 94 ML/MIN/1.73 eGFR NON- AMER. (test code = 02470) 81 ML/MIN/1.73 CALC BUN/CREAT (test code = 2235) 10 RATIO SODIUM (test code = 2231) 141 MEQ/L POTASSIUM (test code = 2228) 4.4 MEQ/L CHLORIDE (test code = 2215) 99 MEQ/L CARBON DIOXIDE (test code = 2206) 24 MEQ/L CALCIUM (test code = 2209) 9.4 MG/DL PROTEIN, TOTAL (test code = 2229) 7.9 G/DL ALBUMIN (test code = 2201) 4.7 G/DL CALC GLOBULIN (test code = 2240) 3.2 G/DL CALC A/G RATIO (test code = 2234) 1.5 RATIO BILIRUBIN, TOTAL (test code = 2207) 0.2 MG/DL ALKALINE PHOSPHATASE (test code = 2204) 86 U/L AST (test code = 2218) 58 U/L ALT (test code = 2219) 53 U/L LIPID [id number] 00:00:00* Test Item Value Reference Range Interpretation Comme nts CHOLESTEROL (test code = 2210) 225 MG/DL TRIGLYCERIDES (test code = 2232) 294 MG/DL HDL CHOLESTEROL (test code = 2220) 33 MG/DL CALC LDL CHOL (test code = 2237) 133 MG/DL RISK RATIO LDL/HDL (test cod e = 2238) 4.04 RATIO CBC W/AUTO [id number] 00:00:00* Test Item Value Reference Range Interpretation Comme nts WBC (test code = 1001) 5.4 K/UL RBC (test code = 1002) 4.87 M/UL HEMOGLOBIN (test code = 1003) 14.9 G/DL HEMATOCRIT (test code = 1004) 42.2 % MCV (test code = 1005) 86.7 fL MCH (test code = 1006) 30.6 PG MCHC (test code = 1007) 35.3 G/DL RDW (test code = 1038) 13.8 % NEUTROPHILS (test code = 1008) 41.2 % LYMPHOCYTES (test code = 1010) 45.9 % MONOCYTES (test code = 1011) 8.1 % EOSINOPHILS (test code = 1012) 4.6 % BASOPHILS (test code = 1013) 0.2 % PLATELET COUNT (test code = 1015) 293 K/UL HEMOGLOBIN [id number] 00:00:00* Test Item Value Reference Range Interpretation Comme nts HEMOGLOBIN A1c (test code = 78443) 5.3 % THYROID II PROFILE (T3U, T4, T7, TSH)2016-06-23 00:00:00* Test Item Value Reference Range Interpretation Comme nts T3 UPTAKE (test code = 2817) 33.6 % T4 (THYROXINE) (test code = 2819) 4.1 UG/DL CALCULATED T7 (FTI) (test co de = 2820) 1.38 TSH (test code = 2821) 3.0 UIU/ML HEMOGLOBIN [id number] 00:00:00* Test Item Value Reference Range Interpretation Comme nts HEMOGLOBIN A1c (test code = 11650) 5.3 % Brian Pastrana AustinTHYROID II PROFILE (T3U, T4, T7, TSH)2016-06-23 00:00:00* Test Item Value Reference Range Interpretation Comme nts T3 UPTAKE (test code = 2817) 33.6 % T4 (THYROXINE) (test code = 2819) 4.1 UG/DL CALCULATED T7 (FTI) (test co de = 2820) 1.38 TSH (test code = 2821) 3.0 UIU/ML Brian Pastrana AustinCOMPREHENSIVE METABOLIC [id number] 00:00:00* Test Item Value Reference Range Interpretation Comme nts GLUCOSE (test code = 2217) 96 MG/DL BUN (test code = 2208) 11 MG/DL CREATININE (test code = 2214) 1.15 MG/DL eGFR AMER. (test cod e = 89268) 94 ML/MIN/1.73 eGFR NON- AMER. (test code = 09938) 81 ML/MIN/1.73 CALC BUN/CREAT (test code = 2235) 10 RATIO SODIUM (test code = 2231) 141 MEQ/L POTASSIUM (test code = 2228) 4.4 MEQ/L CHLORIDE (test code = 2215) 99 MEQ/L CARBON DIOXIDE (test code = 2206) 24 MEQ/L CALCIUM (test code = 2209) 9.4 MG/DL PROTEIN, TOTAL (test code = 2229) 7.9 G/DL ALBUMIN (test code = 2201) 4.7 G/DL CALC GLOBULIN (test code = 2240) 3.2 G/DL CALC A/G RATIO (test code = 2234) 1.5 RATIO BILIRUBIN, TOTAL (test code = 2207) 0.2 MG/DL ALKALINE PHOSPHATASE (test code = 2204) 86 U/L AST (test code = 2218) 58 U/L ALT (test code = 2219) 53 U/L Brian ClaytonLIPID [id number] 00:00:00* Test Item Value Reference Range Interpretation Comme nts CHOLESTEROL (test code = 2210) 225 MG/DL TRIGLYCERIDES (test code = 2232) 294 MG/DL HDL CHOLESTEROL (test code = 2220) 33 MG/DL CALC LDL CHOL (test code = 2237) 133 MG/DL RISK RATIO LDL/HDL (test cod e = 2238) 4.04 RATIO Brian ClaytonCBC W/AUTO [id number] 00:00:00* Test Item Value Reference Range Interpretation Comme nts WBC (test code = 1001) 5.4 K/UL RBC (test code = 1002) 4.87 M/UL HEMOGLOBIN (test code = 1003) 14.9 G/DL HEMATOCRIT (test code = 1004) 42.2 % MCV (test code = 1005) 86.7 fL MCH (test code = 1006) 30.6 PG MCHC (test code = 1007) 35.3 G/DL RDW (test code = 1038) 13.8 % NEUTROPHILS (test code = 1008) 41.2 % LYMPHOCYTES (test code = 1010) 45.9 % MONOCYTES (test code = 1011) 8.1 % EOSINOPHILS (test code = 1012) 4.6 % BASOPHILS (test code = 1013) 0.2 % PLATELET COUNT (test code = 1015) 293 K/UL Brian ClaytonHEMOGLOBIN [id number] 00:00:00* Test Item Value Reference Range Interpretation Comme nts HEMOGLOBIN A1c (test code = 70126) 5.3 % Brian ClaytonTHYROID II PROFILE (T3U, T4, T7, TSH)2016-06-23 00:00:00* Test Item Value Reference Range Interpretation Comme nts T3 UPTAKE (test code = 2817) 33.6 % T4 (THYROXINE) (test code = 2819) 4.1 UG/DL CALCULATED T7 (FTI) (test co de = 2820) 1.38 TSH (test code = 2821) 3.0 UIU/ML Brian ClaytonCOMPREHENSIVE METABOLIC [id number] 00:00:00* Test Item Value Reference Range Interpretation Comme nts GLUCOSE (test code = 2217) 96 MG/DL BUN (test code = 2208) 11 MG/DL CREATININE (test code = 2214) 1.15 MG/DL eGFR AMER. (test cod e = 32554) 94 ML/MIN/1.73 eGFR NON- AMER. (test code = 20781) 81 ML/MIN/1.73 CALC BUN/CREAT (test code = 2235) 10 RATIO SODIUM (test code = 2231) 141 MEQ/L POTASSIUM (test code = 2228) 4.4 MEQ/L CHLORIDE (test code = 2215) 99 MEQ/L CARBON DIOXIDE (test code = 2206) 24 MEQ/L CALCIUM (test code = 2209) 9.4 MG/DL PROTEIN, TOTAL (test code = 2229) 7.9 G/DL ALBUMIN (test code = 2201) 4.7 G/DL CALC GLOBULIN (test code = 2240) 3.2 G/DL CALC A/G RATIO (test code = 2234) 1.5 RATIO BILIRUBIN, TOTAL (test code = 2207) 0.2 MG/DL ALKALINE PHOSPHATASE (test code = 2204) 86 U/L AST (test code = 2218) 58 U/L ALT (test code = 2219) 53 U/L Brian ClatyonLIPID [id number] 00:00:00* Test Item Value Reference Range Interpretation Comme nts CHOLESTEROL (test code = 2210) 225 MG/DL TRIGLYCERIDES (test code = 2232) 294 MG/DL HDL CHOLESTEROL (test code = 2220) 33 MG/DL CALC LDL CHOL (test code = 2237) 133 MG/DL RISK RATIO LDL/HDL (test cod e = 2238) 4.04 RATIO Brian ClaytonCOMPREHENSIVE METABOLIC [id number] 00:00:00* Test Item Value Reference Range Interpretation Comme nts GLUCOSE (test code = 2217) 96 MG/DL BUN (test code = 2208) 11 MG/DL CREATININE (test code = 2214) 1.15 MG/DL eGFR AMER. (test cod e = 26148) 94 ML/MIN/1.73 eGFR NON- AMER. (test code = 04882) 81 ML/MIN/1.73 CALC BUN/CREAT (test code = 2235) 10 RATIO SODIUM (test code = 2231) 141 MEQ/L POTASSIUM (test code = 2228) 4.4 MEQ/L CHLORIDE (test code = 2215) 99 MEQ/L CARBON DIOXIDE (test code = 2206) 24 MEQ/L CALCIUM (test code = 2209) 9.4 MG/DL PROTEIN, TOTAL (test code = 2229) 7.9 G/DL ALBUMIN (test code = 2201) 4.7 G/DL CALC GLOBULIN (test code = 2240) 3.2 G/DL CALC A/G RATIO (test code = 2234) 1.5 RATIO BILIRUBIN, TOTAL (test code = 2207) 0.2 MG/DL ALKALINE PHOSPHATASE (test code = 2204) 86 U/L AST (test code = 2218) 58 U/L ALT (test code = 2219) 53 U/L Brian ClaytonCBC W/AUTO [id number] 00:00:00* Test Item Value Reference Range Interpretation Comme nts WBC (test code = 1001) 5.4 K/UL RBC (test code = 1002) 4.87 M/UL HEMOGLOBIN (test code = 1003) 14.9 G/DL HEMATOCRIT (test code = 1004) 42.2 % MCV (test code = 1005) 86.7 fL MCH (test code = 1006) 30.6 PG MCHC (test code = 1007) 35.3 G/DL RDW (test code = 1038) 13.8 % NEUTROPHILS (test code = 1008) 41.2 % LYMPHOCYTES (test code = 1010) 45.9 % MONOCYTES (test code = 1011) 8.1 % EOSINOPHILS (test code = 1012) 4.6 % BASOPHILS (test code = 1013) 0.2 % PLATELET COUNT (test code = 1015) 293 K/UL Brian ClaytonHEMOGLOBIN [id number] 00:00:00* Test Item Value Reference Range Interpretation Comme nts HEMOGLOBIN A1c (test code = 99657) 5.3 % Brian ClaytonTHYROID II PROFILE (T3U, T4, T7, TSH)2016-06-23 00:00:00* Test Item Value Reference Range Interpretation Comme nts T3 UPTAKE (test code = 2817) 33.6 % T4 (THYROXINE) (test code = 2819) 4.1 UG/DL CALCULATED T7 (FTI) (test co de = 2820) 1.38 TSH (test code = 2821) 3.0 UIU/ML Brian ClaytonCOMPREHENSIVE METABOLIC [id number] 00:00:00* Test Item Value Reference Range Interpretation Comme nts GLUCOSE (test code = 2217) 96 MG/DL BUN (test code = 2208) 11 MG/DL CREATININE (test code = 2214) 1.15 MG/DL eGFR AMER. (test cod e = 84032) 94 ML/MIN/1.73 eGFR NON- AMER. (test code = 45680) 81 ML/MIN/1.73 CALC BUN/CREAT (test code = 2235) 10 RATIO SODIUM (test code = 2231) 141 MEQ/L POTASSIUM (test code = 2228) 4.4 MEQ/L CHLORIDE (test code = 2215) 99 MEQ/L CARBON DIOXIDE (test code = 2206) 24 MEQ/L CALCIUM (test code = 2209) 9.4 MG/DL PROTEIN, TOTAL (test code = 2229) 7.9 G/DL ALBUMIN (test code = 2201) 4.7 G/DL CALC GLOBULIN (test code = 2240) 3.2 G/DL CALC A/G RATIO (test code = 2234) 1.5 RATIO BILIRUBIN, TOTAL (test code = 2207) 0.2 MG/DL ALKALINE PHOSPHATASE (test code = 2204) 86 U/L AST (test code = 2218) 58 U/L ALT (test code = 2219) 53 U/L Brian ClaytonLIPID [id number] 00:00:00* Test Item Value Reference Range Interpretation Comme nts CHOLESTEROL (test code = 2210) 225 MG/DL TRIGLYCERIDES (test code = 2232) 294 MG/DL HDL CHOLESTEROL (test code = 2220) 33 MG/DL CALC LDL CHOL (test code = 2237) 133 MG/DL RISK RATIO LDL/HDL (test cod e = 2238) 4.04 RATIO Brian ClaytonCBC W/AUTO [id number] 00:00:00* Test Item Value Reference Range Interpretation Comme nts WBC (test code = 1001) 5.4 K/UL RBC (test code = 1002) 4.87 M/UL HEMOGLOBIN (test code = 1003) 14.9 G/DL HEMATOCRIT (test code = 1004) 42.2 % MCV (test code = 1005) 86.7 fL MCH (test code = 1006) 30.6 PG MCHC (test code = 1007) 35.3 G/DL RDW (test code = 1038) 13.8 % NEUTROPHILS (test code = 1008) 41.2 % LYMPHOCYTES (test code = 1010) 45.9 % MONOCYTES (test code = 1011) 8.1 % EOSINOPHILS (test code = 1012) 4.6 % BASOPHILS (test code = 1013) 0.2 % PLATELET COUNT (test code = 1015) 293 K/UL Brian ClaytonHEMOGLOBIN [id number] 00:00:00* Test Item Value Reference Range Interpretation Comme rosa HEMOGLOBIN A1c (test code = 57681) 5.3 % Brian ClaytonTHYROID II PROFILE (T3U, T4, T7, TSH)2016-06-23 00:00:00* Test Item Value Reference Range Interpretation Comme [facility] T3 UPTAKE (test code = 2817) 33.6 % T4 (THYROXINE) (test code = 2819) 4.1 UG/DL CALCULATED T7 (FTI) (test co de = 2820) 1.38 TSH (test code = 2821) 3.0 UIU/ML Brian ClaytonLIPID [id number] 00:00:00* Test Item Value Reference Range Interpretation Comme nts CHOLESTEROL (test code = 2210) 225 MG/DL TRIGLYCERIDES (test code = 2232) 294 MG/DL HDL CHOLESTEROL (test code = 2220) 33 MG/DL CALC LDL CHOL (test code = 2237) 133 MG/DL RISK RATIO LDL/HDL (test cod e = 2238) 4.04 RATIO Brian ClaytonCBC W/AUTO [id number] 00:00:00* Test Item Value Reference Range Interpretation Comme nts WBC (test code = 1001) 5.4 K/UL RBC (test code = 1002) 4.87 M/UL HEMOGLOBIN (test code = 1003) 14.9 G/DL HEMATOCRIT (test code = 1004) 42.2 % MCV (test code = 1005) 86.7 fL MCH (test code = 1006) 30.6 PG MCHC (test code = 1007) 35.3 G/DL RDW (test code = 1038) 13.8 % NEUTROPHILS (test code = 1008) 41.2 % LYMPHOCYTES (test code = 1010) 45.9 % MONOCYTES (test code = 1011) 8.1 % EOSINOPHILS (test code = 1012) 4.6 % BASOPHILS (test code = 1013) 0.2 % PLATELET COUNT (test code = 1015) 293 K/UL Brian ClaytonHEMOGLOBIN [id number] 00:00:00* Test Item Value Reference Range Interpretation Comme nts HEMOGLOBIN A1c (test code = 20729) 5.3 % Brian ClaytonTHYROID II PROFILE (T3U, T4, T7, TSH)2016-06-23 00:00:00* Test Item Value Reference Range Interpretation Comme nts T3 UPTAKE (test code = 2817) 33.6 % T4 (THYROXINE) (test code = 2819) 4.1 UG/DL CALCULATED T7 (FTI) (test co de = 2820) 1.38 TSH (test code = 2821) 3.0 UIU/ML Brian ClaytonCOMPREHENSIVE METABOLIC [id number] 00:00:00* Test Item Value Reference Range Interpretation Comme nts GLUCOSE (test code = 2217) 96 MG/DL BUN (test code = 2208) 11 MG/DL CREATININE (test code = 2214) 1.15 MG/DL eGFR AMER. (test cod e = 99439) 94 ML/MIN/1.73 eGFR NON- AMER. (test code = 56930) 81 ML/MIN/1.73 CALC BUN/CREAT (test code = 2235) 10 RATIO SODIUM (test code = 2231) 141 MEQ/L POTASSIUM (test code = 2228) 4.4 MEQ/L CHLORIDE (test code = 2215) 99 MEQ/L CARBON DIOXIDE (test code = 2206) 24 MEQ/L CALCIUM (test code = 2209) 9.4 MG/DL PROTEIN, TOTAL (test code = 2229) 7.9 G/DL ALBUMIN (test code = 2201) 4.7 G/DL CALC GLOBULIN (test code = 2240) 3.2 G/DL CALC A/G RATIO (test code = 2234) 1.5 RATIO BILIRUBIN, TOTAL (test code = 2207) 0.2 MG/DL ALKALINE PHOSPHATASE (test code = 2204) 86 U/L AST (test code = 2218) 58 U/L ALT (test code = 2219) 53 U/L Brian ClaytonLIPID [id number] 00:00:00* Test Item Value Reference Range Interpretation Comme nts CHOLESTEROL (test code = 2210) 225 MG/DL TRIGLYCERIDES (test code = 2232) 294 MG/DL HDL CHOLESTEROL (test code = 2220) 33 MG/DL CALC LDL CHOL (test code = 2237) 133 MG/DL RISK RATIO LDL/HDL (test cod e = 2238) 4.04 RATIO Brian ClaytonCBC W/AUTO [id number] 00:00:00* Test Item Value Reference Range Interpretation Comme nts WBC (test code = 1001) 5.4 K/UL RBC (test code = 1002) 4.87 M/UL HEMOGLOBIN (test code = 1003) 14.9 G/DL HEMATOCRIT (test code = 1004) 42.2 % MCV (test code = 1005) 86.7 fL MCH (test code = 1006) 30.6 PG MCHC (test code = 1007) 35.3 G/DL RDW (test code = 1038) 13.8 % NEUTROPHILS (test code = 1008) 41.2 % LYMPHOCYTES (test code = 1010) 45.9 % MONOCYTES (test code = 1011) 8.1 % EOSINOPHILS (test code = 1012) 4.6 % BASOPHILS (test code = 1013) 0.2 % PLATELET COUNT (test code = 1015) 293 K/UL Brian ClaytonHEMOGLOBIN [id number] 00:00:00* Test Item Value Reference Range Interpretation Comme nts HEMOGLOBIN A1c (test code = 17548) 5.3 % Brian ClaytonTHYROID II PROFILE (T3U, T4, T7, TSH)2016-06-23 00:00:00* Test Item Value Reference Range Interpretation Comme nts T3 UPTAKE (test code = 2817) 33.6 % T4 (THYROXINE) (test code = 2819) 4.1 UG/DL CALCULATED T7 (FTI) (test co de = 2820) 1.38 TSH (test code = 2821) 3.0 UIU/ML Brian ClaytonCOMPREHENSIVE METABOLIC [id number] 00:00:00* Test Item Value Reference Range Interpretation Comme nts GLUCOSE (test code = 2217) 96 MG/DL BUN (test code = 2208) 11 MG/DL CREATININE (test code = 2214) 1.15 MG/DL eGFR AMER. (test cod e = 03497) 94 ML/MIN/1.73 eGFR NON- AMER. (test code = 60942) 81 ML/MIN/1.73 CALC BUN/CREAT (test code = 2235) 10 RATIO SODIUM (test code = 2231) 141 MEQ/L POTASSIUM (test code = 2228) 4.4 MEQ/L CHLORIDE (test code = 2215) 99 MEQ/L CARBON DIOXIDE (test code = 2206) 24 MEQ/L CALCIUM (test code = 2209) 9.4 MG/DL PROTEIN, TOTAL (test code = 2229) 7.9 G/DL ALBUMIN (test code = 2201) 4.7 G/DL CALC GLOBULIN (test code = 2240) 3.2 G/DL CALC A/G RATIO (test code = 2234) 1.5 RATIO BILIRUBIN, TOTAL (test code = 2207) 0.2 MG/DL ALKALINE PHOSPHATASE (test code = 2204) 86 U/L AST (test code = 2218) 58 U/L ALT (test code = 2219) 53 U/L Brian ClaytonLIPID [id number] 00:00:00* Test Item Value Reference Range Interpretation Comme nts CHOLESTEROL (test code = 2210) 225 MG/DL TRIGLYCERIDES (test code = 2232) 294 MG/DL HDL CHOLESTEROL (test code = 2220) 33 MG/DL CALC LDL CHOL (test code = 2237) 133 MG/DL RISK RATIO LDL/HDL (test cod e = 2238) 4.04 RATIO Brian ClaytonCBC W/AUTO [id number] 00:00:00* Test Item Value Reference Range Interpretation Comme nts WBC (test code = 1001) 5.4 K/UL RBC (test code = 1002) 4.87 M/UL HEMOGLOBIN (test code = 1003) 14.9 G/DL HEMATOCRIT (test code = 1004) 42.2 % MCV (test code = 1005) 86.7 fL MCH (test code = 1006) 30.6 PG MCHC (test code = 1007) 35.3 G/DL RDW (test code = 1038) 13.8 % NEUTROPHILS (test code = 1008) 41.2 % LYMPHOCYTES (test code = 1010) 45.9 % MONOCYTES (test code = 1011) 8.1 % EOSINOPHILS (test code = 1012) 4.6 % BASOPHILS (test code = 1013) 0.2 % PLATELET COUNT (test code = 1015) 293 K/UL Brian ClaytonHEMOGLOBIN [id number] 00:00:00* Test Item Value Reference Range Interpretation Comme nts HEMOGLOBIN A1c (test code = 44465) 5.3 % Brian ClaytonTHYROID II PROFILE (T3U, T4, T7, TSH)2016-06-23 00:00:00* Test Item Value Reference Range Interpretation Comme nts T3 UPTAKE (test code = 2817) 33.6 % T4 (THYROXINE) (test code = 2819) 4.1 UG/DL CALCULATED T7 (FTI) (test co de = 2820) 1.38 TSH (test code = 2821) 3.0 UIU/ML Brian ClaytonCOMPREHENSIVE METABOLIC [id number] 00:00:00* Test Item Value Reference Range Interpretation Comme nts GLUCOSE (test code = 2217) 96 MG/DL BUN (test code = 2208) 11 MG/DL CREATININE (test code = 2214) 1.15 MG/DL eGFR AMER. (test cod e = 50654) 94 ML/MIN/1.73 eGFR NON- AMER. (test code = 32107) 81 ML/MIN/1.73 CALC BUN/CREAT (test code = 2235) 10 RATIO SODIUM (test code = 2231) 141 MEQ/L POTASSIUM (test code = 2228) 4.4 MEQ/L CHLORIDE (test code = 2215) 99 MEQ/L CARBON DIOXIDE (test code = 2206) 24 MEQ/L CALCIUM (test code = 2209) 9.4 MG/DL PROTEIN, TOTAL (test code = 2229) 7.9 G/DL ALBUMIN (test code = 2201) 4.7 G/DL CALC GLOBULIN (test code = 2240) 3.2 G/DL CALC A/G RATIO (test code = 2234) 1.5 RATIO BILIRUBIN, TOTAL (test code = 2207) 0.2 MG/DL ALKALINE PHOSPHATASE (test code = 2204) 86 U/L AST (test code = 2218) 58 U/L ALT (test code = 2219) 53 U/L Brian ClaytonLIPID [id number] 00:00:00* Test Item Value Reference Range Interpretation Comme nts CHOLESTEROL (test code = 2210) 225 MG/DL TRIGLYCERIDES (test code = 2232) 294 MG/DL HDL CHOLESTEROL (test code = 2220) 33 MG/DL CALC LDL CHOL (test code = 2237) 133 MG/DL RISK RATIO LDL/HDL (test cod e = 2238) 4.04 RATIO Brian ClaytonCBC W/AUTO [id number] 00:00:00* Test Item Value Reference Range Interpretation Comme nts WBC (test code = 1001) 5.4 K/UL RBC (test code = 1002) 4.87 M/UL HEMOGLOBIN (test code = 1003) 14.9 G/DL HEMATOCRIT (test code = 1004) 42.2 % MCV (test code = 1005) 86.7 fL MCH (test code = 1006) 30.6 PG MCHC (test code = 1007) 35.3 G/DL RDW (test code = 1038) 13.8 % NEUTROPHILS (test code = 1008) 41.2 % LYMPHOCYTES (test code = 1010) 45.9 % MONOCYTES (test code = 1011) 8.1 % EOSINOPHILS (test code = 1012) 4.6 % BASOPHILS (test code = 1013) 0.2 % PLATELET COUNT (test code = 1015) 293 K/UL Brian ClaytonHEMOGLOBIN [id number] 00:00:00* Test Item Value Reference Range Interpretation Comme nts HEMOGLOBIN A1c (test code = 23736) 5.3 % Brian ClaytonTHYROID II PROFILE (T3U, T4, T7, TSH)2016-06-23 00:00:00* Test Item Value Reference Range Interpretation Comme nts T3 UPTAKE (test code = 2817) 33.6 % T4 (THYROXINE) (test code = 2819) 4.1 UG/DL CALCULATED T7 (FTI) (test co de = 2820) 1.38 TSH (test code = 2821) 3.0 UIU/ML Brian ClaytonCOMPREHENSIVE METABOLIC [id number] 00:00:00* Test Item Value Reference Range Interpretation Comme nts GLUCOSE (test code = 2217) 96 MG/DL BUN (test code = 2208) 11 MG/DL CREATININE (test code = 2214) 1.15 MG/DL eGFR AMER. (test cod e = 02473) 94 ML/MIN/1.73 eGFR NON- AMER. (test code = 62548) 81 ML/MIN/1.73 CALC BUN/CREAT (test code = 2235) 10 RATIO SODIUM (test code = 2231) 141 MEQ/L POTASSIUM (test code = 2228) 4.4 MEQ/L CHLORIDE (test code = 2215) 99 MEQ/L CARBON DIOXIDE (test code = 2206) 24 MEQ/L CALCIUM (test code = 2209) 9.4 MG/DL PROTEIN, TOTAL (test code = 2229) 7.9 G/DL ALBUMIN (test code = 2201) 4.7 G/DL CALC GLOBULIN (test code = 2240) 3.2 G/DL CALC A/G RATIO (test code = 2234) 1.5 RATIO BILIRUBIN, TOTAL (test code = 2207) 0.2 MG/DL ALKALINE PHOSPHATASE (test code = 2204) 86 U/L AST (test code = 2218) 58 U/L ALT (test code = 2219) 53 U/L Brian ClaytonLIPID [id number] 00:00:00* Test Item Value Reference Range Interpretation Comme nts CHOLESTEROL (test code = 2210) 225 MG/DL TRIGLYCERIDES (test code = 2232) 294 MG/DL HDL CHOLESTEROL (test code = 2220) 33 MG/DL CALC LDL CHOL (test code = 2237) 133 MG/DL RISK RATIO LDL/HDL (test cod e = 2238) 4.04 RATIO Brian ClaytonCBC W/AUTO [id number] 00:00:00* Test Item Value Reference Range Interpretation Comme nts WBC (test code = 1001) 5.4 K/UL RBC (test code = 1002) 4.87 M/UL HEMOGLOBIN (test code = 1003) 14.9 G/DL HEMATOCRIT (test code = 1004) 42.2 % MCV (test code = 1005) 86.7 fL MCH (test code = 1006) 30.6 PG MCHC (test code = 1007) 35.3 G/DL RDW (test code = 1038) 13.8 % NEUTROPHILS (test code = 1008) 41.2 % LYMPHOCYTES (test code = 1010) 45.9 % MONOCYTES (test code = 1011) 8.1 % EOSINOPHILS (test code = 1012) 4.6 % BASOPHILS (test code = 1013) 0.2 % PLATELET COUNT (test code = 1015) 293 K/UL Brian ClaytonHEMOGLOBIN [id number] 00:00:00* Test Item Value Reference Range Interpretation Comme nts HEMOGLOBIN A1c (test code = 09692) 5.3 % Brian ClaytonTHYROID II PROFILE (T3U, T4, T7, TSH)2016-06-23 00:00:00* Test Item Value Reference Range Interpretation Comme nts T3 UPTAKE (test code = 2817) 33.6 % T4 (THYROXINE) (test code = 2819) 4.1 UG/DL CALCULATED T7 (FTI) (test co de = 2820) 1.38 TSH (test code = 2821) 3.0 UIU/ML Brian ClaytonCOMPREHENSIVE METABOLIC [id number] 00:00:00* Test Item Value Reference Range Interpretation Comme nts GLUCOSE (test code = 2217) 96 MG/DL BUN (test code = 2208) 11 MG/DL CREATININE (test code = 2214) 1.15 MG/DL eGFR AMER. (test cod e = 95035) 94 ML/MIN/1.73 eGFR NON- AMER. (test code = 91518) 81 ML/MIN/1.73 CALC BUN/CREAT (test code = 2235) 10 RATIO SODIUM (test code = 2231) 141 MEQ/L POTASSIUM (test code = 2228) 4.4 MEQ/L CHLORIDE (test code = 2215) 99 MEQ/L CARBON DIOXIDE (test code = 2206) 24 MEQ/L CALCIUM (test code = 2209) 9.4 MG/DL PROTEIN, TOTAL (test code = 2229) 7.9 G/DL ALBUMIN (test code = 2201) 4.7 G/DL CALC GLOBULIN (test code = 2240) 3.2 G/DL CALC A/G RATIO (test code = 2234) 1.5 RATIO BILIRUBIN, TOTAL (test code = 2207) 0.2 MG/DL ALKALINE PHOSPHATASE (test code = 2204) 86 U/L AST (test code = 2218) 58 U/L ALT (test code = 2219) 53 U/L Brian ClaytonLIPID [id number] 00:00:00* Test Item Value Reference Range Interpretation Comme nts CHOLESTEROL (test code = 2210) 225 MG/DL TRIGLYCERIDES (test code = 2232) 294 MG/DL HDL CHOLESTEROL (test code = 2220) 33 MG/DL CALC LDL CHOL (test code = 2237) 133 MG/DL RISK RATIO LDL/HDL (test cod e = 2238) 4.04 RATIO Brian ClaytonCBC W/AUTO [id number] 00:00:00* Test Item Value Reference Range Interpretation Comme nts WBC (test code = 1001) 5.4 K/UL RBC (test code = 1002) 4.87 M/UL HEMOGLOBIN (test code = 1003) 14.9 G/DL HEMATOCRIT (test code = 1004) 42.2 % MCV (test code = 1005) 86.7 fL MCH (test code = 1006) 30.6 PG MCHC (test code = 1007) 35.3 G/DL RDW (test code = 1038) 13.8 % NEUTROPHILS (test code = 1008) 41.2 % LYMPHOCYTES (test code = 1010) 45.9 % MONOCYTES (test code = 1011) 8.1 % EOSINOPHILS (test code = 1012) 4.6 % BASOPHILS (test code = 1013) 0.2 % PLATELET COUNT (test code = 1015) 293 K/UL Brian ClaytonCOMPREHENSIVE METABOLIC [id number] 00:00:00* Test Item Value Reference Range Interpretation Comme nts GLUCOSE (test code = 2217) 98 MG/DL BUN (test code = 2208) 12 MG/DL CREATININE (test code = 2214) 1.41 MG/DL eGFR AMER. (test cod e = 39708) 74 ML/MIN/1.73 eGFR NON- AMER. (test code = 60019) 64 ML/MIN/1.73 CALCULATED BUN/CREAT (test code = 2235) 9 RATIO SODIUM (test code = 2231) 138 MEQ/L POTASSIUM (test code = 2228) 4.2 MEQ/L CHLORIDE (test code = 2215) 100 MEQ/L CARBON DIOXIDE (test code = 2206) 23 MEQ/L CALCIUM (test code = 2209) 10.0 MG/DL PROTEIN, TOTAL (test code = 2229) 7.9 G/DL ALBUMIN (test code = 2201) 4.5 G/DL CALCULATED GLOBULIN (test co de = 2240) 3.4 G/DL CALCULATED A/G RATIO (test code = 2234) 1.3 RATIO BILIRUBIN, TOTAL (test code = 2207) 0.6 MG/DL ALKALINE PHOSPHATASE (test code = 2204) 92 U/L SGOT (AST) (test code = 2218) 41 U/L SGPT (ALT) (test code = 2219) 38 U/L LIPID [id number] 00:00:00* Test Item Value Reference Range Interpretation Comme nts CHOLESTEROL (test code = 2210) 213 MG/DL TRIGLYCERIDES (test code = 2232) 570 MG/DL HDL CHOLESTEROL (test code = 2220) 36 MG/DL CALCULATED LDL CHOL (test co de = 2237) NOTE MG/DL CBC W/AUTO [id number] 00:00:00* Test Item Value Reference Range Interpretation Comme nts WBC (test code = 1001) 6.2 K/UL RBC (test code = 1002) 5.10 M/UL HEMOGLOBIN (test code = 1003) 15.8 G/DL HEMATOCRIT (test code = 1004) 43.7 % MCV (test code = 1005) 85.7 fL MCH (test code = 1006) 31.0 PG MCHC (test code = 1007) 36.2 G/DL RDW (test code = 1038) 13.6 % NEUTROPHILS (test code = 1008) 56 % LYMPHOCYTES (test code = 1010) 34 % MONOCYTES (test code = 1011) 8 % EOSINOPHILS (test code = 1012) 2 % BASOPHILS (test code = 1013) % PLATELET COUNT (test code = 1015) 249 K/UL HEMOGLOBIN [id number] 00:00:00* Test Item Value Reference Range Interpretation Comme nts HEMOGLOBIN A1c (test code = 40026) 5.4 % [id number] 00:00:00* Test Item Value Reference Range Interpretation Comme nts TSH (test code = 2821) 2.4 UIU/ML COMPREHENSIVE METABOLIC [id number] 00:00:00* Test Item Value Reference Range Interpretation Comme nts GLUCOSE (test code = 2217) 98 MG/DL BUN (test code = 2208) 12 MG/DL CREATININE (test code = 2214) 1.41 MG/DL eGFR AMER. (test cod e = 72367) 74 ML/MIN/1.73 eGFR NON- AMER. (test code = 85595) 64 ML/MIN/1.73 CALCULATED BUN/CREAT (test code = 2235) 9 RATIO SODIUM (test code = 2231) 138 MEQ/L POTASSIUM (test code = 2228) 4.2 MEQ/L CHLORIDE (test code = 2215) 100 MEQ/L CARBON DIOXIDE (test code = 2206) 23 MEQ/L CALCIUM (test code = 2209) 10.0 MG/DL PROTEIN, TOTAL (test code = 2229) 7.9 G/DL ALBUMIN (test code = 2201) 4.5 G/DL CALCULATED GLOBULIN (test co de = 2240) 3.4 G/DL CALCULATED A/G RATIO (test code = 2234) 1.3 RATIO BILIRUBIN, TOTAL (test code = 2207) 0.6 MG/DL ALKALINE PHOSPHATASE (test code = 2204) 92 U/L SGOT (AST) (test code = 2218) 41 U/L SGPT (ALT) (test code = 2219) 38 U/L LIPID [id number] 00:00:00* Test Item Value Reference Range Interpretation Comme nts CHOLESTEROL (test code = 2210) 213 MG/DL TRIGLYCERIDES (test code = 2232) 570 MG/DL HDL CHOLESTEROL (test code = 2220) 36 MG/DL CALCULATED LDL CHOL (test co de = 2237) NOTE MG/DL CBC W/AUTO [id number] 00:00:00* Test Item Value Reference Range Interpretation Comme nts WBC (test code = 1001) 6.2 K/UL RBC (test code = 1002) 5.10 M/UL HEMOGLOBIN (test code = 1003) 15.8 G/DL HEMATOCRIT (test code = 1004) 43.7 % MCV (test code = 1005) 85.7 fL MCH (test code = 1006) 31.0 PG MCHC (test code = 1007) 36.2 G/DL RDW (test code = 1038) 13.6 % NEUTROPHILS (test code = 1008) 56 % LYMPHOCYTES (test code = 1010) 34 % MONOCYTES (test code = 1011) 8 % EOSINOPHILS (test code = 1012) 2 % BASOPHILS (test code = 1013) % PLATELET COUNT (test code = 1015) 249 K/UL HEMOGLOBIN [id number] 00:00:00* Test Item Value Reference Range Interpretation Comme nts HEMOGLOBIN A1c (test code = 44716) 5.4 % [id number] 00:00:00* Test Item Value Reference Range Interpretation Comme nts TSH (test code = 2821) 2.4 UIU/ML COMPREHENSIVE METABOLIC [id number] 00:00:00* Test Item Value Reference Range Interpretation Comme nts GLUCOSE (test code = 2217) 98 MG/DL BUN (test code = 2208) 12 MG/DL CREATININE (test code = 2214) 1.41 MG/DL eGFR AMER. (test cod e = 53706) 74 ML/MIN/1.73 eGFR NON- AMER. (test code = 22568) 64 ML/MIN/1.73 CALCULATED BUN/CREAT (test code = 2235) 9 RATIO SODIUM (test code = 2231) 138 MEQ/L POTASSIUM (test code = 2228) 4.2 MEQ/L CHLORIDE (test code = 2215) 100 MEQ/L CARBON DIOXIDE (test code = 2206) 23 MEQ/L CALCIUM (test code = 2209) 10.0 MG/DL PROTEIN, TOTAL (test code = 2229) 7.9 G/DL ALBUMIN (test code = 2201) 4.5 G/DL CALCULATED GLOBULIN (test co de = 2240) 3.4 G/DL CALCULATED A/G RATIO (test code = 2234) 1.3 RATIO BILIRUBIN, TOTAL (test code = 2207) 0.6 MG/DL ALKALINE PHOSPHATASE (test code = 2204) 92 U/L SGOT (AST) (test code = 221) 41 U/L SGPT (ALT) (test code = 2219) 38 U/L LIPID [id number] 00:00:00* Test Item Value Reference Range Interpretation Comme nts CHOLESTEROL (test code = 2210) 213 MG/DL TRIGLYCERIDES (test code = 2232) 570 MG/DL HDL CHOLESTEROL (test code = 2220) 36 MG/DL CALCULATED LDL CHOL (test co de = 2237) NOTE MG/DL CBC W/AUTO [id number] 00:00:00* Test Item Value Reference Range Interpretation Comme nts WBC (test code = 1001) 6.2 K/UL RBC (test code = 1002) 5.10 M/UL HEMOGLOBIN (test code = 1003) 15.8 G/DL HEMATOCRIT (test code = 1004) 43.7 % MCV (test code = 1005) 85.7 fL MCH (test code = 1006) 31.0 PG MCHC (test code = 1007) 36.2 G/DL RDW (test code = 1038) 13.6 % NEUTROPHILS (test code = 1008) 56 % LYMPHOCYTES (test code = 1010) 34 % MONOCYTES (test code = 1011) 8 % EOSINOPHILS (test code = 1012) 2 % BASOPHILS (test code = 1013) % PLATELET COUNT (test code = 1015) 249 K/UL HEMOGLOBIN [id number] 00:00:00* Test Item Value Reference Range Interpretation Comme nts HEMOGLOBIN A1c (test code = 94460) 5.4 % [id number] 00:00:00* Test Item Value Reference Range Interpretation Comme nts TSH (test code = 2821) 2.4 UIU/ML COMPREHENSIVE METABOLIC [id number] 00:00:00* Test Item Value Reference Range Interpretation Comme nts GLUCOSE (test code = 2217) 98 MG/DL BUN (test code = 2208) 12 MG/DL CREATININE (test code = 2214) 1.41 MG/DL eGFR AMER. (test cod e = 78015) 74 ML/MIN/1.73 eGFR NON- AMER. (test code = 85854) 64 ML/MIN/1.73 CALCULATED BUN/CREAT (test code = 2235) 9 RATIO SODIUM (test code = 2231) 138 MEQ/L POTASSIUM (test code = 2228) 4.2 MEQ/L CHLORIDE (test code = 2215) 100 MEQ/L CARBON DIOXIDE (test code = 2206) 23 MEQ/L CALCIUM (test code = 2209) 10.0 MG/DL PROTEIN, TOTAL (test code = 2229) 7.9 G/DL ALBUMIN (test code = 2201) 4.5 G/DL CALCULATED GLOBULIN (test co de = 2240) 3.4 G/DL CALCULATED A/G RATIO (test code = 2234) 1.3 RATIO BILIRUBIN, TOTAL (test code = 2207) 0.6 MG/DL ALKALINE PHOSPHATASE (test code = 2204) 92 U/L SGOT (AST) (test code = 2218) 41 U/L SGPT (ALT) (test code = 2219) 38 U/L LIPID [id number] 00:00:00* Test Item Value Reference Range Interpretation Comme nts CHOLESTEROL (test code = 2210) 213 MG/DL TRIGLYCERIDES (test code = 2232) 570 MG/DL HDL CHOLESTEROL (test code = 2220) 36 MG/DL CALCULATED LDL CHOL (test co de = 2237) NOTE MG/DL CBC W/AUTO [id number] 00:00:00* Test Item Value Reference Range Interpretation Comme nts WBC (test code = 1001) 6.2 K/UL RBC (test code = 1002) 5.10 M/UL HEMOGLOBIN (test code = 1003) 15.8 G/DL HEMATOCRIT (test code = 1004) 43.7 % MCV (test code = 1005) 85.7 fL MCH (test code = 1006) 31.0 PG MCHC (test code = 1007) 36.2 G/DL RDW (test code = 1038) 13.6 % NEUTROPHILS (test code = 1008) 56 % LYMPHOCYTES (test code = 1010) 34 % MONOCYTES (test code = 1011) 8 % EOSINOPHILS (test code = 1012) 2 % BASOPHILS (test code = 1013) % PLATELET COUNT (test code = 1015) 249 K/UL HEMOGLOBIN [id number] 00:00:00* Test Item Value Reference Range Interpretation Comme nts HEMOGLOBIN A1c (test code = 05545) 5.4 % [id number] 00:00:00* Test Item Value Reference Range Interpretation Comme nts TSH (test code = 2821) 2.4 UIU/ML CBC W/AUTO [id number] 00:00:00* Test Item Value Reference Range Interpretation Comme nts WBC (test code = 1001) 6.2 K/UL RBC (test code = 1002) 5.10 M/UL HEMOGLOBIN (test code = 1003) 15.8 G/DL HEMATOCRIT (test code = 1004) 43.7 % MCV (test code = 1005) 85.7 fL MCH (test code = 1006) 31.0 PG MCHC (test code = 1007) 36.2 G/DL RDW (test code = 1038) 13.6 % NEUTROPHILS (test code = 1008) 56 % LYMPHOCYTES (test code = 1010) 34 % MONOCYTES (test code = 1011) 8 % EOSINOPHILS (test code = 1012) 2 % PLATELET COUNT (test code = 1015) 249 K/UL Brian Zeina AustinHEMOGLOBIN [id number] 00:00:00* Test Item Value Reference Range Interpretation Comme nts HEMOGLOBIN A1c (test code = 44213) 5.4 % Brian F [id number] 00:00:00* Test Item Value Reference Range Interpretation Comme nts TSH (test code = 2821) 2.4 UIU/ML Brian F ForrestCOMPREHENSIVE METABOLIC [id number] 00:00:00* Test Item Value Reference Range Interpretation Comme nts GLUCOSE (test code = 2217) 98 MG/DL BUN (test code = 2208) 12 MG/DL CREATININE (test code = 2214) 1.41 MG/DL eGFR AMER. (test cod e = 72733) 74 ML/MIN/1.73 eGFR NON- AMER. (test code = 20560) 64 ML/MIN/1.73 CALCULATED BUN/CREAT (test code = 2235) 9 RATIO SODIUM (test code = 2231) 138 MEQ/L POTASSIUM (test code = 2228) 4.2 MEQ/L CHLORIDE (test code = 2215) 100 MEQ/L CARBON DIOXIDE (test code = 2206) 23 MEQ/L CALCIUM (test code = 2209) 10.0 MG/DL PROTEIN, TOTAL (test code = 2229) 7.9 G/DL ALBUMIN (test code = 2201) 4.5 G/DL CALCULATED GLOBULIN (test co de = 2240) 3.4 G/DL CALCULATED A/G RATIO (test code = 2234) 1.3 RATIO BILIRUBIN, TOTAL (test code = 2207) 0.6 MG/DL ALKALINE PHOSPHATASE (test code = 2204) 92 U/L SGOT (AST) (test code = 2218) 41 U/L SGPT (ALT) (test code = 2219) 38 U/L Brian ClaytonLIPID [id number] 00:00:00* Test Item Value Reference Range Interpretation Comme nts CHOLESTEROL (test code = 2210) 213 MG/DL TRIGLYCERIDES (test code = 2232) 570 MG/DL HDL CHOLESTEROL (test code = 2220) 36 MG/DL CALCULATED LDL CHOL (test co de = 2237) NOTE MG/DL Brian Pastrana ForrestCBC W/AUTO [id number] 00:00:00* Test Item Value Reference Range Interpretation Comme nts WBC (test code = 1001) 6.2 K/UL RBC (test code = 1002) 5.10 M/UL HEMOGLOBIN (test code = 1003) 15.8 G/DL HEMATOCRIT (test code = 1004) 43.7 % MCV (test code = 1005) 85.7 fL MCH (test code = 1006) 31.0 PG MCHC (test code = 1007) 36.2 G/DL RDW (test code = 1038) 13.6 % NEUTROPHILS (test code = 1008) 56 % LYMPHOCYTES (test code = 1010) 34 % MONOCYTES (test code = 1011) 8 % EOSINOPHILS (test code = 1012) 2 % PLATELET COUNT (test code = 1015) 249 K/UL Brian ClaytonHEMOGLOBIN [id number] 00:00:00* Test Item Value Reference Range Interpretation Comme nts HEMOGLOBIN A1c (test code = 80868) 5.4 % Brian [id number] 00:00:00* Test Item Value Reference Range Interpretation Comme nts TSH (test code = 2821) 2.4 UIU/ML Brian ClaytonCOMPREHENSIVE METABOLIC [id number] 00:00:00* Test Item Value Reference Range Interpretation Comme nts GLUCOSE (test code = 2217) 98 MG/DL BUN (test code = 2208) 12 MG/DL CREATININE (test code = 2214) 1.41 MG/DL eGFR AMER. (test cod e = 32104) 74 ML/MIN/1.73 eGFR NON- AMER. (test code = 21069) 64 ML/MIN/1.73 CALCULATED BUN/CREAT (test code = 2235) 9 RATIO SODIUM (test code = 2231) 138 MEQ/L POTASSIUM (test code = 2228) 4.2 MEQ/L CHLORIDE (test code = 2215) 100 MEQ/L CARBON DIOXIDE (test code = 2206) 23 MEQ/L CALCIUM (test code = 2209) 10.0 MG/DL PROTEIN, TOTAL (test code = 2229) 7.9 G/DL ALBUMIN (test code = 2201) 4.5 G/DL CALCULATED GLOBULIN (test co de = 2240) 3.4 G/DL CALCULATED A/G RATIO (test code = 2234) 1.3 RATIO BILIRUBIN, TOTAL (test code = 2207) 0.6 MG/DL ALKALINE PHOSPHATASE (test code = 2204) 92 U/L SGOT (AST) (test code = 2218) 41 U/L SGPT (ALT) (test code = 2219) 38 U/L Brian ClaytonLIPID [id number] 00:00:00* Test Item Value Reference Range Interpretation Comme nts CHOLESTEROL (test code = 2210) 213 MG/DL TRIGLYCERIDES (test code = 2232) 570 MG/DL HDL CHOLESTEROL (test code = 2220) 36 MG/DL CALCULATED LDL CHOL (test co de = 2237) NOTE MG/DL Brian ClaytonCBC W/AUTO [id number] 00:00:00* Test Item Value Reference Range Interpretation Comme nts WBC (test code = 1001) 6.2 K/UL RBC (test code = 1002) 5.10 M/UL HEMOGLOBIN (test code = 1003) 15.8 G/DL HEMATOCRIT (test code = 1004) 43.7 % MCV (test code = 1005) 85.7 fL MCH (test code = 1006) 31.0 PG MCHC (test code = 1007) 36.2 G/DL RDW (test code = 1038) 13.6 % NEUTROPHILS (test code = 1008) 56 % LYMPHOCYTES (test code = 1010) 34 % MONOCYTES (test code = 1011) 8 % EOSINOPHILS (test code = 1012) 2 % PLATELET COUNT (test code = 1015) 249 K/UL Brian ClaytonHEMOGLOBIN [id number] 00:00:00* Test Item Value Reference Range Interpretation Comme nts HEMOGLOBIN A1c (test code = 73817) 5.4 % Brian ClaytonCOMPREHENSIVE METABOLIC [id number] 00:00:00* Test Item Value Reference Range Interpretation Comme nts GLUCOSE (test code = 2217) 98 MG/DL BUN (test code = 2208) 12 MG/DL CREATININE (test code = 2214) 1.41 MG/DL eGFR AMER. (test cod e = 28392) 74 ML/MIN/1.73 eGFR NON- AMER. (test code = 91887) 64 ML/MIN/1.73 CALCULATED BUN/CREAT (test code = 2235) 9 RATIO SODIUM (test code = 2231) 138 MEQ/L POTASSIUM (test code = 2228) 4.2 MEQ/L CHLORIDE (test code = 2215) 100 MEQ/L CARBON DIOXIDE (test code = 2206) 23 MEQ/L CALCIUM (test code = 2209) 10.0 MG/DL PROTEIN, TOTAL (test code = 2229) 7.9 G/DL ALBUMIN (test code = 2201) 4.5 G/DL CALCULATED GLOBULIN (test co de = 2240) 3.4 G/DL CALCULATED A/G RATIO (test code = 2234) 1.3 RATIO BILIRUBIN, TOTAL (test code = 2207) 0.6 MG/DL ALKALINE PHOSPHATASE (test code = 2204) 92 U/L SGOT (AST) (test code = 2218) 41 U/L SGPT (ALT) (test code = 2219) 38 U/L Brian [id number] 00:00:00* Test Item Value Reference Range Interpretation Comme nts TSH (test code = 2821) 2.4 UIU/ML Brian ClaytonCOMPREHENSIVE METABOLIC [id number] 00:00:00* Test Item Value Reference Range Interpretation Comme nts GLUCOSE (test code = 2217) 98 MG/DL BUN (test code = 2208) 12 MG/DL CREATININE (test code = 2214) 1.41 MG/DL eGFR AMER. (test cod e = 63255) 74 ML/MIN/1.73 eGFR NON- AMER. (test code = 01244) 64 ML/MIN/1.73 CALCULATED BUN/CREAT (test code = 2235) 9 RATIO SODIUM (test code = 2231) 138 MEQ/L POTASSIUM (test code = 2228) 4.2 MEQ/L CHLORIDE (test code = 2215) 100 MEQ/L CARBON DIOXIDE (test code = 2206) 23 MEQ/L CALCIUM (test code = 2209) 10.0 MG/DL PROTEIN, TOTAL (test code = 2229) 7.9 G/DL ALBUMIN (test code = 2201) 4.5 G/DL CALCULATED GLOBULIN (test co de = 2240) 3.4 G/DL CALCULATED A/G RATIO (test code = 2234) 1.3 RATIO BILIRUBIN, TOTAL (test code = 2207) 0.6 MG/DL ALKALINE PHOSPHATASE (test code = 2204) 92 U/L SGOT (AST) (test code = 2218) 41 U/L SGPT (ALT) (test code = 2219) 38 U/L Brian ClaytonLIPID [id number] 00:00:00* Test Item Value Reference Range Interpretation Comme nts CHOLESTEROL (test code = 2210) 213 MG/DL TRIGLYCERIDES (test code = 2232) 570 MG/DL HDL CHOLESTEROL (test code = 2220) 36 MG/DL CALCULATED LDL CHOL (test co de = 2237) NOTE MG/DL Brian ClaytonCBC W/AUTO [id number] 00:00:00* Test Item Value Reference Range Interpretation Comme nts WBC (test code = 1001) 6.2 K/UL RBC (test code = 1002) 5.10 M/UL HEMOGLOBIN (test code = 1003) 15.8 G/DL HEMATOCRIT (test code = 1004) 43.7 % MCV (test code = 1005) 85.7 fL MCH (test code = 1006) 31.0 PG MCHC (test code = 1007) 36.2 G/DL RDW (test code = 1038) 13.6 % NEUTROPHILS (test code = 1008) 56 % LYMPHOCYTES (test code = 1010) 34 % MONOCYTES (test code = 1011) 8 % EOSINOPHILS (test code = 1012) 2 % PLATELET COUNT (test code = 1015) 249 K/UL Brian ClaytonHEMOGLOBIN [id number] 00:00:00* Test Item Value Reference Range Interpretation Comme nts HEMOGLOBIN A1c (test code = 35154) 5.4 % Brian Pastrana [id number] 00:00:00* Test Item Value Reference Range Interpretation Comme nts TSH (test code = 2821) 2.4 UIU/ML Brian ClaytonLIPID [id number] 00:00:00* Test Item Value Reference Range Interpretation Comme nts CHOLESTEROL (test code = 2210) 213 MG/DL TRIGLYCERIDES (test code = 2232) 570 MG/DL HDL CHOLESTEROL (test code = 2220) 36 MG/DL CALCULATED LDL CHOL (test co de = 2237) NOTE MG/DL Brian ClaytonCBC W/AUTO [id number] 00:00:00* Test Item Value Reference Range Interpretation Comme nts WBC (test code = 1001) 6.2 K/UL RBC (test code = 1002) 5.10 M/UL HEMOGLOBIN (test code = 1003) 15.8 G/DL HEMATOCRIT (test code = 1004) 43.7 % MCV (test code = 1005) 85.7 fL MCH (test code = 1006) 31.0 PG MCHC (test code = 1007) 36.2 G/DL RDW (test code = 1038) 13.6 % NEUTROPHILS (test code = 1008) 56 % LYMPHOCYTES (test code = 1010) 34 % MONOCYTES (test code = 1011) 8 % EOSINOPHILS (test code = 1012) 2 % PLATELET COUNT (test code = 1015) 249 K/UL Brian ClaytonHEMOGLOBIN [id number] 00:00:00* Test Item Value Reference Range Interpretation Comme rosa HEMOGLOBIN A1c (test code = 06109) 5.4 % Brian [id number] 00:00:00* Test Item Value Reference Range Interpretation Comme nts TSH (test code = 2821) 2.4 UIU/ML Brian ClaytonCOMPREHENSIVE METABOLIC [id number] 00:00:00* Test Item Value Reference Range Interpretation Comme nts GLUCOSE (test code = 2217) 98 MG/DL BUN (test code = 2208) 12 MG/DL CREATININE (test code = 2214) 1.41 MG/DL eGFR AMER. (test cod e = 15176) 74 ML/MIN/1.73 eGFR NON- AMER. (test code = 45941) 64 ML/MIN/1.73 CALCULATED BUN/CREAT (test code = 2235) 9 RATIO SODIUM (test code = 2231) 138 MEQ/L POTASSIUM (test code = 2228) 4.2 MEQ/L CHLORIDE (test code = 2215) 100 MEQ/L CARBON DIOXIDE (test code = 2206) 23 MEQ/L CALCIUM (test code = 2209) 10.0 MG/DL PROTEIN, TOTAL (test code = 2229) 7.9 G/DL ALBUMIN (test code = 2201) 4.5 G/DL CALCULATED GLOBULIN (test co de = 2240) 3.4 G/DL CALCULATED A/G RATIO (test code = 2234) 1.3 RATIO BILIRUBIN, TOTAL (test code = 2207) 0.6 MG/DL ALKALINE PHOSPHATASE (test code = 2204) 92 U/L SGOT (AST) (test code = 2218) 41 U/L SGPT (ALT) (test code = 2219) 38 U/L Brian ClaytonLIPID [id number] 00:00:00* Test Item Value Reference Range Interpretation Comme nts CHOLESTEROL (test code = 2210) 213 MG/DL TRIGLYCERIDES (test code = 2232) 570 MG/DL HDL CHOLESTEROL (test code = 2220) 36 MG/DL CALCULATED LDL CHOL (test co de = 2237) NOTE MG/DL Brian ClaytonCBC W/AUTO [id number] 00:00:00* Test Item Value Reference Range Interpretation Comme nts WBC (test code = 1001) 6.2 K/UL RBC (test code = 1002) 5.10 M/UL HEMOGLOBIN (test code = 1003) 15.8 G/DL HEMATOCRIT (test code = 1004) 43.7 % MCV (test code = 1005) 85.7 fL MCH (test code = 1006) 31.0 PG MCHC (test code = 1007) 36.2 G/DL RDW (test code = 1038) 13.6 % NEUTROPHILS (test code = 1008) 56 % LYMPHOCYTES (test code = 1010) 34 % MONOCYTES (test code = 1011) 8 % EOSINOPHILS (test code = 1012) 2 % PLATELET COUNT (test code = 1015) 249 K/UL Brian ClaytonHEMOGLOBIN [id number] 00:00:00* Test Item Value Reference Range Interpretation Comme rosa HEMOGLOBIN A1c (test code = 11681) 5.4 % Brian Pastrana [id number] 00:00:00* Test Item Value Reference Range Interpretation Comme nts TSH (test code = 2821) 2.4 UIU/ML Brian ClaytonCOMPREHENSIVE METABOLIC [id number] 00:00:00* Test Item Value Reference Range Interpretation Comme nts GLUCOSE (test code = 2217) 98 MG/DL BUN (test code = 2208) 12 MG/DL CREATININE (test code = 2214) 1.41 MG/DL eGFR AMER. (test cod e = 33051) 74 ML/MIN/1.73 eGFR NON- AMER. (test code = 60480) 64 ML/MIN/1.73 CALCULATED BUN/CREAT (test code = 2235) 9 RATIO SODIUM (test code = 2231) 138 MEQ/L POTASSIUM (test code = 2228) 4.2 MEQ/L CHLORIDE (test code = 2215) 100 MEQ/L CARBON DIOXIDE (test code = 2206) 23 MEQ/L CALCIUM (test code = 2209) 10.0 MG/DL PROTEIN, TOTAL (test code = 2229) 7.9 G/DL ALBUMIN (test code = 2201) 4.5 G/DL CALCULATED GLOBULIN (test co de = 2240) 3.4 G/DL CALCULATED A/G RATIO (test code = 2234) 1.3 RATIO BILIRUBIN, TOTAL (test code = 2207) 0.6 MG/DL ALKALINE PHOSPHATASE (test code = 2204) 92 U/L SGOT (AST) (test code = 2218) 41 U/L SGPT (ALT) (test code = 2219) 38 U/L Brian ClaytonLIPID [id number] 00:00:00* Test Item Value Reference Range Interpretation Comme nts CHOLESTEROL (test code = 2210) 213 MG/DL TRIGLYCERIDES (test code = 2232) 570 MG/DL HDL CHOLESTEROL (test code = 2220) 36 MG/DL CALCULATED LDL CHOL (test co de = 2237) NOTE MG/DL Brian ClaytonCBC W/AUTO [id number] 00:00:00* Test Item Value Reference Range Interpretation Comme nts WBC (test code = 1001) 6.2 K/UL RBC (test code = 1002) 5.10 M/UL HEMOGLOBIN (test code = 1003) 15.8 G/DL HEMATOCRIT (test code = 1004) 43.7 % MCV (test code = 1005) 85.7 fL MCH (test code = 1006) 31.0 PG MCHC (test code = 1007) 36.2 G/DL RDW (test code = 1038) 13.6 % NEUTROPHILS (test code = 1008) 56 % LYMPHOCYTES (test code = 1010) 34 % MONOCYTES (test code = 1011) 8 % EOSINOPHILS (test code = 1012) 2 % PLATELET COUNT (test code = 1015) 249 K/UL Brian ClaytonHEMOGLOBIN [id number] 00:00:00* Test Item Value Reference Range Interpretation Comme rosa HEMOGLOBIN A1c (test code = 44034) 5.4 % Brian [id number] 00:00:00* Test Item Value Reference Range Interpretation Comme nts TSH (test code = 2821) 2.4 UIU/ML Brian ClaytonCOMPREHENSIVE METABOLIC [id number] 00:00:00* Test Item Value Reference Range Interpretation Comme nts GLUCOSE (test code = 2217) 98 MG/DL BUN (test code = 2208) 12 MG/DL CREATININE (test code = 2214) 1.41 MG/DL eGFR AMER. (test cod e = 06600) 74 ML/MIN/1.73 eGFR NON- AMER. (test code = 48984) 64 ML/MIN/1.73 CALCULATED BUN/CREAT (test code = 2235) 9 RATIO SODIUM (test code = 2231) 138 MEQ/L POTASSIUM (test code = 2228) 4.2 MEQ/L CHLORIDE (test code = 2215) 100 MEQ/L CARBON DIOXIDE (test code = 2206) 23 MEQ/L CALCIUM (test code = 2209) 10.0 MG/DL PROTEIN, TOTAL (test code = 2229) 7.9 G/DL ALBUMIN (test code = 2201) 4.5 G/DL CALCULATED GLOBULIN (test co de = 2240) 3.4 G/DL CALCULATED A/G RATIO (test code = 2234) 1.3 RATIO BILIRUBIN, TOTAL (test code = 2207) 0.6 MG/DL ALKALINE PHOSPHATASE (test code = 2204) 92 U/L SGOT (AST) (test code = 2218) 41 U/L SGPT (ALT) (test code = 2219) 38 U/L Brian ClaytonLIPID [id number] 00:00:00* Test Item Value Reference Range Interpretation Comme nts CHOLESTEROL (test code = 2210) 213 MG/DL TRIGLYCERIDES (test code = 2232) 570 MG/DL HDL CHOLESTEROL (test code = 2220) 36 MG/DL CALCULATED LDL CHOL (test co de = 2237) NOTE MG/DL Brian ClaytonCBC W/AUTO [id number] 00:00:00* Test Item Value Reference Range Interpretation Comme nts WBC (test code = 1001) 6.2 K/UL RBC (test code = 1002) 5.10 M/UL HEMOGLOBIN (test code = 1003) 15.8 G/DL HEMATOCRIT (test code = 1004) 43.7 % MCV (test code = 1005) 85.7 fL MCH (test code = 1006) 31.0 PG MCHC (test code = 1007) 36.2 G/DL RDW (test code = 1038) 13.6 % NEUTROPHILS (test code = 1008) 56 % LYMPHOCYTES (test code = 1010) 34 % MONOCYTES (test code = 1011) 8 % EOSINOPHILS (test code = 1012) 2 % PLATELET COUNT (test code = 1015) 249 K/UL Brian ClaytonHEMOGLOBIN [id number] 00:00:00* Test Item Value Reference Range Interpretation Comme rosa HEMOGLOBIN A1c (test code = 17830) 5.4 % Brian [id number] 00:00:00* Test Item Value Reference Range Interpretation Comme nts TSH (test code = 2821) 2.4 UIU/ML Brian ClaytonCOMPREHENSIVE METABOLIC [id number] 00:00:00* Test Item Value Reference Range Interpretation Comme nts GLUCOSE (test code = 2217) 98 MG/DL BUN (test code = 2208) 12 MG/DL CREATININE (test code = 2214) 1.41 MG/DL eGFR AMER. (test cod e = 14413) 74 ML/MIN/1.73 eGFR NON- AMER. (test code = 77801) 64 ML/MIN/1.73 CALCULATED BUN/CREAT (test code = 2235) 9 RATIO SODIUM (test code = 2231) 138 MEQ/L POTASSIUM (test code = 2228) 4.2 MEQ/L CHLORIDE (test code = 2215) 100 MEQ/L CARBON DIOXIDE (test code = 2206) 23 MEQ/L CALCIUM (test code = 2209) 10.0 MG/DL PROTEIN, TOTAL (test code = 2229) 7.9 G/DL ALBUMIN (test code = 2201) 4.5 G/DL CALCULATED GLOBULIN (test co de = 2240) 3.4 G/DL CALCULATED A/G RATIO (test code = 2234) 1.3 RATIO BILIRUBIN, TOTAL (test code = 2207) 0.6 MG/DL ALKALINE PHOSPHATASE (test code = 2204) 92 U/L SGOT (AST) (test code = 2218) 41 U/L SGPT (ALT) (test code = 2219) 38 U/L Brian ClaytonLIPID [id number] 00:00:00* Test Item Value Reference Range Interpretation Comme nts CHOLESTEROL (test code = 2210) 213 MG/DL TRIGLYCERIDES (test code = 2232) 570 MG/DL HDL CHOLESTEROL (test code = 2220) 36 MG/DL CALCULATED LDL CHOL (test co de = 2237) NOTE MG/DL Brian ClaytonCBC W/AUTO [id number] 00:00:00* Test Item Value Reference Range Interpretation Comme nts WBC (test code = 1001) 6.2 K/UL RBC (test code = 1002) 5.10 M/UL HEMOGLOBIN (test code = 1003) 15.8 G/DL HEMATOCRIT (test code = 1004) 43.7 % MCV (test code = 1005) 85.7 fL MCH (test code = 1006) 31.0 PG MCHC (test code = 1007) 36.2 G/DL RDW (test code = 1038) 13.6 % NEUTROPHILS (test code = 1008) 56 % LYMPHOCYTES (test code = 1010) 34 % MONOCYTES (test code = 1011) 8 % EOSINOPHILS (test code = 1012) 2 % PLATELET COUNT (test code = 1015) 249 K/UL Brian ClaytonHEMOGLOBIN [id number] 00:00:00* Test Item Value Reference Range Interpretation Comme nts HEMOGLOBIN A1c (test code = 39968) 5.4 % Brian [id number] 00:00:00* Test Item Value Reference Range Interpretation Comme nts TSH (test code = 2821) 2.4 UIU/ML Brian ClaytonCOMPREHENSIVE METABOLIC [id number] 00:00:00* Test Item Value Reference Range Interpretation Comme nts GLUCOSE (test code = 2217) 98 MG/DL BUN (test code = 2208) 12 MG/DL CREATININE (test code = 2214) 1.41 MG/DL eGFR AMER. (test cod e = 74497) 74 ML/MIN/1.73 eGFR NON- AMER. (test code = 11042) 64 ML/MIN/1.73 CALCULATED BUN/CREAT (test code = 2235) 9 RATIO SODIUM (test code = 2231) 138 MEQ/L POTASSIUM (test code = 2228) 4.2 MEQ/L CHLORIDE (test code = 2215) 100 MEQ/L CARBON DIOXIDE (test code = 2206) 23 MEQ/L CALCIUM (test code = 2209) 10.0 MG/DL PROTEIN, TOTAL (test code = 2229) 7.9 G/DL ALBUMIN (test code = 2201) 4.5 G/DL CALCULATED GLOBULIN (test co de = 2240) 3.4 G/DL CALCULATED A/G RATIO (test code = 2234) 1.3 RATIO BILIRUBIN, TOTAL (test code = 2207) 0.6 MG/DL ALKALINE PHOSPHATASE (test code = 2204) 92 U/L SGOT (AST) (test code = 2218) 41 U/L SGPT (ALT) (test code = 2219) 38 U/L Brian Pastrana AustinLIPID [id number] 00:00:00* Test Item Value Reference Range Interpretation Comme nts CHOLESTEROL (test code = 2210) 213 MG/DL TRIGLYCERIDES (test code = 2232) 570 MG/DL HDL CHOLESTEROL (test code = 2220) 36 MG/DL CALCULATED LDL CHOL (test co de = 2237) NOTE MG/DL Brian ClaytonTHYROID II PROFILE (T3U, T4, T7, TSH)2015-02-21 00:00:00* Test Item Value Reference Range Interpretation Comme nts T3 UPTAKE (test code = 2817) 29.5 % T4 (THYROXINE) (test code = 2819) 7.5 UG/DL CALCULATED T7 (FTI) (test co de = 2820) 2.21 TSH (test code = 2821) 2.2 UIU/ML HEMOGLOBIN [id number] 00:00:00* Test Item Value Reference Range Interpretation Comme [facility] HEMOGLOBIN A1c (test code = 99251) 5.3 % CBC W/AUTO [id number] 00:00:00* Test Item Value Reference Range Interpretation Comme nts WBC (test code = 1001) 5.3 K/UL RBC (test code = 1002) 5.02 M/UL HEMOGLOBIN (test code = 1003) 14.7 G/DL HEMATOCRIT (test code = 1004) 44.4 % MCV (test code = 1005) 88.4 fL MCH (test code = 1006) 29.3 PG MCHC (test code = 1007) 33.1 G/DL RDW (test code = 1038) 13.6 % NEUTROPHILS (test code = 1008) 46 % LYMPHOCYTES (test code = 1010) 44 % MONOCYTES (test code = 1011) 7 % EOSINOPHILS (test code = 1012) 3 % BASOPHILS (test code = 1013) % PLATELET COUNT (test code = 1015) 291 K/UL COMPREHENSIVE METABOLIC [id number] 00:00:00* Test Item Value Reference Range Interpretation Comme nts GLUCOSE (test code = 2217) 96 MG/DL BUN (test code = 2208) 13 MG/DL CREATININE (test code = 2214) 1.4 MG/DL eGFR AMER. (test cod e = 43978) 70 ML/MIN/1.73 eGFR NON- AMER. (test code = 74732) 58 ML/MIN/1.73 CALCULATED BUN/CREAT (test code = 2235) 9 RATIO SODIUM (test code = 2231) 137 MEQ/L POTASSIUM (test code = 2228) 4.2 MEQ/L CHLORIDE (test code = 2215) 103 MEQ/L CARBON DIOXIDE (test code = 2206) 24 MEQ/L CALCIUM (test code = 2209) 9.6 MG/DL PROTEIN, TOTAL (test code = 222) 7.7 G/DL ALBUMIN (test code = 220) 4.9 G/DL CALCULATED GLOBULIN (test co de = 2240) 2.8 G/DL CALCULATED A/G RATIO (test code = 2234) 1.8 RATIO BILIRUBIN, TOTAL (test code = 2207) 0.4 MG/DL ALKALINE PHOSPHATASE (test code = 2204) 63 U/L SGOT (AST) (test code = 2218) 49 U/L SGPT (ALT) (test code = 221) 49 U/L LIPID [id number] 00:00:00* Test Item Value Reference Range Interpretation Comme nts CHOLESTEROL (test code = 2210) 180 MG/DL TRIGLYCERIDES (test code = 2232) 139 MG/DL HDL CHOLESTEROL (test code = 2220) 38 MG/DL CALCULATED LDL CHOL (test co de = 223) 114 MG/DL RISK RATIO LDL/HDL (test cod e = 2238) 3.01 RATIO THYROID II PROFILE (T3U, T4, T7, TSH)2015-02-21 00:00:00* Test Item Value Reference Range Interpretation Comme nts T3 UPTAKE (test code = 281) 29.5 % T4 (THYROXINE) (test code = 2819) 7.5 UG/DL CALCULATED T7 (FTI) (test co de = 2820) 2.21 TSH (test code = 2821) 2.2 UIU/ML HEMOGLOBIN [id number] 00:00:00* Test Item Value Reference Range Interpretation Comme nts HEMOGLOBIN A1c (test code = 47027) 5.3 % CBC W/AUTO [id number] 00:00:00* Test Item Value Reference Range Interpretation Comme nts WBC (test code = 1001) 5.3 K/UL RBC (test code = 1002) 5.02 M/UL HEMOGLOBIN (test code = 1003) 14.7 G/DL HEMATOCRIT (test code = 1004) 44.4 % MCV (test code = 1005) 88.4 fL MCH (test code = 1006) 29.3 PG MCHC (test code = 1007) 33.1 G/DL RDW (test code = 1038) 13.6 % NEUTROPHILS (test code = 1008) 46 % LYMPHOCYTES (test code = 1010) 44 % MONOCYTES (test code = 1011) 7 % EOSINOPHILS (test code = 1012) 3 % BASOPHILS (test code = 1013) % PLATELET COUNT (test code = 1015) 291 K/UL COMPREHENSIVE METABOLIC [id number] 00:00:00* Test Item Value Reference Range Interpretation Comme nts GLUCOSE (test code = 2217) 96 MG/DL BUN (test code = 2208) 13 MG/DL CREATININE (test code = 2214) 1.4 MG/DL eGFR AMER. (test cod e = 31752) 70 ML/MIN/1.73 eGFR NON- AMER. (test code = 74459) 58 ML/MIN/1.73 CALCULATED BUN/CREAT (test code = 2235) 9 RATIO SODIUM (test code = 2231) 137 MEQ/L POTASSIUM (test code = 2228) 4.2 MEQ/L CHLORIDE (test code = 2215) 103 MEQ/L CARBON DIOXIDE (test code = 2206) 24 MEQ/L CALCIUM (test code = 2209) 9.6 MG/DL PROTEIN, TOTAL (test code = 2229) 7.7 G/DL ALBUMIN (test code = 2201) 4.9 G/DL CALCULATED GLOBULIN (test co de = 2240) 2.8 G/DL CALCULATED A/G RATIO (test code = 2234) 1.8 RATIO BILIRUBIN, TOTAL (test code = 2207) 0.4 MG/DL ALKALINE PHOSPHATASE (test code = 2204) 63 U/L SGOT (AST) (test code = 2218) 49 U/L SGPT (ALT) (test code = 2219) 49 U/L LIPID [id number] 00:00:00* Test Item Value Reference Range Interpretation Comme nts CHOLESTEROL (test code = 2210) 180 MG/DL TRIGLYCERIDES (test code = 2232) 139 MG/DL HDL CHOLESTEROL (test code = 2220) 38 MG/DL CALCULATED LDL CHOL (test co de = 2237) 114 MG/DL RISK RATIO LDL/HDL (test cod e = 2238) 3.01 RATIO THYROID II PROFILE (T3U, T4, T7, TSH)2015-02-21 00:00:00* Test Item Value Reference Range Interpretation Comme nts T3 UPTAKE (test code = 2817) 29.5 % T4 (THYROXINE) (test code = 2819) 7.5 UG/DL CALCULATED T7 (FTI) (test co de = 2820) 2.21 TSH (test code = 2821) 2.2 UIU/ML HEMOGLOBIN [id number] 00:00:00* Test Item Value Reference Range Interpretation Comme nts HEMOGLOBIN A1c (test code = 54500) 5.3 % CBC W/AUTO [id number] 00:00:00* Test Item Value Reference Range Interpretation Comme nts WBC (test code = 1001) 5.3 K/UL RBC (test code = 1002) 5.02 M/UL HEMOGLOBIN (test code = 1003) 14.7 G/DL HEMATOCRIT (test code = 1004) 44.4 % MCV (test code = 1005) 88.4 fL MCH (test code = 1006) 29.3 PG MCHC (test code = 1007) 33.1 G/DL RDW (test code = 1038) 13.6 % NEUTROPHILS (test code = 1008) 46 % LYMPHOCYTES (test code = 1010) 44 % MONOCYTES (test code = 1011) 7 % EOSINOPHILS (test code = 1012) 3 % BASOPHILS (test code = 1013) % PLATELET COUNT (test code = 1015) 291 K/UL COMPREHENSIVE METABOLIC [id number] 00:00:00* Test Item Value Reference Range Interpretation Comme nts GLUCOSE (test code = 2217) 96 MG/DL BUN (test code = 2208) 13 MG/DL CREATININE (test code = 2214) 1.4 MG/DL eGFR AMER. (test cod e = 92566) 70 ML/MIN/1.73 eGFR NON- AMER. (test code = 60175) 58 ML/MIN/1.73 CALCULATED BUN/CREAT (test code = 2235) 9 RATIO SODIUM (test code = 2231) 137 MEQ/L POTASSIUM (test code = 2228) 4.2 MEQ/L CHLORIDE (test code = 2215) 103 MEQ/L CARBON DIOXIDE (test code = 2206) 24 MEQ/L CALCIUM (test code = 2209) 9.6 MG/DL PROTEIN, TOTAL (test code = 2229) 7.7 G/DL ALBUMIN (test code = 2201) 4.9 G/DL CALCULATED GLOBULIN (test co de = 2240) 2.8 G/DL CALCULATED A/G RATIO (test code = 2234) 1.8 RATIO BILIRUBIN, TOTAL (test code = 220) 0.4 MG/DL ALKALINE PHOSPHATASE (test code = 220) 63 U/L SGOT (AST) (test code = 221) 49 U/L SGPT (ALT) (test code = 221) 49 U/L LIPID [id number] 00:00:00* Test Item Value Reference Range Interpretation Comme nts CHOLESTEROL (test code = 2210) 180 MG/DL TRIGLYCERIDES (test code = 2232) 139 MG/DL HDL CHOLESTEROL (test code = 2220) 38 MG/DL CALCULATED LDL CHOL (test co de = 2237) 114 MG/DL RISK RATIO LDL/HDL (test cod e = 2238) 3.01 RATIO THYROID II PROFILE (T3U, T4, T7, TSH)2015-02-21 00:00:00* Test Item Value Reference Range Interpretation Comme nts T3 UPTAKE (test code = 2817) 29.5 % T4 (THYROXINE) (test code = 2819) 7.5 UG/DL CALCULATED T7 (FTI) (test co de = 2820) 2.21 TSH (test code = 2821) 2.2 UIU/ML HEMOGLOBIN [id number] 00:00:00* Test Item Value Reference Range Interpretation Comme nts HEMOGLOBIN A1c (test code = 47685) 5.3 % CBC W/AUTO [id number] 00:00:00* Test Item Value Reference Range Interpretation Comme nts WBC (test code = 1001) 5.3 K/UL RBC (test code = 1002) 5.02 M/UL HEMOGLOBIN (test code = 1003) 14.7 G/DL HEMATOCRIT (test code = 1004) 44.4 % MCV (test code = 1005) 88.4 fL MCH (test code = 1006) 29.3 PG MCHC (test code = 1007) 33.1 G/DL RDW (test code = 1038) 13.6 % NEUTROPHILS (test code = 1008) 46 % LYMPHOCYTES (test code = 1010) 44 % MONOCYTES (test code = 1011) 7 % EOSINOPHILS (test code = 1012) 3 % BASOPHILS (test code = 1013) % PLATELET COUNT (test code = 1015) 291 K/UL COMPREHENSIVE METABOLIC [id number] 00:00:00* Test Item Value Reference Range Interpretation Comme nts GLUCOSE (test code = 2217) 96 MG/DL BUN (test code = 2208) 13 MG/DL CREATININE (test code = 2214) 1.4 MG/DL eGFR AMER. (test cod e = 74122) 70 ML/MIN/1.73 eGFR NON- AMER. (test code = 28166) 58 ML/MIN/1.73 CALCULATED BUN/CREAT (test code = 2235) 9 RATIO SODIUM (test code = 2231) 137 MEQ/L POTASSIUM (test code = 2228) 4.2 MEQ/L CHLORIDE (test code = 2215) 103 MEQ/L CARBON DIOXIDE (test code = 2206) 24 MEQ/L CALCIUM (test code = 2209) 9.6 MG/DL PROTEIN, TOTAL (test code = 2229) 7.7 G/DL ALBUMIN (test code = 2201) 4.9 G/DL CALCULATED GLOBULIN (test co de = 2240) 2.8 G/DL CALCULATED A/G RATIO (test code = 2234) 1.8 RATIO BILIRUBIN, TOTAL (test code = 2207) 0.4 MG/DL ALKALINE PHOSPHATASE (test code = 2204) 63 U/L SGOT (AST) (test code = 2218) 49 U/L SGPT (ALT) (test code = 2219) 49 U/L LIPID [id number] 00:00:00* Test Item Value Reference Range Interpretation Comme nts CHOLESTEROL (test code = 2210) 180 MG/DL TRIGLYCERIDES (test code = 2232) 139 MG/DL HDL CHOLESTEROL (test code = 2220) 38 MG/DL CALCULATED LDL CHOL (test co de = 2237) 114 MG/DL RISK RATIO LDL/HDL (test cod e = 2238) 3.01 RATIO COMPREHENSIVE METABOLIC [id number] 00:00:00* Test Item Value Reference Range Interpretation Comme nts GLUCOSE (test code = 2217) 96 MG/DL BUN (test code = 2208) 13 MG/DL CREATININE (test code = 2214) 1.4 MG/DL eGFR AMER. (test cod e = 91745) 70 ML/MIN/1.73 eGFR NON- AMER. (test code = 59755) 58 ML/MIN/1.73 CALCULATED BUN/CREAT (test code = 2235) 9 RATIO SODIUM (test code = 2231) 137 MEQ/L POTASSIUM (test code = 2228) 4.2 MEQ/L CHLORIDE (test code = 2215) 103 MEQ/L CARBON DIOXIDE (test code = 2206) 24 MEQ/L CALCIUM (test code = 2209) 9.6 MG/DL PROTEIN, TOTAL (test code = 2229) 7.7 G/DL ALBUMIN (test code = 2201) 4.9 G/DL CALCULATED GLOBULIN (test co de = 2240) 2.8 G/DL CALCULATED A/G RATIO (test code = 2234) 1.8 RATIO BILIRUBIN, TOTAL (test code = 2207) 0.4 MG/DL ALKALINE PHOSPHATASE (test code = 2204) 63 U/L SGOT (AST) (test code = 2218) 49 U/L SGPT (ALT) (test code = 2219) 49 U/L Brian Pastrana AustinLIPID [id number] 00:00:00* Test Item Value Reference Range Interpretation Comme nts CHOLESTEROL (test code = 2210) 180 MG/DL TRIGLYCERIDES (test code = 2232) 139 MG/DL HDL CHOLESTEROL (test code = 2220) 38 MG/DL CALCULATED LDL CHOL (test co de = 2237) 114 MG/DL RISK RATIO LDL/HDL (test cod e = 2238) 3.01 RATIO Brian Zeina ForrestTHYROID II PROFILE (T3U, T4, T7, TSH)2015-02-21 00:00:00* Test Item Value Reference Range Interpretation Comme nts T3 UPTAKE (test code = 2817) 29.5 % T4 (THYROXINE) (test code = 2819) 7.5 UG/DL CALCULATED T7 (FTI) (test co de = 2820) 2.21 TSH (test code = 2821) 2.2 UIU/ML Brian ClaytonHEMOGLOBIN [id number] 00:00:00* Test Item Value Reference Range Interpretation Comme nts HEMOGLOBIN A1c (test code = 80888) 5.3 % Brian ClaytonCBC W/AUTO [id number] 00:00:00* Test Item Value Reference Range Interpretation Comme nts WBC (test code = 1001) 5.3 K/UL RBC (test code = 1002) 5.02 M/UL HEMOGLOBIN (test code = 1003) 14.7 G/DL HEMATOCRIT (test code = 1004) 44.4 % MCV (test code = 1005) 88.4 fL MCH (test code = 1006) 29.3 PG MCHC (test code = 1007) 33.1 G/DL RDW (test code = 1038) 13.6 % NEUTROPHILS (test code = 1008) 46 % LYMPHOCYTES (test code = 1010) 44 % MONOCYTES (test code = 1011) 7 % EOSINOPHILS (test code = 1012) 3 % PLATELET COUNT (test code = 1015) 291 K/UL Brian ClaytonCOMPREHENSIVE METABOLIC [id number] 00:00:00* Test Item Value Reference Range Interpretation Comme nts GLUCOSE (test code = 2217) 96 MG/DL BUN (test code = 2208) 13 MG/DL CREATININE (test code = 2214) 1.4 MG/DL eGFR AMER. (test cod e = 55142) 70 ML/MIN/1.73 eGFR NON- AMER. (test code = 05599) 58 ML/MIN/1.73 CALCULATED BUN/CREAT (test code = 2235) 9 RATIO SODIUM (test code = 2231) 137 MEQ/L POTASSIUM (test code = 2228) 4.2 MEQ/L CHLORIDE (test code = 2215) 103 MEQ/L CARBON DIOXIDE (test code = 2206) 24 MEQ/L CALCIUM (test code = 2209) 9.6 MG/DL PROTEIN, TOTAL (test code = 2229) 7.7 G/DL ALBUMIN (test code = 2201) 4.9 G/DL CALCULATED GLOBULIN (test co de = 2240) 2.8 G/DL CALCULATED A/G RATIO (test code = 2234) 1.8 RATIO BILIRUBIN, TOTAL (test code = 2207) 0.4 MG/DL ALKALINE PHOSPHATASE (test code = 2204) 63 U/L SGOT (AST) (test code = 2218) 49 U/L SGPT (ALT) (test code = 2219) 49 U/L Brian ClaytonLIPID [id number] 00:00:00* Test Item Value Reference Range Interpretation Comme nts CHOLESTEROL (test code = 2210) 180 MG/DL TRIGLYCERIDES (test code = 2232) 139 MG/DL HDL CHOLESTEROL (test code = 2220) 38 MG/DL CALCULATED LDL CHOL (test co de = 2237) 114 MG/DL RISK RATIO LDL/HDL (test cod e = 2238) 3.01 RATIO Brian ClaytonTHYROID II PROFILE (T3U, T4, T7, TSH)[id number] 00:00:00* Test Item Value Reference Range Interpretation Comme [facility] T3 UPTAKE (test code = 2817) 29.5 % T4 (THYROXINE) (test code = 2819) 7.5 UG/DL CALCULATED T7 (FTI) (test co de = 2820) 2.21 TSH (test code = 2821) 2.2 UIU/ML Brian ClaytonHEMOGLOBIN [id number] 00:00:00* Test Item Value Reference Range Interpretation Comme [facility] HEMOGLOBIN A1c (test code = 56366) 5.3 % Brian ClaytonCBC W/AUTO [id number] 00:00:00* Test Item Value Reference Range Interpretation Comme nts WBC (test code = 1001) 5.3 K/UL RBC (test code = 1002) 5.02 M/UL HEMOGLOBIN (test code = 1003) 14.7 G/DL HEMATOCRIT (test code = 1004) 44.4 % MCV (test code = 1005) 88.4 fL MCH (test code = 1006) 29.3 PG MCHC (test code = 1007) 33.1 G/DL RDW (test code = 1038) 13.6 % NEUTROPHILS (test code = 1008) 46 % LYMPHOCYTES (test code = 1010) 44 % MONOCYTES (test code = 1011) 7 % EOSINOPHILS (test code = 1012) 3 % PLATELET COUNT (test code = 1015) 291 K/UL Brian ClaytonTHYROID II PROFILE (T3U, T4, T7, TSH)2015-02-21 00:00:00* Test Item Value Reference Range Interpretation Comme nts T3 UPTAKE (test code = 2817) 29.5 % T4 (THYROXINE) (test code = 2819) 7.5 UG/DL CALCULATED T7 (FTI) (test co de = 2820) 2.21 TSH (test code = 2821) 2.2 UIU/ML Brian ClaytonCOMPREHENSIVE METABOLIC [id number] 00:00:00* Test Item Value Reference Range Interpretation Comme nts GLUCOSE (test code = 2217) 96 MG/DL BUN (test code = 2208) 13 MG/DL CREATININE (test code = 2214) 1.4 MG/DL eGFR AMER. (test cod e = 73443) 70 ML/MIN/1.73 eGFR NON- AMER. (test code = 76795) 58 ML/MIN/1.73 CALCULATED BUN/CREAT (test code = 2235) 9 RATIO SODIUM (test code = 2231) 137 MEQ/L POTASSIUM (test code = 2228) 4.2 MEQ/L CHLORIDE (test code = 2215) 103 MEQ/L CARBON DIOXIDE (test code = 2206) 24 MEQ/L CALCIUM (test code = 2209) 9.6 MG/DL PROTEIN, TOTAL (test code = 2229) 7.7 G/DL ALBUMIN (test code = 2201) 4.9 G/DL CALCULATED GLOBULIN (test co de = 2240) 2.8 G/DL CALCULATED A/G RATIO (test code = 2234) 1.8 RATIO BILIRUBIN, TOTAL (test code = 2207) 0.4 MG/DL ALKALINE PHOSPHATASE (test code = 2204) 63 U/L SGOT (AST) (test code = 2218) 49 U/L SGPT (ALT) (test code = 2219) 49 U/L Brian ClaytonLIPID [id number] 00:00:00* Test Item Value Reference Range Interpretation Comme nts CHOLESTEROL (test code = 2210) 180 MG/DL TRIGLYCERIDES (test code = 2232) 139 MG/DL HDL CHOLESTEROL (test code = 2220) 38 MG/DL CALCULATED LDL CHOL (test co de = 2237) 114 MG/DL RISK RATIO LDL/HDL (test cod e = 2238) 3.01 RATIO Brian ClaytonTHYROID II PROFILE (T3U, T4, T7, TSH)2015-02-21 00:00:00* Test Item Value Reference Range Interpretation Comme nts T3 UPTAKE (test code = 2817) 29.5 % T4 (THYROXINE) (test code = 2819) 7.5 UG/DL CALCULATED T7 (FTI) (test co de = 2820) 2.21 TSH (test code = 2821) 2.2 UIU/ML Brian ClaytonHEMOGLOBIN [id number] 00:00:00* Test Item Value Reference Range Interpretation Comme nts HEMOGLOBIN A1c (test code = 46368) 5.3 % Brian ClaytonCBC W/AUTO [id number] 00:00:00* Test Item Value Reference Range Interpretation Comme nts WBC (test code = 1001) 5.3 K/UL RBC (test code = 1002) 5.02 M/UL HEMOGLOBIN (test code = 1003) 14.7 G/DL HEMATOCRIT (test code = 1004) 44.4 % MCV (test code = 1005) 88.4 fL MCH (test code = 1006) 29.3 PG MCHC (test code = 1007) 33.1 G/DL RDW (test code = 1038) 13.6 % NEUTROPHILS (test code = 1008) 46 % LYMPHOCYTES (test code = 1010) 44 % MONOCYTES (test code = 1011) 7 % EOSINOPHILS (test code = 1012) 3 % PLATELET COUNT (test code = 1015) 291 K/UL Brain ClaytonCOMPREHENSIVE METABOLIC [id number] 00:00:00* Test Item Value Reference Range Interpretation Comme nts GLUCOSE (test code = 2217) 96 MG/DL BUN (test code = 2208) 13 MG/DL CREATININE (test code = 2214) 1.4 MG/DL eGFR AMER. (test cod e = 93116) 70 ML/MIN/1.73 eGFR NON- AMER. (test code = 22662) 58 ML/MIN/1.73 CALCULATED BUN/CREAT (test code = 2235) 9 RATIO SODIUM (test code = 2231) 137 MEQ/L POTASSIUM (test code = 2228) 4.2 MEQ/L CHLORIDE (test code = 2215) 103 MEQ/L CARBON DIOXIDE (test code = 2206) 24 MEQ/L CALCIUM (test code = 2209) 9.6 MG/DL PROTEIN, TOTAL (test code = 2229) 7.7 G/DL ALBUMIN (test code = 2201) 4.9 G/DL CALCULATED GLOBULIN (test co de = 2240) 2.8 G/DL CALCULATED A/G RATIO (test code = 2234) 1.8 RATIO BILIRUBIN, TOTAL (test code = 2207) 0.4 MG/DL ALKALINE PHOSPHATASE (test code = 2204) 63 U/L SGOT (AST) (test code = 2218) 49 U/L SGPT (ALT) (test code = 2219) 49 U/L Brian ClaytonLIPID [id number] 00:00:00* Test Item Value Reference Range Interpretation Comme nts CHOLESTEROL (test code = 2210) 180 MG/DL TRIGLYCERIDES (test code = 2232) 139 MG/DL HDL CHOLESTEROL (test code = 2220) 38 MG/DL CALCULATED LDL CHOL (test co de = 2237) 114 MG/DL RISK RATIO LDL/HDL (test cod e = 2238) 3.01 RATIO Brian ClaytonHEMOGLOBIN [id number] 00:00:00* Test Item Value Reference Range Interpretation Comme nts HEMOGLOBIN A1c (test code = 47554) 5.3 % Brian Pastrana ForrestCBC W/AUTO [id number] 00:00:00* Test Item Value Reference Range Interpretation Comme nts WBC (test code = 1001) 5.3 K/UL RBC (test code = 1002) 5.02 M/UL HEMOGLOBIN (test code = 1003) 14.7 G/DL HEMATOCRIT (test code = 1004) 44.4 % MCV (test code = 1005) 88.4 fL MCH (test code = 1006) 29.3 PG MCHC (test code = 1007) 33.1 G/DL RDW (test code = 1038) 13.6 % NEUTROPHILS (test code = 1008) 46 % LYMPHOCYTES (test code = 1010) 44 % MONOCYTES (test code = 1011) 7 % EOSINOPHILS (test code = 1012) 3 % PLATELET COUNT (test code = 1015) 291 K/UL Brian ClaytonCOMPREHENSIVE METABOLIC [id number] 00:00:00* Test Item Value Reference Range Interpretation Comme nts GLUCOSE (test code = 2217) 96 MG/DL BUN (test code = 2208) 13 MG/DL CREATININE (test code = 2214) 1.4 MG/DL eGFR AMER. (test cod e = 34525) 70 ML/MIN/1.73 eGFR NON- AMER. (test code = 76661) 58 ML/MIN/1.73 CALCULATED BUN/CREAT (test code = 2235) 9 RATIO SODIUM (test code = 2231) 137 MEQ/L POTASSIUM (test code = 2228) 4.2 MEQ/L CHLORIDE (test code = 2215) 103 MEQ/L CARBON DIOXIDE (test code = 2206) 24 MEQ/L CALCIUM (test code = 2209) 9.6 MG/DL PROTEIN, TOTAL (test code = 2229) 7.7 G/DL ALBUMIN (test code = 2201) 4.9 G/DL CALCULATED GLOBULIN (test co de = 2240) 2.8 G/DL CALCULATED A/G RATIO (test code = 2234) 1.8 RATIO BILIRUBIN, TOTAL (test code = 2207) 0.4 MG/DL ALKALINE PHOSPHATASE (test code = 2204) 63 U/L SGOT (AST) (test code = 2218) 49 U/L SGPT (ALT) (test code = 2219) 49 U/L Brian ClaytonLIPID [id number] 00:00:00* Test Item Value Reference Range Interpretation Comme nts CHOLESTEROL (test code = 2210) 180 MG/DL TRIGLYCERIDES (test code = 2232) 139 MG/DL HDL CHOLESTEROL (test code = 2220) 38 MG/DL CALCULATED LDL CHOL (test co de = 2237) 114 MG/DL RISK RATIO LDL/HDL (test cod e = 2238) 3.01 RATIO Brian ClaytonTHYROID II PROFILE (T3U, T4, T7, TSH)2015-02-21 00:00:00* Test Item Value Reference Range Interpretation Comme nts T3 UPTAKE (test code = 2817) 29.5 % T4 (THYROXINE) (test code = 2819) 7.5 UG/DL CALCULATED T7 (FTI) (test co de = 2820) 2.21 TSH (test code = 2821) 2.2 UIU/ML Brian ClaytonHEMOGLOBIN [id number] 00:00:00* Test Item Value Reference Range Interpretation Comme nts HEMOGLOBIN A1c (test code = 18070) 5.3 % Brian ClaytonCBC W/AUTO [id number] 00:00:00* Test Item Value Reference Range Interpretation Comme nts WBC (test code = 1001) 5.3 K/UL RBC (test code = 1002) 5.02 M/UL HEMOGLOBIN (test code = 1003) 14.7 G/DL HEMATOCRIT (test code = 1004) 44.4 % MCV (test code = 1005) 88.4 fL MCH (test code = 1006) 29.3 PG MCHC (test code = 1007) 33.1 G/DL RDW (test code = 1038) 13.6 % NEUTROPHILS (test code = 1008) 46 % LYMPHOCYTES (test code = 1010) 44 % MONOCYTES (test code = 1011) 7 % EOSINOPHILS (test code = 1012) 3 % PLATELET COUNT (test code = 1015) 291 K/UL Brian ClaytonCOMPREHENSIVE METABOLIC [id number] 00:00:00* Test Item Value Reference Range Interpretation Comme nts GLUCOSE (test code = 2217) 96 MG/DL BUN (test code = 2208) 13 MG/DL CREATININE (test code = 2214) 1.4 MG/DL eGFR AMER. (test cod e = 61176) 70 ML/MIN/1.73 eGFR NON- AMER. (test code = 83947) 58 ML/MIN/1.73 CALCULATED BUN/CREAT (test code = 2235) 9 RATIO SODIUM (test code = 2231) 137 MEQ/L POTASSIUM (test code = 2228) 4.2 MEQ/L CHLORIDE (test code = 2215) 103 MEQ/L CARBON DIOXIDE (test code = 2206) 24 MEQ/L CALCIUM (test code = 2209) 9.6 MG/DL PROTEIN, TOTAL (test code = 2229) 7.7 G/DL ALBUMIN (test code = 2201) 4.9 G/DL CALCULATED GLOBULIN (test co de = 2240) 2.8 G/DL CALCULATED A/G RATIO (test code = 2234) 1.8 RATIO BILIRUBIN, TOTAL (test code = 2207) 0.4 MG/DL ALKALINE PHOSPHATASE (test code = 2204) 63 U/L SGOT (AST) (test code = 2218) 49 U/L SGPT (ALT) (test code = 2219) 49 U/L Brian ClaytonLIPID [id number] 00:00:00* Test Item Value Reference Range Interpretation Comme nts CHOLESTEROL (test code = 2210) 180 MG/DL TRIGLYCERIDES (test code = 2232) 139 MG/DL HDL CHOLESTEROL (test code = 2220) 38 MG/DL CALCULATED LDL CHOL (test co de = 2237) 114 MG/DL RISK RATIO LDL/HDL (test cod e = 2238) 3.01 RATIO Brian ClaytonTHYROID II PROFILE (T3U, T4, T7, TSH)2015-02-21 00:00:00* Test Item Value Reference Range Interpretation Comme nts T3 UPTAKE (test code = 2817) 29.5 % T4 (THYROXINE) (test code = 2819) 7.5 UG/DL CALCULATED T7 (FTI) (test co de = 2820) 2.21 TSH (test code = 2821) 2.2 UIU/ML Brian ClaytonHEMOGLOBIN [id number] 00:00:00* Test Item Value Reference Range Interpretation Comme nts HEMOGLOBIN A1c (test code = 30877) 5.3 % Brian ClaytonCBC W/AUTO [id number] 00:00:00* Test Item Value Reference Range Interpretation Comme nts WBC (test code = 1001) 5.3 K/UL RBC (test code = 1002) 5.02 M/UL HEMOGLOBIN (test code = 1003) 14.7 G/DL HEMATOCRIT (test code = 1004) 44.4 % MCV (test code = 1005) 88.4 fL MCH (test code = 1006) 29.3 PG MCHC (test code = 1007) 33.1 G/DL RDW (test code = 1038) 13.6 % NEUTROPHILS (test code = 1008) 46 % LYMPHOCYTES (test code = 1010) 44 % MONOCYTES (test code = 1011) 7 % EOSINOPHILS (test code = 1012) 3 % PLATELET COUNT (test code = 1015) 291 K/UL Brian ClaytonCOMPREHENSIVE METABOLIC [id number] 00:00:00* Test Item Value Reference Range Interpretation Comme nts GLUCOSE (test code = 2217) 96 MG/DL BUN (test code = 2208) 13 MG/DL CREATININE (test code = 2214) 1.4 MG/DL eGFR AMER. (test cod e = 17202) 70 ML/MIN/1.73 eGFR NON- AMER. (test code = 74939) 58 ML/MIN/1.73 CALCULATED BUN/CREAT (test code = 2235) 9 RATIO SODIUM (test code = 2231) 137 MEQ/L POTASSIUM (test code = 2228) 4.2 MEQ/L CHLORIDE (test code = 2215) 103 MEQ/L CARBON DIOXIDE (test code = 2206) 24 MEQ/L CALCIUM (test code = 2209) 9.6 MG/DL PROTEIN, TOTAL (test code = 222) 7.7 G/DL ALBUMIN (test code = 2201) 4.9 G/DL CALCULATED GLOBULIN (test co de = 2240) 2.8 G/DL CALCULATED A/G RATIO (test code = 2234) 1.8 RATIO BILIRUBIN, TOTAL (test code = 2207) 0.4 MG/DL ALKALINE PHOSPHATASE (test code = 2204) 63 U/L SGOT (AST) (test code = 2218) 49 U/L SGPT (ALT) (test code = 2219) 49 U/L Brian Pastrana AustinLIPID [id number] 00:00:00* Test Item Value Reference Range Interpretation Comme nts CHOLESTEROL (test code = 2210) 180 MG/DL TRIGLYCERIDES (test code = 2232) 139 MG/DL HDL CHOLESTEROL (test code = 2220) 38 MG/DL CALCULATED LDL CHOL (test co de = 2237) 114 MG/DL RISK RATIO LDL/HDL (test cod e = 2238) 3.01 RATIO Brian ClaytonTHYROID II PROFILE (T3U, T4, T7, TSH)2015-02-21 00:00:00* Test Item Value Reference Range Interpretation Comme nts T3 UPTAKE (test code = 2817) 29.5 % T4 (THYROXINE) (test code = 2819) 7.5 UG/DL CALCULATED T7 (FTI) (test co de = 2820) 2.21 TSH (test code = 2821) 2.2 UIU/ML Brian Pastrana ForrestHEMOGLOBIN [id number] 00:00:00* Test Item Value Reference Range Interpretation Comme nts HEMOGLOBIN A1c (test code = 19562) 5.3 % Brian ClaytonCBC W/AUTO [id number] 00:00:00* Test Item Value Reference Range Interpretation Comme nts WBC (test code = 1001) 5.3 K/UL RBC (test code = 1002) 5.02 M/UL HEMOGLOBIN (test code = 1003) 14.7 G/DL HEMATOCRIT (test code = 1004) 44.4 % MCV (test code = 1005) 88.4 fL MCH (test code = 1006) 29.3 PG MCHC (test code = 1007) 33.1 G/DL RDW (test code = 1038) 13.6 % NEUTROPHILS (test code = 1008) 46 % LYMPHOCYTES (test code = 1010) 44 % MONOCYTES (test code = 1011) 7 % EOSINOPHILS (test code = 1012) 3 % PLATELET COUNT (test code = 1015) 291 K/UL Brian Pastrana ForrestCOMPREHENSIVE METABOLIC [id number] 00:00:00* Test Item Value Reference Range Interpretation Comme nts GLUCOSE (test code = 2217) 96 MG/DL BUN (test code = 2208) 13 MG/DL CREATININE (test code = 2214) 1.4 MG/DL eGFR AMER. (test cod e = 64956) 70 ML/MIN/1.73 eGFR NON- AMER. (test code = 00557) 58 ML/MIN/1.73 CALCULATED BUN/CREAT (test code = 2235) 9 RATIO SODIUM (test code = 2231) 137 MEQ/L POTASSIUM (test code = 2228) 4.2 MEQ/L CHLORIDE (test code = 2215) 103 MEQ/L CARBON DIOXIDE (test code = 2206) 24 MEQ/L CALCIUM (test code = 2209) 9.6 MG/DL PROTEIN, TOTAL (test code = 2229) 7.7 G/DL ALBUMIN (test code = 2201) 4.9 G/DL CALCULATED GLOBULIN (test co de = 2240) 2.8 G/DL CALCULATED A/G RATIO (test code = 2234) 1.8 RATIO BILIRUBIN, TOTAL (test code = 2207) 0.4 MG/DL ALKALINE PHOSPHATASE (test code = 2204) 63 U/L SGOT (AST) (test code = 2218) 49 U/L SGPT (ALT) (test code = 2219) 49 U/L Brian ClaytonLIPID [id number] 00:00:00* Test Item Value Reference Range Interpretation Comme nts CHOLESTEROL (test code = 2210) 180 MG/DL TRIGLYCERIDES (test code = 2232) 139 MG/DL HDL CHOLESTEROL (test code = 2220) 38 MG/DL CALCULATED LDL CHOL (test co de = 2237) 114 MG/DL RISK RATIO LDL/HDL (test cod e = 2238) 3.01 RATIO Brian ClaytonTHYROID II PROFILE (T3U, T4, T7, TSH)2015-02-21 00:00:00* Test Item Value Reference Range Interpretation Comme nts T3 UPTAKE (test code = 2817) 29.5 % T4 (THYROXINE) (test code = 2819) 7.5 UG/DL CALCULATED T7 (FTI) (test co de = 2820) 2.21 TSH (test code = 2821) 2.2 UIU/ML Brian ClaytonHEMOGLOBIN [id number] 00:00:00* Test Item Value Reference Range Interpretation Comme rosa HEMOGLOBIN A1c (test code = 13162) 5.3 % Brian ClaytonCBC W/AUTO [id number] 00:00:00* Test Item Value Reference Range Interpretation Comme nts WBC (test code = 1001) 5.3 K/UL RBC (test code = 1002) 5.02 M/UL HEMOGLOBIN (test code = 1003) 14.7 G/DL HEMATOCRIT (test code = 1004) 44.4 % MCV (test code = 1005) 88.4 fL MCH (test code = 1006) 29.3 PG MCHC (test code = 1007) 33.1 G/DL RDW (test code = 1038) 13.6 % NEUTROPHILS (test code = 1008) 46 % LYMPHOCYTES (test code = 1010) 44 % MONOCYTES (test code = 1011) 7 % EOSINOPHILS (test code = 1012) 3 % PLATELET COUNT (test code = 1015) 291 K/UL Brian ClaytonCOMPREHENSIVE METABOLIC [id number] 00:00:00* Test Item Value Reference Range Interpretation Comme nts GLUCOSE (test code = 2217) 96 MG/DL BUN (test code = 2208) 13 MG/DL CREATININE (test code = 2214) 1.4 MG/DL eGFR AMER. (test cod e = ) 70 ML/MIN/1.73 eGFR NON- AMER. (test code = 40905) 58 ML/MIN/1.73 CALCULATED BUN/CREAT (test code = 2235) 9 RATIO SODIUM (test code = 2231) 137 MEQ/L POTASSIUM (test code = 2228) 4.2 MEQ/L CHLORIDE (test code = 2215) 103 MEQ/L CARBON DIOXIDE (test code = 2206) 24 MEQ/L CALCIUM (test code = 2209) 9.6 MG/DL PROTEIN, TOTAL (test code = 222) 7.7 G/DL ALBUMIN (test code = 220) 4.9 G/DL CALCULATED GLOBULIN (test co de = 2240) 2.8 G/DL CALCULATED A/G RATIO (test code = 2234) 1.8 RATIO BILIRUBIN, TOTAL (test code = 2206) 0.4 MG/DL ALKALINE PHOSPHATASE (test code = 2203) 63 U/L SGOT (AST) (test code = 2218) 49 U/L SGPT (ALT) (test code = 2219) 49 U/L Brian Pastrana AustinLIPID [id number] 00:00:00* Test Item Value Reference Range Interpretation Comme nts CHOLESTEROL (test code = 2210) 180 MG/DL TRIGLYCERIDES (test code = 2232) 139 MG/DL HDL CHOLESTEROL (test code = 2220) 38 MG/DL CALCULATED LDL CHOL (test co de = 2237) 114 MG/DL RISK RATIO LDL/HDL (test cod e = 2238) 3.01 RATIO Brian ClaytonTHYROID II PROFILE (T3U, T4, T7, TSH)2015-02-21 00:00:00* Test Item Value Reference Range Interpretation Comme [facility] T3 UPTAKE (test code = 2817) 29.5 % T4 (THYROXINE) (test code = 2819) 7.5 UG/DL CALCULATED T7 (FTI) (test co de = 2820) 2.21 TSH (test code = 2821) 2.2 UIU/ML Brian ClaytonHEMOGLOBIN [id number] 00:00:00* Test Item Value Reference Range Interpretation Comme nts HEMOGLOBIN A1c (test code = 26226) 5.3 % [facility] [id number] 00:00:00* Test Item Value Reference Range Interpretation Comme nts WBC (test code = 1001) 5.3 K/UL RBC (test code = 1002) 5.02 M/UL HEMOGLOBIN (test code = 1003) 14.7 G/DL HEMATOCRIT (test code = 1004) 44.4 % MCV (test code = 1005) 88.4 fL MCH (test code = 1006) 29.3 PG MCHC (test code = 1007) 33.1 G/DL RDW (test code = 1038) 13.6 % NEUTROPHILS (test code = 1008) 46 % LYMPHOCYTES (test code = 1010) 44 % MONOCYTES (test code = 1011) 7 % EOSINOPHILS (test code = 1012) 3 % PLATELET COUNT (test code = 1015) 291 K/UL Brian Clayton
[2024-11-30 19:29] LABS: Absolute Basophils 0.1 K/uL (0-0.5); Absolute Eosinophils 0.2 K/uL (0-0.5); Absolute Monocytes 0.7 K/uL (0.1-1.3); Absolute Neutrophil 3.7 K/uL (1.8-8.0); Basophils % 0.8 % (0-1.3); Eosinophils % 2.7 % (0-4.4); Hemoglobin 14.5 g/dL (13.6-17.9); Lymphocytes % 30.4 % (15.3-44.8); MCH 30.7 pg (27.0-35.0); MCHC 35.2 g/dL (32.0-36.0); MPV 6.8 fL (7.6-11.3); Monocytes % 10.1 % (3.3-12.3); Nucleated Red Blood Cells % 0.1 % (0-0); Platelets 301 thou/uL (152-406); RBC Red Blood Cell Count 4.72 M/uL (4.33-5.43); Red Cell Distribution Width 12.5 % (12.1-15.2)
[2024-11-30 19:36] LABS: Barbiturates NEGATIVE (NEGATIVE); Benzodiazepines NEGATIVE (NEGATIVE); Cocaine NEGATIVE (NEGATIVE); METHAMPHETAM POSITIVE (NEGATIVE); Methadone NEGATIVE (NEGATIVE); Opiates NEGATIVE (NEGATIVE); Phencyclidine NEGATIVE (NEGATIVE); THC Cannibis NEGATIVE (NEGATIVE)
[2024-11-30 19:38] LABS: PTT, Activated Partial Thromb 31.4 SECONDS (24.3-36.9); Protime INR 1.05
[2024-11-30 19:47] LABS: ALT/SGPT 65 U/L (16-61); AST/SGOT 68 U/L (15-37); Albumin 3.8 g/dL (3.4-5.0); Albumin/Globulin Ratio 0.8 (1.1-1.8); Alkaline Phosphatase 103 U/L (45-117); BUN Blood Urea Nitrogen 14 mg/dL (7-18); Bicarbonate 23 mEq/L (21-32); Bilirubin Total 0.3 mg/dL (0.2-1.0); Globulin 4.8 g/dL (2.3-3.5); Glomerular Filtration Rate 87 ml/min (=/>90); Glucose Level 88 mg/dL (74-106); Magnesium 2.1 mg/dL (1.6-2.4); Protein, Total 8.6 g/dL (6.4-8.2); Sodium Level 137 mEq/L (136-145)
[2024-11-30 19:48] LABS: Bilirubin Direct < 0.2 mg/dL (0-0.2); Bilirubin Indirect, Calculated 0.1 mg/dL (0.2-0.8); Troponin High Sensitivity < 3.0 pg/mL (<58.9)
--- NOTE | 2024-11-30 20:24 | RAD REPORT ---
EXAMINATION: CT HEAD WITHOUT CONTRAST CT CERVICAL SPINE WITHOUT CONTRAST CLINICAL INDICATION: Male, 44 years old. facial swelling, neck pain TECHNIQUE: Axial CT images from the skull base to the vertex without intravenous contrast. Axial CT i mages through the cervical spine were obtained without intravenous contrast. Sagittal and coronal reformatted images were created from the data set. Coronal and sagittal reformatted images were creat ed from the data set. One or more of the following dose reduction techniques were used: Automated exposure control, adjustment of the mA and/or kV according to patient size, and/or iterative reconstr uction. Unless otherwise specified, incidental findings do not require dedicated imaging follow-up. [id number]. COMPARISON: No prior exam. FINDINGS: Head: INTRACRANIAL: No acute intracranial hemorrhage. No hydrocephalus. No mass effect or midline shift. No significant white matter disease VASCULATURE: No visualized abnormalities in the arteries or dural venous sinuses. SCALP/SKULL: No significant soft tissue or osseous abnormalities. SINUSES: The visualized paranasal sinuses and mastoid air cells are predominantly clear. Cervical spine: ALIGNMENT: The cervical spine has normal alignment without scoliosis or spondylolisthesis. BONE: Vertebral body heights are maintained. No aggressive osseous lesions. DEGENERATIVE CHANGES: Minimal cervical spondylosis but without significant neural foraminal narrowing or central spinal stenosis. SOFT TISSUE: No significant abnormalities in the soft tissue of the neck. The visualized lung apices are clear. IMPRESSION: No acute intracranial abnormality. No acute fracture or traumatic malalignment of the cervical spine.
--- NOTE | 2024-11-30 20:26 | RAD REPORT ---
EXAMINATION: CTA NECK CLINICAL INDICATION: Male, 44 years old. PAIN TECHNIQUE: Axial CT images were obtained from the aortic arch to the skull base after intravenous con trast utilizing angiographic protocol with 3D post-processing (maximum intensity projection images, volume rendered images and/or shaded surface rendered images). One or more of the following dose redu ction techniques were used: Automated exposure control, adjustment of the mA and/or kV according to patient size, and/or iterative reconstruction. Unless otherwise specified, incidental findings do not require dedicated imaging follow-up. [id number]. NASCET criteria used. Mild 0-49% stenosis Moderate 50-69% stenosis Severe 70-99% stenosis COMPARISON: No prior exam. FINDINGS: AORTA: The imaged aortic arch is normal. CCA: The common carotid arteries are patent and normal in caliber. ICA/ECA: Bilateral internal and external carotid arteries are patent. There is no significant interna l carotid artery stenosis. Where applicable, degree of stenosis is measured using NASCET-like criteria. VERTEBRAL: Left dominant vertebral artery. Both vertebral arteries are patent. SOFT TISSUE: No significant neck soft tissue abnormalities. The visualized lung apices are clear. 3D images confirm these findings. IMPRESSION: Normal neck CTA. No stenosis or dissection.
--- NOTE | 2024-11-30 20:27 | RAD REPORT ---
EXAMINATION: CTA HEAD CLINICAL INDICATION: Male, 44 years old. SYNCOPE TECHNIQUE: Axial CT images were obtained through the head after intravenous contrast utilizing angiog raphic protocol with 3D post-processing (maximum intensity projection images, volume rendered images and/or shaded surface rendered images). One or more of the following dose reduction technique s were used: Automated exposure control, adjustment of the mA and/or kV according to patient size, and/or iterative reconstruction. Unless otherwise specified, incidental findings do not require dedic ated imaging follow-up. COMPARISON: No prior exam. FINDINGS: ICA: The petrous, cavernous, and supraclinoid segments of the bilateral internal carotid arteries are normal. The ophthalmic artery origins are visualized and normal. The posterior communicating arteries are patent. MELLY: Anterior cerebral arteries are normal bilaterally. The anterior communicating artery is patent. MCA: Middle cerebral arteries are normal bilaterally. [employer]: Posterior cerebral arteries are normal bilaterally. Vertebrobasilar: The vertebral arteries are patent. The basilar artery is normal in appearance. Left dominant vertebral artery. 3D images confirm these findings. IMPRESSION: No occlusion, aneurysm, or hemodynamically significant stenosis identified.
--- NOTE | 2024-11-30 22:24 | ER ---
Nurse's Notes [facility] Name: Jun Villeda Age: 44 yrs Sex: Male : 1980 Arrival Date: 11/30/2024 Time: 18:19 Bed 15 Private MD: Diagnosis: Cervicalgia Presentation: 11/30 18:29 Chief complaint: Patient states: Fatigue, L sided neck pain, generalized facial ll1 swelling for 2-3 days. Coronavirus screen: Client denies travel out of the [place] in the last 14 days. fatigue, muscle pain, Client presents with at least one sign or symptom that may indicate coronavirus-19. Standard/surgical mask placed on the client. Ebola Screen: Patient denies travel to an Ebola-affected area in the 21 days before illness onset. Initial Sepsis Screen: Does the patient meet any 2 criteria? No. Patient's initial sepsis screen is negative. Does the patient have a suspected source of infection? No. Patient's initial sepsis screen is negative. Risk Assessment: Do you want to hurt yourself or someone else? Patient reports no desire to harm self or others. Onset of symptoms was November 28, 2024. 18:29 Method Of Arrival: Ambulatory ll1 18:29 Acuity: KRISH 3 ll1 Triage Assessment: 18:33 General: Appears uncomfortable, Behavior is calm, cooperative, appropriate for age. ll1 General: Reports fatigue for. Pain: Complains of pain in L side of neck Quality of pain is described as aching. Neuro: Reports headache. Musculoskeletal: Reports pain in L side of neck. Historical: - Allergies: 18:31 No Known Drug Allergies; ll1 - PMHx: 18:31 Hypertensive disorder; ll1 - Immunization history:: Adult Immunizations up to date. - Infectious Disease History:: Denies. - Social history:: Smoking status: Reported history of juuling and/or vaping. Patient/guardian denies using tobacco. Screenin:40 [facility] ED Fall Risk Assessment (Adult) History of falling in the last 3 months, dd2 including since admission No falls in past 3 months (0 pts) Confusion or Disorientation No (0 pts) Intoxicated or Sedated No (0 pts) Impaired Gait No (0 pts) Mobility Assist Device Used No (0 pt) Altered Elimination No (0 pt) Score/Fall Risk Level 0 - 2 = Low Risk Oriented to surroundings, Maintained a safe environment, Educated pt \T\ family on fall prevention, incl call for assistance when getting out of bed, Assessed \T\ reinforced patient's understanding of fall precautions, Hourly rounding (assess needs \T\ fall precautionary measures) done. Abuse screen: Denies threats or abuse. Nutritional screening: No deficits noted. Tuberculosis screening: No symptoms or risk factors identified. Assessment: 20:16 General: Appears in no apparent distress. uncomfortable, ill. Pain: Complains of pain al5 in right temporal area and left temporal area. Neuro: Level of Consciousness is awake, alert, obeys commands, Oriented to person, place, time, situation. Cardiovascular: Capillary refill < 3 seconds Patient's skin is warm and dry. Respiratory: Airway is patent Respiratory effort is even, unlabored, Respiratory pattern is regular, symmetrical. GI: No signs and/or symptoms were reported involving the gastrointestinal system. : No signs and/or symptoms were reported regarding the genitourinary system. EENT: Reports pain in head and jaw. Derm: Skin is intact, is healthy with good turgor, Skin is pink, warm \T\ dry. normal. Musculoskeletal: No signs and/or symptoms reported regarding the musculoskeletal system. Vital Signs: 18:29 BP 151 / 104; Pulse 88; Resp 17; Temp 98; Pulse Ox 99% ; Pain 5/10; ll1 20:17 BP 138 / 100; Pulse 79; Resp 18; Temp 98.2; Pulse Ox 100% on R/A; al5 21:40 BP 127 / 84; Pulse 82 MON; Resp 17; Pulse Ox 99% on R/A; dd2 22:57 BP 121 / 78; Pulse 78; Resp 16; Temp 98; Pulse Ox 100% on R/A; dd2 18:29 Pain Scale: Adult ll1 ED Course: 18:23 Patient arrived in ED. ra3 18:23 Eda Castillo PA-C is PHCP. sb4 18:23 Chloé Bland MD is Attending Physician. sb4 18:31 Triage completed. ll1 18:33 Arm band placed on. ll1 19:16 Inserted saline lock: 20 gauge in left antecubital area, using aseptic technique. Blood sa1 collected. Flushed with 10 mL NS. 19:17 Initial lab(s) drawn, by me, sent to lab. Urine collected: clean catch specimen, clear. sa1 19:24 Basic Metabolic Panel Sent. sa1 19:24 CBC with Diff Sent. sa1 19:24 Hepatic Function Sent. sa1 19:24 High Sensitivity Troponin Sent. sa1 19:24 Magnesium Sent. sa1 19:24 Protime (+inr) Sent. sa1 19:24 Ptt, Activated Sent. sa1 19:24 UDS Sent. sa1 20:09 CT Head Angio In Process Unspecified. EDMS 20:09 CT Neck Angio In Process Unspecified. EDMS 20:09 CT Head C Spine In Process Unspecified. EDMS 20:41 SHOAIB RAMÍREZ, RN is Primary Nurse. dd2 21:39 No provider procedures requiring assistance completed. EKG done, by ED staff, reviewed dd2 by Eda Castillo PA-C. 21:40 Patient has correct armband on for positive identification. Bed in low position. Call dd2 light in reach. Side rails up X 1. Client placed on continuous cardiac and pulse oximetry monitoring. NIBP monitoring applied. monitoring and evaluation advisor on. Door closed. Noise minimized. Pillow given. Verbal reassurance given. 21:40 Patient maintains SpO2 saturation greater than 95% on room air. dd2 22:57 Provided Education on: D/C EDUCATION. dd2 22:57 IV discontinued, intact, bleeding controlled, No redness/swelling at site. Pressure dd2 dressing applied. Administered Medications: No medications were administered Medication: 22:16 VIS not applicable for this client. dd2 Outcome: 22:23 Discharge ordered by . sb4 22:57 Discharged to home ambulatory, dd2 22:57 Condition: stable 22:57 Discharge instructions given to patient, Instructed on discharge instructions, follow up and referral plans. medication usage, Demonstrated understanding of medications, Prescriptions given X 2, 23:06 Patient left the ED. dd2 Signatures: Dispatcher [employer] EDMS Adeel Farris, RN RN ll1 Eda Castillo PA-C PA-C sb4 Renee Espinoza ra3 Roya Castillo RN RN al5 Sultan Jolanta sa1 SHOAIB RAMÍREZ, RN RN dd2 Corrections: (The following items were deleted from the chart) 18:34 18:31 Social history: Smoking status: Patient denies any tobacco usage or history of. ll1 ll1
--- NOTE | 2024-11-30 22:24 | EDPHYS ---
Physician Documentation [facility] Name: Jun Villeda Age: 44 yrs Sex: Male : 1980 Arrival Date: 11/30/2024 Time: 18:19 Bed 15 Private MD: ED Physician Chloé Bland HPI: 11/30 18:52 This 44 yrs old Male presents to ER via Ambulatory with complaints of Facial sb4 Swelling - Neck pain. 18:52 Patient complains of pain and swelling in his bilateral temples. He denies any injury, sb4 redness, warmth to the area. Denies fever or chills. Additionally, he reports left sided posterior neck pain. Also reports feeling very weak and intermittent episodes of confusion over the past few days. Reports his only medical history is hypertension and is compliant with medications. Historical: - Allergies: 18:31 No Known Drug Allergies; ll1 - PMHx: 18:31 Hypertensive disorder; ll1 - Immunization history:: Adult Immunizations up to date. - Infectious Disease History:: Denies. - Social history:: Smoking status: Reported history of juuling and/or vaping. Patient/guardian denies using tobacco. ROS: 18:52 Constitutional: Negative for fever, chills, and weight loss, sb4 18:52 Neck: Positive for pain with movement, pain at rest, 18:52 Neuro: Positive for weakness, 18:52 All other systems are negative, Exam: 18:54 Head/Face: Normocephalic, atraumatic. Eyes: Extra-ocular motions intact. Periorbital sb4 areas with no swelling, redness, or edema. ENT: Mucous membranes moist. Cardiovascular: Regular rate and rhythm with a normal S1 and S2. Respiratory: No increased work of breathing, no retractions or nasal flaring. Abdomen/GI: Soft, non-tender, no distension. Skin: Warm, dry with normal turgor. Normal color with no rashes, no lesions, and no evidence of cellulitis. MS/ Extremity: Pulses equal, no cyanosis. Neurovascular intact. Full, normal range of motion. Neuro: Awake and alert, GCS 15, oriented to person, place, time, and situation. Motor strength 5/5 in all extremities. Sensory grossly intact. 18:54 Constitutional: The patient appears in no acute distress, alert, awake, obese, 18:54 Head/face: Noted is tenderness, that is mild, of the left temporal area and right temporal area, Vital Signs: 18:29 BP 151 / 104; Pulse 88; Resp 17; Temp 98; Pulse Ox 99% ; Pain 5/10; ll1 20:17 BP 138 / 100; Pulse 79; Resp 18; Temp 98.2; Pulse Ox 100% on R/A; al5 21:40 BP 127 / 84; Pulse 82 MON; Resp 17; Pulse Ox 99% on R/A; dd2 22:57 BP 121 / 78; Pulse 78; Resp 16; Temp 98; Pulse Ox 100% on R/A; dd2 18:29 Pain Scale: Adult ll1 MDM: 18:25 Medical Screening Exam initiated sb4 22:52 Data reviewed: vital signs, nurses notes, lab test result(s), EKG, radiologic studies, sb4 and as a result, I will discharge patient. Counseling: I had a detailed discussion with the patient and/or guardian regarding the historical points, exam findings, and any diagnostic results supporting the discharge/admit diagnosis, lab results, radiology results, the need for outpatient follow up, for definitive care, to return to the emergency department if symptoms worsen or persist or if there are any questions or concerns that arise at home. 11/30 18:37 Order name: Basic Metabolic Panel; Complete Time: 19:50 sb4 11/30 18:37 Order name: CBC with Diff; Complete Time: 19:30 sb4 11/30 18:37 Order name: Hepatic Function; Complete Time: 19:50 sb4 11/30 18:37 Order name: High Sensitivity Troponin; Complete Time: 19:50 sb4 11/30 18:37 Order name: Magnesium; Complete Time: 19:50 sb4 11/30 18:37 Order name: Protime (+inr); Complete Time: 19:50 sb4 11/30 18:37 Order name: Ptt, Activated; Complete Time: 19:50 sb4 11/30 18:37 Order name: UDS; Complete Time: 19:50 sb4 11/30 18:37 Order name: CT Head Angio; Complete Time: 20:27 sb4 11/30 18:37 Order name: CT Neck Angio; Complete Time: 20:27 sb4 11/30 18:37 Order name: CT Head C Spine; Complete Time: 20:27 sb4 11/30 18:37 Order name: Cardiac monitoring; Complete Time: 21:14 sb4 11/30 18:37 Order name: EKG - Nurse/Tech; Complete Time: 21:39 sb4 11/30 18:37 Order name: IV Saline Lock; Complete Time: 19:24 sb4 11/30 18:37 Order name: Labs collected and sent; Complete Time: 19:24 sb4 11/30 18:37 Order name: O2 Per Protocol; Complete Time: 21:15 sb4 11/30 18:37 Order name: O2 Sat Monitoring; Complete Time: 21:15 sb4 EC/01 01:44 Rate is 70 beats/min. Rhythm is regular, Normal Sinus Rhythm. GA interval is normal at sb4 142 msec. QRS interval is normal at 80 msec. QT interval is normal at 406 msec. No Q waves. T waves are Normal. No ST changes noted. Clinical impression: Normal ECG. Interpreted by me. Reviewed by me. Administered Medications: No medications were administered Disposition Summary: 11/30/24 22:23 Discharge Ordered Notes: Location: Home sb4 Problem: new sb4 Symptoms: are unchanged sb4 Condition: Stable sb4 Diagnosis - Cervicalgia sb4 Followup: sb4 - With: Private Physician - When: As needed - Reason: Recheck today's complaints, Re-evaluation by your physician Discharge Instructions: - Discharge Summary Sheet sb4 - Musculoskeletal Pain sb4 - Pain Without a Known Cause sb4 - Neck Exercises sb4 Forms: - Patient Portal Instructions sb4 - Leadership Thank You Letter sb4 Prescriptions: - Ibuprofen 600 mg Oral Tablet - take 1 tablet ORAL route every 6 hours As needed take with food; 30 tablet; sb4 Refills: 0, Product Selection Permitted - Cyclobenzaprine 10 mg Oral Tablet - take 1 tablet ORAL route every 8 hours As needed; 30 tablet; Refills: 0, sb4 Product Selection Permitted Signatures: Dispatcher [employer] Adeel Jack RN RN [email or web address] Eda Castillo PA-C PAEmir sb4 SHOAIB RAMÍREZ RN RN dd2 Corrections: (The following items were deleted from the chart) 11/30 18:34 18:31 Social history: Smoking status: Patient denies any tobacco usage or history of. ll1 ll1 18:37 18:37 Head C Spine MPR Wo Con+CT.RAD.BRZ ordered. EDMS EDMS : 18:37 NPO ordered. sb4 sb4 18:37 Stroke Swallow Screen ordered. sb4 sb4 21:15 18:37 Accucheck ordered. sb4 dd2
[2024-11-30 23:46] VITALS: BP 121/78; TEMP 98; O2SAT 100
== END 2024-11-30 23:06 | disposition home or self-care (01) ==
LOC: ER 18:19
DX: M54.2 Cervicalgia (principal); R53.1 Weakness; I10 Essential (primary) hypertension
CPT/HCPCS: 85025; 80048; 36415; 83735; 85610; 80076; 85730; 84484; 80307; 70450; 72125; 70496; 70498; 99284; Q9967; 93005